=== PATIENT | female | born 1945 | race African-American/Black ===

== ENCOUNTER → 2019-02-03 | Outpatient (CLI) | payer MEDICARE, OTHER ==
[2016-01-02 23:25] VITALS: BP 197/90
--- NOTE | 2019-02-03 13:43 | CARD ---
MR#: [id number] Date of Study: 02/03/2019 Ordering Physician: CALEB CORONADO, Referring Physician: CALEB CORONADO, Tech: Vida Swann [facility] APPROVED REPORT EXAM: Two-dimensional and M-mode echocardiogram with Doppler and color Doppler. Other Information Quality : AverageHR: 77bpm Rhythm : NSR INDICATION Cardiomyopathy 2D DIMENSIONS RVDd3.0 (2.9-3.5cm)Left Atrium(2D)3.3 (1.6-4.0cm) IVSd1.3 (0.7-1.1cm)Aortic Root(2D)2.6 (2.0-3.7cm) LVDd4.1 (3.9-5.9cm)LVOT Diameter1.8 (1.8-2.4cm) PWd1.2 (0.7-1.1cm)LVDs2.9 (2.5-4.0cm) FS (%) 28.2 %SV39.9 ml LVEF(%)54.9 (>50%) M-Mode DIMENSIONS Left Atrium(MM)3.54 (2.5-4.0cm)Aortic Root3.19 (2.2-3.7cm) Aortic Valve AoV Peak Shon.106.0cm/sAoV VTI23.8cm AO Peak GR.4.5mmHgLVOT Peak Hson.72.6cm/s AO Mean GR.2mmHgAVA (VMAX)1.81cm2 PAVEL (VTI)1.80cm2 Mitral Valve MV E Pkhiwucp95.5cm/sMV DECEL HMFB137vl MV A Xaatyxfy559.6cm/sE/A Ratio0.5 Pulmonary Valve PV Peak Bfnmmpls24.8cm/s Tricuspid Valve TR P. Qwlqxpgz655ef/sRAP FXWYZIEI4ueIh TR Peak Gr.69wtJzLESS41koGu LEFT VENTRICLE The left ventricle is normal size. There is mild concentric left ventricular hypertrophy. Left ventri tayler systolic function is low normal. The Ejection Fraction is 50-55%. There is normal LV segmental wa ll motion. Transmitral Doppler flow pattern is Grade I-abnormal relaxation pattern. RIGHT VENTRICLE The right ventricle is normal size. There is normal right ventricular wall thickness. The right ventr icular systolic function is normal. ATRIA The left atrium size is normal. The right atrium size is normal. The interatrial septum is intact wit h no evidence for an atrial septal defect or patent foramen ovale as noted on 2-D or Doppler imaging. AORTIC VALVE The aortic valve is thickened but opens well. The aortic valve is trileaflet. Doppler and Color Flow revealed trace aortic regurgitation. There is no significant aortic valvular stenosis. There is no ao rtic valvular vegetation. MITRAL VALVE The mitral valve is normal in structure and function. There is no evidence of mitral valve prolapse. There is no mitral valve stenosis. Doppler and Color-flow revealed mild mitral regurgitation. TRICUSPID VALVE The tricuspid valve is normal in structure and function. Doppler and Color Flow revealed trace tricus pid regurgitation. The PA pressure was estimated at 29 mmHg. There is no tricuspid valve prolapse or vegetation. There is no tricuspid valve stenosis. PULMONIC VALVE The pulmonic valve is not well visualized. GREAT VESSELS The aortic root is normal in size. The ascending aorta is normal in size. The IVC is normal in size a nd collapses >50% with inspiration. PERICARDIAL EFFUSION There is no evidence of significant pericardial effusion. Critical Notification Critical Value: No <Conclusion> Left ventricle systolic function is low normal. The Ejection Fraction is 50-55%. There is normal LV segmental wall motion. Transmitral Doppler flow pattern is Grade I-abnormal relaxation pattern. Trace aortic regurgitation. Mild mitral regurgitation. Trace tricuspid regurgitation. The PA pressure was estimated at 29 mmHg. There is no evidence of significant pericardial effusion. Signed by : Mani Roberson, Electronically Approved : 02/03/2019 13:43:06
== END | disposition home or self-care (01) ==
LOC: ECHO 12:20
PROVIDERS: ATTEND Internal Medicine Cardiovascular Disease
DX: I34.0 Nonrheumatic mitral (valve) insufficiency (principal)
CPT/HCPCS: 93306

== ENCOUNTER → 2020-03-06 | Outpatient (CLI) | payer OTHER, MEDICAID ==
[2016-01-02 23:25] VITALS: BP 197/90
--- NOTE | 2020-03-06 16:03 | CARD ---
MR#: [id number] Date of Study: 03/06/2020 Ordering Physician: CALEB BILLY, Referring Physician: CALEB BILLY, Tech: Anay Gabriel APPROVED REPORT EXAM: Two-dimensional and M-mode echocardiogram with Doppler and color Doppler. Other Information Quality : AverageHR: 66bpm INDICATION Cardiomyopathy RISK FACTORS Hypertension Diabetes 2D DIMENSIONS RVDd3.1 (2.9-3.5cm)Left Atrium(2D)3.1 (1.6-4.0cm) IVSd1.2 (0.7-1.1cm)Aortic Root(2D)3.1 (2.0-3.7cm) LVDd3.9 (3.9-5.9cm)LVOT Diameter1.9 (1.8-2.4cm) PWd1.1 (0.7-1.1cm)LVDs2.5 (2.5-4.0cm) FS (%) 35.7 %SV42.3 ml Aortic Valve AoV Peak Shon.105.8cm/sAoV VTI21.8cm AO Peak GR.4.5mmHgLVOT Peak Shon.77.0cm/s LVOT VTI 17.36cmAO Mean GR.3mmHg PAVEL (VMAX)1.03ji5XSZ (VTI)2.33cm2 Mitral Valve MV E Ecojkghn68.1cm/sMV DECEL CTZY775hg MV A Fecrrrcr89.1cm/sMV E Mean Gr.1mmHg MV TMZ633khP/A Ratio0.5 MVA (PHT)1.76cm2 TDI E/Lateral E'8.5E/Medial E'7.8 Pulmonary Valve PV Peak Udrwwbbm49.6cm/sPV Peak Grad.2mmHg Tricuspid Valve TR P. Esjfithr106ls/sRAP ENNOORFN5znWa TR Peak Gr.56xeMgARTI18mpIw LEFT VENTRICLE The left ventricle is normal size. There is borderline concentric left ventricular hypertrophy. The l eft ventricular systolic function is normal and the ejection fraction is within normal range. The Eje ction Fraction is 50-55%. There is normal LV segmental wall motion. Transmitral Doppler flow pattern is Grade I-abnormal relaxation pattern. RIGHT VENTRICLE The right ventricle is normal size. There is normal right ventricular wall thickness. The right ventr icular systolic function is normal. ATRIA The left atrium size is normal. The right atrium size is normal. The interatrial septum is intact wit h no evidence for an atrial septal defect or patent foramen ovale as noted on 2-D or Doppler imaging. AORTIC VALVE The aortic valve is thickened but opens well. Doppler and Color Flow revealed trace aortic regurgitat ion. There is no significant aortic valvular stenosis. MITRAL VALVE The mitral valve is normal in structure and function. There is no evidence of mitral valve prolapse. There is no mitral valve stenosis. Doppler and Color-flow revealed trace mitral regurgitation. TRICUSPID VALVE The tricuspid valve is normal in structure and function. Doppler and Color Flow revealed trace tricus pid regurgitation with an estimated PAP of 27 mmHg. There is no tricuspid valve stenosis. PULMONIC VALVE The pulmonic valve is not well visualized. Doppler and Color Flow revealed no pulmonic valvular regur gitation. GREAT VESSELS The aortic root is normal in size. The IVC is normal in size and collapses >50% with inspiration. PERICARDIAL EFFUSION There is no evidence of significant pericardial effusion. Critical Notification Critical Value: No <Conclusion> The left ventricle is normal size. The left ventricular systolic function is normal and the ejection fraction is within normal range. The Ejection Fraction is 50-55%. There is borderline concentric left ventricular hypertrophy. Doppler and Color Flow revealed trace aortic regurgitation. There is no significant aortic valvular stenosis. Doppler and Color-flow revealed trace mitral regurgitation. Doppler and Color Flow revealed trace tricuspid regurgitation with an estimated PAP of 27 mmHg. Signed by : Caleb Billy MD Electronically Approved : 03/06/2020 16:02:23
== END | disposition home or self-care (01) ==
LOC: ECHO 13:13
PROVIDERS: ATTEND Internal Medicine Cardiovascular Disease
DX: I42.9 Cardiomyopathy, unspecified (principal); I51.7 Cardiomegaly
CPT/HCPCS: 93306

== ENCOUNTER 2021-07-25 22:55 | Inpatient (IN) | payer OTHER, MEDICAID ==
[~2021-07-25] VITALS: Ht 160 cm; Wt 64.0 kg
[2021-07-26 02:10] LABS: BASO % 0 % (0-3); EOS % 0 % (0-3); HEMATOCRIT 44.4 % (36.0-47.0); HEMOGLOBIN 14.5 g/dL (12.0-15.5); LYMPH # 0.9 x10^3/uL (1.0-4.8); LYMPH % 10 % (24-48); MEAN CORPUSCULAR HEMOGLOBIN 29 pg (25-35); MEAN CORPUSCULAR HGB CONC 33 g/dL (31-37); MEAN CORPUSCULAR VOLUME 88 fL (79-100); MONO # 0.7 x10^3/uL (0.0-1.1); MONO % 7 % (0-9); NEUT % 82 % (31-73); PLATELET COUNT 202 x10^3/uL (140-400); RED BLOOD COUNT 5.04 x10^6/uL (3.50-5.40); WHITE BLOOD COUNT 9.7 x10^3/uL (4.0-11.0)
[2021-07-26 02:29] LABS: CALCIUM 10.4 mg/dL (8.5-10.1); GFR 13.1; POTASSIUM 4.6 mmol/L (3.5-5.1)
--- NOTE | 2021-07-26 02:36 | PHYS DOC ---
Past Medical History Past Medical History: CHF, Diabetes-Type I, Hypertension Past Surgical History: Hip Replacement Smoking Status: Never Smoker Alcohol Use: None Drug Use: None General Adult EDM: Chief Complaint: HYPERGLYCEMIA HPI: HPI: 76-year-old female past medical history of pcm-cuzlddf-geeppfngd diabetes, hypertension and congestive heart failure, presents to the ED with her daughter and granddaughter, (patient consents to his/her/their knowledge and involvement in pts' medical care), with concern for noncompliance with medications. Daughter states patient is forgetful and stubborn and missed her morning dose of Metformin. Was able to take her evening dose but when they checked her glucose was 253 at home. Glucose normally runs in the 100s. Pt also had a few episodes of yellow emesis prior to ed arrival. Patient lives alone and medications are in a pill packet-she requires frequent oversight by family members to encourage compliance. Patient is acting appropriately, like herself with no active complaints. Review of Systems: Review of Systems: Constitutional: Denies fever or chills. [] Eyes: Denies change in visual acuity. [] HENT: Denies nasal congestion or sore throat. [] Respiratory: Denies cough or shortness of breath. [] Cardiovascular: Denies chest pain or edema. [] GI: Denies abdominal pain, bloody stools or diarrhea. [] : Denies dysuria or hematuria Musculoskeletal: Denies back pain or joint pain. [] Integument: Denies rash or diaphoresis Neurologic: Denies headache, focal weakness or sensory changes. [] Endocrine: Denies polyuria or polydipsia. [] Lymphatic: Denies swollen glands. [] Psychiatric: Denies depression or anxiety. [] Heart Score: C/O Chest Pain: No Risk Factors: Risk Factors: DM, Current or recent (<one month) smoker, HTN, HLP, family history of CAD, obesity. Risk Scores: Score 0 - 3: 2.5% MACE over next 6 weeks - Discharge Home Score 4 - 6: 20.3% MACE over next 6 weeks - Admit for Clinical Observation Score 7 - 10: 72.7% MACE over next 6 weeks - Early Invasive Strategies Allergies: Allergies: Allergies Coded Allergies Type Severity Reaction Last Updated Verified No Known Drug Allergies 01/02/16 No Physical Exam: PE: Constitutional: Well developed, well nourished, no acute distress, non-toxic appearance. HENT: Normocephalic, atraumatic, Eyes: EOMI, conjunctiva normal, no discharge. Neck: Normal range of motion, supple, Cardiovascular: S1/2 present, regular rhythm Lungs & Thorax: Speaking in full sentences, bilateral equal chest rise, no tachypnea or increased work of breathing Abdomen: soft, denies tenderness/warm abdomen, slightly distended, no rigidity Skin: Warm, dry, no erythema, no rash. [] Back: No tenderness, no CVA tenderness. [] Extremities: No tenderness, no cyanosis, no lower extremity edema Neurologic: Alert, normal motor function, normal sensory function, no focal deficits noted. [] Psychologic: Affect normal, judgement normal, mood normal. [] Current Patient Data: Labs: Laboratory Tests Test 07/26/21 00:40 White Blood Count 9.7 x10^3/uL (4.0-11.0) Red Blood Count 5.04 x10^6/uL (3.50-5.40) Hemoglobin 14.5 g/dL (12.0-15.5) Hematocrit 44.4 % (36.0-47.0) Mean Corpuscular Volume 88 fL (79-100) Mean Corpuscular Hemoglobin 29 pg (25-35) Mean Corpuscular Hemoglobin Concent 33 g/dL (31-37) Red Cell Distribution Width 14.0 % (11.5-14.5) Platelet Count 202 x10^3/uL (140-400) Neutrophils (%) (Auto) 82 % (31-73) H Lymphocytes (%) (Auto) 10 % (24-48) L Monocytes (%) (Auto) 7 % (0-9) Eosinophils (%) (Auto) 0 % (0-3) Basophils (%) (Auto) 0 % (0-3) Neutrophils # (Auto) 8.0 x10^3/uL (1.8-7.7) H Lymphocytes # (Auto) 0.9 x10^3/uL (1.0-4.8) L Monocytes # (Auto) 0.7 x10^3/uL (0.0-1.1) Eosinophils # (Auto) 0.0 x10^3/uL (0.0-0.7) Basophils # (Auto) 0.0 x10^3/uL (0.0-0.2) Sodium Level 136 mmol/L (136-145) Potassium Level 4.6 mmol/L (3.5-5.1) Chloride Level 91 mmol/L (98-107) L Carbon Dioxide Level 33 mmol/L (21-32) H Anion Gap 12 (6-14) Blood Urea Nitrogen 29 mg/dL (7-20) H Creatinine 4.0 mg/dL (0.6-1.0) H Estimated GFR (Cockcroft-Gault) 13.1 BUN/Creatinine Ratio 7 (6-20) Glucose Level 215 mg/dL (70-99) H Calcium Level 10.4 mg/dL (8.5-10.1) H Total Bilirubin Pending Aspartate Amino Transferase (AST) Pending Alanine Aminotransferase (ALT) Pending Alkaline Phosphatase Pending Total Protein Pending Albumin Pending Albumin/Globulin Ratio Pending Acetone Level Neg (NEG) Laboratory Tests 07/26/21 00:40 Laboratory Tests 07/26/21 00:40 Vital Signs: Vital Signs Date Time Temp Pulse Resp B/P (MAP) Pulse Ox O2 Delivery O2 Flow Rate FiO2 07/26/21 01:00 97.8 87 16 120/76 (91) 94 Room Air 97.8 EKG: EKG: [] Radiology/Procedures: Radiology/Procedures: IMAGING REPORT Signed PATIENT: ANGELICA KAT ACCOUNT: [id number] : 1945 LOCATION: ER AGE: 76 SEX: F EXAM STATUS: REG ER ORD. PHYSICIAN: POOL PAGE DO REASON: high glucose, renal failure, r/o obstruction PROCEDURE: CT ABDOMEN PELVIS WO CONTRAST INDICATION: Reason: high glucose, renal failure, r/o obstruction / Spl. Instructions: / History: . COMPARISON: None. TECHNIQUE: Axial CT images obtained through the abdomen and pelvis without contrast. One or more of the following individualized dose reduction techniques were utilized for this examination: 1. Automated exposure control; 2. Adjustment of the mA and/or kV according to patient size; 3. Use of iterative reconstruction technique. FINDINGS: Patchy opacity at the right lung base including groundglass and nodular component. There is some hyperinflation at the lung bases. Severe calcific atherosclerosis. Left hip arthroplasty with associated artifact limiting evaluation of pelvis. No intrahepatic bile duct dilation. Multiple gallstones. Suspected duodenal diverticulum. Limited assessment of the pancreas without intravenous contrast. Spleen not enlarged. Mild thickening of the left adrenal gland. Multiple low-density lesions of the bilateral kidneys including some that appear cystic and some have calcifications. Lobulated renal cortex with limited evaluation for solid mass. One of the complex cystic lesions on the left measures up to about 53 mm. No significant hydronephrosis. Urinary bladder is partially distended. Colonic diverticulosis. There are some calcifications at the uterus. The appendix has an elongated appearance and does appear distended with intraluminal content measuring up to about 9 mm but a large portion this measurement is from intraluminal content. No definite adjacent inflammation. High density material within the colon. There are some dilated loops of small bowel seen proximally with more distal decompression. For example some of the small bowel loops measure up to about 35 mm. Degenerative changes right hip. Scoliotic curvature the spine with degenerative changes and multilevel central canal and neural foraminal stenosis. Grade 1 anterolisthesis of L4 on 5. IMPRESSION: * Dilated loops of proximal small bowel with distal decompression. Could be from small bowel obstruction if the patient has appropriate symptoms. * Colonic diverticulosis. * The appendix is distended but this is largely from intraluminal content and there is no adjacent inflammatory changes. * Bilateral renal lesions are identified including some that appear cystic as well as complex cystic. Lobulated appearance of the renal cortex therefore would be difficult to exclude a solid lesion. Nonemergent CT, MRI or ultrasound renal protocol could further assess. * Gallstones. * Patchy opacity at right lung base could be infectious or inflammatory in nature but would consider obtaining a follow-up to ensure that this decreases to exclude persistent nodule. Electronically signed by: Smitha Boothe MD (07/26/2021 4:07 AM) DESKTOP- [id number] DICTATED and SIGNED BY: SMITHA BOOTHE MD DATE: 07/26/21 [id number] 0 Course & Med Decision Making: Course & Med Decision Making Pertinent Labs and Imaging studies reviewed. (See chart for details) Patient presents the ED with concern for hypoglycemia with a few episodes of nausea and vomiting. Labs show renal insufficiency, no prior for baseline comparison. CT imaging concerning for possible (suspect early) small bowel obstruction-likely patient's etiology of nausea and vomiting. Pt not vaccinated for covid but denies any cough or shortness of breath. Will admit for further medical management, surgery and nephrology consultations placed. Patient stable at time admission and her and her daughter agrees with this plan. I have spoken with the patient and/or caregivers. I have explained the patient's condition, diagnosis and treatment plan based on the information available to me at this time. I have answered the patient's and/or caregivers questions and answered any concerns. The patient and/or caregivers have as good an understanding of the patient's diagnosis, condition and treatment plan as can be expected at this point. The patient has been stabilized within the capability of the emergency department. The patient will be transported for further care and management or will be moved to an observation or inpatient service. I have communicated with the staff or medical practitioner taking over this patient's care. [place] Disclaimer: [employer] Disclaimer: This electronic medical record was generated, in whole or in part, using a voice recognition dictation system. Departure Departure Impression: Primary Impression: SBO (small bowel obstruction) Additional Impressions: Renal insufficiency Nausea & vomiting Disposition: ADMITTED INPATIENT Admitting Physician: Ashlyn Rodrigez Condition: GUARDED Referrals: ASHLYN RODRIGEZ MD (PCP) POOL PAGE DO Jul 26, 2021 02:36
[2021-07-26 02:37] LABS: ALBUMIN 3.9 g/dL (3.4-5.0); ALBUMIN/GLOBULIN RATIO 0.7 (1.0-1.7); TOTAL BILIRUBIN 0.4 mg/dL (0.2-1.0); TOTAL PROTEIN 9.7 g/dL (6.4-8.2)
[2021-07-26] MEDS ORDERED: ONDANSETRON PF 4 MG/2 ML VIAL. IVP ONE (02:45)
[2021-07-26] MEDS ORDERED: IV NORMAL SALINE 1000ML BAG 1,000 ML IV ONE (02:45)
--- NOTE | 2021-07-26 04:10 | RAD ---
INDICATION: Reason: high glucose, renal failure, r/o obstruction / Spl. Instructions: / History: . COMPARISON: None. TECHNIQUE: Axial CT images obtained through the abdomen and pelvis without contrast. One or more of the following individualized dose reduction techniques were utilized for this examinat ion: 1. Automated exposure control; 2. Adjustment of the mA and/or kV according to patient size; 3 . Use of iterative reconstruction technique. FINDINGS: Patchy opacity at the right lung base including groundglass and nodular component. There is some hype rinflation at the lung bases. Severe calcific atherosclerosis. Left hip arthroplasty with associated artifact limiting evaluation o f pelvis. No intrahepatic bile duct dilation. Multiple gallstones. Suspected duodenal diverticulum. Limited assessment of the pancreas without intravenous contrast. Spleen not enlarged. Mild thickening of the left adrenal gland. Multiple low-density lesions of the bilateral kidneys including some that appear cystic and some have calcifications. Lobulated renal cortex with limited evaluation for solid mass. One of the complex cy stic lesions on the left measures up to about 53 mm. No significant hydronephrosis. Urinary bladder is partially distended. Colonic diverticulosis. There are some calcifications at the uterus. The appendix has an elongated appearance and does appear distended with intraluminal content measuring up to about 9 mm but a large portion this measurement is from intraluminal content. No definite adjacent inflammation. High density material within the colon. There are some dilated loops of small bowel seen proximally w ith more distal decompression. For example some of the small bowel loops measure up to about 35 mm. Degenerative changes right hip. Scoliotic curvature the spine with degenerative changes and multilevel central canal and neural deirdre inal stenosis. Grade 1 anterolisthesis of L4 on 5. IMPRESSION: * Dilated loops of proximal small bowel with distal decompression. Could be from small bowel obstruc tion if the patient has appropriate symptoms. * Colonic diverticulosis. * The appendix is distended but this is largely from intraluminal content and there is no adjacent i nflammatory changes. * Bilateral renal lesions are identified including some that appear cystic as well as complex cystic . Lobulated appearance of the renal cortex therefore would be difficult to exclude a solid lesion. No nemergent CT, MRI or ultrasound renal protocol could further assess. * Gallstones. * Patchy opacity at right lung base could be infectious or inflammatory in nature but would consider obtaining a follow-up to ensure that this decreases to exclude persistent nodule. Electronically signed by: Mark Hernandez MD (07/26/2021 4:07 AM) [id number]
[2021-07-26] MEDS ORDERED: IV NORMAL SALINE 1000ML BAG 1,000 ML IV SCH (05:15)
[2021-07-26] MEDS ORDERED: ONDANSETRON PF 4 MG/2 ML VIAL. IVP PRN (05:15)
[2021-07-26 07:30] VITALS: BP 145/76
--- NOTE | 2021-07-26 09:11 | PDOC ---
Provider Note Date of Service: DATE: 07/26/21 TIME: 09:10 Provider Note Pt seen.H&P dictated.#[id number]. Justifications for Admission Other Justification LEXX RODRIGEZ MD Jul 26, 2021 09:10
[2021-07-26] MEDS ORDERED: DEXTROSE 50% 25 GM / 50ML DISP.SYRIN. IV PRN (09:15)
--- NOTE | 2021-07-26 10:13 | HP ---
DATE OF SERVICE: 07/26/2021 ADMIT DATE: 07/26/2021 REASON FOR ADMISSION TO THE HOSPITAL: 1. Small bowel obstruction. 2. Acute renal failure. HISTORY OF PRESENT ILLNESS: The patient is a 76-year-old female. She has a history of hypertension, diabetes, chronic heart failure as well as hyperlipidemia. She was doing relatively well. In fact, I have seen her a couple of weeks ago. Her baseline creatinine, if I remember, is around 1.5. She was having abdominal pain, nausea, vomiting; was brought to the hospital. Her creatinine was high at 4 and also, CT scan shows a small bowel obstruction. The patient was admitted to the hospital, was given fluids. Surgical and Renal were consulted. PAST MEDICAL HISTORY: As mentioned above, history of hypertension, congestive heart failure, diabetes, hyperlipidemia. PAST SURGICAL HISTORY: Hip replacement. PERSONAL HISTORY: Denies smoking, alcohol, drug abuse. FAMILY HISTORY: Diabetes, hypertension. REVIEW OF SYMPTOMS: The patient has no chest pain, shortness of breath; has some abdominal discomfort, but improving. Rest of the 14 systems reviewed and negative. ALLERGIES: No known allergies. MEDICATIONS: I believe, the patient is on Coreg, simvastatin, metformin, and atorvastatin. PHYSICAL EXAMINATION: GENERAL: The patient is pleasant, not in any distress. VITAL SIGNS: At the time of admission shows temperature 97, pulse 87, respirations 16, blood pressure 120/76 and 94 on room air. HEENT: Head is atraumatic. Pupils are equal. Oral cavity, no congestion. NECK: Supple. Thyroid not enlarged. JVD not elevated. CHEST: Symmetrical. CARDIOVASCULAR: S1, S2. LUNGS: Clear to auscultation. ABDOMEN: Soft, nontender. Bowel sounds are present. No mass palpable. EXTERNAL GENITALIA: No Carney. RECTUM: Deferred. EXTREMITIES: No calf tenderness, no edema. NEUROLOGIC: Moving all extremities. No focal deficits noted. LABORATORY DATA: Shows a white count of 9, hemoglobin 14, platelets 202. Electrolytes show sodium 136, potassium 4.6, chloride 91, bicarb 33, anion gap 12, BUN 29, creatinine 4.0, glucose 215. LFTs normal. Toxicology: Acetone was negative. DIAGNOSTIC DATA: CT of the abdomen and pelvis shows dilated loops of proximal small bowel with distal decompression, small bowel obstruction, diverticulosis, gallstones. FINAL IMPRESSION: 1. Abdominal pain, possible small bowel obstruction. 2. Acute renal insufficiency. Creatinine 4, normal creatinine is around 1.5. 3. Hypertension. 4. Diabetes. 5. Hyperlipidemia. 6. History of chronic heart failure, systolic; but last echocardiogram shows good improvement 50% in 2020. PLAN: At this time, was admit to the hospital, hydrate with IV fluids. Surgery is consulted for small bowel obstruction. Renal consult. CT scan shows no hydronephrosis. We will monitor kidney functions and hold metformin at this time. SAMREEN DR: Cruz TID: [id number]
[2021-07-26 11:02] VITALS: BP 155/83
[2021-07-26] MEDS ORDERED: FURO20TA3 PO (11:07)
[2021-07-26] MEDS ORDERED: SITA100T PO (11:07)
[2021-07-26] MEDS ORDERED: METF500T16 PO (11:07)
[2021-07-26] MEDS ORDERED: POTA-116 (11:07)
[2021-07-26] MEDS ORDERED: EMPA25TA PO (11:07)
[2021-07-26] MEDS ORDERED: ROSU20TA28 PO (11:07)
[2021-07-26] MEDS ORDERED: CARV25TA2 PO (11:07)
[2021-07-26] MEDS ORDERED: LISI20TA18 PO (11:07)
[2021-07-26] MEDS ORDERED: FLUT16SP NS (11:07)
[2021-07-26] MEDS: INSULIN LISPRO 300 UNITS/3 ML VIAL. SQ SCH ×2 (11:41→17:00)
--- NOTE | 2021-07-26 11:47 | PDOC2 ---
CONSULT Date of Consult Date of Consult DATE: 07/26/21 TIME: 11:41 Reason for Consult Reason for Consult: CECELIA Referring Physician Referring Physician: RAIN Identification/Chief Complaint Chief Complaint ABD PAIN Source Source: Chart review, Patient History of Present Illness Reason for Visit: THIS IS A 76 YR OLD WITH ABD PAIN, N/V. IMAGING C/W SBO. SHE IS ADMITTED FOR FURTHER EVALUATION AND TX. BASELINE CR OF ABOUT 1.[address] RODRIGEZ. CURRENTLY 4.0 WITH MET ALKALOSIS. PROB CKD DUE TO DM II AND HTN HX. NO NEPHROTOXINS. HEMODYNAMICALLY STABLE. IMAGING SUGGESTIVE OF BILATERAL RENAL CYSTS SOME OF WHICH APPEAR COMPLEX. NO OBSTRUCTION NOTED. NO OTHER HX. Past Medical History Cardiovascular: HTN Musculoskeletal: Osteoarthritis Endocrine: Diabetes Past Surgical History Past Surgical History: Total hip replacement Family History Family History: Hypertension Social History No ALCOHOL: none Drugs: None Lives: with Family Current Problem List Problem List Problems Medical Problems: (1) Nausea & vomiting Status: Acute (2) SBO (small bowel obstruction) Status: Acute Current Medications Current Medications Current Medications Ondansetron HCl (Zofran) 8 mg 1X ONCE IVP Last administered on 07/26/21at 02:45; Start 07/26/21 at 02:45; Stop 07/26/21 at 02:46; Status DC Sodium Chloride 1,000 ml @ 1,000 mls/hr 1X ONCE IV Last administered on 07/26/21at 02:45; Start 07/26/21 at 02:45; Stop 07/26/21 at 03:44; Status DC Ondansetron HCl (Zofran) 4 mg PRN Q8HRS PRN IVP NAUSEA/VOMITING; Start 07/26/21 at 05:15; Stop 07/27/21 at 05:14 Sodium Chloride 1,000 ml @ 100 mls/hr Q10H IV Last administered on 07/26/21at 05:21; Start 07/26/21 at 05:15; Stop 07/26/21 at 14:59 Insulin Human Lispro (HumaLOG) 0-5 UNITS TIDWMEALS SQ ; Start 07/26/21 at 12:00 Dextrose (Dextrose 50%-Water Syringe) 12.5 gm PRN Q15MIN PRN IV SEE COMMENTS; Start 07/26/21 at 09:15 Dextrose/Sodium Chloride 1,000 ml @ 100 mls/hr Q10H IV ; Start 07/26/21 at 15:00 Active Scripts Active Reported Klor-Con M10 (Potassium Chloride) 10 Meq Tab.er.prt Unknown Dose UNKNOWN Rosuvastatin Calcium 20 Mg Tablet 1 Tab PO QHS Metformin Hcl 500 Mg Tablet 1 Tab PO BID Furosemide 20 Mg Tablet 1 Tab PO DAILY Fluticasone Propionate Nasal [place] (Fluticasone Propionate) 16 Gm [place].susp Unknown Dose NS UNKNOWN Carvedilol 25 Mg Tablet 1 Tab PO BID Jardiance (Empagliflozin) 25 Mg Tablet 1 Tab PO DAILY Januvia (Sitagliptin Phosphate) 100 Mg Tablet 1 Tab PO DAILY Lisinopril 20 Mg Tablet 1 Tab PO DAILY Allergies Allergies: Coded Allergies: No Known Drug Allergies (Unverified , 01/02/16) ROS General: YES: [place] PSYCHOLOGICAL ROS: YES: Anxiety Eyes: Yes Decreased vision ALLERGY AND IMMUNOLOGY: YES: Seasonal Allergies Respiratory: YES: Cough Gastrointestinal: Yes Nausea, Yes Vomiting, Yes Abdominal Pain Genitourinary: YES Other (DECREASE UO) Musculoskeletal: Yes Muscular Weakness Neurological: Yes Weakness Skin: Yes Dry Skin Physical Exam General: Alert, Cooperative, No acute distress HEENT: Atraumatic, PERRLA Lungs: Clear to auscultation Heart: Regular rate Abdomen: Soft, Other (HYPOACTIVE) Extremities: No cyanosis Skin: No breakdown Neuro: Normal speech Psych/Mental Status: Mental status NL, Mood NL MUSCULOSKELETAL: No joint tenderness, No deformity, No swelling Vitals VITALS Vital Signs Date Time Temp Pulse Resp B/P (MAP) Pulse Ox O2 Delivery O2 Flow Rate FiO2 07/26/21 11:02 98.8 94 20 155/83 (107) 95 Room Air 98.8 Labs Labs Laboratory Tests Test 07/26/21 00:40 07/26/21 07:52 07/26/21 11:31 White Blood Count 9.7 x10^3/uL (4.0-11.0) Red Blood Count 5.04 x10^6/uL (3.50-5.40) Hemoglobin 14.5 g/dL (12.0-15.5) Hematocrit 44.4 % (36.0-47.0) Mean Corpuscular Volume 88 fL (79-100) Mean Corpuscular Hemoglobin 29 pg (25-35) Mean Corpuscular Hemoglobin Concent 33 g/dL (31-37) Red Cell Distribution Width 14.0 % (11.5-14.5) Platelet Count 202 x10^3/uL (140-400) Neutrophils (%) (Auto) 82 % (31-73) Lymphocytes (%) (Auto) 10 % (24-48) Monocytes (%) (Auto) 7 % (0-9) Eosinophils (%) (Auto) 0 % (0-3) Basophils (%) (Auto) 0 % (0-3) Neutrophils # (Auto) 8.0 x10^3/uL (1.8-7.7) Lymphocytes # (Auto) 0.9 x10^3/uL (1.0-4.8) Monocytes # (Auto) 0.7 x10^3/uL (0.0-1.1) Eosinophils # (Auto) 0.0 x10^3/uL (0.0-0.7) Basophils # (Auto) 0.0 x10^3/uL (0.0-0.2) Sodium Level 136 mmol/L (136-145) Potassium Level 4.6 mmol/L (3.5-5.1) Chloride Level 91 mmol/L (98-107) Carbon Dioxide Level 33 mmol/L (21-32) Anion Gap 12 (6-14) Blood Urea Nitrogen 29 mg/dL (7-20) Creatinine 4.0 mg/dL (0.6-1.0) Estimated GFR (Cockcroft-Gault) 13.1 BUN/Creatinine Ratio 7 (6-20) Glucose Level 215 mg/dL (70-99) Calcium Level 10.4 mg/dL (8.5-10.1) Total Bilirubin 0.4 mg/dL (0.2-1.0) Aspartate Amino Transf (AST/SGOT) 16 U/L (15-37) Alanine Aminotransferase (ALT/SGPT) 14 U/L (14-59) Alkaline Phosphatase 103 U/L (46-116) Total Protein 9.7 g/dL (6.4-8.2) Albumin 3.9 g/dL (3.4-5.0) Albumin/Globulin Ratio 0.7 (1.0-1.7) Acetone Level Neg (NEG) Glucose (Fingerstick) 232 mg/dL (70-99) 190 mg/dL (70-99) Laboratory Tests Test 07/26/21 00:40 07/26/21 07:52 07/26/21 11:31 White Blood Count 9.7 x10^3/uL (4.0-11.0) Red Blood Count 5.04 x10^6/uL (3.50-5.40) Hemoglobin 14.5 g/dL (12.0-15.5) Hematocrit 44.4 % (36.0-47.0) Mean Corpuscular Volume 88 fL (79-100) Mean Corpuscular Hemoglobin 29 pg (25-35) Mean Corpuscular Hemoglobin Concent 33 g/dL (31-37) Red Cell Distribution Width 14.0 % (11.5-14.5) Platelet Count 202 x10^3/uL (140-400) Neutrophils (%) (Auto) 82 % (31-73) Lymphocytes (%) (Auto) 10 % (24-48) Monocytes (%) (Auto) 7 % (0-9) Eosinophils (%) (Auto) 0 % (0-3) Basophils (%) (Auto) 0 % (0-3) Neutrophils # (Auto) 8.0 x10^3/uL (1.8-7.7) Lymphocytes # (Auto) 0.9 x10^3/uL (1.0-4.8) Monocytes # (Auto) 0.7 x10^3/uL (0.0-1.1) Eosinophils # (Auto) 0.0 x10^3/uL (0.0-0.7) Basophils # (Auto) 0.0 x10^3/uL (0.0-0.2) Sodium Level 136 mmol/L (136-145) Potassium Level 4.6 mmol/L (3.5-5.1) Chloride Level 91 mmol/L (98-107) Carbon Dioxide Level 33 mmol/L (21-32) Anion Gap 12 (6-14) Blood Urea Nitrogen 29 mg/dL (7-20) Creatinine 4.0 mg/dL (0.6-1.0) Estimated GFR (Cockcroft-Gault) 13.1 BUN/Creatinine Ratio 7 (6-20) Glucose Level 215 mg/dL (70-99) Calcium Level 10.4 mg/dL (8.5-10.1) Total Bilirubin 0.4 mg/dL (0.2-1.0) Aspartate Amino Transf (AST/SGOT) 16 U/L (15-37) Alanine Aminotransferase (ALT/SGPT) 14 U/L (14-59) Alkaline Phosphatase 103 U/L (46-116) Total Protein 9.7 g/dL (6.4-8.2) Albumin 3.9 g/dL (3.4-5.0) Albumin/Globulin Ratio 0.7 (1.0-1.7) Acetone Level Neg (NEG) Glucose (Fingerstick) 232 mg/dL (70-99) 190 mg/dL (70-99) Images Images INDICATION: Reason: high glucose, renal failure, r/o obstruction / Spl. Instructions: / History: . COMPARISON: None. TECHNIQUE: Axial CT images obtained through the abdomen and pelvis without contrast. One or more of the following individualized dose reduction techniques were u tilized for this examination: 1. Automated exposure control; 2. Adjustment of the mA and/or kV according to patient size; 3. Use of iterative reconstruction technique. FINDINGS: Patchy opacity at the right lung base including groundglass and nodular c omponent. There is some hyperinflation at the lung bases. Severe calcific atherosclerosis. Left hip arthroplasty with associated artifact limiting evaluation of pelvis. No intrahepatic bile duct dilation. Multiple gallstones. Suspected duodenal diverticulum. Limited assessment of the pancreas without intravenous contrast. Spleen not enlarged. Mild thickening of the left adrenal gland. Multiple low-density lesions of the bilateral kidneys including some that appear cystic and some have calcifications. Lobulated renal cortex with limited evaluation for solid mass. One of the complex cystic lesions on the left measures up to about 53 mm. No significant hydronephrosis. Urinary bladder is partially distended. Colonic diverticulosis. There are some calcifications at the uterus. The appendix has an elongated appearance and does appear distended with intraluminal content measuring up to about 9 mm but a large portion this measurement is from intraluminal content. No definite adjacent inflammation. High density material within the colon. There are some dilated loops of small bowel seen proximally with more distal decompression. For example some of the small bowel loops measure up to about 35 mm. Degenerative changes right hip. Scoliotic curvature the spine with degenerative changes and multilevel central canal and neural foraminal stenosis. Grade 1 anterolisthesis of L4 on 5. IMPRESSION: * Dilated loops of proximal small bowel with distal decompression. Could be from small bowel obstruction if the patient has appropriate symptoms. * Colonic diverticulosis. * The appendix is distended but this is largely from intraluminal content and there is no adjacent inflammatory changes. * Bilateral renal lesions are identified including some that appear cystic as well as complex cystic. Lobulated appearance of the renal cortex therefore would be difficult to exclude a solid lesion. Nonemergent CT, MRI or ultrasound renal protocol could further assess. * Gallstones. * Patchy opacity at right lung base could be infectious or inflammatory in nature but would consider obtaining a follow-up to ensure that this decreases to exclude persistent nodule. Electronically signed by: Mark Hernandez MD (07/26/2021 4:07 AM) DESKTOP- [id number] Assessment/Plan Assessment/Plan IMP CECELIA CKD STAGE 3-CR 1.5 DEHYDRATION SMALL BOWEL OBSTRUCTION DM II HTN PLAN HYDRATION HOLD METFORMIN HOLD KCL AND LASIX ALSO HOLD LISINOPRIL CHECK UA LABS IN AM WILL FOLLOW KAYLEEN CUI MD Jul 26, 2021 11:47
--- NOTE | 2021-07-26 12:00 | PDOC2 ---
CONSULT Date of Consult Date of Consult DATE: 07/26/21 TIME: 11:57 Reason for Consult Reason for Consult: sbo Referring Physician Referring Physician: ER Identification/Chief Complaint Chief Complaint abdominal, hyperglycemia Source Source: Chart review, Patient History of Present Illness Reason for Visit: Admitted with abdominal pain, nausea, emesis. Hyperglycemia Reports currently no pain, no nausea, no flatus, no stool since admission Past Medical History Cardiovascular: HTN Musculoskeletal: Osteoarthritis Endocrine: Diabetes Past Surgical History Past Surgical History: Total hip replacement Family History Family History: Hypertension Social History No ALCOHOL: none Drugs: None Lives: with Family Current Problem List Problem List Problems Medical Problems: (1) Nausea & vomiting Status: Acute (2) SBO (small bowel obstruction) Status: Acute Current Medications Current Medications Current Medications Ondansetron HCl (Zofran) 8 mg 1X ONCE IVP Last administered on 07/26/21at 02:45; Start 07/26/21 at 02:45; Stop 07/26/21 at 02:46; Status DC Sodium Chloride 1,000 ml @ 1,000 mls/hr 1X ONCE IV Last administered on 07/26/21at 02:45; Start 07/26/21 at 02:45; Stop 07/26/21 at 03:44; Status DC Ondansetron HCl (Zofran) 4 mg PRN Q8HRS PRN IVP NAUSEA/VOMITING; Start 07/26/21 at 05:15; Stop 07/27/21 at 05:14 Sodium Chloride 1,000 ml @ 100 mls/hr Q10H IV Last administered on 07/26/21at 05:21; Start 07/26/21 at 05:15; Stop 07/26/21 at 14:59 Insulin Human Lispro (HumaLOG) 0-5 UNITS TIDWMEALS SQ ; Start 07/26/21 at 12:00 Dextrose (Dextrose 50%-Water Syringe) 12.5 gm PRN Q15MIN PRN IV SEE COMMENTS; Start 07/26/21 at 09:15 Dextrose/Sodium Chloride 1,000 ml @ 100 mls/hr Q10H IV ; Start 07/26/21 at 15:00 Active Scripts Active Reported Klor-Con M10 (Potassium Chloride) 10 Meq Tab.er.prt Unknown Dose UNKNOWN Rosuvastatin Calcium 20 Mg Tablet 1 Tab PO QHS Metformin Hcl 500 Mg Tablet 1 Tab PO BID Furosemide 20 Mg Tablet 1 Tab PO DAILY Fluticasone Propionate Nasal [place] (Fluticasone Propionate) 16 Gm [place].susp Unknown Dose NS UNKNOWN Carvedilol 25 Mg Tablet 1 Tab PO BID Jardiance (Empagliflozin) 25 Mg Tablet 1 Tab PO DAILY Januvia (Sitagliptin Phosphate) 100 Mg Tablet 1 Tab PO DAILY Lisinopril 20 Mg Tablet 1 Tab PO DAILY Allergies Allergies: Coded Allergies: No Known Drug Allergies (Unverified , 01/02/16) ROS General: No: Chills, Other (fevers ) PSYCHOLOGICAL ROS: No: Anxiety, Depression Eyes: No Blurry vision, No Decreased vision HEENT: No: Heacaches, Sore Throat Hematological and Lymphatic: No: Bleeding Problems, Blood Clots Respiratory: No: Cough, Shortness of breath Cardiovascular: No Chest Pain, No Palpitations Gastrointestinal: Yes Other (see hpi) Genitourinary: No Dysuria, No Hematuria Musculoskeletal: No Joint Pain, No Muscle Pain Neurological: No Impaired Coord/balance, No Numbness/Tingling Skin: No Pruritus, No Rash Physical Exam General: Alert, Oriented X3, Cooperative HEENT: Atraumatic, PERRLA Lungs: Clear to auscultation, Normal air movement Heart: Regular rate, Normal S1, Normal S2 Abdomen: Soft, No tenderness, No hepatosplenomegaly Extremities: No clubbing, No cyanosis Skin: No rashes, No breakdown Neuro: Normal gait, Normal speech, Reflexes 2+ Psych/Mental Status: Mental status NL, Mood NL MUSCULOSKELETAL: No deformity, No swelling Vitals VITALS Vital Signs Date Time Temp Pulse Resp B/P (MAP) Pulse Ox O2 Delivery O2 Flow Rate FiO2 07/26/21 11:02 98.8 94 20 155/83 (107) 95 Room Air 98.8 Labs Labs Laboratory Tests Test 07/26/21 00:40 07/26/21 07:52 07/26/21 11:31 White Blood Count 9.7 x10^3/uL (4.0-11.0) Red Blood Count 5.04 x10^6/uL (3.50-5.40) Hemoglobin 14.5 g/dL (12.0-15.5) Hematocrit 44.4 % (36.0-47.0) Mean Corpuscular Volume 88 fL (79-100) Mean Corpuscular Hemoglobin 29 pg (25-35) Mean Corpuscular Hemoglobin Concent 33 g/dL (31-37) Red Cell Distribution Width 14.0 % (11.5-14.5) Platelet Count 202 x10^3/uL (140-400) Neutrophils (%) (Auto) 82 % (31-73) Lymphocytes (%) (Auto) 10 % (24-48) Monocytes (%) (Auto) 7 % (0-9) Eosinophils (%) (Auto) 0 % (0-3) Basophils (%) (Auto) 0 % (0-3) Neutrophils # (Auto) 8.0 x10^3/uL (1.8-7.7) Lymphocytes # (Auto) 0.9 x10^3/uL (1.0-4.8) Monocytes # (Auto) 0.7 x10^3/uL (0.0-1.1) Eosinophils # (Auto) 0.0 x10^3/uL (0.0-0.7) Basophils # (Auto) 0.0 x10^3/uL (0.0-0.2) Sodium Level 136 mmol/L (136-145) Potassium Level 4.6 mmol/L (3.5-5.1) Chloride Level 91 mmol/L (98-107) Carbon Dioxide Level 33 mmol/L (21-32) Anion Gap 12 (6-14) Blood Urea Nitrogen 29 mg/dL (7-20) Creatinine 4.0 mg/dL (0.6-1.0) Estimated GFR (Cockcroft-Gault) 13.1 BUN/Creatinine Ratio 7 (6-20) Glucose Level 215 mg/dL (70-99) Calcium Level 10.4 mg/dL (8.5-10.1) Total Bilirubin 0.4 mg/dL (0.2-1.0) Aspartate Amino Transf (AST/SGOT) 16 U/L (15-37) Alanine Aminotransferase (ALT/SGPT) 14 U/L (14-59) Alkaline Phosphatase 103 U/L (46-116) Total Protein 9.7 g/dL (6.4-8.2) Albumin 3.9 g/dL (3.4-5.0) Albumin/Globulin Ratio 0.7 (1.0-1.7) Acetone Level Neg (NEG) Glucose (Fingerstick) 232 mg/dL (70-99) 190 mg/dL (70-99) Laboratory Tests Test 07/26/21 00:40 07/26/21 07:52 07/26/21 11:31 White Blood Count 9.7 x10^3/uL (4.0-11.0) Red Blood Count 5.04 x10^6/uL (3.50-5.40) Hemoglobin 14.5 g/dL (12.0-15.5) Hematocrit 44.4 % (36.0-47.0) Mean Corpuscular Volume 88 fL (79-100) Mean Corpuscular Hemoglobin 29 pg (25-35) Mean Corpuscular Hemoglobin Concent 33 g/dL (31-37) Red Cell Distribution Width 14.0 % (11.5-14.5) Platelet Count 202 x10^3/uL (140-400) Neutrophils (%) (Auto) 82 % (31-73) Lymphocytes (%) (Auto) 10 % (24-48) Monocytes (%) (Auto) 7 % (0-9) Eosinophils (%) (Auto) 0 % (0-3) Basophils (%) (Auto) 0 % (0-3) Neutrophils # (Auto) 8.0 x10^3/uL (1.8-7.7) Lymphocytes # (Auto) 0.9 x10^3/uL (1.0-4.8) Monocytes # (Auto) 0.7 x10^3/uL (0.0-1.1) Eosinophils # (Auto) 0.0 x10^3/uL (0.0-0.7) Basophils # (Auto) 0.0 x10^3/uL (0.0-0.2) Sodium Level 136 mmol/L (136-145) Potassium Level 4.6 mmol/L (3.5-5.1) Chloride Level 91 mmol/L (98-107) Carbon Dioxide Level 33 mmol/L (21-32) Anion Gap 12 (6-14) Blood Urea Nitrogen 29 mg/dL (7-20) Creatinine 4.0 mg/dL (0.6-1.0) Estimated GFR (Cockcroft-Gault) 13.1 BUN/Creatinine Ratio 7 (6-20) Glucose Level 215 mg/dL (70-99) Calcium Level 10.4 mg/dL (8.5-10.1) Total Bilirubin 0.4 mg/dL (0.2-1.0) Aspartate Amino Transf (AST/SGOT) 16 U/L (15-37) Alanine Aminotransferase (ALT/SGPT) 14 U/L (14-59) Alkaline Phosphatase 103 U/L (46-116) Total Protein 9.7 g/dL (6.4-8.2) Albumin 3.9 g/dL (3.4-5.0) Albumin/Globulin Ratio 0.7 (1.0-1.7) Acetone Level Neg (NEG) Glucose (Fingerstick) 232 mg/dL (70-99) 190 mg/dL (70-99) Assessment/Plan Assessment/Plan sbo vs ileus bowel rest, ok for ice chips recheck xr in AM GABY FITZGERALD GIS MANAGER Jul 26, 2021 12:00
[2021-07-26] MEDS: IV DEXTROSE 5% - 0.9 % NACL 1,000 ML IV SCH (14:54)
[2021-07-26 15:09] VITALS: BP 144/87
[2021-07-26 19:00] VITALS: BP 183/89
[2021-07-26 23:00] VITALS: BP 128/89
[2021-07-27] MEDS: IV DEXTROSE 5% - 0.9 % NACL 1,000 ML IV SCH ×3 (00:45→21:28)
[2021-07-27 03:00] VITALS: BP 151/92
[2021-07-27 07:00] VITALS: BP 168/86
[2021-07-27 07:13] LABS: BASO % 0 % (0-3); EOS # 0.1 x10^3/uL (0.0-0.7); EOS % 3 % (0-3); HEMATOCRIT 35.4 % (36.0-47.0); HEMOGLOBIN 11.4 g/dL (12.0-15.5); LYMPH # 0.9 x10^3/uL (1.0-4.8); LYMPH % 16 % (24-48); MEAN CORPUSCULAR HEMOGLOBIN 28 pg (25-35); MEAN CORPUSCULAR HGB CONC 32 g/dL (31-37); MEAN CORPUSCULAR VOLUME 88 fL (79-100); MONO # 0.5 x10^3/uL (0.0-1.1); MONO % 10 % (0-9); NEUT # 3.8 x10^3/uL (1.8-7.7); NEUT % 72 % (31-73); PLATELET COUNT 165 x10^3/uL (140-400); RED BLOOD COUNT 4.02 x10^6/uL (3.50-5.40); WHITE BLOOD COUNT 5.3 x10^3/uL (4.0-11.0)
[2021-07-27 07:23] LABS: CALCIUM 8.1 mg/dL (8.5-10.1); CREATININE 3.2 mg/dL (0.6-1.0); POTASSIUM 3.9 mmol/L (3.5-5.1)
--- NOTE | 2021-07-27 08:26 | PDOC ---
SURGICAL PROGRESS NOTE DATE: 07/27/21 TIME: 08:25 Subjective resting no pain small amount of flatus no nausea Vital Signs Vital Signs Date Time Temp Pulse Resp B/P (MAP) Pulse Ox O2 Delivery O2 Flow Rate FiO2 07/27/21 03:00 98.7 94 18 151/92 (111) 97 98.7 07/26/21 20:00 Room Air I&O Intake and Output 07/27/21 07:00 Intake Total 1135 ml Balance 1135 ml Intake Oral 0 ml IV Total 1135 ml # Voids 2 General: Alert, Oriented X3, Cooperative Abdomen: Soft, No tenderness, Other (ND) Labs Laboratory Tests Test 07/26/21 00:40 07/26/21 07:52 07/26/21 11:31 07/26/21 16:57 White Blood Count 9.7 x10^3/uL (4.0-11.0) Red Blood Count 5.04 x10^6/uL (3.50-5.40) Hemoglobin 14.5 g/dL (12.0-15.5) Hematocrit 44.4 % (36.0-47.0) Mean Corpuscular Volume 88 fL (79-100) Mean Corpuscular Hemoglobin 29 pg (25-35) Mean Corpuscular Hemoglobin Concent 33 g/dL (31-37) Red Cell Distribution Width 14.0 % (11.5-14.5) Platelet Count 202 x10^3/uL (140-400) Neutrophils (%) (Auto) 82 % (31-73) Lymphocytes (%) (Auto) 10 % (24-48) Monocytes (%) (Auto) 7 % (0-9) Eosinophils (%) (Auto) 0 % (0-3) Basophils (%) (Auto) 0 % (0-3) Neutrophils # (Auto) 8.0 x10^3/uL (1.8-7.7) Lymphocytes # (Auto) 0.9 x10^3/uL (1.0-4.8) Monocytes # (Auto) 0.7 x10^3/uL (0.0-1.1) Eosinophils # (Auto) 0.0 x10^3/uL (0.0-0.7) Basophils # (Auto) 0.0 x10^3/uL (0.0-0.2) Sodium Level 136 mmol/L (136-145) Potassium Level 4.6 mmol/L (3.5-5.1) Chloride Level 91 mmol/L (98-107) Carbon Dioxide Level 33 mmol/L (21-32) Anion Gap 12 (6-14) Blood Urea Nitrogen 29 mg/dL (7-20) Creatinine 4.0 mg/dL (0.6-1.0) Estimated GFR (Cockcroft-Gault) 13.1 BUN/Creatinine Ratio 7 (6-20) Glucose Level 215 mg/dL (70-99) Calcium Level 10.4 mg/dL (8.5-10.1) Total Bilirubin 0.4 mg/dL (0.2-1.0) Aspartate Amino Transf (AST/SGOT) 16 U/L (15-37) Alanine Aminotransferase (ALT/SGPT) 14 U/L (14-59) Alkaline Phosphatase 103 U/L (46-116) Total Protein 9.7 g/dL (6.4-8.2) Albumin 3.9 g/dL (3.4-5.0) Albumin/Globulin Ratio 0.7 (1.0-1.7) Acetone Level Neg (NEG) Glucose (Fingerstick) 232 mg/dL (70-99) 190 mg/dL (70-99) 194 mg/dL (70-99) Test 07/26/21 21:07 07/27/21 06:20 Glucose (Fingerstick) 232 mg/dL (70-99) White Blood Count 5.3 x10^3/uL (4.0-11.0) Red Blood Count 4.02 x10^6/uL (3.50-5.40) Hemoglobin 11.4 g/dL (12.0-15.5) Hematocrit 35.4 % (36.0-47.0) Mean Corpuscular Volume 88 fL (79-100) Mean Corpuscular Hemoglobin 28 pg (25-35) Mean Corpuscular Hemoglobin Concent 32 g/dL (31-37) Red Cell Distribution Width 14.0 % (11.5-14.5) Platelet Count 165 x10^3/uL (140-400) Neutrophils (%) (Auto) 72 % (31-73) Lymphocytes (%) (Auto) 16 % (24-48) Monocytes (%) (Auto) 10 % (0-9) Eosinophils (%) (Auto) 3 % (0-3) Basophils (%) (Auto) 0 % (0-3) Neutrophils # (Auto) 3.8 x10^3/uL (1.8-7.7) Lymphocytes # (Auto) 0.9 x10^3/uL (1.0-4.8) Monocytes # (Auto) 0.5 x10^3/uL (0.0-1.1) Eosinophils # (Auto) 0.1 x10^3/uL (0.0-0.7) Basophils # (Auto) 0.0 x10^3/uL (0.0-0.2) Sodium Level 141 mmol/L (136-145) Potassium Level 3.9 mmol/L (3.5-5.1) Chloride Level 103 mmol/L (98-107) Carbon Dioxide Level 29 mmol/L (21-32) Anion Gap 9 (6-14) Blood Urea Nitrogen 33 mg/dL (7-20) Creatinine 3.2 mg/dL (0.6-1.0) Estimated GFR (Cockcroft-Gault) 17.0 Glucose Level 269 mg/dL (70-99) Calcium Level 8.1 mg/dL (8.5-10.1) Magnesium Level 2.0 mg/dL (1.8-2.4) Laboratory Tests Test 07/26/21 11:31 07/26/21 16:57 07/26/21 21:07 07/27/21 06:20 Glucose (Fingerstick) 190 mg/dL (70-99) 194 mg/dL (70-99) 232 mg/dL (70-99) White Blood Count 5.3 x10^3/uL (4.0-11.0) Red Blood Count 4.02 x10^6/uL (3.50-5.40) Hemoglobin 11.4 g/dL (12.0-15.5) Hematocrit 35.4 % (36.0-47.0) Mean Corpuscular Volume 88 fL (79-100) Mean Corpuscular Hemoglobin 28 pg (25-35) Mean Corpuscular Hemoglobin Concent 32 g/dL (31-37) Red Cell Distribution Width 14.0 % (11.5-14.5) Platelet Count 165 x10^3/uL (140-400) Neutrophils (%) (Auto) 72 % (31-73) Lymphocytes (%) (Auto) 16 % (24-48) Monocytes (%) (Auto) 10 % (0-9) Eosinophils (%) (Auto) 3 % (0-3) Basophils (%) (Auto) 0 % (0-3) Neutrophils # (Auto) 3.8 x10^3/uL (1.8-7.7) Lymphocytes # (Auto) 0.9 x10^3/uL (1.0-4.8) Monocytes # (Auto) 0.5 x10^3/uL (0.0-1.1) Eosinophils # (Auto) 0.1 x10^3/uL (0.0-0.7) Basophils # (Auto) 0.0 x10^3/uL (0.0-0.2) Sodium Level 141 mmol/L (136-145) Potassium Level 3.9 mmol/L (3.5-5.1) Chloride Level 103 mmol/L (98-107) Carbon Dioxide Level 29 mmol/L (21-32) Anion Gap 9 (6-14) Blood Urea Nitrogen 33 mg/dL (7-20) Creatinine 3.2 mg/dL (0.6-1.0) Estimated GFR (Cockcroft-Gault) 17.0 Glucose Level 269 mg/dL (70-99) Calcium Level 8.1 mg/dL (8.5-10.1) Magnesium Level 2.0 mg/dL (1.8-2.4) Problem List Problems Medical Problems: (1) Nausea & vomiting Status: Acute (2) SBO (small bowel obstruction) Status: Acute Assessment/Plan sbo vs ileus await xr Justicifation of Admission Dx: Justifications for Admission: Justification of Admission Dx: Yes Comments: sbo vs ileus GABY FITZGERALD [employer] SUPERVISOR Jul 27, 2021 08:26
[2021-07-27] MEDS: INSULIN LISPRO 300 UNITS/3 ML VIAL. SQ SCH ×3 (09:05→17:00)
--- NOTE | 2021-07-27 10:05 | PDOC ---
PROGRESS NOTES Date of Service: DATE: 07/27/21 TIME: 10:03 Subjective Subjective feels ok Objective Objective Vital Signs Date Time Temp Pulse Resp B/P (MAP) Pulse Ox O2 Delivery O2 Flow Rate FiO2 07/27/21 07:00 98.4 86 16 168/86 (113) 98 Room Air 98.4 Intake and Output 07/27/21 07:00 Intake Total 1135 ml Balance 1135 ml Intake Oral 0 ml IV Total 1135 ml # Voids 2 Physical Exam Abdomen: Soft, No tenderness, Other (ND) Heart: Regular rate, Normal S1, Normal S2 Extremities: No clubbing, No cyanosis General: Alert, Oriented X3, Cooperative HEENT: Atraumatic, PERRLA Lungs: Clear to auscultation, Normal air movement MUSCULOSKELETAL: No deformity, No swelling Neuro: Normal gait, Normal speech, Reflexes 2+ Psych/Mental Status: Mental status NL, Mood NL Skin: No rashes, No breakdown Diagnosis Problem List Problems Medical Problems: (1) Nausea & vomiting Status: Acute (2) SBO (small bowel obstruction) Status: Acute Assessment Assessment Problems Medical Problems: (1) Nausea & vomiting Status: Acute (2) SBO (small bowel obstruction) Status: Acute FINAL IMPRESSION: 1. Abdominal pain, possible partial small bowel obstruction. 2. Acute renal insufficiency. Creatinine 4, normal creatinine is around 1.5. 3. Hypertension. 4. Diabetes. 5. Hyperlipidemia. 6. History of chronic heart failure, systolic; but last echocardiogram shows good improvement 50% in 2020. PLAN: KUB today. cr 3.2 down with fluids. spoke with RN ?clear liquid diet today. ambulate. At this time, was admit to the hospital, hydrate with IV fluids. Surgery is consulted for small bowel obstruction. Renal consult. CT scan shows no hydronephrosis. We will monitor kidney functions and hold metformin at this time. Plan Plan of Care Problems Medical Problems: (1) Nausea & vomiting Status: Acute (2) SBO (small bowel obstruction) Status: Acute Comment Review of Relevant I have reviewed the following items shaan (where applicable) has been applied. Labs Laboratory Tests Test 07/26/21 11:31 07/26/21 16:57 07/26/21 21:07 07/27/21 06:20 Glucose (Fingerstick) 190 mg/dL (70-99) 194 mg/dL (70-99) 232 mg/dL (70-99) White Blood Count 5.3 x10^3/uL (4.0-11.0) Red Blood Count 4.02 x10^6/uL (3.50-5.40) Hemoglobin 11.4 g/dL (12.0-15.5) Hematocrit 35.4 % (36.0-47.0) Mean Corpuscular Volume 88 fL (79-100) Mean Corpuscular Hemoglobin 28 pg (25-35) Mean Corpuscular Hemoglobin Concent 32 g/dL (31-37) Red Cell Distribution Width 14.0 % (11.5-14.5) Platelet Count 165 x10^3/uL (140-400) Neutrophils (%) (Auto) 72 % (31-73) Lymphocytes (%) (Auto) 16 % (24-48) Monocytes (%) (Auto) 10 % (0-9) Eosinophils (%) (Auto) 3 % (0-3) Basophils (%) (Auto) 0 % (0-3) Neutrophils # (Auto) 3.8 x10^3/uL (1.8-7.7) Lymphocytes # (Auto) 0.9 x10^3/uL (1.0-4.8) Monocytes # (Auto) 0.5 x10^3/uL (0.0-1.1) Eosinophils # (Auto) 0.1 x10^3/uL (0.0-0.7) Basophils # (Auto) 0.0 x10^3/uL (0.0-0.2) Sodium Level 141 mmol/L (136-145) Potassium Level 3.9 mmol/L (3.5-5.1) Chloride Level 103 mmol/L (98-107) Carbon Dioxide Level 29 mmol/L (21-32) Anion Gap 9 (6-14) Blood Urea Nitrogen 33 mg/dL (7-20) Creatinine 3.2 mg/dL (0.6-1.0) Estimated GFR (Cockcroft-Gault) 17.0 Glucose Level 269 mg/dL (70-99) Calcium Level 8.1 mg/dL (8.5-10.1) Magnesium Level 2.0 mg/dL (1.8-2.4) Test 07/27/21 08:30 Glucose (Fingerstick) 282 mg/dL (70-99) Medications Current Medications Dextrose/Sodium Chloride 1,000 ml @ 100 mls/hr Q10H IV Last administered on 07/27/21at 00:45; Start 07/26/21 at 15:00 Insulin Human Lispro (HumaLOG) 0-5 UNITS TIDWMEALS SQ Last administered on 07/27/21at 09:05; Start 07/26/21 at 12:00 Vitals/I & O Vital Sign - Last 24 Hours 07/26/21 07/26/21 07/26/21 07/26/21 11:02 15:09 19:00 20:00 Temp 98.8 98.2 97.6 98.8 98.2 97.6 Pulse 94 98 90 Resp 20 18 18 B/P (MAP) 155/83 (107) 144/87 (106) 183/89 (120) Pulse Ox 95 99 94 O2 Delivery Room Air Room Air Room Air 07/26/21 07/27/21 07/27/21 23:00 03:00 07:00 Temp 99.1 98.7 98.4 99.1 98.7 98.4 Pulse 98 94 86 Resp 18 18 16 B/P (MAP) 128/89 (102) 151/92 (111) 168/86 (113) Pulse Ox 98 97 98 O2 Delivery Room Air Intake and Output 0 07/26/21 07/26/21 07/27/21 15:00 23:00 07:00 Intake Total 0 ml 1135 ml Balance 0 ml 1135 ml Justifications for Admission Other Justification LEXX RODRIGEZ MD Jul 27, 2021 10:05
[2021-07-27 11:00] VITALS: BP 194/94
[2021-07-27] MEDS ORDERED: ASPI-886 PO (11:23)
[2021-07-27] MEDS: LINAGLIPTIN 5 MG TABLET PO SCH (12:00)
[2021-07-27] MEDS: CARVEDILOL 12.5 MG TABLET. PO SCH ×2 (12:00→16:25)
[2021-07-27] MEDS: ASPIRIN ENTERIC COATED 81 MG TABLET.DR. PO SCH (12:00)
--- NOTE | 2021-07-27 12:05 | RAD ---
ACUTE ABDOMEN SERIES Indication: Small bowel obstruction Date of service:07/27/2021 07/26/2021 .Comparison: CT abdomen and pelvis from 07/26/2021 Procedure: PA chest and upright and supine abdomen views are obtained. Findings: Chest: Cardiac size and pulmonary vessels are normal. Pneumonia, pneumothorax or pleural effusion ar e not present. Atheromatous calcification of the aortic knob. Abdomen: Mild gaseous distention of the small bowel loops is seen in the central abdomen. There is mi ld stool in the colon. Rounded densities in the right upper abdomen suggest cholelithiasis. Impression: Normal Chest . Ongoing mild dilation of the small bowel loops. This could reflect small bowel obstruction or ileus p attern. Continued follow-up may be obtained. Electronically signed by: Dayan Mckay MD (07/27/2021 12:02 PM) [facility]
[2021-07-27] MEDS: FLUTICASONE 50MCG/NASAL SPRAY 16GM BOTTLE. NS SCH ×2 (14:15→20:59)
[2021-07-27 15:00] VITALS: BP 192/102
--- NOTE | 2021-07-27 15:12 | PDOC ---
Renal-Progress Notes Subjective Notes Notes FEELING BETTER BUT STILL HAS NAUSEA History of Present Illness Hx of present illness STABLE Vitals Vitals Vital Signs Date Time Temp Pulse Resp B/P (MAP) Pulse Ox O2 Delivery O2 Flow Rate FiO2 07/27/21 11:00 98.6 89 17 194/94 (127) 99 Room Air 98.6 Weight Weight [ ] I.O. Intake and Output Intake and Output 07/27/21 07:00 Intake Total 1135 ml Balance 1135 ml Intake Oral 0 ml IV Total 1135 ml # Voids 2 Labs Labs Laboratory Tests Test 07/26/21 16:57 07/26/21 21:07 07/27/21 06:20 07/27/21 08:30 Glucose (Fingerstick) 194 mg/dL (70-99) 232 mg/dL (70-99) 282 mg/dL (70-99) White Blood Count 5.3 x10^3/uL (4.0-11.0) Red Blood Count 4.02 x10^6/uL (3.50-5.40) Hemoglobin 11.4 g/dL (12.0-15.5) Hematocrit 35.4 % (36.0-47.0) Mean Corpuscular Volume 88 fL (79-100) Mean Corpuscular Hemoglobin 28 pg (25-35) Mean Corpuscular Hemoglobin Concent 32 g/dL (31-37) Red Cell Distribution Width 14.0 % (11.5-14.5) Platelet Count 165 x10^3/uL (140-400) Neutrophils (%) (Auto) 72 % (31-73) Lymphocytes (%) (Auto) 16 % (24-48) Monocytes (%) (Auto) 10 % (0-9) Eosinophils (%) (Auto) 3 % (0-3) Basophils (%) (Auto) 0 % (0-3) Neutrophils # (Auto) 3.8 x10^3/uL (1.8-7.7) Lymphocytes # (Auto) 0.9 x10^3/uL (1.0-4.8) Monocytes # (Auto) 0.5 x10^3/uL (0.0-1.1) Eosinophils # (Auto) 0.1 x10^3/uL (0.0-0.7) Basophils # (Auto) 0.0 x10^3/uL (0.0-0.2) Sodium Level 141 mmol/L (136-145) Potassium Level 3.9 mmol/L (3.5-5.1) Chloride Level 103 mmol/L (98-107) Carbon Dioxide Level 29 mmol/L (21-32) Anion Gap 9 (6-14) Blood Urea Nitrogen 33 mg/dL (7-20) Creatinine 3.2 mg/dL (0.6-1.0) Estimated GFR (Cockcroft-Gault) 17.0 Glucose Level 269 mg/dL (70-99) Calcium Level 8.1 mg/dL (8.5-10.1) Magnesium Level 2.0 mg/dL (1.8-2.4) Test 07/27/21 11:24 Glucose (Fingerstick) 162 mg/dL (70-99) Review of Systems Constitutional: yes: weakness, alert Ears/Nose/Throat: Yes: no symptom reported Eyes: Yes: no symptom reported Pulmonary: Yes no symptom reported Cardiovascular: Yes no symptom reported Gastrointestional: Yes: nausea, abdominal pain Genitourinary: Yes: no symptom reported Musculoskeletal: Yes: no symptom reported Skin: Yes no symptom reported Psychiatric/Neurological: Yes: no symptom reported Physical Exam General Appearance: no apparent distress Respiratory: bilateral CTA Heart: S1S2 Abdomen: soft, bowel sounds present Genitourinary: bladder flat Extremities: pulses present Neurology: alert Musculoskeletal: Osteoarthritis Assessment Assessment IMP CECELIA-CR DOWN TO 3.2 CKD STAGE 3-CR 1.5 DEHYDRATION SMALL BOWEL OBSTRUCTION DM II HTN PLAN HYDRATION HOLD METFORMIN HOLD KCL AND LASIX ALSO HOLD LISINOPRI LABS IN AM WILL FOLLOW UPDATED FAMILY PPN IF UNABLE TO FULLY RESUME PO SOON KAYLEEN CUI MD Jul 27, 2021 15:12
--- NOTE | 2021-07-27 16:00 | NUR ---
Downtime protocol started. Telephone order received for Hydralazine 10mg IVP Q4hr PRN. Paper order sheet filled out and sent to [facility] in pharmacy. Documentation done on paper OCT. Administered first dose of hydralazine at 1639. Will continue to monitor.
[2021-07-27] MEDS ORDERED: HYDROcodone/APAP 5/325MG 1 TAB TABLET PO PRN (18:00)
[2021-07-27 19:00] VITALS: BP 195/87
[2021-07-27] MEDS: ATORVASTATIN CALCIUM 40 MG TABLET. PO SCH (21:00)
[2021-07-27] MEDS: ENOXAPARIN 30 MG/0.3 ML SYRINGE. SQ SCH (21:09)
[2021-07-27 23:00] VITALS: BP 213/122
[2021-07-27] MEDS: hydrALAZINE 20 MG/ML VIAL. IVP PRN (23:45)
[2021-07-28] VITALS (9 sets, daily range): BP systolic 155–197; BP diastolic 79–115
[2021-07-28] MEDS: hydrALAZINE 20 MG/ML VIAL. IVP PRN ×4 (03:53→22:13)
--- NOTE | 2021-07-28 05:55 | NUR ---
Patient vomited lg amount of green emesis at 0530. Dr. Alfredo paged for zofran orders also for additional PRN blood pressure medications. RN has been unable to get systolic below 182 with current PRN orders. Will continue to monitor.
[2021-07-28] MEDS: CARVEDILOL 12.5 MG TABLET. PO SCH ×2 (08:40→17:22)
[2021-07-28] MEDS: ASPIRIN ENTERIC COATED 81 MG TABLET.DR. PO SCH (08:40)
[2021-07-28] MEDS: FLUTICASONE 50MCG/NASAL SPRAY 16GM BOTTLE. NS SCH ×2 (08:40→22:09)
[2021-07-28] MEDS: INSULIN LISPRO 300 UNITS/3 ML VIAL. SQ SCH ×3 (08:48→16:30)
[2021-07-28] MEDS: LINAGLIPTIN 5 MG TABLET PO SCH (08:49)
--- NOTE | 2021-07-28 09:17 | PDOC ---
SURGICAL PROGRESS NOTE DATE: 07/28/21 TIME: 09:16 Subjective emesis x 2 this AM no significant bowel function Vital Signs Vital Signs Date Time Temp Pulse Resp B/P (MAP) Pulse Ox O2 Delivery O2 Flow Rate FiO2 07/28/21 08:40 102 197/98 07/28/21 07:00 98.4 17 98 Room Air 98.4 I&O Intake and Output 07/28/21 06:59 Intake Total 890 ml Output Total 400 ml Balance 490 ml IV Total 890 ml Output Emesis 400 ml # Voids 2 General: Cooperative, No acute distress Abdomen: Soft, Other (mildly distended ) Labs Laboratory Tests Test 07/26/21 11:31 07/26/21 16:57 07/26/21 21:07 07/27/21 06:20 Glucose (Fingerstick) 190 mg/dL (70-99) 194 mg/dL (70-99) 232 mg/dL (70-99) White Blood Count 5.3 x10^3/uL (4.0-11.0) Red Blood Count 4.02 x10^6/uL (3.50-5.40) Hemoglobin 11.4 g/dL (12.0-15.5) Hematocrit 35.4 % (36.0-47.0) Mean Corpuscular Volume 88 fL (79-100) Mean Corpuscular Hemoglobin 28 pg (25-35) Mean Corpuscular Hemoglobin Concent 32 g/dL (31-37) Red Cell Distribution Width 14.0 % (11.5-14.5) Platelet Count 165 x10^3/uL (140-400) Neutrophils (%) (Auto) 72 % (31-73) Lymphocytes (%) (Auto) 16 % (24-48) Monocytes (%) (Auto) 10 % (0-9) Eosinophils (%) (Auto) 3 % (0-3) Basophils (%) (Auto) 0 % (0-3) Neutrophils # (Auto) 3.8 x10^3/uL (1.8-7.7) Lymphocytes # (Auto) 0.9 x10^3/uL (1.0-4.8) Monocytes # (Auto) 0.5 x10^3/uL (0.0-1.1) Eosinophils # (Auto) 0.1 x10^3/uL (0.0-0.7) Basophils # (Auto) 0.0 x10^3/uL (0.0-0.2) Sodium Level 141 mmol/L (136-145) Potassium Level 3.9 mmol/L (3.5-5.1) Chloride Level 103 mmol/L (98-107) Carbon Dioxide Level 29 mmol/L (21-32) Anion Gap 9 (6-14) Blood Urea Nitrogen 33 mg/dL (7-20) Creatinine 3.2 mg/dL (0.6-1.0) Estimated GFR (Cockcroft-Gault) 17.0 Glucose Level 269 mg/dL (70-99) Calcium Level 8.1 mg/dL (8.5-10.1) Magnesium Level 2.0 mg/dL (1.8-2.4) Test 07/27/21 08:30 07/27/21 11:24 07/27/21 16:21 07/27/21 20:23 Glucose (Fingerstick) 282 mg/dL (70-99) 162 mg/dL (70-99) 184 mg/dL (70-99) 227 mg/dL (70-99) Test 07/28/21 08:16 Glucose (Fingerstick) 287 mg/dL (70-99) Laboratory Tests Test 07/27/21 11:24 07/27/21 16:21 07/27/21 20:23 07/28/21 08:16 Glucose (Fingerstick) 162 mg/dL (70-99) 184 mg/dL (70-99) 227 mg/dL (70-99) 287 mg/dL (70-99) Problem List Problems Medical Problems: (1) Nausea & vomiting Status: Acute (2) SBO (small bowel obstruction) Status: Acute Assessment/Plan will place NG, SBFT Justicifation of Admission Dx: Justifications for Admission: Justification of Admission Dx: Yes GABY FITZGERALD APRN Jul 28, 2021 09:17
[2021-07-28] MEDS: cloNIDine TTS-2 1 PATCH PATCH TD SCH (10:01)
[2021-07-28] MEDS: IV DEXTROSE 5% - 0.9 % NACL 1,000 ML IV SCH (10:01)
--- NOTE | 2021-07-28 10:29 | PDOC ---
IM PROGRESS NOTES- Subjective Subjective No complaints of nausea or vomiting. Patient states that she is passing gas but family does not believe her. Patient does not want NG tube placed. Objective Vitals/I&O Vital Signs Date Time Temp Pulse Resp B/P (MAP) Pulse Ox O2 Delivery O2 Flow Rate FiO2 07/28/21 08:40 102 197/98 07/28/21 07:00 98.4 17 98 Room Air 98.4 I & O 07/27/21 07/27/21 07/28/21 15:00 23:00 07:00 Intake Total 890 ml Output Total 400 ml Balance 890 ml -400 ml Physical Exam Physical Exam General Appearance - alert and in no distress Chest - decreased breath sounds at bases Heart - S1 and S2 normal Abdomen - soft, non tender, mild distention, bowel sounds present. No guarding, no rigidity. Neurological - alert and oriented Musculoskeletal - generalized weakness Extremities - no edema Labs Laboratory Tests Test 07/27/21 11:24 07/27/21 16:21 07/27/21 20:23 07/28/21 08:16 Glucose (Fingerstick) 162 mg/dL (70-99) H 184 mg/dL (70-99) H 227 mg/dL (70-99) H 287 mg/dL (70-99) H Meds Current Medications Medications (Trade) Dose Ordered Sig/Svitlana Route PRN Reason Start Time Stop Time Status Last Admin Dose Admin Enoxaparin Sodium (Lovenox 30mg Syringe) 30 mg Q24H SQ 07/27/21 21:00 07/27/21 21:09 Fluticasone Propionate (Flonase) 1 spray BID NS 07/27/21 13:00 07/28/21 08:40 Carvedilol (Coreg) 25 mg BIDWMEALS PO 07/27/21 12:00 07/28/21 08:40 Atorvastatin Calcium (Lipitor) 80 mg QHS PO 07/27/21 21:00 07/27/21 21:00 Aspirin (Ecotrin) 81 mg DAILY PO 07/27/21 12:00 07/28/21 08:40 Acetaminophen/ Hydrocodone Bitart (Lortab 5/325) 1 tab PRN Q6HRS PRN PO PAIN 07/27/21 18:00 07/27/21 19:59 Hydralazine HCl (Apresoline Inj) 10 mg PRN Q4HRS PRN IVP ELEVATED BP, SEE COMMENTS 07/27/21 18:00 07/28/21 08:40 Clonidine HCl (Catapres Tts-2) 1 patch WEEKLY TD 07/28/21 09:00 07/28/21 10:01 Assessment Assessment Problems Medical Problems: (1) Nausea & vomiting Status: Acute (2) SBO (small bowel obstruction) Status: Acute FINAL IMPRESSION: 1. Abdominal pain, possible partial small bowel obstruction. 2. Acute renal insufficiency. Creatinine 4, normal creatinine is around 1.5. 3. Hypertension. 4. Diabetes. 5. Hyperlipidemia. 6. History of chronic heart failure, systolic; but last echocardiogram shows good improvement 50% in 2019. PLAN: Acute renal failure. Continue IV fluids. Creatinine was 3.2 yesterday. Labs are pending today Small bowel obstruction. I have encouraged patient to get NG tube placed. IV when asked the nurse to give her IV Ativan as needed for anxiety. Condition treatment extensively discussed with the patient and several family members. Encouraged her to get NG tube placed. Follow-up KUB. Small bowel series ordered for tomorrow. Diabetes mellitus type 2 not controlled. Adjust insulin Plan Plan For more details regarding further plans, please refer to the orders. Justifications for Admission Other Justification DENI MOLINA MD Jul 28, 2021 10:29
[2021-07-28 10:54] LABS: CALCIUM 8.3 mg/dL (8.5-10.1); CREATININE 1.6 mg/dL (0.6-1.0); GFR 37.8; POTASSIUM 3.6 mmol/L (3.5-5.1)
--- NOTE | 2021-07-28 11:00 | NUR ---
Pt hesitant on inserting NG tube. Procedure explained in detail to patient and family members by this RN and Dr. Wen. Risks and benefits also explained by Dr. Wen. Pt still undecided on insertion of NG tube. No more episodes of vomiting thus far. Pt denies pain and gas at this time. Will continue to monitor.
[2021-07-28] MEDS ORDERED: fentaNYL PF VIAL 100 MCG/2 ML VIAL IV PRN (11:15)
[2021-07-28] MEDS ORDERED: IV 1/2 NORMAL SALINE 1,000 ML IV ONE (11:45)
--- NOTE | 2021-07-28 11:47 | PDOC ---
Renal-Progress Notes Subjective Notes Notes NO NEW COMPLAINTS History of Present Illness Hx of present illness FEELING BETTER Vitals Vitals Vital Signs Date Time Temp Pulse Resp B/P (MAP) Pulse Ox O2 Delivery O2 Flow Rate FiO2 07/28/21 08:40 102 197/98 07/28/21 08:00 Room Air 07/28/21 07:00 98.4 17 98 98.4 Weight Weight [ ] I.O. Intake and Output Intake and Output 07/28/21 07:00 Intake Total 890 ml Output Total 400 ml Balance 490 ml IV Total 890 ml Output Emesis 400 ml # Voids 2 Labs Labs Laboratory Tests Test 07/27/21 16:21 07/27/21 20:23 07/28/21 08:16 07/28/21 10:25 Glucose (Fingerstick) 184 mg/dL (70-99) 227 mg/dL (70-99) 287 mg/dL (70-99) Sodium Level 146 mmol/L (136-145) Potassium Level 3.6 mmol/L (3.5-5.1) Chloride Level 110 mmol/L (98-107) Carbon Dioxide Level 28 mmol/L (21-32) Anion Gap 8 (6-14) Blood Urea Nitrogen 20 mg/dL (7-20) Creatinine 1.6 mg/dL (0.6-1.0) Estimated GFR (Cockcroft-Gault) 37.8 Glucose Level 240 mg/dL (70-99) Calcium Level 8.3 mg/dL (8.5-10.1) Review of Systems Constitutional: yes: weakness, alert Ears/Nose/Throat: Yes: no symptom reported Eyes: Yes: no symptom reported Pulmonary: Yes no symptom reported Cardiovascular: Yes no symptom reported Gastrointestional: Yes: nausea, abdominal pain Genitourinary: Yes: no symptom reported Musculoskeletal: Yes: no symptom reported Skin: Yes no symptom reported Psychiatric/Neurological: Yes: no symptom reported Physical Exam General Appearance: no apparent distress Respiratory: bilateral CTA Heart: S1S2 Abdomen: soft, bowel sounds present Genitourinary: bladder flat Extremities: pulses present Neurology: alert Musculoskeletal: Osteoarthritis Assessment Assessment IMP CECELIA-CR DOWN TO 1.7 HYPERNATREMIA CKD STAGE 3-CR 1.5 DEHYDRATION SMALL BOWEL OBSTRUCTION DM II HTN PLAN HYDRATION-CHANGE TO HYPOTONIC SALINE HOLD METFORMIN HOLD KCL AND LASIX ALSO HOLD LISINOPRI LABS IN AM WILL FOLLOW KAYLEEN CUI MD Jul 28, 2021 11:47
[2021-07-28] MEDS: POTASSIUM CHLORIDE 10MEQ 100 ML IV SCH ×2 (12:34→13:00)
--- NOTE | 2021-07-28 13:35 | NUR ---
Notified Mami Flores of patient refusing NG tube. Mami stated that an accurate diagnosis of SBO cannot be made without the Small Bowel Series Exam done and that exam cannot be done without NG tube due to risk of aspiration from the barrium contrast. This RN explained this to patient, and patient verbalized understanding. Pt has still not decided to get NG tube. Will continue to monitor.
--- NOTE | 2021-07-28 14:11 | RAD ---
Exam performed: Acute abdominal series HISTORY: Small bowel obstruction follow-up DATE OF SERVICE: 07/28/2021. COMPARISON: 07/06/2021. FINDINGS: Single view of the chest demonstrates normal cardiac mediastinal silhouette. There is atheromatous ca lcification of the aortic knob. Lungs are well-expanded and clear. Old healed right rib fractures see n. Supine and upright views of the abdomen demonstrate nonspecific, nondistended bowel loops. Previously seen dilated small bowel loops have significantly improved. There is radiographic contrast in the co feliz. Postoperative changes of total left hip at opacity. IMPRESSION: No acute cardiopulmonary process seen. Significant interval improvement in previously seen dilated small bowel loops Electronically signed by: Dayan Mckay MD (07/28/2021 2:09 PM) [facility]
[2021-07-28] MEDS: METOPROLOL IV PUSH 5 MG/5 ML VIAL. IVP SCH (20:33)
[2021-07-28] MEDS: ENOXAPARIN 30 MG/0.3 ML SYRINGE. SQ SCH (20:34)
[2021-07-28] MEDS: ATORVASTATIN CALCIUM 40 MG TABLET. PO SCH (20:34)
[2021-07-29] VITALS (7 sets, daily range): BP systolic 160–197; BP diastolic 75–107
[2021-07-29] MEDS: METOPROLOL IV PUSH 5 MG/5 ML VIAL. IVP SCH ×4 (01:03→17:46)
[2021-07-29] MEDS: hydrALAZINE 20 MG/ML VIAL. IVP PRN ×5 (02:49→23:58)
[2021-07-29] MEDS: INSULIN LISPRO 300 UNITS/3 ML VIAL. SQ SCH ×3 (07:30→17:45)
[2021-07-29] MEDS: CARVEDILOL 12.5 MG TABLET. PO SCH ×2 (07:42→11:35)
[2021-07-29] MEDS: LINAGLIPTIN 5 MG TABLET PO SCH (07:42)
[2021-07-29] MEDS: ASPIRIN ENTERIC COATED 81 MG TABLET.DR. PO SCH (07:42)
[2021-07-29] MEDS ORDERED: CONTRAST GIVEN. MC PRN (07:45)
[2021-07-29] MEDS ORDERED: IOHEXOL 300 MG/ML 100ML VIAL. PO ONE (07:45)
[2021-07-29] MEDS: FLUTICASONE 50MCG/NASAL SPRAY 16GM BOTTLE. NS SCH ×2 (08:06→22:46)
[2021-07-29 09:03] LABS: BASO % 0 % (0-3); EOS # 0.1 x10^3/uL (0.0-0.7); EOS % 2 % (0-3); HEMATOCRIT 36.4 % (36.0-47.0); HEMOGLOBIN 11.5 g/dL (12.0-15.5); LYMPH # 0.9 x10^3/uL (1.0-4.8); LYMPH % 17 % (24-48); MEAN CORPUSCULAR HEMOGLOBIN 28 pg (25-35); MEAN CORPUSCULAR HGB CONC 32 g/dL (31-37); MEAN CORPUSCULAR VOLUME 88 fL (79-100); MONO # 0.5 x10^3/uL (0.0-1.1); MONO % 9 % (0-9); NEUT # 3.8 x10^3/uL (1.8-7.7); NEUT % 72 % (31-73); PLATELET COUNT 179 x10^3/uL (140-400); RED BLOOD COUNT 4.13 x10^6/uL (3.50-5.40); WHITE BLOOD COUNT 5.2 x10^3/uL (4.0-11.0)
--- NOTE | 2021-07-29 09:16 | PDOC ---
PROGRESS NOTES Date of Service: DATE: 07/29/21 TIME: 09:13 Subjective Subjective small bowel series today Objective Objective Vital Signs Date Time Temp Pulse Resp B/P (MAP) Pulse Ox O2 Delivery O2 Flow Rate FiO2 07/29/21 08:07 78 171/103 07/29/21 08:00 Room Air 07/29/21 07:00 98.5 18 98 98.5 Intake and Output 07/29/21 07:00 Intake Total 800 ml Output Total 0 ml Balance 800 ml IV Total 800 ml Output Urine Total 0 ml # Voids 2 Physical Exam Abdomen: Soft, Other (mildly distended ) Heart: Regular rate, Normal S1, Normal S2 Extremities: No clubbing, No cyanosis General: Cooperative, No acute distress HEENT: Atraumatic, PERRLA Lungs: Clear to auscultation, Normal air movement MUSCULOSKELETAL: No deformity, No swelling Neuro: Normal gait, Normal speech, Reflexes 2+ Psych/Mental Status: Mental status NL, Mood NL Skin: No rashes, No breakdown Diagnosis Problem List Problems Medical Problems: (1) Nausea & vomiting Status: Acute (2) SBO (small bowel obstruction) Status: Acute Assessment Assessment Problems Medical Problems: (1) Nausea & vomiting Status: Acute (2) SBO (small bowel obstruction) Status: Acute FINAL IMPRESSION: 1. Abdominal pain, possible partial small bowel obstruction. 2. Acute renal insufficiency. Creatinine 4, normal creatinine is around 1.5. 3. Hypertension. 4. Diabetes. 5. Hyperlipidemia. 6. History of chronic heart failure, systolic; but last echocardiogram shows good improvement 50% in 2020. PLAN: small bowel series today. kidney function improved. clear liquid diet today. Bp problems. Acute renal failure. Continue IV fluids. Creatinine was 3.2 yesterday. Labs are pending today Small bowel obstruction. I have encouraged patient to get NG tube placed. IV when asked the nurse to give her IV Ativan as needed for anxiety. Condition treatment extensively discussed with the patient and several family members. Encouraged her to get NG tube placed. Follow-up KUB. Small bowel series ordered for tomorrow. Diabetes mellitus type 2 not controlled. Adjust insulin Plan Plan of Care Problems Medical Problems: (1) Nausea & vomiting Status: Acute (2) SBO (small bowel obstruction) Status: Acute Comment Review of Relevant I have reviewed the following items shaan (where applicable) has been applied. Labs Laboratory Tests Test 07/28/21 10:25 07/28/21 11:32 07/28/21 17:13 07/28/21 20:33 Sodium Level 146 mmol/L (136-145) Potassium Level 3.6 mmol/L (3.5-5.1) Chloride Level 110 mmol/L (98-107) Carbon Dioxide Level 28 mmol/L (21-32) Anion Gap 8 (6-14) Blood Urea Nitrogen 20 mg/dL (7-20) Creatinine 1.6 mg/dL (0.6-1.0) Estimated GFR (Cockcroft-Gault) 37.8 Glucose Level 240 mg/dL (70-99) Calcium Level 8.3 mg/dL (8.5-10.1) Glucose (Fingerstick) 199 mg/dL (70-99) 122 mg/dL (70-99) 125 mg/dL (70-99) Test 07/29/21 07:24 07/29/21 07:50 Glucose (Fingerstick) 137 mg/dL (70-99) White Blood Count 5.2 x10^3/uL (4.0-11.0) Red Blood Count 4.13 x10^6/uL (3.50-5.40) Hemoglobin 11.5 g/dL (12.0-15.5) Hematocrit 36.4 % (36.0-47.0) Mean Corpuscular Volume 88 fL (79-100) Mean Corpuscular Hemoglobin 28 pg (25-35) Mean Corpuscular Hemoglobin Concent 32 g/dL (31-37) Red Cell Distribution Width 14.0 % (11.5-14.5) Platelet Count 179 x10^3/uL (140-400) Neutrophils (%) (Auto) 72 % (31-73) Lymphocytes (%) (Auto) 17 % (24-48) Monocytes (%) (Auto) 9 % (0-9) Eosinophils (%) (Auto) 2 % (0-3) Basophils (%) (Auto) 0 % (0-3) Neutrophils # (Auto) 3.8 x10^3/uL (1.8-7.7) Lymphocytes # (Auto) 0.9 x10^3/uL (1.0-4.8) Monocytes # (Auto) 0.5 x10^3/uL (0.0-1.1) Eosinophils # (Auto) 0.1 x10^3/uL (0.0-0.7) Basophils # (Auto) 0.0 x10^3/uL (0.0-0.2) Medications Current Medications Fentanyl Citrate (Fentanyl 2ml Vial) 50 mcg PRN Q3HRS PRN IV PAIN; Start 07/28/21 at 11:15 Info (CONTRAST GIVEN -- Rx MONITORING) 1 each PRN DAILY PRN MC SEE COMMENTS; Start 07/29/21 at 07:45; Stop 07/31/21 at 07:44 Insulin Human Lispro (HumaLOG) 0-10 UNITS TIDBFRMEAL SQ ; Start 07/28/21 at 1 1:30 Iohexol (Omnipaque 300 Mg/ml) 400 ml 1X ONCE PO ; Start 07/29/21 at 07:45; Stop 07/29/21 at 07:47; Status DC Lorazepam (Ativan Inj) 1 mg PRN Q6HRS PRN IV ANXIETY / AGITATION; Start 07/28/21 at 11:15 Metoprolol Tartrate (Lopressor Vial) 5 mg Q6HRS IVP Last administered on 07/29/21at 06:22; Start 07/28/21 at 20:00 Potassium Chloride/Water 100 ml @ 100 mls/hr Q1H IV Last administered on 07/28/21at 13:00; Start 07/28/21 at 12:00; Stop 07/28/21 at 13:59; Status DC Sodium Chloride 1,000 ml @ 100 mls/hr 1X ONCE IV Last administered on 07/28/21at 12:34; Start 07/28/21 at 11:45; Stop 07/28/21 at 21:44; Status DC Vitals/I & O Vital Sign - Last 24 Hours 07/28/21 07/28/21 07/28/21 07/28/21 11:00 15:00 17:22 17:22 Temp 98.6 99.2 98.6 99.2 Pulse 101 91 91 91 Resp 18 17 B/P (MAP) 155/89 (111) 191/82 (118) 191/82 191/82 Pulse Ox 99 97 O2 Delivery Room Air Room Air 07/28/21 07/28/21 07/28/21 07/28/21 18:00 19:00 20:00 20:01 Temp 98.9 98.9 Pulse 100 97 92 Resp 18 B/P (MAP) 166/79 (108) 194/102 (132) 180/85 (116) Pulse Ox 97 O2 Delivery Room Air Room Air 07/28/21 07/28/21 07/28/21 07/29/21 20:33 22:13 23:00 01:03 Temp 98.6 98.6 Pulse 91 83 98 90 Resp 18 B/P (MAP) 192/87 185/82 185/94 (124) 186/81 Pulse Ox 96 O2 Delivery Room Air 07/29/21 07/29/21 07/29/21 07/29/21 02:49 03:00 06:22 07:00 Temp 98.8 98.5 98.8 98.5 Pulse 91 91 95 87 Resp 18 B/P (MAP) 160/93 160/93 (115) 148/103 171/75 (107) Pulse Ox 98 07/29/21 07/29/21 07/29/21 07:42 08:00 08:07 Pulse 78 78 B/P (MAP) 171/103 171/103 O2 Delivery Room Air Intake and Output 07/28/21 07/28/21 07/29/21 15:00 23:00 07:00 Intake Total 400 ml 400 ml Output Total 0 ml Balance 400 ml 400 ml Justifications for Admission Other Justification LEXX RODRIGEZ MD Jul 29, 2021 09:15
[2021-07-29 09:27] LABS: MAGNESIUM 1.5 mg/dL (1.8-2.4)
--- NOTE | 2021-07-29 09:30 | PDOC ---
DATE OF SERVICE DATE: 07/29/21 TIME: 09:29 SUBJECTIVE ROS Stable, No complaints OBJECTIVE Vital Signs Vital Signs Date Time Temp Pulse Resp B/P (MAP) Pulse Ox O2 Delivery O2 Flow Rate FiO2 07/29/21 08:07 78 171/103 07/29/21 08:00 Room Air 07/29/21 07:00 98.5 18 98 98.5 I & 0 Intake and Output 07/29/21 07:00 Intake Total 800 ml Output Total 0 ml Balance 800 ml IV Total 800 ml Output Urine Total 0 ml # Voids 2 PHYSICAL EXAM Physical Exam General Appearance: no apparent distress HEEN om MOIST Respiratory: bilateral CTA, non labored Heart: S1S2 Abdomen: soft, bowel sounds present Genitourinary: No dunaway Extremities: No edema DIAGNOSIS/ASSESSMENT Assessment & Plan CECELIA- Improving renal function from 4.0 POA to 1.3 today ; Metformin, FREEDOM-I and Diuretics held . supportive care, maintain hydration , avoid Nephrotoxins. DC IVF if adequate PO intake . FU with us as OP (Routine/Non urgent ) CKDStage 3 - baseline Creat 1.5, per pt and family member not seen by neph rology as OP Small Bowel Obstruction DM II HTN COMMENT/RELEVANT DATA Meds Current Medications Medications (Trade) Dose Ordered Sig/Svitlana Start Time Stop Time Status Last Admin Dose Admin Acetaminophen/ Hydrocodone Bitart (Lortab 5/325) 1 tab PRN Q6HRS PRN 07/27/21 18:00 07/27/21 19:59 1 TAB Aspirin (Ecotrin) 81 mg DAILY 07/27/21 12:00 07/28/21 08:40 81 MG Atorvastatin Calcium (Lipitor) 80 mg QHS 07/27/21 21:00 07/28/21 20:34 80 MG Carvedilol (Coreg) 25 mg BIDWMEALS 07/27/21 12:00 07/28/21 17:22 25 MG Clonidine HCl (Catapres Tts-2) 1 patch WEEKLY 07/28/21 09:00 07/28/21 10:01 1 PATCH Dextrose (Dextrose 50%-Water Syringe) 12.5 gm PRN Q15MIN PRN 07/26/21 09:15 Dextrose/Sodium Chloride 1,000 ml @ 100 mls/hr Q10H 07/26/21 15:00 07/28/21 11:47 DC 07/28/21 10:01 100 MLS/HR Enoxaparin Sodium (Lovenox 30mg Syringe) 30 mg Q24H 07/27/21 21:00 07/28/21 20:34 30 MG Fentanyl Citrate (Fentanyl 2ml Vial) 50 mcg PRN Q3HRS PRN 07/28/21 11:15 Fluticasone Propionate (Flonase) 1 spray BID 07/27/21 13:00 07/29/21 08:06 1 SPRAY Hydralazine HCl (Apresoline Inj) 10 mg PRN Q4HRS PRN 07/27/21 18:00 07/29/21 08:07 10 MG Info (CONTRAST GIVEN -- Rx MONITORING) 1 each PRN DAILY PRN 07/29/21 07:45 07/31/21 07:44 Insulin Human Lispro (HumaLOG) 0-10 UNITS TIDBFRMEAL 07/28/21 11:30 Iohexol (Omnipaque 300 Mg/ml) 400 ml 1X ONCE 07/29/21 07:45 07/29/21 07:47 DC Linagliptin (Tradjenta) 5 mg DAILY 07/27/21 12:00 Lorazepam (Ativan Inj) 1 mg PRN Q6HRS PRN 07/28/21 11:15 Metoprolol Tartrate (Lopressor Vial) 5 mg Q6HRS 07/28/21 20:00 07/29/21 06:22 5 MG Ondansetron HCl (Zofran) 8 mg PRN Q6HRS PRN 07/28/21 08:45 Potassium Chloride/Dextrose/ Sod Cl 1,000 ml @ 75 mls/hr [id number] 07/29/21 09:15 Potassium Chloride/Water 100 ml @ 100 mls/hr Q1H 07/28/21 12:00 07/28/21 13:59 DC 07/28/21 13:00 100 MLS/HR Sodium Chloride 1,000 ml @ 100 mls/hr 1X ONCE 07/28/21 11:45 07/29/21 09:19 DC 07/28/21 12:34 100 MLS/HR Lab Laboratory Tests Test 07/28/21 10:25 07/28/21 11:32 07/28/21 17:13 07/28/21 20:33 Sodium Level 146 mmol/L (136-145) Potassium Level 3.6 mmol/L (3.5-5.1) Chloride Level 110 mmol/L (98-107) Carbon Dioxide Level 28 mmol/L (21-32) Anion Gap 8 (6-14) Blood Urea Nitrogen 20 mg/dL (7-20) Creatinine 1.6 mg/dL (0.6-1.0) Estimated GFR (Cockcroft-Gault) 37.8 Glucose Level 240 mg/dL (70-99) Calcium Level 8.3 mg/dL (8.5-10.1) Glucose (Fingerstick) 199 mg/dL (70-99) 122 mg/dL (70-99) 125 mg/dL (70-99) Test 07/29/21 07:24 07/29/21 07:50 Glucose (Fingerstick) 137 mg/dL (70-99) White Blood Count 5.2 x10^3/uL (4.0-11.0) Red Blood Count 4.13 x10^6/uL (3.50-5.40) Hemoglobin 11.5 g/dL (12.0-15.5) Hematocrit 36.4 % (36.0-47.0) Mean Corpuscular Volume 88 fL (79-100) Mean Corpuscular Hemoglobin 28 pg (25-35) Mean Corpuscular Hemoglobin Concent 32 g/dL (31-37) Red Cell Distribution Width 14.0 % (11.5-14.5) Platelet Count 179 x10^3/uL (140-400) Neutrophils (%) (Auto) 72 % (31-73) Lymphocytes (%) (Auto) 17 % (24-48) Monocytes (%) (Auto) 9 % (0-9) Eosinophils (%) (Auto) 2 % (0-3) Basophils (%) (Auto) 0 % (0-3) Neutrophils # (Auto) 3.8 x10^3/uL (1.8-7.7) Lymphocytes # (Auto) 0.9 x10^3/uL (1.0-4.8) Monocytes # (Auto) 0.5 x10^3/uL (0.0-1.1) Eosinophils # (Auto) 0.1 x10^3/uL (0.0-0.7) Basophils # (Auto) 0.0 x10^3/uL (0.0-0.2) Phosphorus Level 3.0 mg/dL (2.6-4.7) Magnesium Level 1.5 mg/dL (1.8-2.4) Results All relevant outside records, renal labs, imaging studies, telemetry/EKG's were reviewed. Justicifation of Admission Dx: Justifications for Admission: Justification of Admission Dx: Yes MERLIN BRIGGS MD Jul 29, 2021 09:30
[2021-07-29 10:38] LABS: CALCIUM 8.2 mg/dL (8.5-10.1); CREATININE 1.3 mg/dL (0.6-1.0); GFR 48.1
[2021-07-29] MEDS: POTASSIUM CL 20MEQ D5-0.45NACL 1,000 ML IV SCH (12:00)
--- NOTE | 2021-07-29 12:37 | PDOC ---
SURGICAL PROGRESS NOTE DATE: 07/29/21 TIME: 12:37 Subjective denies n/v no flatus tolerated contrast PO Vital Signs Vital Signs Date Time Temp Pulse Resp B/P (MAP) Pulse Ox O2 Delivery O2 Flow Rate FiO2 07/29/21 12:02 96 196/109 07/29/21 11:00 99.0 16 100 99.0 07/29/21 08:00 Room Air I&O Intake and Output 07/29/21 07:00 Intake Total 800 ml Output Total 0 ml Balance 800 ml IV Total 800 ml Output Urine Total 0 ml # Voids 2 General: Alert, Oriented X3, Cooperative Abdomen: Soft, No tenderness Labs Laboratory Tests Test 07/27/21 16:21 07/27/21 20:23 07/28/21 08:16 07/28/21 10:25 Glucose (Fingerstick) 184 mg/dL (70-99) 227 mg/dL (70-99) 287 mg/dL (70-99) Sodium Level 146 mmol/L (136-145) Potassium Level 3.6 mmol/L (3.5-5.1) Chloride Level 110 mmol/L (98-107) Carbon Dioxide Level 28 mmol/L (21-32) Anion Gap 8 (6-14) Blood Urea Nitrogen 20 mg/dL (7-20) Creatinine 1.6 mg/dL (0.6-1.0) Estimated GFR (Cockcroft-Gault) 37.8 Glucose Level 240 mg/dL (70-99) Calcium Level 8.3 mg/dL (8.5-10.1) Test 07/28/21 11:32 07/28/21 17:13 07/28/21 20:33 07/29/21 07:24 Glucose (Fingerstick) 199 mg/dL (70-99) 122 mg/dL (70-99) 125 mg/dL (70-99) 137 mg/dL (70-99) Test 07/29/21 07:50 White Blood Count 5.2 x10^3/uL (4.0-11.0) Red Blood Count 4.13 x10^6/uL (3.50-5.40) Hemoglobin 11.5 g/dL (12.0-15.5) Hematocrit 36.4 % (36.0-47.0) Mean Corpuscular Volume 88 fL (79-100) Mean Corpuscular Hemoglobin 28 pg (25-35) Mean Corpuscular Hemoglobin Concent 32 g/dL (31-37) Red Cell Distribution Width 14.0 % (11.5-14.5) Platelet Count 179 x10^3/uL (140-400) Neutrophils (%) (Auto) 72 % (31-73) Lymphocytes (%) (Auto) 17 % (24-48) Monocytes (%) (Auto) 9 % (0-9) Eosinophils (%) (Auto) 2 % (0-3) Basophils (%) (Auto) 0 % (0-3) Neutrophils # (Auto) 3.8 x10^3/uL (1.8-7.7) Lymphocytes # (Auto) 0.9 x10^3/uL (1.0-4.8) Monocytes # (Auto) 0.5 x10^3/uL (0.0-1.1) Eosinophils # (Auto) 0.1 x10^3/uL (0.0-0.7) Basophils # (Auto) 0.0 x10^3/uL (0.0-0.2) Sodium Level 145 mmol/L (136-145) Potassium Level 4.0 mmol/L (3.5-5.1) Chloride Level 108 mmol/L (98-107) Carbon Dioxide Level 26 mmol/L (21-32) Anion Gap 11 (6-14) Blood Urea Nitrogen 16 mg/dL (7-20) Creatinine 1.3 mg/dL (0.6-1.0) Estimated GFR (Cockcroft-Gault) 48.1 Glucose Level 139 mg/dL (70-99) Calcium Level 8.2 mg/dL (8.5-10.1) Phosphorus Level 3.0 mg/dL (2.6-4.7) Magnesium Level 1.5 mg/dL (1.8-2.4) Laboratory Tests Test 07/28/21 17:13 07/28/21 20:33 07/29/21 07:24 07/29/21 07:50 Glucose (Fingerstick) 122 mg/dL (70-99) 125 mg/dL (70-99) 137 mg/dL (70-99) White Blood Count 5.2 x10^3/uL (4.0-11.0) Red Blood Count 4.13 x10^6/uL (3.50-5.40) Hemoglobin 11.5 g/dL (12.0-15.5) Hematocrit 36.4 % (36.0-47.0) Mean Corpuscular Volume 88 fL (79-100) Mean Corpuscular Hemoglobin 28 pg (25-35) Mean Corpuscular Hemoglobin Concent 32 g/dL (31-37) Red Cell Distribution Width 14.0 % (11.5-14.5) Platelet Count 179 x10^3/uL (140-400) Neutrophils (%) (Auto) 72 % (31-73) Lymphocytes (%) (Auto) 17 % (24-48) Monocytes (%) (Auto) 9 % (0-9) Eosinophils (%) (Auto) 2 % (0-3) Basophils (%) (Auto) 0 % (0-3) Neutrophils # (Auto) 3.8 x10^3/uL (1.8-7.7) Lymphocytes # (Auto) 0.9 x10^3/uL (1.0-4.8) Monocytes # (Auto) 0.5 x10^3/uL (0.0-1.1) Eosinophils # (Auto) 0.1 x10^3/uL (0.0-0.7) Basophils # (Auto) 0.0 x10^3/uL (0.0-0.2) Sodium Level 145 mmol/L (136-145) Potassium Level 4.0 mmol/L (3.5-5.1) Chloride Level 108 mmol/L (98-107) Carbon Dioxide Level 26 mmol/L (21-32) Anion Gap 11 (6-14) Blood Urea Nitrogen 16 mg/dL (7-20) Creatinine 1.3 mg/dL (0.6-1.0) Estimated GFR (Cockcroft-Gault) 48.1 Glucose Level 139 mg/dL (70-99) Calcium Level 8.2 mg/dL (8.5-10.1) Phosphorus Level 3.0 mg/dL (2.6-4.7) Magnesium Level 1.5 mg/dL (1.8-2.4) Problem List Problems Medical Problems: (1) Nausea & vomiting Status: Acute (2) SBO (small bowel obstruction) Status: Acute Assessment/Plan await SBFT results Justicifation of Admission Dx: Justifications for Admission: Justification of Admission Dx: Yes GABY FITZGERALD DRY LUMBER GRADER Jul 29, 2021 12:37
--- NOTE | 2021-07-29 12:48 | NUR ---
SW following. Discussed with RN, pt from home alone, room air, NPO. Pt had a small bowel series this morning. RN advised no SW needs at this time. SW will continue to follow.
[2021-07-29] MEDS: ONDANSETRON PF 4 MG/2 ML VIAL. IVP PRN (13:40)
--- NOTE | 2021-07-29 17:02 | RAD ---
DG SMALL BOWEL FOLLOW THROUGH Indication: Reason: sbo / Spl. Instructions: gastrografin / History: . Comparison: CT July 26, 2021. Abdominal radiographs July 28, 2021. Technique: Preliminary letter of credit clerk film of the abdomen was obtained. Then following ingestion of oral bariu m, serial images of the abdomen were obtained to assess progress of contrast throughout the small bow el. Findings: The letter of credit clerk image demonstrates a mildly dilated air-filled loops of small bowel within the mid and uppe r abdomen. Air and stool throughout the colon. Contrast noted throughout the colon from prior study. Left hip arthroplasty. Cholelithiasis. Mildly dilated loops of proximal and mid small bowel. Contrast was retained within the small bowel lo ops and stomach. A small amount of contrast extending into decompressed distal small bowel loops at a round 3 hours and progressed slightly to 6.5 and 8 hours. Large amount contrast retained within the s tomach after 8 hours. IMPRESSION: 1. Findings concerning for small bowel obstruction. Minimal contrast extending to decompressed dista l small bowel loops after 3 hours. Electronically signed by: Laron Hodges DO (07/29/2021 5:00 PM) [id number]
[2021-07-29] MEDS: ATORVASTATIN CALCIUM 40 MG TABLET. PO SCH (19:50)
[2021-07-29] MEDS ORDERED: MAGNESIUM SULFATE 2GM 50 ML IV ONE (20:30)
[2021-07-29] MEDS ORDERED: ACETAMINOPHEN 650 MG SUPP.RECT. PR PRN (20:30)
[2021-07-29] MEDS: ENOXAPARIN 40 MG/0.4 ML SYRINGE. SQ SCH (21:00)
--- NOTE | 2021-07-29 21:28 | RAD ---
EXAM: AP View of the chest DATE: 07/29/2021 9:16 PM INDICATION: Reason: fever / Spl. Instructions: / History: COMPARISON: No Prior FINDINGS: The heart is not enlarged. Mediastinal and hilar contours are normal. Aortic calcifications are seen. Patchy opacities left lung base likely atelectasis or developing consolidation. Emphysematous changes are seen. No pleural effusion or pneumothorax. IMPRESSION: Patchy opacities left lung base likely atelectasis or developing consolidation. Electronically signed by: Marco A Rao MD (07/29/2021 9:26 PM) LANEY
[2021-07-29] MEDS: PIPERACILLIN/TAZOBACTAM 3.375 GM in IV NORMAL SALINE 50ML 50 ML IV SCH (21:36)
[2021-07-30] MEDS: METOPROLOL IV PUSH 5 MG/5 ML VIAL. IVP SCH ×4 (01:21→18:00)
[2021-07-30] MEDS: PIPERACILLIN/TAZOBACTAM 3.375 GM in IV NORMAL SALINE 50ML 50 ML IV SCH ×4 (01:25→18:01)
[2021-07-30 03:21] VITALS: BP 139/68
[2021-07-30] MEDS: POTASSIUM CL 20MEQ D5-0.45NACL 1,000 ML IV SCH ×2 (05:52→13:29)
[2021-07-30 07:00] VITALS: BP 165/77
[2021-07-30] MEDS: CARVEDILOL 12.5 MG TABLET. PO SCH ×2 (07:51→16:51)
[2021-07-30] MEDS: ASPIRIN ENTERIC COATED 81 MG TABLET.DR. PO SCH (07:51)
[2021-07-30] MEDS: LINAGLIPTIN 5 MG TABLET PO SCH (07:51)
[2021-07-30 08:02] LABS: BASO % 0 % (0-3); EOS % 0 % (0-3); HEMATOCRIT 36.5 % (36.0-47.0); HEMOGLOBIN 11.8 g/dL (12.0-15.5); LYMPH # 0.6 x10^3/uL (1.0-4.8); LYMPH % 6 % (24-48); MEAN CORPUSCULAR HEMOGLOBIN 28 pg (25-35); MEAN CORPUSCULAR HGB CONC 32 g/dL (31-37); MEAN CORPUSCULAR VOLUME 88 fL (79-100); MONO # 0.6 x10^3/uL (0.0-1.1); MONO % 5 % (0-9); NEUT # 9.1 x10^3/uL (1.8-7.7); NEUT % 89 % (31-73); PLATELET COUNT 186 x10^3/uL (140-400); RED BLOOD COUNT 4.17 x10^6/uL (3.50-5.40); RED CELL DISTRIBUTION WIDTH 13.9 % (11.5-14.5); WHITE BLOOD COUNT 10.3 x10^3/uL (4.0-11.0)
[2021-07-30 08:16] LABS: ALBUMIN 2.8 g/dL (3.4-5.0); ALBUMIN/GLOBULIN RATIO 0.6 (1.0-1.7); CALCIUM 8.8 mg/dL (8.5-10.1); CREATININE 2.1 mg/dL (0.6-1.0); GFR 27.6; POTASSIUM 3.5 mmol/L (3.5-5.1); TOTAL BILIRUBIN 0.9 mg/dL (0.2-1.0); TOTAL PROTEIN 7.3 g/dL (6.4-8.2)
[2021-07-30] MEDS: hydrALAZINE 20 MG/ML VIAL. IVP PRN (08:19)
[2021-07-30] MEDS: FLUTICASONE 50MCG/NASAL SPRAY 16GM BOTTLE. NS SCH ×2 (08:19→21:58)
[2021-07-30] MEDS: INSULIN LISPRO 300 UNITS/3 ML VIAL. SQ SCH ×3 (08:22→17:59)
--- NOTE | 2021-07-30 08:50 | EKG ---
[facility] [address] [place] [address] Test Date: 2021-07-30 Test Time: 08:48:13 Pat Name: ANGELICA KAT Department: Room: [facility] Gender: F Insulation Hoseman: MARSHALL : 1945 Requested By: LEXX RODRIGEZ Order Number: [id number] Reading MD: Gino Billy Measurements Intervals [place] Rate: 93 P: 30 KS: 186 QRS: 17 QRSD: 70 T: 139 QT: 358 QTc: 448 Interpretive Statements SINUS RHYTHM ST & T ABNORMALITY, POSSIBLE ISCHEMIA Electronically Signed On 08-02-2021 16:34:38 [employer]NAGER by Gino Billy
--- NOTE | 2021-07-30 08:50 | RAD ---
XR ABDOMEN COMP ACUTE History: Reason: SBO / Spl. Instructions: / History: Technique: Supine and upright views of the abdomen. Comparison: Small bowel series July 29, 2021. Findings: Mildly dilated loops of small bowel throughout the abdomen, similar compared to prior. Oral contrast progressed distally into the colon compared to prior. A large amount contrast continues to be retaine d within the distended stomach. Left hip arthroplasty. Moderate right hip DJD. Multilevel lumbar spon dylosis. Cholelithiasis. No consolidation or pleural effusion. No pneumothorax. Normal heart size. No pneumoperitoneum. Mild l eft basilar linear atelectasis. Impression: 1. Dilated loops of small bowel throughout the abdomen with mild progression of contrast into the co feliz from prior small bowel series. Findings concerning for partial small bowel obstruction. 2. Persistent large amount of contrast within the distended stomach. Electronically signed by: Laron Hodges DO (07/30/2021 8:47 AM) [id number]
--- NOTE | 2021-07-30 09:19 | PDOC ---
PROGRESS NOTES Date of Service: DATE: 07/30/21 TIME: 09:16 Subjective Subjective fever last night 101, vomiting Objective Objective Vital Signs Date Time Temp Pulse Resp B/P (MAP) Pulse Ox O2 Delivery O2 Flow Rate FiO2 07/30/21 08:19 163/77 07/30/21 07:00 98.7 92 18 97 Room Air 98.7 Intake and Output 07/30/21 07:00 Output Total 0 ml Balance 0 ml Output Urine Total 0 ml # Voids 2 Physical Exam Abdomen: Soft, No tenderness Heart: Regular rate, Normal S1, Normal S2 Extremities: No clubbing, No cyanosis General: Alert, Oriented X3, Cooperative HEENT: Atraumatic, PERRLA Lungs: Clear to auscultation, Normal air movement MUSCULOSKELETAL: No deformity, No swelling Neuro: Normal gait, Normal speech, Reflexes 2+ Psych/Mental Status: Mental status NL, Mood NL Skin: No rashes, No breakdown Diagnosis Problem List Problems Medical Problems: (1) Nausea & vomiting Status: Acute (2) SBO (small bowel obstruction) Status: Acute Assessment Assessment Problems Medical Problems: (1) Nausea & vomiting Status: Acute (2) SBO (small bowel obstruction) Status: Acute FINAL IMPRESSION: fevers ? aspiration 1. Abdominal pain, small bowel obstruction. 2. Acute renal insufficiency. Creatinine 4, normal creatinine is around 1.5. 3. Hypertension. 4. Diabetes. 5. Hyperlipidemia. 6. History of chronic heart failure, systolic; but last echocardiogram shows good improvement 50% in 2020. PLAN: IV Zosyn ID consult cxr ,c/s ,labs cr 2.0 went up small bowel series shows small bowel obstruction kidney function improved and declining again NPO. BP problems. spoke with family Plan Plan of Care Problems Medical Problems: (1) Nausea & vomiting Status: Acute (2) SBO (small bowel obstruction) Status: Acute Comment Review of Relevant I have reviewed the following items shaan (where applicable) has been applied. Labs Laboratory Tests Test 07/29/21 17:39 07/29/21 19:39 07/29/21 21:25 07/30/21 07:10 Glucose (Fingerstick) 226 mg/dL (70-99) 206 mg/dL (70-99) Lactic Acid Level 1.6 mmol/L (0.4-2.0) Sodium Level 146 mmol/L (136-145) Potassium Level 3.5 mmol/L (3.5-5.1) Chloride Level 103 mmol/L (98-107) Carbon Dioxide Level 29 mmol/L (21-32) Anion Gap 14 (6-14) Blood Urea Nitrogen 30 mg/dL (7-20) Creatinine 2.1 mg/dL (0.6-1.0) Estimated GFR (Cockcroft-Gault) 27.6 BUN/Creatinine Ratio 14 (6-20) Glucose Level 324 mg/dL (70-99) Calcium Level 8.8 mg/dL (8.5-10.1) Total Bilirubin 0.9 mg/dL (0.2-1.0) Aspartate Amino Transf (AST/SGOT) 13 U/L (15-37) Alanine Aminotransferase (ALT/SGPT) 12 U/L (14-59) Alkaline Phosphatase 73 U/L (46-116) Total Protein 7.3 g/dL (6.4-8.2) Albumin 2.8 g/dL (3.4-5.0) Albumin/Globulin Ratio 0.6 (1.0-1.7) Test 07/30/21 07:15 07/30/21 07:46 White Blood Count 10.3 x10^3/uL (4.0-11.0) Red Blood Count 4.17 x10^6/uL (3.50-5.40) Hemoglobin 11.8 g/dL (12.0-15.5) Hematocrit 36.5 % (36.0-47.0) Mean Corpuscular Volume 88 fL (79-100) Mean Corpuscular Hemoglobin 28 pg (25-35) Mean Corpuscular Hemoglobin Concent 32 g/dL (31-37) Red Cell Distribution Width 13.9 % (11.5-14.5) Platelet Count 186 x10^3/uL (140-400) Neutrophils (%) (Auto) 89 % (31-73) Lymphocytes (%) (Auto) 6 % (24-48) Monocytes (%) (Auto) 5 % (0-9) Eosinophils (%) (Auto) 0 % (0-3) Basophils (%) (Auto) 0 % (0-3) Neutrophils # (Auto) 9.1 x10^3/uL (1.8-7.7) Lymphocytes # (Auto) 0.6 x10^3/uL (1.0-4.8) Monocytes # (Auto) 0.6 x10^3/uL (0.0-1.1) Eosinophils # (Auto) 0.0 x10^3/uL (0.0-0.7) Basophils # (Auto) 0.0 x10^3/uL (0.0-0.2) Glucose (Fingerstick) 339 mg/dL (70-99) Medications Current Medications Acetaminophen (Tylenol Supp) 650 mg PRN Q6HRS PRN CA MILD PAIN / TEMP > 100.3'F Last administered on 07/29/21at 21:35; Start 07/29/21 at 20:30 Enoxaparin Sodium (Lovenox 40mg Syringe) 40 mg Q24H SQ ; Start 07/29/21 at 21:00 Magnesium Sulfate 50 ml @ 25 mls/hr 1X ONCE IV Last administered on 07/29/21at 22:47; Start 07/29/21 at 20:30; Stop 07/29/21 at 22:29; Status DC Piperacillin Sod/ Tazobactam Sod 3.375 gm/Sodium Chloride 50 ml @ 100 mls/hr Q6HRS IV Last administered on 07/30/21at 05:39; Start 07/29/21 at 21:00 Vitals/I & O Vital Sign - Last 24 Hours 07/29/21 07/29/21 07/29/21 07/29/21 11:00 11:35 12:02 15:00 Temp 99.0 98.8 99.0 98.8 Pulse 87 87 96 90 Resp 16 16 B/P (MAP) 190/87 (121) 190/87 196/109 193/96 (128) Pulse Ox 100 95 07/29/21 07/29/21 07/29/21 07/29/21 17:12 17:46 19:00 20:00 Temp 101.1 101.1 Pulse 90 90 114 Resp 18 B/P (MAP) 193/96 193/96 197/97 (130) Pulse Ox 95 O2 Delivery Room Air Room Air 07/29/21 07/29/21 07/29/21 07/29/21 20:11 22:19 23:01 23:58 Temp 101.2 99.9 101.2 99.9 Pulse 117 116 119 113 Resp 18 B/P (MAP) 196/107 (136) 174/93 180/95 (123) 161/77 Pulse Ox 94 O2 Delivery Room Air 07/30/21 07/30/21 07/30/21 07/30/21 01:21 03:21 05:40 07:00 Temp 99.8 98.7 99.8 98.7 Pulse 108 93 100 92 Resp 18 18 B/P (MAP) 145/70 139/68 (91) 150/77 165/77 (106) Pulse Ox 95 97 O2 Delivery Room Air Room Air 07/30/21 08:19 B/P (MAP) 163/77 Intake and Output 07/29/21 07/29/21 07/30/21 15:00 23:00 07:00 Output Total 0 ml Balance 0 ml Justifications for Admission Other Justification LEXX RODRIGEZ MD Jul 30, 2021 09:19
--- NOTE | 2021-07-30 09:19 | CONS ---
DATE OF CONSULTATION: 07/30/2021 REQUESTING PHYSICIAN: Ashlyn Alfredo MD REASON FOR CONSULTATION: Fever. HISTORY OF PRESENT ILLNESS: This is a 76-year-old -[place] female who came in with nausea, vomiting and abdominal pain. The patient was found to have bowel obstruction, acute kidney injury, dehydration. The patient has been hydrated. Creatinine is improving, although yesterday, she had fever up to 101.2 hence consultation. The patient has developed infiltrate, likely aspiration. The patient has been started on Zosyn. The patient right now denies any abdominal pain. Denies any nausea or vomiting. She did vomit large amount yesterday also. She does state that she is passing gas. She had refused NG tube repeated times and surgery is on the case. The patient is very comfortable right now and denies any complaints. PAST MEDICAL HISTORY: Positive for renal insufficiency, hypertension, hyperlipidemia, arthritis, diabetes. SOCIAL HISTORY: Negative for smoking, alcohol, or illicit drug use. ALLERGIES: No known drug allergies. CURRENT MEDICATIONS: Reviewed. REVIEW OF SYSTEMS: As in HPI. All other systems reviewed are negative. PHYSICAL EXAMINATION: GENERAL: Alert, oriented female, not in distress. VITAL SIGNS: Temperature-max is 101.2, current temperature is 98.7, pulse 92, respirations 18, blood pressure 165/77. HEENT: NAD. NECK: Supple, no JVP, no lymphadenopathy. LUNGS: Clear. HEART: S1, S2, regular. ABDOMEN: Soft, nontender, no organomegaly. EXTREMITIES: No edema or cyanosis. SKIN: Unremarkable. NEUROLOGIC: The patient is alert, awake, and appropriate. No focal neurologic deficit. LABORATORY DATA: White count is 10.3. BUN and creatinine is 30 and 2.1. X-ray and CT of the abdomen reviewed. IMPRESSION: 1. Fever, most likely from aspiration pneumonia. 2. Nausea, vomiting. 3. Aspiration pneumonia. 4. Bowel obstruction. 5. Acute kidney injury. 6. Diabetes. 7. Hypertension. RECOMMENDATIONS: Continue Zosyn. Continue supportive care. Conservative management. Surgery is following and discussion with Dr. Alfredo done. Thank you very much, Dr. Alfredo, for giving me opportunity to participate in this patient's care. JEAN/ARIANA DR: JEAN/shelia TID: [id number]
[2021-07-30 11:00] VITALS: BP 146/74
--- NOTE | 2021-07-30 11:03 | PDOC ---
DATE OF SERVICE DATE: 07/30/21 TIME: 10:59 SUBJECTIVE ROS NPO, Recd PO contrast for procedure Copious Vomiting x1 ; spiked temp as well OBJECTIVE Vital Signs Vital Signs Date Time Temp Pulse Resp B/P (MAP) Pulse Ox O2 Delivery O2 Flow Rate FiO2 07/30/21 08:19 163/77 07/30/21 07:00 98.7 92 18 97 Room Air 98.7 I & 0 Intake and Output 07/30/21 07:00 Output Total 0 ml Balance 0 ml Output Urine Total 0 ml # Voids 2 PHYSICAL EXAM Physical Exam General Appearance: no apparent distress HEEN om MOIST Respiratory: bilateral CTA, non labored Heart: S1S2 Abdomen: soft, bowel sounds present Genitourinary: No dunaway Extremities: No edema DIAGNOSIS/ASSESSMENT Assessment & Plan CECELIA- Improving renal function was improving from 4.0 POA to 1.3 ; Noted worsening again Creat 2.1 today Now has fever ; Copius Vomiting, NPO ; Metformin, FREEDOM-I and Diuretics held supportive care, maintain hydration, continue IVF , avoid Nephrotoxins. CKDStage 3 - baseline Creat 1.5, per pt and family member not seen by nephrology as OP HyperNatremia - Monitor Small Bowel Obstruction xray this morning Dilated loops of small bowel throughout the abdomen with mild progression of contrast into the colon from prior small bowel series. Findings concerning for partial small bowel obstruction. GS managing Fever- Cxr - Patchy opacities left lung base likely atelectasis or developing consolidation. ID consulted DM II HTN COMMENT/RELEVANT DATA Meds Current Medications Medications (Trade) Dose Ordered Sig/Svitlana Start Time Stop Time Status Last Admin Dose Admin Acetaminophen (Tylenol Supp) 650 mg PRN Q6HRS PRN 07/29/21 20:30 07/29/21 21:35 650 MG Acetaminophen/ Hydrocodone Bitart (Lortab 5/325) 1 tab PRN Q6HRS PRN 07/27/21 18:00 07/27/21 19:59 1 TAB Aspirin (Ecotrin) 81 mg DAILY 07/27/21 12:00 07/28/21 08:40 81 MG Atorvastatin Calcium (Lipitor) 80 mg QHS 07/27/21 21:00 07/28/21 20:34 80 MG Carvedilol (Coreg) 25 mg BIDWMEALS 07/27/21 12:00 07/28/21 17:22 25 MG Clonidine HCl (Catapres Tts-2) 1 patch WEEKLY 07/28/21 09:00 07/28/21 10:01 1 PATCH Dextrose (Dextrose 50%-Water Syringe) 12.5 gm PRN Q15MIN PRN 07/26/21 09:15 Dextrose/Sodium Chloride 1,000 ml @ 100 mls/hr Q10H 07/26/21 15:00 07/28/21 11:47 DC 07/28/21 10:01 100 MLS/HR Enoxaparin Sodium (Lovenox 30mg Syringe) 30 mg Q24H 07/27/21 21:00 07/29/21 14:10 DC 07/28/21 20:34 30 MG Enoxaparin Sodium (Lovenox 40mg Syringe) 40 mg Q24H 07/29/21 21:00 Fentanyl Citrate (Fentanyl 2ml Vial) 50 mcg PRN Q3HRS PRN 07/28/21 11:15 Fluticasone Propionate (Flonase) 1 spray BID 07/27/21 13:00 07/30/21 08:19 1 SPRAY Hydralazine HCl (Apresoline Inj) 10 mg PRN Q4HRS PRN 07/27/21 18:00 07/30/21 08:19 10 MG Info (CONTRAST GIVEN -- Rx MONITORING) 1 each PRN DAILY PRN 07/29/21 07:45 07/31/21 07:44 Insulin Human Lispro (HumaLOG) 0-10 UNITS TIDBFRMEAL 07/28/21 11:30 07/30/21 08:22 4 UNITS Iohexol (Omnipaque 300 Mg/ml) 400 ml 1X ONCE 07/29/21 07:45 07/29/21 07:47 DC 07/29/21 08:30 400 ML Linagliptin (Tradjenta) 5 mg DAILY 07/27/21 12:00 Lorazepam (Ativan Inj) 1 mg PRN Q6HRS PRN 07/28/21 11:15 Magnesium Sulfate 50 ml @ 25 mls/hr 1X ONCE 07/29/21 20:30 07/29/21 22:29 DC 07/29/21 22:47 25 MLS/HR Metoprolol Tartrate (Lopressor Vial) 5 mg Q6HRS 07/28/21 20:00 07/30/21 05:40 5 MG Ondansetron HCl (Zofran) 8 mg PRN Q6HRS PRN 07/28/21 08:45 07/29/21 13:40 8 MG Piperacillin Sod/ Tazobactam Sod 3.375 gm/Sodium Chloride 50 ml @ 100 mls/hr Q6HRS 07/29/21 21:00 07/30/21 05:39 100 MLS/HR Potassium Chloride/Dextrose/ Sod Cl 1,000 ml @ 75 mls/hr [id number] 07/29/21 09:15 07/30/21 05:52 75 MLS/HR Potassium Chloride/Water 100 ml @ 100 mls/hr Q1H 07/28/21 12:00 07/28/21 13:59 DC 07/28/21 13:00 100 MLS/HR Sodium Chloride 1,000 ml @ 100 mls/hr 1X ONCE 07/28/21 11:45 07/29/21 09:19 DC 07/28/21 12:34 100 MLS/HR Lab Laboratory Tests Test 07/29/21 17:39 07/29/21 19:39 07/29/21 21:25 07/30/21 07:10 Glucose (Fingerstick) 226 mg/dL (70-99) 206 mg/dL (70-99) Lactic Acid Level 1.6 mmol/L (0.4-2.0) Sodium Level 146 mmol/L (136-145) Potassium Level 3.5 mmol/L (3.5-5.1) Chloride Level 103 mmol/L (98-107) Carbon Dioxide Level 29 mmol/L (21-32) Anion Gap 14 (6-14) Blood Urea Nitrogen 30 mg/dL (7-20) Creatinine 2.1 mg/dL (0.6-1.0) Estimated GFR (Cockcroft-Gault) 27.6 BUN/Creatinine Ratio 14 (6-20) Glucose Level 324 mg/dL (70-99) Calcium Level 8.8 mg/dL (8.5-10.1) Total Bilirubin 0.9 mg/dL (0.2-1.0) Aspartate Amino Transf (AST/SGOT) 13 U/L (15-37) Alanine Aminotransferase (ALT/SGPT) 12 U/L (14-59) Alkaline Phosphatase 73 U/L (46-116) Total Protein 7.3 g/dL (6.4-8.2) Albumin 2.8 g/dL (3.4-5.0) Albumin/Globulin Ratio 0.6 (1.0-1.7) Test 07/30/21 07:15 07/30/21 07:46 07/30/21 10:02 White Blood Count 10.3 x10^3/uL (4.0-11.0) Red Blood Count 4.17 x10^6/uL (3.50-5.40) Hemoglobin 11.8 g/dL (12.0-15.5) Hematocrit 36.5 % (36.0-47.0) Mean Corpuscular Volume 88 fL (79-100) Mean Corpuscular Hemoglobin 28 pg (25-35) Mean Corpuscular Hemoglobin Concent 32 g/dL (31-37) Red Cell Distribution Width 13.9 % (11.5-14.5) Platelet Count 186 x10^3/uL (140-400) Neutrophils (%) (Auto) 89 % (31-73) Lymphocytes (%) (Auto) 6 % (24-48) Monocytes (%) (Auto) 5 % (0-9) Eosinophils (%) (Auto) 0 % (0-3) Basophils (%) (Auto) 0 % (0-3) Neutrophils # (Auto) 9.1 x10^3/uL (1.8-7.7) Lymphocytes # (Auto) 0.6 x10^3/uL (1.0-4.8) Monocytes # (Auto) 0.6 x10^3/uL (0.0-1.1) Eosinophils # (Auto) 0.0 x10^3/uL (0.0-0.7) Basophils # (Auto) 0.0 x10^3/uL (0.0-0.2) Glucose (Fingerstick) 339 mg/dL (70-99) SARS-CoV-2 Antigen (Rapid) Negative (NEGATIVE) Results All relevant outside records, renal labs, imaging studies, telemetry/EKG's were reviewed. Justicifation of Admission Dx: Justifications for Admission: Justification of Admission Dx: Yes MERLIN BRIGGS MD Jul 30, 2021 11:03
--- NOTE | 2021-07-30 11:17 | NUR ---
SW following. Discussed with RN, pt having surgery today. Pt now PUI for COVID-19. Pt still refusing NG tube per RN. SW will continue to follow.
--- NOTE | 2021-07-30 11:17 | PDOC ---
SURGICAL PROGRESS NOTE DATE: 07/30/21 TIME: 11:15 Subjective denies pain no pain no flatus or stool Vital Signs Vital Signs Date Time Temp Pulse Resp B/P (MAP) Pulse Ox O2 Delivery O2 Flow Rate FiO2 07/30/21 08:19 163/77 07/30/21 07:00 98.7 92 18 97 Room Air 98.7 I&O Intake and Output 07/30/21 07:00 Output Total 0 ml Balance 0 ml Output Urine Total 0 ml # Voids 2 General: Alert, Cooperative Abdomen: Soft, No tenderness Labs Laboratory Tests Test 07/28/21 11:32 07/28/21 17:13 07/28/21 20:33 07/29/21 07:24 Glucose (Fingerstick) 199 mg/dL (70-99) 122 mg/dL (70-99) 125 mg/dL (70-99) 137 mg/dL (70-99) Test 07/29/21 07:50 07/29/21 17:39 07/29/21 19:39 07/29/21 21:25 White Blood Count 5.2 x10^3/uL (4.0-11.0) Red Blood Count 4.13 x10^6/uL (3.50-5.40) Hemoglobin 11.5 g/dL (12.0-15.5) Hematocrit 36.4 % (36.0-47.0) Mean Corpuscular Volume 88 fL (79-100) Mean Corpuscular Hemoglobin 28 pg (25-35) Mean Corpuscular Hemoglobin Concent 32 g/dL (31-37) Red Cell Distribution Width 14.0 % (11.5-14.5) Platelet Count 179 x10^3/uL (140-400) Neutrophils (%) (Auto) 72 % (31-73) Lymphocytes (%) (Auto) 17 % (24-48) Monocytes (%) (Auto) 9 % (0-9) Eosinophils (%) (Auto) 2 % (0-3) Basophils (%) (Auto) 0 % (0-3) Neutrophils # (Auto) 3.8 x10^3/uL (1.8-7.7) Lymphocytes # (Auto) 0.9 x10^3/uL (1.0-4.8) Monocytes # (Auto) 0.5 x10^3/uL (0.0-1.1) Eosinophils # (Auto) 0.1 x10^3/uL (0.0-0.7) Basophils # (Auto) 0.0 x10^3/uL (0.0-0.2) Sodium Level 145 mmol/L (136-145) Potassium Level 4.0 mmol/L (3.5-5.1) Chloride Level 108 mmol/L (98-107) Carbon Dioxide Level 26 mmol/L (21-32) Anion Gap 11 (6-14) Blood Urea Nitrogen 16 mg/dL (7-20) Creatinine 1.3 mg/dL (0.6-1.0) Estimated GFR (Cockcroft-Gault) 48.1 Glucose Level 139 mg/dL (70-99) Calcium Level 8.2 mg/dL (8.5-10.1) Phosphorus Level 3.0 mg/dL (2.6-4.7) Magnesium Level 1.5 mg/dL (1.8-2.4) Glucose (Fingerstick) 226 mg/dL (70-99) 206 mg/dL (70-99) Lactic Acid Level 1.6 mmol/L (0.4-2.0) Test 07/30/21 07:10 07/30/21 07:15 07/30/21 07:46 07/30/21 10:02 Sodium Level 146 mmol/L (136-145) Potassium Level 3.5 mmol/L (3.5-5.1) Chloride Level 103 mmol/L (98-107) Carbon Dioxide Level 29 mmol/L (21-32) Anion Gap 14 (6-14) Blood Urea Nitrogen 30 mg/dL (7-20) Creatinine 2.1 mg/dL (0.6-1.0) Estimated GFR (Cockcroft-Gault) 27.6 BUN/Creatinine Ratio 14 (6-20) Glucose Level 324 mg/dL (70-99) Calcium Level 8.8 mg/dL (8.5-10.1) Total Bilirubin 0.9 mg/dL (0.2-1.0) Aspartate Amino Transf (AST/SGOT) 13 U/L (15-37) Alanine Aminotransferase (ALT/SGPT) 12 U/L (14-59) Alkaline Phosphatase 73 U/L (46-116) Total Protein 7.3 g/dL (6.4-8.2) Albumin 2.8 g/dL (3.4-5.0) Albumin/Globulin Ratio 0.6 (1.0-1.7) White Blood Count 10.3 x10^3/uL (4.0-11.0) Red Blood Count 4.17 x10^6/uL (3.50-5.40) Hemoglobin 11.8 g/dL (12.0-15.5) Hematocrit 36.5 % (36.0-47.0) Mean Corpuscular Volume 88 fL (79-100) Mean Corpuscular Hemoglobin 28 pg (25-35) Mean Corpuscular Hemoglobin Concent 32 g/dL (31-37) Red Cell Distribution Width 13.9 % (11.5-14.5) Platelet Count 186 x10^3/uL (140-400) Neutrophils (%) (Auto) 89 % (31-73) Lymphocytes (%) (Auto) 6 % (24-48) Monocytes (%) (Auto) 5 % (0-9) Eosinophils (%) (Auto) 0 % (0-3) Basophils (%) (Auto) 0 % (0-3) Neutrophils # (Auto) 9.1 x10^3/uL (1.8-7.7) Lymphocytes # (Auto) 0.6 x10^3/uL (1.0-4.8) Monocytes # (Auto) 0.6 x10^3/uL (0.0-1.1) Eosinophils # (Auto) 0.0 x10^3/uL (0.0-0.7) Basophils # (Auto) 0.0 x10^3/uL (0.0-0.2) Glucose (Fingerstick) 339 mg/dL (70-99) SARS-CoV-2 Antigen (Rapid) Negative (NEGATIVE) Laboratory Tests Test 07/29/21 17:39 07/29/21 19:39 07/29/21 21:25 07/30/21 07:10 Glucose (Fingerstick) 226 mg/dL (70-99) 206 mg/dL (70-99) Lactic Acid Level 1.6 mmol/L (0.4-2.0) Sodium Level 146 mmol/L (136-145) Potassium Level 3.5 mmol/L (3.5-5.1) Chloride Level 103 mmol/L (98-107) Carbon Dioxide Level 29 mmol/L (21-32) Anion Gap 14 (6-14) Blood Urea Nitrogen 30 mg/dL (7-20) Creatinine 2.1 mg/dL (0.6-1.0) Estimated GFR (Cockcroft-Gault) 27.6 BUN/Creatinine Ratio 14 (6-20) Glucose Level 324 mg/dL (70-99) Calcium Level 8.8 mg/dL (8.5-10.1) Total Bilirubin 0.9 mg/dL (0.2-1.0) Aspartate Amino Transf (AST/SGOT) 13 U/L (15-37) Alanine Aminotransferase (ALT/SGPT) 12 U/L (14-59) Alkaline Phosphatase 73 U/L (46-116) Total Protein 7.3 g/dL (6.4-8.2) Albumin 2.8 g/dL (3.4-5.0) Albumin/Globulin Ratio 0.6 (1.0-1.7) Test 07/30/21 07:15 07/30/21 07:46 07/30/21 10:02 White Blood Count 10.3 x10^3/uL (4.0-11.0) Red Blood Count 4.17 x10^6/uL (3.50-5.40) Hemoglobin 11.8 g/dL (12.0-15.5) Hematocrit 36.5 % (36.0-47.0) Mean Corpuscular Volume 88 fL (79-100) Mean Corpuscular Hemoglobin 28 pg (25-35) Mean Corpuscular Hemoglobin Concent 32 g/dL (31-37) Red Cell Distribution Width 13.9 % (11.5-14.5) Platelet Count 186 x10^3/uL (140-400) Neutrophils (%) (Auto) 89 % (31-73) Lymphocytes (%) (Auto) 6 % (24-48) Monocytes (%) (Auto) 5 % (0-9) Eosinophils (%) (Auto) 0 % (0-3) Basophils (%) (Auto) 0 % (0-3) Neutrophils # (Auto) 9.1 x10^3/uL (1.8-7.7) Lymphocytes # (Auto) 0.6 x10^3/uL (1.0-4.8) Monocytes # (Auto) 0.6 x10^3/uL (0.0-1.1) Eosinophils # (Auto) 0.0 x10^3/uL (0.0-0.7) Basophils # (Auto) 0.0 x10^3/uL (0.0-0.2) Glucose (Fingerstick) 339 mg/dL (70-99) SARS-CoV-2 Antigen (Rapid) Negative (NEGATIVE) Problem List Problems Medical Problems: (1) Nausea & vomiting Status: Acute (2) SBO (small bowel obstruction) Status: Acute Assessment/Plan sbo --xr noted, large amount of residual contrast in stomach there has been some passage to colon pt has refused NG repeat XR in AM Justicifation of Admission Dx: Justifications for Admission: Justification of Admission Dx: Yes GABY FITZGERALD APRN Jul 30, 2021 11:17
[2021-07-30] MEDS: ONDANSETRON PF 4 MG/2 ML VIAL. IVP PRN (13:27)
--- NOTE | 2021-07-30 13:38 | RAD ---
XR ABDOMEN 1V History: Reason: NG placement verification / Spl. Instructions: / History: Technique: Supine view the abdomen. Comparison: July 30, 2021 Findings: Interval placement enteric tube with tip projecting over the proximal stomach and side port likely wi thin the distal esophagus. Mildly distended contrast filled stomach. Dilated loops of small bowel thr oughout the abdomen, unchanged. Contrast noted within the colon. Overall mild progression of contrast compared to prior. Multilevel lumbar spondylosis. Minimal linear left basilar atelectasis. Impression: 1. Interval placement enteric tube with tip projecting over the proximal stomach and side port withi n the distal esophagus. Consider advancement. 2. Unchanged small bowel and stomach distention with contrast. Electronically signed by: Laron Hodges DO (07/30/2021 1:36 PM) [id number]
[2021-07-30 15:00] VITALS: BP 183/47
[2021-07-30 19:00] VITALS: BP 133/79
[2021-07-30 19:03] LABS: BILIRUBIN,URINE SMALL (NEG); CLARITY,URINE CLEAR; COLOR,URINE YELLOW; NITRITE,URINE NEGATIVE (NEG); PROTEIN,URINE NEGATIVE (NEG-TRACE); UROBILINOGEN,URINE 0.2 mg/dL (0.2 mg/dL)
[2021-07-30 19:21] LABS: BACTERIA,URINE FEW /HPF (0-FEW)
[2021-07-30] MEDS: ENOXAPARIN 40 MG/0.4 ML SYRINGE. SQ SCH (21:58)
[2021-07-30] MEDS: ATORVASTATIN CALCIUM 40 MG TABLET. PO SCH (21:58)
[2021-07-30 23:00] VITALS: BP 146/86
[2021-07-31] MEDS: POTASSIUM CL 20MEQ D5-0.45NACL 1,000 ML IV SCH ×3 (00:11→20:46)
[2021-07-31] MEDS: PIPERACILLIN/TAZOBACTAM 3.375 GM in IV NORMAL SALINE 50ML 50 ML IV SCH ×4 (00:11→18:05)
[2021-07-31] MEDS: METOPROLOL IV PUSH 5 MG/5 ML VIAL. IVP SCH ×4 (00:11→18:09)
[2021-07-31 03:00] VITALS: BP 122/81
--- NOTE | 2021-07-31 06:17 | EKG ---
[facility] [address] [place] [address] Test Date: 2021-07-31 Test Time: 05:52:54 Pat Name: ANGELICA KAT Department: Room: [facility] Gender: F [employer] Super[employer]: : 1945 Requested By: LEXX RODRIGEZ Order Number: [id number] Reading MD: Gino Billy Measurements Intervals [place] Rate: 120 P: HI: QRS: 14 QRSD: 70 T: 155 QT: 332 QTc: 474 Interpretive Statements RAPID ATRIAL FIBRILLATION VENTRICULAR PREMATURE COMPLEX(ES) ST & T ABNORMALITY, CONSIDER LATERAL ISCHEMIA OR LEFT VENTRICULAR STRAIN INFEROLATERAL ISCHEMIA OR LEFT VENTRICULAR STRAIN Electronically Signed On 08-02-2021 16:14:58 [employer]ASS [employer]ANDER BELT by Gino Billy
--- NOTE | 2021-07-31 06:44 | NUR ---
Two attempts to place Carney catheter unsuccessful. Will pass on to day shift.
[2021-07-31 07:00] VITALS: BP 147/82
[2021-07-31 07:53] LABS: BASO % 0 % (0-3); EOS % 0 % (0-3); HEMATOCRIT 39.9 % (36.0-47.0); HEMOGLOBIN 12.8 g/dL (12.0-15.5); LYMPH # 0.9 x10^3/uL (1.0-4.8); LYMPH % 10 % (24-48); MEAN CORPUSCULAR HEMOGLOBIN 28 pg (25-35); MEAN CORPUSCULAR HGB CONC 32 g/dL (31-37); MEAN CORPUSCULAR VOLUME 87 fL (79-100); MONO # 0.6 x10^3/uL (0.0-1.1); MONO % 7 % (0-9); NEUT # 7.6 x10^3/uL (1.8-7.7); NEUT % 83 % (31-73); PLATELET COUNT 207 x10^3/uL (140-400); RED BLOOD COUNT 4.57 x10^6/uL (3.50-5.40); RED CELL DISTRIBUTION WIDTH 14.2 % (11.5-14.5); WHITE BLOOD COUNT 9.1 x10^3/uL (4.0-11.0)
[2021-07-31] MEDS: CARVEDILOL 12.5 MG TABLET. PO SCH (08:00)
[2021-07-31] MEDS: ASPIRIN ENTERIC COATED 81 MG TABLET.DR. PO SCH (08:13)
[2021-07-31] MEDS: LINAGLIPTIN 5 MG TABLET PO SCH (08:14)
--- NOTE | 2021-07-31 08:46 | RAD ---
XR ABDOMEN COMP ACUTE History: Reason: sbo / Spl. Instructions: / History: Technique: Upright and supine views of the abdomen. Comparison: July 30, 2021 Findings: Mild left basilar linear atelectasis. No pneumothorax. Chronic right-sided rib fractures. Normal hear t size. Enteric tube tip projecting over the distal stomach. Decreased small bowel distention compare d to prior. Mild contrast persistently retains within small bowel loops in the left mid abdomen. Ther e is progression of contrast into the colon. Left hip arthroplasty. Multilevel lumbar spondylosis. Impression: 1. Decreased small bowel and stomach distention compared to prior. Electronically signed by: Laron Hodges DO (07/31/2021 8:44 AM) [id number]
--- NOTE | 2021-07-31 09:43 | PDOC ---
PROGRESS NOTES Date of Service: DATE: 07/31/21 TIME: 09:41 Subjective Subjective NGT to suction Objective Objective Vital Signs Date Time Temp Pulse Resp B/P (MAP) Pulse Ox O2 Delivery O2 Flow Rate FiO2 07/31/21 07:00 97.6 88 20 147/82 (103) 97 Room Air 97.6 Intake and Output 07/31/21 07:00 Intake Total 1110 ml Output Total 2250 ml Balance -1140 ml Intake Oral 10 ml IV Total 1100 ml Output Urine Total 300 ml Emesis 550 ml Drainage Total 1400 ml Physical Exam Abdomen: Soft, No tenderness Heart: Regular rate, Normal S1, Normal S2 Extremities: No clubbing, No cyanosis General: Alert, Cooperative HEENT: Atraumatic, PERRLA Lungs: Clear to auscultation, Normal air movement MUSCULOSKELETAL: No deformity, No swelling Neuro: Normal gait, Normal speech, Reflexes 2+ Psych/Mental Status: Mental status NL, Mood NL Skin: No rashes, No breakdown COMMENT NGT Diagnosis Problem List Problems Medical Problems: (1) Nausea & vomiting Status: Acute (2) SBO (small bowel obstruction) Status: Acute Assessment Assessment Problems Medical Problems: (1) Nausea & vomiting Status: Acute (2) SBO (small bowel obstruction) Status: Acute FINAL IMPRESSION: fevers ? aspiration 1. Abdominal pain, small bowel obstruction. 2. Acute renal insufficiency. Creatinine 4, normal creatinine is around 1.5. 3. Hypertension. 4. Diabetes. 5. Hyperlipidemia. 6. History of chronic heart failure, systolic; but last echocardiogram shows good improvement 50% in 2020. PLAN: iv fluids 125 cc NGT to suction draining well IV Zosyn ID consult cxr ,c/s ,labs cr 2.0 went up, bmp pending cbc normal KUB improving small bowel series shows small bowel obstruction kidney function improved and declining again NPO. afib , cardiology consult Plan Plan of Care Problems Medical Problems: (1) Nausea & vomiting Status: Acute (2) SBO (small bowel obstruction) Status: Acute Comment Review of Relevant I have reviewed the following items shaan (where applicable) has been applied. Labs Laboratory Tests Test 07/30/21 10:02 07/30/21 11:20 07/30/21 14:20 07/30/21 17:29 SARS-CoV-2 RNA (VIN) Negative (Negative) SARS-CoV-2 Antigen (Rapid) Negative (NEGATIVE) Glucose (Fingerstick) 284 mg/dL (70-99) 272 mg/dL (70-99) Urine Collection Type Unknown Urine Color Yellow Urine Clarity Clear Urine pH 5.0 (<5.0-8.0) Urine Specific [place] 1.025 (1.000-1.030) Urine Protein Negative mg/dL (NEG-TRACE) Urine Glucose (UA) Negative mg/dL (NEG) Urine Ketones (Stick) Trace mg/dL (NEG) Urine Blood Negative (NEG) Urine Nitrite Negative (NEG) Urine Bilirubin Small (NEG) Urine Urobilinogen Dipstick 0.2 mg/dL (0.2 mg/dL) Urine Leukocyte Esterase Small (NEG) Urine RBC 1-2 /HPF (0-2) Urine WBC 11-20 /HPF (0-4) Urine Squamous Epithelial Cells Many /LPF Urine Bacteria Few /HPF (0-FEW) Urine Mucus Slight /LPF Test 07/30/21 19:12 07/31/21 07:15 07/31/21 07:24 Glucose (Fingerstick) 205 mg/dL (70-99) 335 mg/dL (70-99) White Blood Count 9.1 x10^3/uL (4.0-11.0) Red Blood Count 4.57 x10^6/uL (3.50-5.40) Hemoglobin 12.8 g/dL (12.0-15.5) Hematocrit 39.9 % (36.0-47.0) Mean Corpuscular Volume 87 fL (79-100) Mean Corpuscular Hemoglobin 28 pg (25-35) Mean Corpuscular Hemoglobin Concent 32 g/dL (31-37) Red Cell Distribution Width 14.2 % (11.5-14.5) Platelet Count 207 x10^3/uL (140-400) Neutrophils (%) (Auto) 83 % (31-73) Lymphocytes (%) (Auto) 10 % (24-48) Monocytes (%) (Auto) 7 % (0-9) Eosinophils (%) (Auto) 0 % (0-3) Basophils (%) (Auto) 0 % (0-3) Neutrophils # (Auto) 7.6 x10^3/uL (1.8-7.7) Lymphocytes # (Auto) 0.9 x10^3/uL (1.0-4.8) Monocytes # (Auto) 0.6 x10^3/uL (0.0-1.1) Eosinophils # (Auto) 0.0 x10^3/uL (0.0-0.7) Basophils # (Auto) 0.0 x10^3/uL (0.0-0.2) Microbiology 07/29/21 Blood Culture - Preliminary, Resulted NO GROWTH AFTER 1 DAY Vitals/I & O Vital Sign - Last 24 Hours 07/30/21 07/30/21 07/30/21 07/30/21 11:00 13:22 15:00 18:00 Temp 98.5 98.1 98.5 98.1 Pulse 89 89 77 77 Resp 18 B/P (MAP) 146/74 (98) 146/74 183/47 (92) 183/47 Pulse Ox 96 97 07/30/21 07/30/21 07/30/21 07/31/21 19:00 20:15 23:00 00:11 Temp 98.3 98.5 98.3 98.5 Pulse 80 120 120 Resp 20 20 B/P (MAP) 133/79 (97) 146/86 (106) 146/86 Pulse Ox 90 93 O2 Delivery Room Air Room Air Room Air 07/31/21 07/31/21 07/31/21 03:00 05:32 07:00 Temp 98.7 97.6 98.7 97.6 Pulse 128 136 88 Resp 20 20 B/P (MAP) 122/81 (95) 124/74 147/82 (103) Pulse Ox 98 97 O2 Delivery Room Air Room Air Intake and Output0 07/30/21 07/30/21 07/31/21 15:00 23:00 07:00 Intake Total 50 ml 1060 ml Output Total 550 ml 1700 ml Balance -550 ml -1650 ml 1060 ml Justifications for Admission Other Justification LEXX RODRIGEZ MD Jul 31, 2021 09:43
[2021-07-31] MEDS ORDERED: IV NORMAL SALINE 250ML 250 ML IV ONE (09:45)
[2021-07-31] MEDS: FLUTICASONE 50MCG/NASAL SPRAY 16GM BOTTLE. NS SCH ×2 (10:10→20:46)
--- NOTE | 2021-07-31 10:13 | PDOC ---
Infectious Disease Note Subjective Subjective pt is feeling better, no abd pain, NG in place ROS ROS no n/v/d/fever Vital Sign Vital Signs Vital Signs Date Time Temp Pulse Resp B/P (MAP) Pulse Ox O2 Delivery O2 Flow Rate FiO2 07/31/21 07:00 97.6 88 20 147/82 (103) 97 Room Air 97.6 Physical Exam PHYSICAL EXAM GENERAL: Alert, oriented female, not in distress. VITAL SIGNS: stable HEENT: NAD. NECK: Supple, no JVP, no lymphadenopathy. LUNGS: Clear. HEART: S1, S2, regular. ABDOMEN: Soft, nontender, no organomegaly. EXTREMITIES: No edema or cyanosis. SKIN: Unremarkable. NEUROLOGIC: The patient is alert, awake, and appropriate. No focal neurologic deficit. Labs Lab Laboratory Tests Test 07/30/21 11:20 07/30/21 14:20 07/30/21 17:29 07/30/21 19:12 Glucose (Fingerstick) 284 mg/dL (70-99) 272 mg/dL (70-99) 205 mg/dL (70-99) Urine Collection Type Unknown Urine Color Yellow Urine Clarity Clear Urine pH 5.0 (<5.0-8.0) Urine Specific [place] 1.025 (1.000-1.030) Urine Protein Negative mg/dL (NEG-TRACE) Urine Glucose (UA) Negative mg/dL (NEG) Urine Ketones (Stick) Trace mg/dL (NEG) Urine Blood Negative (NEG) Urine Nitrite Negative (NEG) Urine Bilirubin Small (NEG) Urine Urobilinogen Dipstick 0.2 mg/dL (0.2 mg/dL) Urine Leukocyte Esterase Small (NEG) Urine RBC 1-2 /HPF (0-2) Urine WBC 11-20 /HPF (0-4) Urine Squamous Epithelial Cells Many /LPF Urine Bacteria Few /HPF (0-FEW) Urine Mucus Slight /LPF Test 07/31/21 07:15 07/31/21 07:24 White Blood Count 9.1 x10^3/uL (4.0-11.0) Red Blood Count 4.57 x10^6/uL (3.50-5.40) Hemoglobin 12.8 g/dL (12.0-15.5) Hematocrit 39.9 % (36.0-47.0) Mean Corpuscular Volume 87 fL (79-100) Mean Corpuscular Hemoglobin 28 pg (25-35) Mean Corpuscular Hemoglobin Concent 32 g/dL (31-37) Red Cell Distribution Width 14.2 % (11.5-14.5) Platelet Count 207 x10^3/uL (140-400) Neutrophils (%) (Auto) 83 % (31-73) Lymphocytes (%) (Auto) 10 % (24-48) Monocytes (%) (Auto) 7 % (0-9) Eosinophils (%) (Auto) 0 % (0-3) Basophils (%) (Auto) 0 % (0-3) Neutrophils # (Auto) 7.6 x10^3/uL (1.8-7.7) Lymphocytes # (Auto) 0.9 x10^3/uL (1.0-4.8) Monocytes # (Auto) 0.6 x10^3/uL (0.0-1.1) Eosinophils # (Auto) 0.0 x10^3/uL (0.0-0.7) Basophils # (Auto) 0.0 x10^3/uL (0.0-0.2) Glucose (Fingerstick) 335 mg/dL (70-99) Micro Microbiology 07/29/21 Blood Culture - Preliminary, Resulted NO GROWTH AFTER 1 DAY Objective Assessment IMPRESSION: 1. Fever, most likely from aspiration pneumonia. 2. Nausea, vomiting. 3. Aspiration pneumonia. 4. Bowel obstruction. 5. Acute kidney injury. 6. Diabetes. 7. Hypertension. Plan Plan of Care cont antibiotics cont supportive care check cultures OTONIEL ABBASI MD Jul 31, 2021 10:13
[2021-07-31] MEDS: INSULIN LISPRO 300 UNITS/3 ML VIAL. SQ SCH ×3 (10:19→18:07)
--- NOTE | 2021-07-31 10:32 | PDOC ---
DATE OF SERVICE DATE: 07/31/21 TIME: 10:32 SUBJECTIVE ROS Sitting up in bed Has NG tube. Denies any complaints OBJECTIVE Vital Signs Vital Signs Date Time Temp Pulse Resp B/P (MAP) Pulse Ox O2 Delivery O2 Flow Rate FiO2 07/31/21 07:00 97.6 88 20 147/82 (103) 97 Room Air 97.6 I & 0 Intake and Output 07/31/21 07:00 Intake Total 1110 ml Output Total 2250 ml Balance -1140 ml Intake Oral 10 ml IV Total 1100 ml Output Urine Total 300 ml Emesis 550 ml Drainage Total 1400 ml PHYSICAL EXAM Physical Exam General Appearance: no apparent distress HEEN om MOIST Respiratory: bilateral CTA, non labored Heart: S1S2 Abdomen: soft, bowel sounds present Genitourinary: No dunaway Extremities: No edema DIAGNOSIS/ASSESSMENT Assessment & Plan CECELIA- Improving renal function was improving from 4.0 POA to 1.3 ; Noted worsening again Creat 2.5 - ATN / Vomiting/Poor PO intake . unable to place dunaway after multiple attempts per nursing . CT scan at presentation no STEPHENS. Check Renal US R/O RETENTION supportive care, maintain hydration, continue IVF , avoid Nephrotoxins. Renal Cuyst on CT- Multiple low-density lesions of the bilateral kidneys including some that appear cystic and some have calcifications. Lobulated renal cortex with limited evaluation for solid mass. One of the complex cystic lesions on the left measures up to about 53 mm. No significant hydronephrosis.Urinary bladder is partially distended. CKDStage 3 - baseline Creat 1.5, per pt and family member not seen by nephrology as OP HyperNatremia - Monitor Small Bowel Obstruction xray this morning Dilated loops of small bowel throughout the abdomen with mild progression of contrast into the colon from prior small bowel series. Findings concerning for partial small bowel obstr uction. GS managing Fever- Cxr - Patchy opacities left lung base likely atelectasis or developing consolidation. ID consulted DM II HTN COMMENT/RELEVANT DATA Meds Current Medications Medications (Trade) Dose Ordered Sig/Svitlana Start Time Stop Time Status Last Admin Dose Admin Acetaminophen (Tylenol Supp) 650 mg PRN Q6HRS PRN 07/29/21 20:30 07/29/21 21:35 650 MG Acetaminophen/ Hydrocodone Bitart (Lortab 5/325) 1 tab PRN Q6HRS PRN 07/27/21 18:00 07/27/21 19:59 1 TAB Aspirin (Ecotrin) 81 mg DAILY 07/27/21 12:00 07/28/21 08:40 81 MG Atorvastatin Calcium (Lipitor) 80 mg QHS 07/27/21 21:00 07/28/21 20:34 80 MG Carvedilol (Coreg) 25 mg BIDWMEALS 07/27/21 12:00 07/28/21 17:22 25 MG Clonidine HCl (Catapres Tts-2) 1 patch WEEKLY 07/28/21 09:00 07/28/21 10:01 1 PATCH Dextrose (Dextrose 50%-Water Syringe) 12.5 gm PRN Q15MIN PRN 07/26/21 09:15 Dextrose/Sodium Chloride 1,000 ml @ 100 mls/hr Q10H 07/26/21 15:00 07/28/21 11:47 DC 07/28/21 10:01 100 MLS/HR Enoxaparin Sodium (Lovenox 30mg Syringe) 30 mg Q24H 07/27/21 21:00 07/29/21 14:10 DC 07/28/21 20:34 30 MG Enoxaparin Sodium (Lovenox 40mg Syringe) 40 mg Q24H 07/29/21 21:00 07/30/21 21:58 40 MG Fentanyl Citrate (Fentanyl 2ml Vial) 50 mcg PRN Q3HRS PRN 07/28/21 11:15 Fluticasone Propionate (Flonase) 1 spray BID 07/27/21 13:00 07/31/21 10:10 1 SPRAY Hydralazine HCl (Apresoline Inj) 10 mg PRN Q4HRS PRN 07/27/21 18:00 07/30/21 08:19 10 MG Info (CONTRAST GIVEN -- Rx MONITORING) 1 each PRN DAILY PRN 07/29/21 07:45 07/31/21 07:44 DC Insulin Human Lispro (HumaLOG) 0-10 UNITS TIDBFRMEAL 07/28/21 11:30 07/31/21 10:19 4 UNITS Iohexol (Omnipaque 300 Mg/ml) 400 ml 1X ONCE 07/29/21 07:45 07/29/21 07:47 DC 07/29/21 08:30 400 ML Linagliptin (Tradjenta) 5 mg DAILY 07/27/21 12:00 Lorazepam (Ativan Inj) 1 mg PRN Q6HRS PRN 07/28/21 11:15 Magnesium Sulfate 50 ml @ 25 mls/hr 1X ONCE 07/29/21 20:30 07/29/21 22:29 DC 07/29/21 22:47 25 MLS/HR Metoprolol Tartrate (Lopressor Vial) 5 mg Q6HRS 07/28/21 20:00 07/31/21 05:32 5 MG Ondansetron HCl (Zofran) 8 mg PRN Q6HRS PRN 07/28/21 08:45 07/30/21 13:27 8 MG Piperacillin Sod/ Tazobactam Sod 3.375 gm/Sodium Chloride 50 ml @ 100 mls/hr Q6HRS 07/29/21 21:00 07/31/21 05:31 100 MLS/HR Potassium Chloride/Dextrose/ Sod Cl 1,000 ml @ 150 mls/hr Q6H40M 07/29/21 09:15 07/31/21 00:11 75 MLS/HR Potassium Chloride/Water 100 ml @ 100 mls/hr Q1H 07/28/21 12:00 07/28/21 13:59 DC 07/28/21 13:00 100 MLS/HR Sodium Chloride 250 ml @ 250 mls/hr 1X ONCE 07/31/21 09:45 07/31/21 10:44 07/31/21 10:09 250 MLS/HR Lab Laboratory Tests Test 07/30/21 11:20 07/30/21 14:20 07/30/21 17:29 07/30/21 19:12 Glucose (Fingerstick) 284 mg/dL (70-99) 272 mg/dL (70-99) 205 mg/dL (70-99) Urine Collection Type Unknown Urine Color Yellow Urine Clarity Clear Urine pH 5.0 (<5.0-8.0) Urine Specific [place] 1.025 (1.000-1.030) Urine Protein Negative mg/dL (NEG-TRACE) Urine Glucose (UA) Negative mg/dL (NEG) Urine Ketones (Stick) Trace mg/dL (NEG) Urine Blood Negative (NEG) Urine Nitrite Negative (NEG) Urine Bilirubin Small (NEG) Urine Urobilinogen Dipstick 0.2 mg/dL (0.2 mg/dL) Urine Leukocyte Esterase Small (NEG) Urine RBC 1-2 /HPF (0-2) Urine WBC 11-20 /HPF (0-4) Urine Squamous Epithelial Cells Many /LPF Urine Bacteria Few /HPF (0-FEW) Urine Mucus Slight /LPF Test 07/31/21 07:15 07/31/21 07:24 White Blood Count 9.1 x10^3/uL (4.0-11.0) Red Blood Count 4.57 x10^6/uL (3.50-5.40) Hemoglobin 12.8 g/dL (12.0-15.5) Hematocrit 39.9 % (36.0-47.0) Mean Corpuscular Volume 87 fL (79-100) Mean Corpuscular Hemoglobin 28 pg (25-35) Mean Corpuscular Hemoglobin Concent 32 g/dL (31-37) Red Cell Distribution Width 14.2 % (11.5-14.5) Platelet Count 207 x10^3/uL (140-400) Neutrophils (%) (Auto) 83 % (31-73) Lymphocytes (%) (Auto) 10 % (24-48) Monocytes (%) (Auto) 7 % (0-9) Eosinophils (%) (Auto) 0 % (0-3) Basophils (%) (Auto) 0 % (0-3) Neutrophils # (Auto) 7.6 x10^3/uL (1.8-7.7) Lymphocytes # (Auto) 0.9 x10^3/uL (1.0-4.8) Monocytes # (Auto) 0.6 x10^3/uL (0.0-1.1) Eosinophils # (Auto) 0.0 x10^3/uL (0.0-0.7) Basophils # (Auto) 0.0 x10^3/uL (0.0-0.2) Glucose (Fingerstick) 335 mg/dL (70-99) Results All relevant outside records, renal labs, imaging studies, telemetry/EKG's were reviewed. Justicifation of Admission Dx: Justifications for Admission: Justification of Admission Dx: Yes MERLIN BRIGGS MD Jul 31, 2021 10:32
[2021-07-31 11:00] VITALS: BP 161/91
[2021-07-31 11:23] LABS: CREATININE 2.5 mg/dL (0.6-1.0); GFR 22.6; POTASSIUM 3.5 mmol/L (3.5-5.1)
--- NOTE | 2021-07-31 13:03 | PDOC2 ---
CARDIAC CONSULT DATE OF CONSULT Date of Consult DATE: 07/31/21 TIME: 13:00 REASON FOR CONSULT Reason for Consult: AFIB REFERRING PHYSICIAN Referring Physician: Dr. Alfredo SOURCE Source: Chart review, Patient HISTORY OF PRESENT ILLNESS HISTORY OF PRESENT ILLNESS This is a 76 yo presented secondary to abdominal pain, nausea/vomiting. Was noted with CECELIA and CT scan shows a small bowel obstruction. NGT was placed. Patient was noted with intermittent AFIB this morning, which prompted this consult. She denies any dizziness, palpitations, chest pain, or SOA. Converted back to SR this morning. No prior h/o AFIB. PAST MEDICAL HISTORY Cardiovascular: CHF, HTN, Hyperlipidemia Musculoskeletal: Osteoarthritis Endocrine: Diabetes PAST SURGICAL HISTORY Past Surgical History: Total hip replacement FAMILY HISTORY Family History: Diabetes, Heart Disease SOCIAL HISTORY Smoke: No ALCOHOL: none Drugs: None Lives: with Family CURRENT MEDICATIONS CURRENT MEDICATIONS Current Medications Medications (Trade) Dose Ordered Sig/Svitlana Route PRN Reason Start Time Stop Time Status Last Admin Dose Admin Sodium Chloride 250 ml @ 250 mls/hr 1X ONCE IV 07/31/21 09:45 07/31/21 10:44 DC 07/31/21 10:09 ALLERGIES ALLERGIES: Coded Allergies: No Known Drug Allergies (Unverified , 01/02/16) ROS Review of System 14 point ROS conducted with pertinent positives noted above in HPI PHYSICAL EXAM General: Alert, Oriented X3, Cooperative, No acute distress HEENT: Other (NGT) Lungs: Clear to auscultation Heart: Regular rate Abdomen: Soft, Other (mild tenderness ) Skin: No significant lesion Neuro: Normal speech, Sensation intact Psych/Mental Status: Mental status NL, Mood NL MUSCULOSKELETAL: Osteoarthritic changes both hands VITALS/I&O VITALS/I&O: Vital Signs Date Time Temp Pulse Resp B/P (MAP) Pulse Ox O2 Delivery O2 Flow Rate FiO2 07/31/21 11:00 98.2 90 20 161/91 (114) 93 Room Air 98.2 I & O 07/30/21 07/30/21 07/31/21 15:00 23:00 07:00 Intake Total 50 ml 1060 ml Output Total 550 ml 1700 ml Balance -550 ml -1650 ml 1060 ml LABS Lab: Laboratory Tests Test 07/30/21 14:20 07/30/21 17:29 07/30/21 19:12 07/31/21 07:15 Urine Collection Type Unknown Urine Color Yellow Urine Clarity Clear Urine pH 5.0 (<5.0-8.0) Urine Specific [place] 1.025 (1.000-1.030) Urine Protein Negative mg/dL (NEG-TRACE) Urine Glucose (UA) Negative mg/dL (NEG) Urine Ketones (Stick) Trace mg/dL (NEG) Urine Blood Negative (NEG) Urine Nitrite Negative (NEG) Urine Bilirubin Small (NEG) Urine Urobilinogen Dipstick 0.2 mg/dL (0.2 mg/dL) Urine Leukocyte Esterase Small (NEG) Urine RBC 1-2 /HPF (0-2) Urine WBC 11-20 /HPF (0-4) Urine Squamous Epithelial Cells Many /LPF Urine Bacteria Few /HPF (0-FEW) Urine Mucus Slight /LPF Glucose (Fingerstick) 272 mg/dL (70-99) H 205 mg/dL (70-99) H White Blood Count 9.1 x10^3/uL (4.0-11.0) Red Blood Count 4.57 x10^6/uL (3.50-5.40) Hemoglobin 12.8 g/dL (12.0-15.5) Hematocrit 39.9 % (36.0-47.0) Mean Corpuscular Volume 87 fL (79-100) Mean Corpuscular Hemoglobin 28 pg (25-35) Mean Corpuscular Hemoglobin Concent 32 g/dL (31-37) Red Cell Distribution Width 14.2 % (11.5-14.5) Platelet Count 207 x10^3/uL (140-400) Neutrophils (%) (Auto) 83 % (31-73) H Lymphocytes (%) (Auto) 10 % (24-48) L Monocytes (%) (Auto) 7 % (0-9) Eosinophils (%) (Auto) 0 % (0-3) Basophils (%) (Auto) 0 % (0-3) Neutrophils # (Auto) 7.6 x10^3/uL (1.8-7.7) Lymphocytes # (Auto) 0.9 x10^3/uL (1.0-4.8) L Monocytes # (Auto) 0.6 x10^3/uL (0.0-1.1) Eosinophils # (Auto) 0.0 x10^3/uL (0.0-0.7) Basophils # (Auto) 0.0 x10^3/uL (0.0-0.2) Sodium Level 146 mmol/L (136-145) H Potassium Level 3.5 mmol/L (3.5-5.1) Chloride Level 102 mmol/L (98-107) Carbon Dioxide Level 31 mmol/L (21-32) Anion Gap 13 (6-14) Blood Urea Nitrogen 32 mg/dL (7-20) H Creatinine 2.5 mg/dL (0.6-1.0) H Estimated GFR (Cockcroft-Gault) 22.6 Glucose Level 308 mg/dL (70-99) H Calcium Level 9.0 mg/dL (8.5-10.1) Test 07/31/21 07:24 07/31/21 11:03 Glucose (Fingerstick) 335 mg/dL (70-99) H 327 mg/dL (70-99) H Laboratory Tests 07/31/21 07:15 Laboratory Tests 07/31/21 07:15 ECHOCARDIOGRAM ECHOCARDIOGRAM <Conclusion> The left ventricle is normal size. The left ventricular systolic function is normal and the ejection fraction is within normal range. The Ejection Fraction is 50-55%. There is borderline concentric left ventricular hypertrophy. Doppler and Color Flow revealed trace aortic regurgitation. There is no significant aortic valvular stenosis. Doppler and Color-flow revealed trace mitral regurgitation. Doppler and Color Flow revealed trace tricuspid regurgitation with an estimated PAP of 27 mmHg. DATE: 03/06/20 1527 ASSESSMENT/PLAN ASSESSMENT/PLAN 1. Abdominal pain; CT with SBO. s/p NGT with bilious output. GS following, possible laparoscopy tomorrow 2. PAFIB with RVR; new finding in setting of above. Convert back to SR later morning. 3. H/o severe cardiomyopathy; LVEF 20% in 2009. s/p LV recovery. Most recent echo 03/05 with normalized LV function 4. Hypertension; controlled overall 5. Hyperlipidemia; stating 6. Diabetes, II 7. CECELIA on CKD; improving 8. Fevers, ? aspiration PNA Recommendations Metoprolol IV q6 for rate control while NPO TSH, Lipids, Mg Echo to assess LV systolic function On Lovenox VTE prophylaxis dosing. Consider outpatient event monitor to note AFIB burden, guide therapy Supportive care DORIS LEMOS APRN Jul 31, 2021 13:03
--- NOTE | 2021-07-31 13:53 | PDOC ---
SURGICAL PROGRESS NOTE DATE: 07/31/21 TIME: 13:51 Subjective Patient states she has not passed any flatus or stool. Denies any nausea or vomiting NG tube in place with bilious output Vital Signs Vital Signs Date Time Temp Pulse Resp B/P (MAP) Pulse Ox O2 Delivery O2 Flow Rate FiO2 07/31/21 13:33 90 161/91 07/31/21 11:00 98.2 20 93 Room Air 98.2 I&O Intake and Output 07/31/21 07:00 Intake Total 1110 ml Output Total 2250 ml Balance -1140 ml Intake Oral 10 ml IV Total 1100 ml Output Urine Total 300 ml Emesis 550 ml Drainage Total 1400 ml PATIENT HAS A GTZ: No General: Alert, Oriented X3, Cooperative, mild distress Abdomen: Soft, Other (Nondistended nontender) Labs Laboratory Tests Test 07/29/21 17:39 07/29/21 19:39 07/29/21 21:25 07/30/21 07:10 Glucose (Fingerstick) 226 mg/dL (70-99) 206 mg/dL (70-99) Lactic Acid Level 1.6 mmol/L (0.4-2.0) Sodium Level 146 mmol/L (136-145) Potassium Level 3.5 mmol/L (3.5-5.1) Chloride Level 103 mmol/L (98-107) Carbon Dioxide Level 29 mmol/L (21-32) Anion Gap 14 (6-14) Blood Urea Nitrogen 30 mg/dL (7-20) Creatinine 2.1 mg/dL (0.6-1.0) Estimated GFR (Cockcroft-Gault) 27.6 BUN/Creatinine Ratio 14 (6-20) Glucose Level 324 mg/dL (70-99) Calcium Level 8.8 mg/dL (8.5-10.1) Total Bilirubin 0.9 mg/dL (0.2-1.0) Aspartate Amino Transf (AST/SGOT) 13 U/L (15-37) Alanine Aminotransferase (ALT/SGPT) 12 U/L (14-59) Alkaline Phosphatase 73 U/L (46-116) Total Protein 7.3 g/dL (6.4-8.2) Albumin 2.8 g/dL (3.4-5.0) Albumin/Globulin Ratio 0.6 (1.0-1.7) Test 07/30/21 07:15 07/30/21 07:46 07/30/21 10:02 07/30/21 11:20 White Blood Count 10.3 x10^3/uL (4.0-11.0) Red Blood Count 4.17 x10^6/uL (3.50-5.40) Hemoglobin 11.8 g/dL (12.0-15.5) Hematocrit 36.5 % (36.0-47.0) Mean Corpuscular Volume 88 fL (79-100) Mean Corpuscular Hemoglobin 28 pg (25-35) Mean Corpuscular Hemoglobin Concent 32 g/dL (31-37) Red Cell Distribution Width 13.9 % (11.5-14.5) Platelet Count 186 x10^3/uL (140-400) Neutrophils (%) (Auto) 89 % (31-73) Lymphocytes (%) (Auto) 6 % (24-48) Monocytes (%) (Auto) 5 % (0-9) Eosinophils (%) (Auto) 0 % (0-3) Basophils (%) (Auto) 0 % (0-3) Neutrophils # (Auto) 9.1 x10^3/uL (1.8-7.7) Lymphocytes # (Auto) 0.6 x10^3/uL (1.0-4.8) Monocytes # (Auto) 0.6 x10^3/uL (0.0-1.1) Eosinophils # (Auto) 0.0 x10^3/uL (0.0-0.7) Basophils # (Auto) 0.0 x10^3/uL (0.0-0.2) Glucose (Fingerstick) 339 mg/dL (70-99) 284 mg/dL (70-99) SARS-CoV-2 RNA (VIN) Negative (Negative) SARS-CoV-2 Antigen (Rapid) Negative (NEGATIVE) Test 07/30/21 14:20 07/30/21 17:29 07/30/21 19:12 07/31/21 07:15 Urine Collection Type Unknown Urine Color Yellow Urine Clarity Clear Urine pH 5.0 (<5.0-8.0) Urine Specific [place] 1.025 (1.000-1.030) Urine Protein Negative mg/dL (NEG-TRACE) Urine Glucose (UA) Negative mg/dL (NEG) Urine Ketones (Stick) Trace mg/dL (NEG) Urine Blood Negative (NEG) Urine Nitrite Negative (NEG) Urine Bilirubin Small (NEG) Urine Urobilinogen Dipstick 0.2 mg/dL (0.2 mg/dL) Urine Leukocyte Esterase Small (NEG) Urine RBC 1-2 /HPF (0-2) Urine WBC 11-20 /HPF (0-4) Urine Squamous Epithelial Cells Many /LPF Urine Bacteria Few /HPF (0-FEW) Urine Mucus Slight /LPF Glucose (Fingerstick) 272 mg/dL (70-99) 205 mg/dL (70-99) White Blood Count 9.1 x10^3/uL (4.0-11.0) Red Blood Count 4.57 x10^6/uL (3.50-5.40) Hemoglobin 12.8 g/dL (12.0-15.5) Hematocrit 39.9 % (36.0-47.0) Mean Corpuscular Volume 87 fL (79-100) Mean Corpuscular Hemoglobin 28 pg (25-35) Mean Corpuscular Hemoglobin Concent 32 g/dL (31-37) Red Cell Distribution Width 14.2 % (11.5-14.5) Platelet Count 207 x10^3/uL (140-400) Neutrophils (%) (Auto) 83 % (31-73) Lymphocytes (%) (Auto) 10 % (24-48) Monocytes (%) (Auto) 7 % (0-9) Eosinophils (%) (Auto) 0 % (0-3) Basophils (%) (Auto) 0 % (0-3) Neutrophils # (Auto) 7.6 x10^3/uL (1.8-7.7) Lymphocytes # (Auto) 0.9 x10^3/uL (1.0-4.8) Monocytes # (Auto) 0.6 x10^3/uL (0.0-1.1) Eosinophils # (Auto) 0.0 x10^3/uL (0.0-0.7) Basophils # (Auto) 0.0 x10^3/uL (0.0-0.2) Sodium Level 146 mmol/L (136-145) Potassium Level 3.5 mmol/L (3.5-5.1) Chloride Level 102 mmol/L (98-107) Carbon Dioxide Level 31 mmol/L (21-32) Anion Gap 13 (6-14) Blood Urea Nitrogen 32 mg/dL (7-20) Creatinine 2.5 mg/dL (0.6-1.0) Estimated GFR (Cockcroft-Gault) 22.6 Glucose Level 308 mg/dL (70-99) Calcium Level 9.0 mg/dL (8.5-10.1) Test 07/31/21 07:24 07/31/21 11:03 Glucose (Fingerstick) 335 mg/dL (70-99) 327 mg/dL (70-99) Laboratory Tests Test 07/30/21 14:20 07/30/21 17:29 07/30/21 19:12 07/31/21 07:15 Urine Collection Type Unknown Urine Color Yellow Urine Clarity Clear Urine pH 5.0 (<5.0-8.0) Urine Specific [place] 1.025 (1.000-1.030) Urine Protein Negative mg/dL (NEG-TRACE) Urine Glucose (UA) Negative mg/dL (NEG) Urine Ketones (Stick) Trace mg/dL (NEG) Urine Blood Negative (NEG) Urine Nitrite Negative (NEG) Urine Bilirubin Small (NEG) Urine Urobilinogen Dipstick 0.2 mg/dL (0.2 mg/dL) Urine Leukocyte Esterase Small (NEG) Urine RBC 1-2 /HPF (0-2) Urine WBC 11-20 /HPF (0-4) Urine Squamous Epithelial Cells Many /LPF Urine Bacteria Few /HPF (0-FEW) Urine Mucus Slight /LPF Glucose (Fingerstick) 272 mg/dL (70-99) 205 mg/dL (70-99) White Blood Count 9.1 x10^3/uL (4.0-11.0) Red Blood Count 4.57 x10^6/uL (3.50-5.40) Hemoglobin 12.8 g/dL (12.0-15.5) Hematocrit 39.9 % (36.0-47.0) Mean Corpuscular Volume 87 fL (79-100) Mean Corpuscular Hemoglobin 28 pg (25-35) Mean Corpuscular Hemoglobin Concent 32 g/dL (31-37) Red Cell Distribution Width 14.2 % (11.5-14.5) Platelet Count 207 x10^3/uL (140-400) Neutrophils (%) (Auto) 83 % (31-73) Lymphocytes (%) (Auto) 10 % (24-48) Monocytes (%) (Auto) 7 % (0-9) Eosinophils (%) (Auto) 0 % (0-3) Basophils (%) (Auto) 0 % (0-3) Neutrophils # (Auto) 7.6 x10^3/uL (1.8-7.7) Lymphocytes # (Auto) 0.9 x10^3/uL (1.0-4.8) Monocytes # (Auto) 0.6 x10^3/uL (0.0-1.1) Eosinophils # (Auto) 0.0 x10^3/uL (0.0-0.7) Basophils # (Auto) 0.0 x10^3/uL (0.0-0.2) Sodium Level 146 mmol/L (136-145) Potassium Level 3.5 mmol/L (3.5-5.1) Chloride Level 102 mmol/L (98-107) Carbon Dioxide Level 31 mmol/L (21-32) Anion Gap 13 (6-14) Blood Urea Nitrogen 32 mg/dL (7-20) Creatinine 2.5 mg/dL (0.6-1.0) Estimated GFR (Cockcroft-Gault) 22.6 Glucose Level 308 mg/dL (70-99) Calcium Level 9.0 mg/dL (8.5-10.1) Test 07/31/21 07:24 07/31/21 11:03 Glucose (Fingerstick) 335 mg/dL (70-99) 327 mg/dL (70-99) I have reviewed the following Abdominal film shows less distended small bowel and stomach after NG tube and stomach contrast did make it to the colon but a very small amount Problem List Problems Medical Problems: (1) Nausea & vomiting Status: Acute (2) SBO (small bowel obstruction) Status: Acute Assessment/Plan Partial small bowel obstruction with continued bilious output from her NG tube with no bowel movement we will plan on laparoscopy tomorrow if no significant improvement Justicifation of Admission Dx: Justifications for Admission: Justification of Admission Dx: Yes CEE LOVE MD Jul 31, 2021 13:53
--- NOTE | 2021-07-31 14:26 | RAD ---
Site ID: [id number] EXAMINATION: US RENAL BILAT. HISTORY: 76 years Female Reason: CECELIA after initial Resolution. RN unable to place dunaway / Spl. Ins tructions: / History: . COMPARISON: July 26, 2021 CT scan. TECHNIQUE: Routine renal ultrasound was performed. FINDINGS: The right kidney measures 8.4, and the left kidney measures 9 in length. Both kidneys demonstrate cy stic lesions measuring up to 4.1 cm in the left kidney lower pole and the upper pole lateral lesion m easuring 2.8 cm in the right kidney which demonstrate internal echoes with the increased through hurd smission and no internal vascularity in favor of a complicated cyst. No hydronephrosis. The urinary bladder appears distended. IMPRESSION: 1. No hydronephrosis. 2. Right kidney 2.8 cm hypoechoic lesion with internal echoes has features in favor of a complicated cyst. Electronically signed by: Sloan Lo MD (07/31/2021 2:24 PM) [id number]
[2021-07-31 14:55] LABS: CHOLESTEROL/HDL RATIO 1.9
[2021-07-31 15:00] VITALS: BP 144/80
[2021-07-31] MEDS ORDERED: DEXTROSE 50% 25 GM / 50ML DISP.SYRIN. IV PRN (15:45)
[2021-07-31 19:00] VITALS: BP 155/84
[2021-07-31] MEDS: ENOXAPARIN 40 MG/0.4 ML SYRINGE. SQ SCH (19:30)
[2021-07-31] MEDS: ATORVASTATIN CALCIUM 40 MG TABLET. PO SCH (19:30)
[2021-07-31 23:00] VITALS: BP 199/101
[2021-08-01] MEDS: METOPROLOL IV PUSH 5 MG/5 ML VIAL. IVP SCH ×4 (00:13→17:53)
[2021-08-01] MEDS: PIPERACILLIN/TAZOBACTAM 3.375 GM in IV NORMAL SALINE 50ML 50 ML IV SCH ×4 (00:14→17:52)
[2021-08-01 03:00] VITALS: BP 191/104
[2021-08-01] MEDS: POTASSIUM CL 20MEQ D5-0.45NACL 1,000 ML IV SCH ×3 (05:19→14:47)
[2021-08-01] MEDS ORDERED: HYDROmorphone 2 MG/ML VIAL IVP PRN (06:00)
[2021-08-01] MEDS: IV RINGERS,LACTATED 1000ML 1,000 ML IV SCH ×2 (06:00→16:12)
[2021-08-01] MEDS ORDERED: PROCHLORPERAZINE 10 MG/2 ML VIAL. IVP PRN (06:00)
[2021-08-01] MEDS ORDERED: MORPHINE SULFATE 2 MG/ML INJ. IVP PRN (06:00)
[2021-08-01] MEDS ORDERED: fentaNYL PF VIAL 100 MCG/2 ML VIAL IVP PRN ×2 (06:00)
[2021-08-01 07:00] VITALS: BP 194/94
[2021-08-01 07:27] LABS: BASO % 0 % (0-3); EOS # 0.1 x10^3/uL (0.0-0.7); EOS % 2 % (0-3); HEMATOCRIT 38.8 % (36.0-47.0); HEMOGLOBIN 12.7 g/dL (12.0-15.5); LYMPH # 1.2 x10^3/uL (1.0-4.8); LYMPH % 14 % (24-48); MEAN CORPUSCULAR HEMOGLOBIN 29 pg (25-35); MEAN CORPUSCULAR HGB CONC 33 g/dL (31-37); MEAN CORPUSCULAR VOLUME 88 fL (79-100); MONO # 0.5 x10^3/uL (0.0-1.1); MONO % 6 % (0-9); NEUT # 6.9 x10^3/uL (1.8-7.7); NEUT % 78 % (31-73); PLATELET COUNT 231 x10^3/uL (140-400); WHITE BLOOD COUNT 8.8 x10^3/uL (4.0-11.0)
[2021-08-01 07:53] LABS: ALBUMIN 2.6 g/dL (3.4-5.0); ALBUMIN/GLOBULIN RATIO 0.6 (1.0-1.7); CREATININE 1.8 mg/dL (0.6-1.0); POTASSIUM 3.8 mmol/L (3.5-5.1); TOTAL BILIRUBIN 0.4 mg/dL (0.2-1.0); TOTAL PROTEIN 7.1 g/dL (6.4-8.2)
[2021-08-01] MEDS: INSULIN LISPRO 300 UNITS/3 ML VIAL. SQ SCH ×3 (08:36→17:00)
[2021-08-01] MEDS: LINAGLIPTIN 5 MG TABLET PO SCH (08:37)
[2021-08-01] MEDS: ASPIRIN ENTERIC COATED 81 MG TABLET.DR. PO SCH (08:37)
[2021-08-01] MEDS: FLUTICASONE 50MCG/NASAL SPRAY 16GM BOTTLE. NS SCH ×2 (08:37→20:22)
[2021-08-01] MEDS: hydrALAZINE 20 MG/ML VIAL. IVP PRN ×3 (08:59→20:21)
--- NOTE | 2021-08-01 09:03 | PDOC ---
Infectious Disease Note Subjective Subjective pt is feeling better, no abd pain, NG in place ROS ROS Denies chest pain shortness of breath or fever Vital Sign Vital Signs Vital Signs Date Time Temp Pulse Resp B/P (MAP) Pulse Ox O2 Delivery O2 Flow Rate FiO2 08/01/21 08:59 83 194/94 08/01/21 07:00 98.4 96 98.4 08/01/21 03:00 Room Air 07/31/21 23:00 18 Physical Exam PHYSICAL EXAM GENERAL: Alert, oriented female, not in distress. VITAL SIGNS: stable HEENT: NAD. NECK: Supple, no JVP, no lymphadenopathy. LUNGS: Clear. HEART: S1, S2, regular. ABDOMEN: Soft, nontender, no organomegaly. EXTREMITIES: No edema or cyanosis. SKIN: Unremarkable. NEUROLOGIC: The patient is alert, awake, and appropriate. No focal neurologic deficit. Labs Lab Laboratory Tests Test 07/31/21 11:03 07/31/21 16:13 07/31/21 19:29 08/01/21 05:55 Glucose (Fingerstick) 327 mg/dL (70-99) 255 mg/dL (70-99) 263 mg/dL (70-99) White Blood Count 8.8 x10^3/uL (4.0-11.0) Red Blood Count 4.40 x10^6/uL (3.50-5.40) Hemoglobin 12.7 g/dL (12.0-15.5) Hematocrit 38.8 % (36.0-47.0) Mean Corpuscular Volume 88 fL (79-100) Mean Corpuscular Hemoglobin 29 pg (25-35) Mean Corpuscular Hemoglobin Concent 33 g/dL (31-37) Red Cell Distribution Width 14.0 % (11.5-14.5) Platelet Count 231 x10^3/uL (140-400) Neutrophils (%) (Auto) 78 % (31-73) Lymphocytes (%) (Auto) 14 % (24-48) Monocytes (%) (Auto) 6 % (0-9) Eosinophils (%) (Auto) 2 % (0-3) Basophils (%) (Auto) 0 % (0-3) Neutrophils # (Auto) 6.9 x10^3/uL (1.8-7.7) Lymphocytes # (Auto) 1.2 x10^3/uL (1.0-4.8) Monocytes # (Auto) 0.5 x10^3/uL (0.0-1.1) Eosinophils # (Auto) 0.1 x10^3/uL (0.0-0.7) Basophils # (Auto) 0.0 x10^3/uL (0.0-0.2) Sodium Level 142 mmol/L (136-145) Potassium Level 3.8 mmol/L (3.5-5.1) Chloride Level 104 mmol/L (98-107) Carbon Dioxide Level 28 mmol/L (21-32) Anion Gap 10 (6-14) Blood Urea Nitrogen 24 mg/dL (7-20) Creatinine 1.8 mg/dL (0.6-1.0) Estimated GFR (Cockcroft-Gault) 33.0 BUN/Creatinine Ratio 13 (6-20) Glucose Level 337 mg/dL (70-99) Calcium Level 9.0 mg/dL (8.5-10.1) Total Bilirubin 0.4 mg/dL (0.2-1.0) Aspartate Amino Transf (AST/SGOT) 7 U/L (15-37) Alanine Aminotransferase (ALT/SGPT) 12 U/L (14-59) Alkaline Phosphatase 77 U/L (46-116) Total Protein 7.1 g/dL (6.4-8.2) Albumin 2.6 g/dL (3.4-5.0) Albumin/Globulin Ratio 0.6 (1.0-1.7) Micro Microbiology 07/29/21 Blood Culture - Preliminary, Resulted NO GROWTH AFTER 1 DAY Objective Assessment IMPRESSION: 1. Fever, most likely from aspiration pneumonia. 2. Nausea, vomiting. 3. Aspiration pneumonia. 4. Bowel obstruction. 5. Acute kidney injury. 6. Diabetes. 7. Hypertension. Plan Plan of Care cont antibiotics cont supportive care check cultures Surgery has been planned for today OTONIEL ABBASI MD Aug 01, 2021 09:03
--- NOTE | 2021-08-01 09:22 | PDOC ---
PROGRESS NOTES Date of Service: DATE: 08/01/21 TIME: 09:18 Subjective Subjective pt going for surgery Objective Objective Vital Signs Date Time Temp Pulse Resp B/P (MAP) Pulse Ox O2 Delivery O2 Flow Rate FiO2 08/01/21 08:59 83 194/94 08/01/21 07:00 98.4 96 98.4 08/01/21 03:00 Room Air 07/31/21 23:00 18 Intake and Output 08/01/21 07:00 Intake Total 1050 ml Output Total 5200 ml Balance -4150 ml IV Total 1050 ml Gastric Drainage Total 4000 ml Drainage Total 1200 ml Physical Exam Abdomen: Soft, Other (mild tenderness ) Heart: Regular rate Extremities: No clubbing, No cyanosis General: Alert, Oriented X3, Cooperative, No acute distress HEENT: Other (NGT) Lungs: Clear to auscultation MUSCULOSKELETAL: Osteoarthritic changes both hands Neuro: Normal speech, Sensation intact Psych/Mental Status: Mental status NL, Mood NL Skin: No significant lesion COMMENT NGT to suction Diagnosis Problem List Problems Medical Problems: (1) Nausea & vomiting Status: Acute (2) SBO (small bowel obstruction) Status: Acute Assessment Assessment Problems Medical Problems: (1) Nausea & vomiting Status: Acute (2) SBO (small bowel obstruction) Status: Acute FINAL IMPRESSION: fevers ? aspiration 1. Abdominal pain, small bowel obstruction. 2. Acute renal insufficiency. Creatinine 4, normal creatinine is around 1.5. 3. Hypertension. 4. Diabetes. 5. Hyperlipidemia. 6. History of chronic heart failure, systolic; but last echocardiogram shows good improvement 50% in 2020. PLAN: Pt going for surgery today cr 1.8 down from 2.5 cbs ok BS 400 range iv fluids 100 NGT to suction draining well IV Zosyn ID consult appreciated cxr ,c/s ,labs cr 2.0 went up, bmp pending cbc normal small bowel series shows small bowel obstruction kidney function improved and declining again NPO. afib , cardiology consult Plan Plan of Care Problems Medical Problems: (1) Nausea & vomiting Status: Acute (2) SBO (small bowel obstruction) Status: Acute Comment Review of Relevant I have reviewed the following items shaan (where applicable) has been applied. Labs Laboratory Tests Test 07/31/21 11:03 07/31/21 16:13 07/31/21 19:29 08/01/21 05:55 Glucose (Fingerstick) 327 mg/dL (70-99) 255 mg/dL (70-99) 263 mg/dL (70-99) White Blood Count 8.8 x10^3/uL (4.0-11.0) Red Blood Count 4.40 x10^6/uL (3.50-5.40) Hemoglobin 12.7 g/dL (12.0-15.5) Hematocrit 38.8 % (36.0-47.0) Mean Corpuscular Volume 88 fL (79-100) Mean Corpuscular Hemoglobin 29 pg (25-35) Mean Corpuscular Hemoglobin Concent 33 g/dL (31-37) Red Cell Distribution Width 14.0 % (11.5-14.5) Platelet Count 231 x10^3/uL (140-400) Neutrophils (%) (Auto) 78 % (31-73) Lymphocytes (%) (Auto) 14 % (24-48) Monocytes (%) (Auto) 6 % (0-9) Eosinophils (%) (Auto) 2 % (0-3) Basophils (%) (Auto) 0 % (0-3) Neutrophils # (Auto) 6.9 x10^3/uL (1.8-7.7) Lymphocytes # (Auto) 1.2 x10^3/uL (1.0-4.8) Monocytes # (Auto) 0.5 x10^3/uL (0.0-1.1) Eosinophils # (Auto) 0.1 x10^3/uL (0.0-0.7) Basophils # (Auto) 0.0 x10^3/uL (0.0-0.2) Sodium Level 142 mmol/L (136-145) Potassium Level 3.8 mmol/L (3.5-5.1) Chloride Level 104 mmol/L (98-107) Carbon Dioxide Level 28 mmol/L (21-32) Anion Gap 10 (6-14) Blood Urea Nitrogen 24 mg/dL (7-20) Creatinine 1.8 mg/dL (0.6-1.0) Estimated GFR (Cockcroft-Gault) 33.0 BUN/Creatinine Ratio 13 (6-20) Glucose Level 337 mg/dL (70-99) Calcium Level 9.0 mg/dL (8.5-10.1) Total Bilirubin 0.4 mg/dL (0.2-1.0) Aspartate Amino Transf (AST/SGOT) 7 U/L (15-37) Alanine Aminotransferase (ALT/SGPT) 12 U/L (14-59) Alkaline Phosphatase 77 U/L (46-116) Total Protein 7.1 g/dL (6.4-8.2) Albumin 2.6 g/dL (3.4-5.0) Albumin/Globulin Ratio 0.6 (1.0-1.7) Microbiology 07/29/21 Blood Culture - Preliminary, Resulted NO GROWTH AFTER 2 DAYS Medications Current Medications Dextrose (Dextrose 50%-Water Syringe) 12.5 gm PRN Q15MIN PRN IV SEE COMMENTS; Start 07/31/21 at 15:45; Status UNV Fentanyl Citrate (Fentanyl 2ml Vial) 25 mcg PRN Q5MIN PRN IVP MILD PAIN 1-3; Start 08/01/21 at 06:00; Stop 08/02/21 at 05:59 Fentanyl Citrate (Fentanyl 2ml Vial) 50 mcg PRN Q5MIN PRN IVP MODERATE PAIN 4- 6; Start 08/01/21 at 06:00; Stop 08/02/21 at 05:59 Hydromorphone HCl (Dilaudid) 0.5 mg PRN Q10MIN PRN IVP SEVERE PAIN 7-10, 2nd CHOICE; Start 08/01/21 at 06:00; Stop 08/02/21 at 05:59 Insulin Human Lispro (HumaLOG) 0-9 UNITS TIDWMEALS SQ Last administered on 08/01/21at 08:36; Start 07/31/21 at 17:00 Morphine Sulfate (Morphine Sulfate) 1 mg PRN Q10MIN PRN IVP SEVERE PAIN 7-10; Start 08/01/21 at 06:00; Stop 08/02/21 at 05:59 Prochlorperazine Edisylate (Compazine) 5 mg PACU PRN PRN IVP NAUSEA, MRX1; Start 08/01/21 at 06:00; Stop 08/02/21 at 05:59 Ringer's Solution 1,000 ml @ 30 mls/hr Q24H IV Last administered on 08/01/21at 06:00; Start 08/01/21 at 06:00; Stop 08/01/21 at 17:59 Sodium Chloride 250 ml @ 250 mls/hr 1X ONCE IV Last administered on 07/31/21at 10:09; Start 07/31/21 at 09:45; Stop 07/31/21 at 10:44; Status DC Vitals/I & O Vital Sign - Last 24 Hours 07/31/21 07/31/21 07/31/21 07/31/21 11:00 13:33 15:00 18:09 Temp 98.2 97.7 98.2 97.7 Pulse 90 90 81 89 Resp 20 20 B/P (MAP) 161/91 (114) 161/91 144/80 (101) 185/93 Pulse Ox 93 94 O2 Delivery Room Air Room Air 07/31/21 07/31/21 07/31/21 08/01/21 19:00 20:15 23:00 00:13 Temp 98.3 98.6 98.3 98.6 Pulse 91 81 81 Resp 18 18 B/P (MAP) 155/84 (107) 199/101 (133) 199/101 Pulse Ox 94 93 O2 Delivery Room Air Room Air Room Air 08/01/21 08/01/21 08/01/21 08/01/21 03:00 05:22 07:00 08:59 Temp 98.5 98.4 98.5 98.4 Pulse 85 92 83 83 B/P (MAP) 191/104 (133) 183/103 194/94 (127) 194/94 Pulse Ox 100 96 O2 Delivery Room Air Intake and Output 07/31/21 07/31/21 08/01/21 15:00 23:00 07:00 Intake Total 1000 ml 50 ml Output Total 4200 ml 1000 ml Balance -4200 ml 1000 ml -950 ml Justifications for Admission Other Justification LEXX RODRIGEZ MD Aug 01, 2021 09:22
--- NOTE | 2021-08-01 10:31 | PDOC ---
DATE OF SERVICE DATE: 08/01/21 TIME: 10:28 SUBJECTIVE ROS Denies any complaints OBJECTIVE Vital Signs Vital Signs Date Time Temp Pulse Resp B/P (MAP) Pulse Ox O2 Delivery O2 Flow Rate FiO2 08/01/21 08:59 83 194/94 08/01/21 07:00 98.4 96 98.4 08/01/21 03:00 Room Air 07/31/21 23:00 18 I & 0 Intake and Output 08/01/21 06:59 Intake Total 1050 ml Output Total 5200 ml Balance -4150 ml IV Total 1050 ml Gastric Drainage Total 4000 ml Drainage Total 1200 ml PHYSICAL EXAM Physical Exam General Appearance: no apparent distress HEEN om MOIST Respiratory: bilateral CTA, non labored Heart: S1S2 Abdomen: soft, bowel sounds present Genitourinary: No dunaway Extremities: No edema DIAGNOSIS/ASSESSMENT Assessment & Plan CECELIA- Improving renal function was improving from 4.0 POA to 1.3 ; Noted worsening again Creat 2.5 - ATN / Vomiting/Poor PO intake ; Creatinine trending down. Renal US unremarkable for Hydronephrosis Significant Gastric drainage . UOP not recorded . Nursing unable to place dunaway supportive care, maintain hydration, continue IVF ,strict I/O avoid Nephrotoxins. Renal Cyst on CT- Multiple low-density lesions of the bilateral kidneys including some that appear cystic and some have calcifications. Lobulated renal cortex with limited evaluation for solid mass. One of the complex cystic lesions on the left measures up to about 53 mm. US Complicated Cyst. Recommend Urology Consult as OP. defer to primary CKDStage 3 - baseline Creat 1.5, per pt and family member not seen by nephrology as OP HyperNatremia - Monitor Small Bowel Obstruction xray this morning Dilated loops of small bowel throughout the abdomen with mild progression of contrast into the colon from prior small bowel series. Findings concerning for partial small bowel obstruction. Not passing flatus or stool with high NG tube output plan for diagnostic laparoscopy possible laparotomy for small bowel obstruction today per GS Fever- Cxr - Patchy opacities left lung base likely atelectasis or developing consolidation. ID consulted DM II HTN COMMENT/RELEVANT DATA Meds Current Medications Medications (Trade) Dose Ordered Sig/Svitlana Start Time Stop Time Status Last Admin Dose Admin Acetaminophen (Tylenol Supp) 650 mg PRN Q6HRS PRN 07/29/21 20:30 07/29/21 21:35 650 MG Acetaminophen/ Hydrocodone Bitart (Lortab 5/325) 1 tab PRN Q6HRS PRN 07/27/21 18:00 07/27/21 19:59 1 TAB Aspirin (Ecotrin) 81 mg DAILY 07/27/21 12:00 07/28/21 08:40 81 MG Atorvastatin Calcium (Lipitor) 80 mg QHS 07/27/21 21:00 07/28/21 20:34 80 MG Carvedilol (Coreg) 25 mg BIDWMEALS 07/27/21 12:00 07/31/21 14:34 DC 07/28/21 17:22 25 MG Clonidine HCl (Catapres Tts-2) 1 patch WEEKLY 07/28/21 09:00 07/28/21 10:01 1 PATCH Dextrose (Dextrose 50%-Water Syringe) 12.5 gm PRN Q15MIN PRN 07/31/21 15:45 UNV Dextrose/Sodium Chloride 1,000 ml @ 100 mls/hr Q10H 07/26/21 15:00 07/28/21 11:47 DC 07/28/21 10:01 100 MLS/HR Enoxaparin Sodium (Lovenox 30mg Syringe) 30 mg Q24H 07/27/21 21:00 07/29/21 14:10 DC 07/28/21 20:34 30 MG Enoxaparin Sodium (Lovenox 40mg Syringe) 40 mg Q24H 07/29/21 21:00 07/30/21 21:58 40 MG Fentanyl Citrate (Fentanyl 2ml Vial) 50 mcg PRN Q5MIN PRN 08/01/21 06:00 08/02/21 05:59 Fluticasone Propionate (Flonase) 1 spray BID 07/27/21 13:00 07/31/21 20:46 1 SPRAY Hydralazine HCl (Apresoline Inj) 10 mg PRN Q4HRS PRN 07/27/21 18:00 08/01/21 08:59 10 MG Hydromorphone HCl (Dilaudid) 0.5 mg PRN Q10MIN PRN 08/01/21 06:00 08/02/21 05:59 Info (CONTRAST GIVEN -- Rx MONITORING) 1 each PRN DAILY PRN 07/29/21 07:45 07/31/21 07:44 DC Insulin Human Lispro (HumaLOG) 0-9 UNITS TIDWMEALS 07/31/21 17:00 08/01/21 08:36 9 UNITS Iohexol (Omnipaque 300 Mg/ml) 400 ml 1X ONCE 07/29/21 07:45 07/29/21 07:47 DC 07/29/21 08:30 400 ML Linagliptin (Tradjenta) 5 mg DAILY 07/27/21 12:00 Lorazepam (Ativan Inj) 1 mg PRN Q6HRS PRN 07/28/21 11:15 Magnesium Sulfate 50 ml @ 25 mls/hr 1X ONCE 07/29/21 20:30 07/29/21 22:29 DC 07/29/21 22:47 25 MLS/HR Metoprolol Tartrate (Lopressor Vial) 5 mg Q6HRS 07/28/21 20:00 08/01/21 05:22 5 MG Morphine Sulfate (Morphine Sulfate) 1 mg PRN Q10MIN PRN 08/01/21 06:00 08/02/21 05:59 Ondansetron HCl (Zofran) 8 mg PRN Q6HRS PRN 07/28/21 08:45 07/30/21 13:27 8 MG Piperacillin Sod/ Tazobactam Sod 3.375 gm/Sodium Chloride 50 ml @ 100 mls/hr Q6HRS 07/29/21 21:00 08/01/21 05:19 100 MLS/HR Potassium Chloride/Dextrose/ Sod Cl 1,000 ml @ 150 mls/hr Q6H40M 07/29/21 09:15 08/01/21 05:19 150 MLS/HR Potassium Chloride/Water 100 ml @ 100 mls/hr Q1H 07/28/21 12:00 07/28/21 13:59 DC 07/28/21 13:00 100 MLS/HR Prochlorperazine Edisylate (Compazine) 5 mg PACU PRN PRN 08/01/21 06:00 08/02/21 05:59 Ringer's Solution 1,000 ml @ 30 mls/hr Q24H 08/01/21 06:00 08/01/21 17:59 08/01/21 06:00 30 MLS/HR Sodium Chloride 250 ml @ 250 mls/hr 1X ONCE 07/31/21 09:45 07/31/21 10:44 DC 07/31/21 10:09 250 MLS/HR Lab Laboratory Tests Test 07/31/21 11:03 07/31/21 16:13 07/31/21 19:29 08/01/21 05:55 Glucose (Fingerstick) 327 mg/dL (70-99) 255 mg/dL (70-99) 263 mg/dL (70-99) White Blood Count 8.8 x10^3/uL (4.0-11.0) Red Blood Count 4.40 x10^6/uL (3.50-5.40) Hemoglobin 12.7 g/dL (12.0-15.5) Hematocrit 38.8 % (36.0-47.0) Mean Corpuscular Volume 88 fL (79-100) Mean Corpuscular Hemoglobin 29 pg (25-35) Mean Corpuscular Hemoglobin Concent 33 g/dL (31-37) Red Cell Distribution Width 14.0 % (11.5-14.5) Platelet Count 231 x10^3/uL (140-400) Neutrophils (%) (Auto) 78 % (31-73) Lymphocytes (%) (Auto) 14 % (24-48) Monocytes (%) (Auto) 6 % (0-9) Eosinophils (%) (Auto) 2 % (0-3) Basophils (%) (Auto) 0 % (0-3) Neutrophils # (Auto) 6.9 x10^3/uL (1.8-7.7) Lymphocytes # (Auto) 1.2 x10^3/uL (1.0-4.8) Monocytes # (Auto) 0.5 x10^3/uL (0.0-1.1) Eosinophils # (Auto) 0.1 x10^3/uL (0.0-0.7) Basophils # (Auto) 0.0 x10^3/uL (0.0-0.2) Sodium Level 142 mmol/L (136-145) Potassium Level 3.8 mmol/L (3.5-5.1) Chloride Level 104 mmol/L (98-107) Carbon Dioxide Level 28 mmol/L (21-32) Anion Gap 10 (6-14) Blood Urea Nitrogen 24 mg/dL (7-20) Creatinine 1.8 mg/dL (0.6-1.0) Estimated GFR (Cockcroft-Gault) 33.0 BUN/Creatinine Ratio 13 (6-20) Glucose Level 337 mg/dL (70-99) Calcium Level 9.0 mg/dL (8.5-10.1) Total Bilirubin 0.4 mg/dL (0.2-1.0) Aspartate Amino Transf (AST/SGOT) 7 U/L (15-37) Alanine Aminotransferase (ALT/SGPT) 12 U/L (14-59) Alkaline Phosphatase 77 U/L (46-116) Total Protein 7.1 g/dL (6.4-8.2) Albumin 2.6 g/dL (3.4-5.0) Albumin/Globulin Ratio 0.6 (1.0-1.7) Results All relevant outside records, renal labs, imaging studies, telemetry/EKG's were reviewed. Justicifation of Admission Dx: Justifications for Admission: Justification of Admission Dx: Yes MERLIN BRIGGS MD Aug 01, 2021 10:31
--- NOTE | 2021-08-01 10:39 | NUR ---
SW following. Discussed with RN, pt from home alone, room air, NPO, NG tube, COVID-19 negative. Surgery planned for 1300. RN advised no SW needs at this time. SW will continue to follow.
[2021-08-01 11:00] VITALS: BP 177/103
--- NOTE | 2021-08-01 11:18 | PDOC ---
CARDIO Progress Notes Date and Time Date of Service 08/01/21 Time of Evaluation 1115 Subjective Subjective: No Chest Pain, No shortness of breath, No Palpitations Vitals Vitals Vital Signs Date Time Temp Pulse Resp B/P (MAP) Pulse Ox O2 Delivery O2 Flow Rate FiO2 08/01/21 08:59 83 194/94 08/01/21 08:16 Room Air 08/01/21 07:00 98.4 96 98.4 07/31/21 23:00 18 Weight Weight [ ] Input and Output Intake and Output Intake and Output 08/01/21 07:00 Intake Total 1050 ml Output Total 5200 ml Balance -4150 ml IV Total 1050 ml Gastric Drainage Total 4000 ml Drainage Total 1200 ml Laboratory Labs Laboratory Tests Test 07/31/21 16:13 07/31/21 19:29 08/01/21 05:55 Glucose (Fingerstick) 255 mg/dL (70-99) 263 mg/dL (70-99) White Blood Count 8.8 x10^3/uL (4.0-11.0) Red Blood Count 4.40 x10^6/uL (3.50-5.40) Hemoglobin 12.7 g/dL (12.0-15.5) Hematocrit 38.8 % (36.0-47.0) Mean Corpuscular Volume 88 fL (79-100) Mean Corpuscular Hemoglobin 29 pg (25-35) Mean Corpuscular Hemoglobin Concent 33 g/dL (31-37) Red Cell Distribution Width 14.0 % (11.5-14.5) Platelet Count 231 x10^3/uL (140-400) Neutrophils (%) (Auto) 78 % (31-73) Lymphocytes (%) (Auto) 14 % (24-48) Monocytes (%) (Auto) 6 % (0-9) Eosinophils (%) (Auto) 2 % (0-3) Basophils (%) (Auto) 0 % (0-3) Neutrophils # (Auto) 6.9 x10^3/uL (1.8-7.7) Lymphocytes # (Auto) 1.2 x10^3/uL (1.0-4.8) Monocytes # (Auto) 0.5 x10^3/uL (0.0-1.1) Eosinophils # (Auto) 0.1 x10^3/uL (0.0-0.7) Basophils # (Auto) 0.0 x10^3/uL (0.0-0.2) Sodium Level 142 mmol/L (136-145) Potassium Level 3.8 mmol/L (3.5-5.1) Chloride Level 104 mmol/L (98-107) Carbon Dioxide Level 28 mmol/L (21-32) Anion Gap 10 (6-14) Blood Urea Nitrogen 24 mg/dL (7-20) Creatinine 1.8 mg/dL (0.6-1.0) Estimated GFR (Cockcroft-Gault) 33.0 BUN/Creatinine Ratio 13 (6-20) Glucose Level 337 mg/dL (70-99) Calcium Level 9.0 mg/dL (8.5-10.1) Total Bilirubin 0.4 mg/dL (0.2-1.0) Aspartate Amino Transf (AST/SGOT) 7 U/L (15-37) Alanine Aminotransferase (ALT/SGPT) 12 U/L (14-59) Alkaline Phosphatase 77 U/L (46-116) Total Protein 7.1 g/dL (6.4-8.2) Albumin 2.6 g/dL (3.4-5.0) Albumin/Globulin Ratio 0.6 (1.0-1.7) Microbiology Micro Microbiology 07/30/21 Urine Culture - Final, Complete 07/29/21 Blood Culture - Preliminary, Resulted NO GROWTH AFTER 2 DAYS Review of Systems Constitutional: yes: weakness, alert Ears/Nose/Throat: Yes: no symptom reported Eyes: Yes: no symptom reported Pulmonary: Yes no symptom reported Cardiovascular: Yes no symptom reported Gastrointestional: Yes: nausea, abdominal pain Genitourinary: Yes: no symptom reported Musculoskeletal: Yes: no symptom reported Skin: Yes no symptom reported Psychiatric/Neurological: Yes: no symptom reported Physical Exam HEENT: Neck Supple W Full Motion, Other (NGT) Chest: Symmetric LUNGS: Clear to Auscultation Heart: RRR Abdomen: Other (soft ) Extremities: No Edema Neurology: alert, oriented, follow commands Assessment Assessment 1. Abdominal pain; CT with SBO. s/p NGT with bilious output. GS following, possible laparoscopy later today 2. PAFIB with RVR; new finding in setting of above. Converted back to SR and is maintaining. TSH WNL 3. H/o severe cardiomyopathy; LVEF 20% in 2009. s/p LV recovery. Most recent echo 03/05 with normalized LV function 4. Hypertension; controlled overall 5. Hyperlipidemia; stating 6. Diabetes, II 7. CECELIA on CKD; improving 8. Fevers, ? aspiration PNA Recommendations Metoprolol IV q6 for rate control while NPO Echo to assess LV systolic function Consider outpatient event monitor to note AFIB burden, guide therapy Supportive care Justicifation of Admission Dx: Justifications for Admission: Justification of Admission Dx: Yes DORIS LEMOS APRN Aug 01, 2021 11:18
--- NOTE | 2021-08-01 11:31 | PDOC ---
SURGICAL PROGRESS NOTE DATE: 08/01/21 TIME: 11:30 Subjective Patient states she is feeling well claims she is passing flatus and has had a bowel movement but not confirmed by the nurse. She still having quite a bit of NG tube output Vital Signs Vital Signs Date Time Temp Pulse Resp B/P (MAP) Pulse Ox O2 Delivery O2 Flow Rate FiO2 08/01/21 11:00 98.4 102 177/103 (127) 97 Room Air 98.4 07/31/21 23:00 18 I&O Intake and Output 08/01/21 07:00 Intake Total 1050 ml Output Total 5200 ml Balance -4150 ml IV Total 1050 ml Gastric Drainage Total 4000 ml Drainage Total 1200 ml PATIENT HAS A GTZ: No General: Alert, Cooperative, mild distress Abdomen: Normal bowel sounds, Soft, No tenderness, Other (Mildly distended) Labs Laboratory Tests Test 07/30/21 14:20 07/30/21 17:29 07/30/21 19:12 07/31/21 07:15 Urine Collection Type Unknown Urine Color Yellow Urine Clarity Clear Urine pH 5.0 (<5.0-8.0) Urine Specific [place] 1.025 (1.000-1.030) Urine Protein Negative mg/dL (NEG-TRACE) Urine Glucose (UA) Negative mg/dL (NEG) Urine Ketones (Stick) Trace mg/dL (NEG) Urine Blood Negative (NEG) Urine Nitrite Negative (NEG) Urine Bilirubin Small (NEG) Urine Urobilinogen Dipstick 0.2 mg/dL (0.2 mg/dL) Urine Leukocyte Esterase Small (NEG) Urine RBC 1-2 /HPF (0-2) Urine WBC 11-20 /HPF (0-4) Urine Squamous Epithelial Cells Many /LPF Urine Bacteria Few /HPF (0-FEW) Urine Mucus Slight /LPF Glucose (Fingerstick) 272 mg/dL (70-99) 205 mg/dL (70-99) White Blood Count 9.1 x10^3/uL (4.0-11.0) Red Blood Count 4.57 x10^6/uL (3.50-5.40) Hemoglobin 12.8 g/dL (12.0-15.5) Hematocrit 39.9 % (36.0-47.0) Mean Corpuscular Volume 87 fL (79-100) Mean Corpuscular Hemoglobin 28 pg (25-35) Mean Corpuscular Hemoglobin Concent 32 g/dL (31-37) Red Cell Distribution Width 14.2 % (11.5-14.5) Platelet Count 207 x10^3/uL (140-400) Neutrophils (%) (Auto) 83 % (31-73) Lymphocytes (%) (Auto) 10 % (24-48) Monocytes (%) (Auto) 7 % (0-9) Eosinophils (%) (Auto) 0 % (0-3) Basophils (%) (Auto) 0 % (0-3) Neutrophils # (Auto) 7.6 x10^3/uL (1.8-7.7) Lymphocytes # (Auto) 0.9 x10^3/uL (1.0-4.8) Monocytes # (Auto) 0.6 x10^3/uL (0.0-1.1) Eosinophils # (Auto) 0.0 x10^3/uL (0.0-0.7) Basophils # (Auto) 0.0 x10^3/uL (0.0-0.2) Sodium Level 146 mmol/L (136-145) Potassium Level 3.5 mmol/L (3.5-5.1) Chloride Level 102 mmol/L (98-107) Carbon Dioxide Level 31 mmol/L (21-32) Anion Gap 13 (6-14) Blood Urea Nitrogen 32 mg/dL (7-20) Creatinine 2.5 mg/dL (0.6-1.0) Estimated GFR (Cockcroft-Gault) 22.6 Glucose Level 308 mg/dL (70-99) Calcium Level 9.0 mg/dL (8.5-10.1) Magnesium Level 2.5 mg/dL (1.8-2.4) Triglycerides Level 100 mg/dL (0-150) Cholesterol Level 92 mg/dL (0-200) LDL Cholesterol, Calculated 24 mg/dL (0-100) VLDL Cholesterol, Calculated 20 mg/dL (0-40) Non-HDL Cholesterol Calculated 44 mg/dL (0-129) HDL Cholesterol 48 mg/dL (40-60) Cholesterol/HDL Ratio 1.9 Thyroid Stimulating Hormone (TSH) 0.927 uIU/mL (0.358-3.74) Test 07/31/21 07:24 07/31/21 11:03 07/31/21 16:13 07/31/21 19:29 Glucose (Fingerstick) 335 mg/dL (70-99) 327 mg/dL (70-99) 255 mg/dL (70-99) 263 mg/dL (70-99) Test 08/01/21 05:55 White Blood Count 8.8 x10^3/uL (4.0-11.0) Red Blood Count 4.40 x10^6/uL (3.50-5.40) Hemoglobin 12.7 g/dL (12.0-15.5) Hematocrit 38.8 % (36.0-47.0) Mean Corpuscular Volume 88 fL (79-100) Mean Corpuscular Hemoglobin 29 pg (25-35) Mean Corpuscular Hemoglobin Concent 33 g/dL (31-37) Red Cell Distribution Width 14.0 % (11.5-14.5) Platelet Count 231 x10^3/uL (140-400) Neutrophils (%) (Auto) 78 % (31-73) Lymphocytes (%) (Auto) 14 % (24-48) Monocytes (%) (Auto) 6 % (0-9) Eosinophils (%) (Auto) 2 % (0-3) Basophils (%) (Auto) 0 % (0-3) Neutrophils # (Auto) 6.9 x10^3/uL (1.8-7.7) Lymphocytes # (Auto) 1.2 x10^3/uL (1.0-4.8) Monocytes # (Auto) 0.5 x10^3/uL (0.0-1.1) Eosinophils # (Auto) 0.1 x10^3/uL (0.0-0.7) Basophils # (Auto) 0.0 x10^3/uL (0.0-0.2) Sodium Level 142 mmol/L (136-145) Potassium Level 3.8 mmol/L (3.5-5.1) Chloride Level 104 mmol/L (98-107) Carbon Dioxide Level 28 mmol/L (21-32) Anion Gap 10 (6-14) Blood Urea Nitrogen 24 mg/dL (7-20) Creatinine 1.8 mg/dL (0.6-1.0) Estimated GFR (Cockcroft-Gault) 33.0 BUN/Creatinine Ratio 13 (6-20) Glucose Level 337 mg/dL (70-99) Calcium Level 9.0 mg/dL (8.5-10.1) Total Bilirubin 0.4 mg/dL (0.2-1.0) Aspartate Amino Transf (AST/SGOT) 7 U/L (15-37) Alanine Aminotransferase (ALT/SGPT) 12 U/L (14-59) Alkaline Phosphatase 77 U/L (46-116) Total Protein 7.1 g/dL (6.4-8.2) Albumin 2.6 g/dL (3.4-5.0) Albumin/Globulin Ratio 0.6 (1.0-1.7) Laboratory Tests Test 07/31/21 16:13 07/31/21 19:29 08/01/21 05:55 Glucose (Fingerstick) 255 mg/dL (70-99) 263 mg/dL (70-99) White Blood Count 8.8 x10^3/uL (4.0-11.0) Red Blood Count 4.40 x10^6/uL (3.50-5.40) Hemoglobin 12.7 g/dL (12.0-15.5) Hematocrit 38.8 % (36.0-47.0) Mean Corpuscular Volume 88 fL (79-100) Mean Corpuscular Hemoglobin 29 pg (25-35) Mean Corpuscular Hemoglobin Concent 33 g/dL (31-37) Red Cell Distribution Width 14.0 % (11.5-14.5) Platelet Count 231 x10^3/uL (140-400) Neutrophils (%) (Auto) 78 % (31-73) Lymphocytes (%) (Auto) 14 % (24-48) Monocytes (%) (Auto) 6 % (0-9) Eosinophils (%) (Auto) 2 % (0-3) Basophils (%) (Auto) 0 % (0-3) Neutrophils # (Auto) 6.9 x10^3/uL (1.8-7.7) Lymphocytes # (Auto) 1.2 x10^3/uL (1.0-4.8) Monocytes # (Auto) 0.5 x10^3/uL (0.0-1.1) Eosinophils # (Auto) 0.1 x10^3/uL (0.0-0.7) Basophils # (Auto) 0.0 x10^3/uL (0.0-0.2) Sodium Level 142 mmol/L (136-145) Potassium Level 3.8 mmol/L (3.5-5.1) Chloride Level 104 mmol/L (98-107) Carbon Dioxide Level 28 mmol/L (21-32) Anion Gap 10 (6-14) Blood Urea Nitrogen 24 mg/dL (7-20) Creatinine 1.8 mg/dL (0.6-1.0) Estimated GFR (Cockcroft-Gault) 33.0 BUN/Creatinine Ratio 13 (6-20) Glucose Level 337 mg/dL (70-99) Calcium Level 9.0 mg/dL (8.5-10.1) Total Bilirubin 0.4 mg/dL (0.2-1.0) Aspartate Amino Transf (AST/SGOT) 7 U/L (15-37) Alanine Aminotransferase (ALT/SGPT) 12 U/L (14-59) Alkaline Phosphatase 77 U/L (46-116) Total Protein 7.1 g/dL (6.4-8.2) Albumin 2.6 g/dL (3.4-5.0) Albumin/Globulin Ratio 0.6 (1.0-1.7) Problem List Problems Medical Problems: (1) Nausea & vomiting Status: Acute (2) SBO (small bowel obstruction) Status: Acute Assessment/Plan Not passing flatus or stool with high NG tube output plan for diagnostic laparoscopy possible laparotomy for small bowel obstruction today discussed with the patient and her family Justicifation of Admission Dx: Justifications for Admission: Justification of Admission Dx: Yes CEE LOVE MD Aug 01, 2021 11:31
[2021-08-01] MEDS ORDERED: BUPIVACAINE-EPI 0.25%-1:200000 MPF 30 ML VIAL. ONE (11:59)
[2021-08-01] MEDS ORDERED: fentaNYL PF VIAL 100 MCG/2 ML VIAL ONE (12:17)
[2021-08-01] MEDS ORDERED: LIDOCAINE 1% PF 5 ML VIAL. ONE (12:17)
[2021-08-01] MEDS ORDERED: PROPOFOL 10 MG/ML (20ML) VIAL. IV ONE ×2 (12:17→15:53)
[2021-08-01] MEDS ORDERED: ROCURONIUM 50 MG/5 ML VIAL. ONE (12:17)
[2021-08-01] MEDS ORDERED: MIDAZOLAM HCL/PF 2 MG/2 ML VIAL. ONE (13:52)
[2021-08-01] MEDS ORDERED: SUCCINYLCHOLINE 200 MG/10 ML VIAL. ONE (13:53)
[2021-08-01] MEDS ORDERED: MIDAZOLAM HCL/PF 2 MG/2 ML VIAL. IV ONE (14:00)
[2021-08-01] MEDS ORDERED: BUPIVACAINE-EPI 0.25% 30 ML VIAL KIT. ONE (14:09)
[2021-08-01] MEDS ORDERED: PHENYLEPHRINE 10 MG/ML VIAL. ONE (14:28)
[2021-08-01] MEDS ORDERED: PHENYLEPHRINE in 0.9% NACL PF 1 MG/10 ML SYRINGE. IV ONE ×2 (14:28→15:53)
[2021-08-01] MEDS ORDERED: ePHEDrine PF IN SALINE 50 MG/10 ML SYRINGE. IV ONE (15:06)
[2021-08-01] MEDS ORDERED: NEOSTIGMINE 10 MG/10 ML VIAL. ONE (15:34)
[2021-08-01] MEDS ORDERED: GLYCOPYRROLATE 1 MG/5 ML VIAL. ONE (15:35)
--- NOTE | 2021-08-01 15:43 | PDOC4 ---
Operative Note Operative Note Date: August 01, 2021 at 3:38 PM Preoperative diagnosis: Small bowel obstruction Postoperative diagnosis: Enteritis Procedure: Diagnostic laparoscopy Surgeon: Iron Specimen: None Dictation: Patient is a 76-year-old female was mated to the hospital with abdominal distention nausea vomiting she did not appear to progress and had quite a bit of bilious output from her NG tube small bowel follow-through was performed which did show some contrast material into the colon but no bowel movements. Procedure of diagnostic laparoscopy was explained to the patient detail and her family all risk benefits were also discussed occluding bleeding infection injury to intra-abdominal contents possible necessitating further open operations alternatives this procedure also discussed with the patient who seemed to understand and gave a verbal written consent to have the procedure performed. Patient was taken to the operating room placed in the supine position general anesthesia was initiated once patient was sleeping intubated her abdomen was prepped and draped usual sterile fashion using ChloraPrep. Area in the left upper quadrant was injected with quarter percent Marcaine with epinephrine incision was made 11 blade scalpel and 5 mm Visiport was placed under direct visualization of the abdomen creating pneumoperitoneum once this complete 5 mm scope was placed within the abdomen was inspected was noted that the proximal bowel was somewhat dilated. A 5 mm port was placed in the left midabdomen and a 5 mm port was placed below the umbilicus in the mid abdomen. The bowel was run from the cecum to the ligament of Treitz walking with DeBakey graspers. The small bowel was nondistended from the terminal ileum to about the mid ileum then about mid ileum there was a segment of ileum that was erythematous appeared to be irritated like a enteritis. Proximal to this the small bowel was mildly dilated but this was run all the way from mid ileum then to the ligament of Treitz there was no adhesive bands no twisting of the bowel that was causing obstruction it appears that there is a segment of enteritis causing partial obstruction. The bowel again was run from the cecum to the ligament of Treitz once more again the bowel was completely free of any adhesions the only area of concern was mid ileum segment of enteritis appearing bowel no masses noted. The bowel was generally soft and mobile. Of note there was quite a bit of diverticulum of the sigmoid colon. The pneumoperitoneum was reduced all ports removed the port sites were all closed with 4 subcuticular Monocryl Mastisol Steri-Strips and island dressings were applied. Patient was awakened and extubated in the operating room taken to recovery in stable condition all sponge instrument needle counts listed as correct estimated blood loss 5 mL CEE LOVE MD Aug 01, 2021 15:43
[2021-08-01] MEDS ORDERED: LIDOCAINE 2% PF 5 ML VIAL. ONE (15:53)
[2021-08-01] MEDS ORDERED: hydrALAZINE 20 MG/ML VIAL. ONE (16:15)
[2021-08-01 19:00] VITALS: BP 184/90
[2021-08-01] MEDS: ATORVASTATIN CALCIUM 40 MG TABLET. PO SCH (19:44)
[2021-08-01 23:00] VITALS: BP 160/88
[2021-08-02] VITALS (7 sets, daily range): BP systolic 108–191; BP diastolic 73–94
[2021-08-02] MEDS: PIPERACILLIN/TAZOBACTAM 3.375 GM in IV NORMAL SALINE 50ML 50 ML IV SCH ×4 (00:12→17:26)
[2021-08-02] MEDS: METOPROLOL IV PUSH 5 MG/5 ML VIAL. IVP SCH ×4 (00:14→18:00)
[2021-08-02] MEDS: POTASSIUM CL 20MEQ D5-0.45NACL 1,000 ML IV SCH ×4 (04:07→17:25)
[2021-08-02 06:38] LABS: BASO % 0 % (0-3); EOS % 0 % (0-3); HEMATOCRIT 36.7 % (36.0-47.0); HEMOGLOBIN 11.7 g/dL (12.0-15.5); LYMPH # 0.5 x10^3/uL (1.0-4.8); LYMPH % 6 % (24-48); MEAN CORPUSCULAR HEMOGLOBIN 28 pg (25-35); MEAN CORPUSCULAR HGB CONC 32 g/dL (31-37); MEAN CORPUSCULAR VOLUME 89 fL (79-100); MONO # 0.4 x10^3/uL (0.0-1.1); MONO % 5 % (0-9); NEUT # 7.3 x10^3/uL (1.8-7.7); NEUT % 89 % (31-73); PLATELET COUNT 220 x10^3/uL (140-400); RED BLOOD COUNT 4.13 x10^6/uL (3.50-5.40); WHITE BLOOD COUNT 8.3 x10^3/uL (4.0-11.0)
[2021-08-02 06:42] LABS: CALCIUM 8.1 mg/dL (8.5-10.1); CREATININE 1.5 mg/dL (0.6-1.0); GFR 40.7; POTASSIUM 4.7 mmol/L (3.5-5.1)
[2021-08-02] MEDS: hydrALAZINE 20 MG/ML VIAL. IVP PRN (07:19)
[2021-08-02] MEDS: LINAGLIPTIN 5 MG TABLET PO SCH (09:00)
[2021-08-02] MEDS: ASPIRIN ENTERIC COATED 81 MG TABLET.DR. PO SCH (09:00)
--- NOTE | 2021-08-02 09:52 | PDOC ---
Infectious Disease Note Subjective Subjective pt is feeling better, no abd pain, NG in place ROS ROS No nausea vomiting diarrhea says passing gas. Vital Sign Vital Signs Vital Signs Date Time Temp Pulse Resp B/P (MAP) Pulse Ox O2 Delivery O2 Flow Rate FiO2 08/02/21 07:19 75 182/83 08/02/21 07:00 98.4 20 94 Room Air 98.4 08/01/21 16:31 10 Physical Exam PHYSICAL EXAM GENERAL: Alert, oriented female, not in distress. VITAL SIGNS: stable HEENT: NAD. NECK: Supple, no JVP, no lymphadenopathy. LUNGS: Clear. HEART: S1, S2, regular. ABDOMEN: Soft, nontender, no organomegaly. EXTREMITIES: No edema or cyanosis. SKIN: Unremarkable. NEUROLOGIC: The patient is alert, awake, and appropriate. No focal neurologic deficit. Labs Lab Laboratory Tests Test 08/01/21 11:27 08/01/21 13:46 08/01/21 15:58 08/01/21 17:28 Glucose (Fingerstick) 139 mg/dL (70-99) 100 mg/dL (70-99) 133 mg/dL (70-99) 122 mg/dL (70-99) Test 08/01/21 20:11 08/02/21 05:25 08/02/21 08:09 Glucose (Fingerstick) 187 mg/dL (70-99) 354 mg/dL (70-99) White Blood Count 8.3 x10^3/uL (4.0-11.0) Red Blood Count 4.13 x10^6/uL (3.50-5.40) Hemoglobin 11.7 g/dL (12.0-15.5) Hematocrit 36.7 % (36.0-47.0) Mean Corpuscular Volume 89 fL (79-100) Mean Corpuscular Hemoglobin 28 pg (25-35) Mean Corpuscular Hemoglobin Concent 32 g/dL (31-37) Red Cell Distribution Width 14.0 % (11.5-14.5) Platelet Count 220 x10^3/uL (140-400) Neutrophils (%) (Auto) 89 % (31-73) Lymphocytes (%) (Auto) 6 % (24-48) Monocytes (%) (Auto) 5 % (0-9) Eosinophils (%) (Auto) 0 % (0-3) Basophils (%) (Auto) 0 % (0-3) Neutrophils # (Auto) 7.3 x10^3/uL (1.8-7.7) Lymphocytes # (Auto) 0.5 x10^3/uL (1.0-4.8) Monocytes # (Auto) 0.4 x10^3/uL (0.0-1.1) Eosinophils # (Auto) 0.0 x10^3/uL (0.0-0.7) Basophils # (Auto) 0.0 x10^3/uL (0.0-0.2) Sodium Level 143 mmol/L (136-145) Potassium Level 4.7 mmol/L (3.5-5.1) Chloride Level 106 mmol/L (98-107) Carbon Dioxide Level 27 mmol/L (21-32) Anion Gap 10 (6-14) Blood Urea Nitrogen 23 mg/dL (7-20) Creatinine 1.5 mg/dL (0.6-1.0) Estimated GFR (Cockcroft-Gault) 40.7 Glucose Level 363 mg/dL (70-99) Calcium Level 8.1 mg/dL (8.5-10.1) Micro Microbiology 07/29/21 Blood Culture - Preliminary, Resulted NO GROWTH AFTER 1 DAY Objective Assessment IMPRESSION: 1. Fever, most likely from aspiration pneumonia. 2. Nausea, vomiting. 3. Aspiration pneumonia. 4. Bowel obstruction. Status post laparoscopic surgery 5. Acute kidney injury. 6. Diabetes. 7. Hypertension. Plan Plan of Care cont antibiotics can be switched over to the oral Augmentin once oral is allowed cont supportive care OTONIEL ABBASI MD Aug 02, 2021 09:52
--- NOTE | 2021-08-02 09:57 | RAD ---
XR ABDOMEN 2V History: Reason: ileus / Spl. Instructions: / History: Technique: Supine views of the abdomen. Comparison: July 31, 2021. Findings: Stable enteric tube. Progression of contrast from the small bowel into the colon. Mildly dilated air- filled loops of small bowel within the mid abdomen, overall decreased compared to prior.. Mild linear left basilar atelectasis. Left hip arthroplasty. Multilevel lumbar spinal stenosis. Cholelithiasis.. Impression: 1. Decreased small bowel distention compared to prior. 2. Progression of contrast into the colon compared to prior. Electronically signed by: Laron Hodges DO (08/02/2021 9:54 AM) [id number]
[2021-08-02] MEDS: FLUTICASONE 50MCG/NASAL SPRAY 16GM BOTTLE. NS SCH ×2 (10:12→21:24)
[2021-08-02] MEDS: INSULIN LISPRO 300 UNITS/3 ML VIAL. SQ SCH ×3 (10:24→17:57)
--- NOTE | 2021-08-02 10:46 | PDOC2 ---
GI CONSULT Date of Service: DATE: 08/02/21 TIME: 10:29 Reason For Consult: enteritis HPI: HPI: 76 y/o female to ER on 07/25 - reviewed notes - concern per family for non- compliance w/ meds, reports of n/v - admitted w/ SBO. Imaging throughout admission as below, now s/p diagnostic laparoscopy 08/01/[address] Perdue which showed enteritis. Op note reviewed - "...the small bowel was nondistended from the terminal ileum to about the mid ileum then about mid ileum there was a segment of ileum that was erythematous appeared to be irritated like a enteritis. Proximal to this the small bowel was mildly dilated but this was run all the way from mid ileum then to the ligament of Treitz there was no adhesive bands no twisting of the bowel that was causing obstruction it appears that there is a segment of enteritis causing partial obstruction. The bowel again was run from the cecum to the ligament of Treitz once more again the bowel was completely free of any adhesions the only area of concern was mid ileum segment of enteritis appearing bowel no masses noted. The bowel was generally soft and mobile." She is currently without complaints except she's very hungry. Says she's pas sing a little gas, no stool. Nurse reports barely any NGT output. Pt denies chronic GI issues including reflux/heartburn, dysphagia, chronic n/v, abd pain, diarrhea, constipation, hematochezia, melena, or weight loss. No similar issues in the past. No previous EGD. Unsure if ever had a colonoscopy. No GB, liver, pancreas, or PUD history. PMH: PMH: CHF, A Fib, cardiomyopathy (EF 20%), HTN, HLD, OA, DM hip replacement FH: Family History: No pertinent hx (denies IBD, GI cancers) Social History: Smoke: No ALCOHOL: none Drugs: None ROS: GEN: Denies fevers, chills, sweats HEENT: Denies blurred vision, sore throat CV: Denies chest pain RESP: Denies shortness of air, cough GI: Per HPI : Denies hematuria, dysuria ENDO: Denies weight changes NEURO: Denies confusion, dizziness MSK: Denies weakness, joint pain/swelling SKIN: Denies jaundice, pruritus Vitals: Vitals: Vital Signs Date Time Temp Pulse Resp B/P (MAP) Pulse Ox O2 Delivery O2 Flow Rate FiO2 08/02/21 07:19 75 182/83 08/02/21 07:00 98.4 20 94 Room Air 98.4 08/01/21 16:31 10 Labs: Labs: Laboratory Tests Test 08/01/21 11:27 08/01/21 13:46 08/01/21 15:58 08/01/21 17:28 Glucose (Fingerstick) 139 mg/dL (70-99) 100 mg/dL (70-99) 133 mg/dL (70-99) 122 mg/dL (70-99) Test 08/01/21 20:11 08/02/21 05:25 08/02/21 08:09 Glucose (Fingerstick) 187 mg/dL (70-99) 354 mg/dL (70-99) White Blood Count 8.3 x10^3/uL (4.0-11.0) Red Blood Count 4.13 x10^6/uL (3.50-5.40) Hemoglobin 11.7 g/dL (12.0-15.5) Hematocrit 36.7 % (36.0-47.0) Mean Corpuscular Volume 89 fL (79-100) Mean Corpuscular Hemoglobin 28 pg (25-35) Mean Corpuscular Hemoglobin Concent 32 g/dL (31-37) Red Cell Distribution Width 14.0 % (11.5-14.5) Platelet Count 220 x10^3/uL (140-400) Neutrophils (%) (Auto) 89 % (31-73) Lymphocytes (%) (Auto) 6 % (24-48) Monocytes (%) (Auto) 5 % (0-9) Eosinophils (%) (Auto) 0 % (0-3) Basophils (%) (Auto) 0 % (0-3) Neutrophils # (Auto) 7.3 x10^3/uL (1.8-7.7) Lymphocytes # (Auto) 0.5 x10^3/uL (1.0-4.8) Monocytes # (Auto) 0.4 x10^3/uL (0.0-1.1) Eosinophils # (Auto) 0.0 x10^3/uL (0.0-0.7) Basophils # (Auto) 0.0 x10^3/uL (0.0-0.2) Sodium Level 143 mmol/L (136-145) Potassium Level 4.7 mmol/L (3.5-5.1) Chloride Level 106 mmol/L (98-107) Carbon Dioxide Level 27 mmol/L (21-32) Anion Gap 10 (6-14) Blood Urea Nitrogen 23 mg/dL (7-20) Creatinine 1.5 mg/dL (0.6-1.0) Estimated GFR (Cockcroft-Gault) 40.7 Glucose Level 363 mg/dL (70-99) Calcium Level 8.1 mg/dL (8.5-10.1) URINE CULTURE Final Final No Growth on 08/01/21 at 0928 Unless otherwise specified, Testing Performed by: [address] [address] For Inquires, the Physician may contact the Microbiology department at [phone] BLOOD CULTURE Preliminary NO GROWTH AFTER 3 DAYS Allergies: Coded Allergies: No Known Drug Allergies (Unverified , 01/02/16) Medications: Current Medications Medications (Trade) Dose Ordered Sig/Svitlana Route PRN Reason Start Time Stop Time Status Last Admin Dose Admin Midazolam HCl (Versed) 0.5 mg 1X ONCE IV 08/01/21 14:00 08/01/21 14:01 DC 08/01/21 13:57 Bupivacaine HCl/ Epinephrine Bitart (Sensorcain-Epi 0.25% Kit) 30 ml STK-MED ONCE .ROUTE 08/01/21 14:09 08/01/21 14:09 DC 08/01/21 15:14 Imaging: Imaging: CT A/P 07/26 FINDINGS: Patchy opacity at the right lung base including groundglass and nodular component. There is some hyperinflation at the lung bases. Severe calcific atherosclerosis. Left hip arthroplasty with associated artifact limiting evaluation of pelvis. No intrahepatic bile duct dilation. Multiple gallstones. Suspected duodenal diverticulum. Limited assessment of the pancreas without intravenous contrast. Spleen not enlarged. Mild thickening of the left adrenal gland. Multiple low-density lesions of the bilateral kidneys including some that appear cystic and some have calcifications. Lobulated renal cortex with limited evalu ation for solid mass. One of the complex cystic lesions on the left measures up to about 53 mm. No significant hydronephrosis. Urinary bladder is partially distended. Colonic diverticulosis. There are some calcifications at the uterus. The appendix has an elongated appearance and does appear distended with intraluminal content measuring up to about 9 mm but a large portion this measurement is from intraluminal content. No definite adjacent inflammation. High density material within the colon. There are some dilated loops of small bowel seen proximally with more distal decompression. For example some of the small bowel loops measure up to about 35 mm. Degenerative changes right hip. Scoliotic curvature the spine with degenerative changes and multilevel central canal and neural foraminal stenosis. Grade 1 anterolisthesis of L4 on 5. IMPRESSION: * Dilated loops of proximal small bowel with distal decompression. Could be from small bowel obstruction if the patient has appropriate symptoms. * Colonic diverticulosis. * The appendix is distended but this is largely from intraluminal content and there is no adjacent inflammatory changes. * Bilateral renal lesions are identified including some that appear cystic as well as complex cystic. Lobulated appearance of the renal cortex therefore would be difficult to exclude a solid lesion. Nonemergent CT, MRI or ultrasound renal protocol could further assess. * Gallstones. * Patchy opacity at right lung base could be infectious or inflammatory in nature but would consider obtaining a follow-up to ensure that this decreases to exclude persistent nodule. SBS 07/29 IMPRESSION: 1. Findings concerning for small bowel obstruction. Minimal contrast extending to decompressed distal small bowel loops after 3 hours. CXR 07/29 IMPRESSION: Patchy opacities left lung base likely atelectasis or developing consolidation. Renal US 07/31 IMPRESSION: 1. No hydronephrosis. 2. Right kidney 2.8 cm hypoechoic lesion with internal echoes has features in favor of a complicated cyst. Date: August 01, 2021 at 3:38 PM Preoperative diagnosis: Small bowel obstruction Postoperative diagnosis: Enteritis Procedure: Diagnostic laparoscopy Surgeon: Iron Specimen: None Dictation: Patient is a 76-year-old female was mated to the hospital with abdom inal distention nausea vomiting she did not appear to progress and had quite a bit of bilious output from her NG tube small bowel follow-through was performed which did show some contrast material into the colon but no bowel movements. Procedure of diagnostic laparoscopy was explained to the patient detail and her family all risk benefits were also discussed occluding bleeding infection injury to intra-abdominal contents possible necessitating further open operations alternatives this procedure also discussed with the patient who seemed to understand and gave a verbal written consent to have the procedure performed. Patient was taken to the operating room placed in the supine position general anesthesia was initiated once patient was sleeping intubated her abdomen was prepped and draped usual sterile fashion using ChloraPrep. Area in the left upper quadrant was injected with quarter percent Marcaine with epinephrine incision was made 11 blade scalpel and 5 mm Visiport was placed under direct visualization of the abdomen creating pneumoperitoneum once this complete 5 mm scope was placed within the abdomen was inspected was noted that the proximal bowel was somewhat dilated. A 5 mm port was placed in the left midabdomen and a 5 mm port was placed below the umbilicus in the mid abdomen. The bowel was run from the cecum to the ligament of Treitz walking with DeBakey graspers. The sma ll bowel was nondistended from the terminal ileum to about the mid ileum then about mid ileum there was a segment of ileum that was erythematous appeared to be irritated like a enteritis. Proximal to this the small bowel was mildly dilated but this was run all the way from mid ileum then to the ligament of Treitz there was no adhesive bands no twisting of the bowel that was causing obstruction it appears that there is a segment of enteritis causing partial obstruction. The bowel again was run from the cecum to the ligament of Treitz once more again the bowel was completely free of any adhesions the only area of concern was mid ileum segment of enteritis appearing bowel no masses noted. The bowel was generally soft and mobile. Of note there was quite a bit of diverticulum of the sigmoid colon. The pneumoperitoneum was reduced all ports removed the port sites were all closed with 4 subcuticular Monocryl Mastisol Steri-Strips and island dressings were applied. Patient was awakened and extubated in the operating room taken to recovery in stable condition all sponge instrument needle counts listed as correct estimated blood loss 5 mL Abd X-Ray 08/02 Impression: 1. Decreased small bowel distention compared to prior. 2. Progression of contrast into the colon compared to prior. PE: GEN: NAD HEENT: Atraumatic, PERRL LUNGS: CTAB HEART: RRR ABD: BS+, soft, non-tender, scant bilious output from NGT EXTREMITY: No edema SKIN: No rashes, no jaundice NEURO/PSYCH: A & O 3, probably forgetful A/P: A/P: SBO - enteritis noted on laparoscopy Fever/possible aspiration pneumonia, A Fib, CECELIA/CKD Cardiomyopathy, DM COVID negative -- D/w Dr. Alfredo - wondering about outpt colonscopy and/or SBCE, also if need for steroids - will d/w Dr. Burkett. Defer NGT/diet to surgery. NITZA WILCOX Aug 02, 2021 10:46
--- NOTE | 2021-08-02 11:27 | PDOC ---
DATE OF SERVICE DATE: 08/02/21 TIME: 11:25 SUBJECTIVE ROS Denies any complaints OBJECTIVE Vital Signs Vital Signs Date Time Temp Pulse Resp B/P (MAP) Pulse Ox O2 Delivery O2 Flow Rate FiO2 08/02/21 07:19 75 182/83 08/02/21 07:00 98.4 20 94 Room Air 98.4 08/01/21 16:31 10 I & 0 Intake and Output 08/02/21 06:59 Intake Total 600 ml Output Total 160 ml Balance 440 ml IV Total 600 ml Output Urine Total 150 ml Estimated Blood Loss 10 ml PHYSICAL EXAM Physical Exam General Appearance: no apparent distress HEEN om MOIST Respiratory: bilateral CTA, non labored Heart: S1S2 Abdomen: soft, bowel sounds present Genitourinary: No dunaway Extremities: No edema DIAGNOSIS/ASSESSMENT Assessment & Plan CECELIA- Improving renal function was improving from 4.0 POA to 1.3 ; Noted worsening again Creat 2.5 - ATN / Vomiting/Poor PO intake ; Creatinine trending down. Renal US unremarkable for Hydronephrosis Significant Gastric drainage . UOP not recorded . Nursing unable to place dunaway supportive care, maintain hydration, continue IVF ,strict I/O avoid Nephrotoxins. Renal Cyst on CT- Multiple low-density lesions of the bilateral kidneys including some that appear cystic and some have calcifications. Lobulated renal cortex with limited evaluation for solid mass. One of the complex cystic lesions on the left measures up to about 53 mm. US Complicated Cyst. Recommend Urology Consult as OP. defer to primary CKDStage 3 - baseline Creat 1.5, per pt and family member not seen by nephrology as OP HyperNatremia - Monitor Small Bowel Obstruction xray this morning Dilated loops of small bowel throughout the abdomen with mild progression of contrast into the colon from prior small bowel series. Findings concerning for partial small bowel obstruction. Not passing flatus or stool with high NG tube output plan for diagnostic laparoscopy possible laparotomy for small bowel obstruction today per GS Fever- Cxr - Patchy opacities left lung base likely atelectasis or developing consolidation. ID consulted DM II HTN COMMENT/RELEVANT DATA Meds Current Medications Medications (Trade) Dose Ordered Sig/Svitlana Start Time Stop Time Status Last Admin Dose Admin Acetaminophen (Tylenol Supp) 650 mg PRN Q6HRS PRN 07/29/21 20:30 07/29/21 21:35 650 MG Acetaminophen/ Hydrocodone Bitart (Lortab 5/325) 1 tab PRN Q6HRS PRN 07/27/21 18:00 07/27/21 19:59 1 TAB Aspirin (Ecotrin) 81 mg DAILY 07/27/21 12:00 07/28/21 08:40 81 MG Atorvastatin Calcium (Lipitor) 80 mg QHS 07/27/21 21:00 07/28/21 20:34 80 MG Bupivacaine HCl/ Epinephrine Bitart (Sensorcain-Epi 0.25% Kit) 30 ml STK-MED ONCE 08/01/21 14:09 08/01/21 14:09 DC 08/01/21 15:14 10 ML Bupivacaine HCl/ Epinephrine Bitart (Sensorcaine-Epi 0.25%-1:917130 Mpf) 30 ml STK-MED ONCE 08/01/21 11:59 08/01/21 12:00 DC Carvedilol (Coreg) 25 mg BIDWMEALS 07/27/21 12:00 07/31/21 14:34 DC 07/28/21 17:22 25 MG Clonidine HCl (Catapres Tts-2) 1 patch WEEKLY 07/28/21 09:00 07/28/21 10:01 1 PATCH Dextrose (Dextrose 50%-Water Syringe) 12.5 gm PRN Q15MIN PRN 07/31/21 15:45 UNV Dextrose/Sodium Chloride 1,000 ml @ 100 mls/hr Q10H 07/26/21 15:00 07/28/21 11:47 DC 07/28/21 10:01 100 MLS/HR Enoxaparin Sodium (Lovenox 30mg Syringe) 30 mg Q24H 08/02/21 09:00 Enoxaparin Sodium (Lovenox 40mg Syringe) 40 mg Q24H 07/29/21 21:00 08/01/21 12:32 DC 07/30/21 21:58 40 MG Fentanyl Citrate (Fentanyl 2ml Vial) 100 mcg STK-MED ONCE 08/01/21 12:17 08/01/21 12:18 DC Fluticasone Propionate (Flonase) 1 spray BID 07/27/21 13:00 08/02/21 10:12 1 SPRAY Hydralazine HCl (Apresoline Inj) 20 mg STK-MED ONCE 08/01/21 16:15 08/01/21 16:16 DC Hydromorphone HCl (Dilaudid) 0.5 mg PRN Q10MIN PRN 08/01/21 06:00 08/02/21 05:59 DC Info (CONTRAST GIVEN -- Rx MONITORING) 1 each PRN DAILY PRN 07/29/21 07:45 07/31/21 07:44 DC Insulin Human Lispro (HumaLOG) 0-9 UNITS TIDWMEALS 07/31/21 17:00 08/02/21 10:24 5 UNITS Iohexol (Omnipaque 300 Mg/ml) 400 ml 1X ONCE 07/29/21 07:45 07/29/21 07:47 DC 07/29/21 08:30 400 ML Lidocaine HCl (Xylocaine-Mpf 1% 5ml Vial) 5 ml STK-MED ONCE 08/01/21 12:17 08/01/21 12:17 DC Linagliptin (Tradjenta) 5 mg DAILY 07/27/21 12:00 Lorazepam (Ativan Inj) 1 mg PRN Q6HRS PRN 07/28/21 11:15 Magnesium Sulfate 50 ml @ 25 mls/hr 1X ONCE 07/29/21 20:30 07/29/21 22:29 DC 07/29/21 22:47 25 MLS/HR Metoprolol Tartrate (Lopressor Vial) 5 mg Q6HRS 07/28/21 20:00 08/02/21 06:19 5 MG Midazolam HCl (Versed) 0.5 mg 1X ONCE 08/01/21 14:00 08/01/21 14:01 DC 08/01/21 13:57 0.5 MG Morphine Sulfate (Morphine Sulfate) 1 mg PRN Q10MIN PRN 08/01/21 06:00 08/02/21 05:59 DC Ondansetron HCl (Zofran) 8 mg PRN Q6HRS PRN 07/28/21 08:45 07/30/21 13:27 8 MG Piperacillin Sod/ Tazobactam Sod 3.375 gm/Sodium Chloride 50 ml @ 100 mls/hr Q6HRS 07/29/21 21:00 08/02/21 06:16 100 MLS/HR Potassium Chloride/Dextrose/ Sod Cl 1,000 ml @ 150 mls/hr Q6H40M 07/29/21 09:15 08/02/21 06:20 150 MLS/HR Potassium Chloride/Water 100 ml @ 100 mls/hr Q1H 07/28/21 12:00 07/28/21 13:59 DC 07/28/21 13:00 100 MLS/HR Prochlorperazine Edisylate (Compazine) 5 mg PACU PRN PRN 08/01/21 06:00 08/02/21 05:59 DC Propofol (Diprivan) 200 mg STK-MED ONCE 08/01/21 12:17 08/01/21 12:17 DC Ringer's Solution 1,000 ml @ 30 mls/hr Q24H 08/01/21 06:00 08/01/21 17:59 DC 08/01/21 16:12 30 MLS/HR Rocuronium Boomer (Zemuron) 50 mg STK-MED ONCE 08/01/21 12:17 08/01/21 12:17 DC Sodium Chloride 250 ml @ 250 mls/hr 1X ONCE 07/31/21 09:45 07/31/21 10:44 DC 07/31/21 10:09 250 MLS/HR Lab Laboratory Tests Test 08/01/21 11:27 08/01/21 13:46 08/01/21 15:58 08/01/21 17:28 Glucose (Fingerstick) 139 mg/dL (70-99) 100 mg/dL (70-99) 133 mg/dL (70-99) 122 mg/dL (70-99) Test 08/01/21 20:11 08/02/21 05:25 08/02/21 08:09 Glucose (Fingerstick) 187 mg/dL (70-99) 354 mg/dL (70-99) White Blood Count 8.3 x10^3/uL (4.0-11.0) Red Blood Count 4.13 x10^6/uL (3.50-5.40) Hemoglobin 11.7 g/dL (12.0-15.5) Hematocrit 36.7 % (36.0-47.0) Mean Corpuscular Volume 89 fL (79-100) Mean Corpuscular Hemoglobin 28 pg (25-35) Mean Corpuscular Hemoglobin Concent 32 g/dL (31-37) Red Cell Distribution Width 14.0 % (11.5-14.5) Platelet Count 220 x10^3/uL (140-400) Neutrophils (%) (Auto) 89 % (31-73) Lymphocytes (%) (Auto) 6 % (24-48) Monocytes (%) (Auto) 5 % (0-9) Eosinophils (%) (Auto) 0 % (0-3) Basophils (%) (Auto) 0 % (0-3) Neutrophils # (Auto) 7.3 x10^3/uL (1.8-7.7) Lymphocytes # (Auto) 0.5 x10^3/uL (1.0-4.8) Monocytes # (Auto) 0.4 x10^3/uL (0.0-1.1) Eosinophils # (Auto) 0.0 x10^3/uL (0.0-0.7) Basophils # (Auto) 0.0 x10^3/uL (0.0-0.2) Sodium Level 143 mmol/L (136-145) Potassium Level 4.7 mmol/L (3.5-5.1) Chloride Level 106 mmol/L (98-107) Carbon Dioxide Level 27 mmol/L (21-32) Anion Gap 10 (6-14) Blood Urea Nitrogen 23 mg/dL (7-20) Creatinine 1.5 mg/dL (0.6-1.0) Estimated GFR (Cockcroft-Gault) 40.7 Glucose Level 363 mg/dL (70-99) Calcium Level 8.1 mg/dL (8.5-10.1) Results All relevant outside records, renal labs, imaging studies, telemetry/EKG's were reviewed. Justicifation of Admission Dx: Justifications for Admission: Justification of Admission Dx: Yes MERLIN BRIGGS MD Aug 02, 2021 11:26
--- NOTE | 2021-08-02 11:35 | PDOC ---
GABY FITZGERALD PAN SHOVER 08/02/21 1135: SURGICAL PROGRESS NOTE DATE: 08/02/21 TIME: 11:34 Subjective some flatus this AM no nausea or pain Vital Signs Vital Signs Date Time Temp Pulse Resp B/P (MAP) Pulse Ox O2 Delivery O2 Flow Rate FiO2 08/02/21 07:19 75 182/83 08/02/21 07:00 98.4 20 94 Room Air 98.4 08/01/21 16:31 10 I&O Intake and Output 08/02/21 07:00 Intake Total 600 ml Output Total 160 ml Balance 440 ml IV Total 600 ml Output Urine Total 150 ml Estimated Blood Loss 10 ml General: Alert, Cooperative Abdomen: Soft Labs Laboratory Tests Test 07/31/21 16:13 07/31/21 19:29 08/01/21 05:55 08/01/21 11:27 Glucose (Fingerstick) 255 mg/dL (70-99) 263 mg/dL (70-99) 139 mg/dL (70-99) White Blood Count 8.8 x10^3/uL (4.0-11.0) Red Blood Count 4.40 x10^6/uL (3.50-5.40) Hemoglobin 12.7 g/dL (12.0-15.5) Hematocrit 38.8 % (36.0-47.0) Mean Corpuscular Volume 88 fL (79-100) Mean Corpuscular Hemoglobin 29 pg (25-35) Mean Corpuscular Hemoglobin Concent 33 g/dL (31-37) Red Cell Distribution Width 14.0 % (11.5-14.5) Platelet Count 231 x10^3/uL (140-400) Neutrophils (%) (Auto) 78 % (31-73) Lymphocytes (%) (Auto) 14 % (24-48) Monocytes (%) (Auto) 6 % (0-9) Eosinophils (%) (Auto) 2 % (0-3) Basophils (%) (Auto) 0 % (0-3) Neutrophils # (Auto) 6.9 x10^3/uL (1.8-7.7) Lymphocytes # (Auto) 1.2 x10^3/uL (1.0-4.8) Monocytes # (Auto) 0.5 x10^3/uL (0.0-1.1) Eosinophils # (Auto) 0.1 x10^3/uL (0.0-0.7) Basophils # (Auto) 0.0 x10^3/uL (0.0-0.2) Sodium Level 142 mmol/L (136-145) Potassium Level 3.8 mmol/L (3.5-5.1) Chloride Level 104 mmol/L (98-107) Carbon Dioxide Level 28 mmol/L (21-32) Anion Gap 10 (6-14) Blood Urea Nitrogen 24 mg/dL (7-20) Creatinine 1.8 mg/dL (0.6-1.0) Estimated GFR (Cockcroft-Gault) 33.0 BUN/Creatinine Ratio 13 (6-20) Glucose Level 337 mg/dL (70-99) Calcium Level 9.0 mg/dL (8.5-10.1) Total Bilirubin 0.4 mg/dL (0.2-1.0) Aspartate Amino Transf (AST/SGOT) 7 U/L (15-37) Alanine Aminotransferase (ALT/SGPT) 12 U/L (14-59) Alkaline Phosphatase 77 U/L (46-116) Total Protein 7.1 g/dL (6.4-8.2) Albumin 2.6 g/dL (3.4-5.0) Albumin/Globulin Ratio 0.6 (1.0-1.7) Test 08/01/21 13:46 08/01/21 15:58 08/01/21 17:28 08/01/21 20:11 Glucose (Fingerstick) 100 mg/dL (70-99) 133 mg/dL (70-99) 122 mg/dL (70-99) 187 mg/dL (70-99) Test 08/02/21 05:25 08/02/21 08:09 White Blood Count 8.3 x10^3/uL (4.0-11.0) Red Blood Count 4.13 x10^6/uL (3.50-5.40) Hemoglobin 11.7 g/dL (12.0-15.5) Hematocrit 36.7 % (36.0-47.0) Mean Corpuscular Volume 89 fL (79-100) Mean Corpuscular Hemoglobin 28 pg (25-35) Mean Corpuscular Hemoglobin Concent 32 g/dL (31-37) Red Cell Distribution Width 14.0 % (11.5-14.5) Platelet Count 220 x10^3/uL (140-400) Neutrophils (%) (Auto) 89 % (31-73) Lymphocytes (%) (Auto) 6 % (24-48) Monocytes (%) (Auto) 5 % (0-9) Eosinophils (%) (Auto) 0 % (0-3) Basophils (%) (Auto) 0 % (0-3) Neutrophils # (Auto) 7.3 x10^3/uL (1.8-7.7) Lymphocytes # (Auto) 0.5 x10^3/uL (1.0-4.8) Monocytes # (Auto) 0.4 x10^3/uL (0.0-1.1) Eosinophils # (Auto) 0.0 x10^3/uL (0.0-0.7) Basophils # (Auto) 0.0 x10^3/uL (0.0-0.2) Sodium Level 143 mmol/L (136-145) Potassium Level 4.7 mmol/L (3.5-5.1) Chloride Level 106 mmol/L (98-107) Carbon Dioxide Level 27 mmol/L (21-32) Anion Gap 10 (6-14) Blood Urea Nitrogen 23 mg/dL (7-20) Creatinine 1.5 mg/dL (0.6-1.0) Estimated GFR (Cockcroft-Gault) 40.7 Glucose Level 363 mg/dL (70-99) Calcium Level 8.1 mg/dL (8.5-10.1) Glucose (Fingerstick) 354 mg/dL (70-99) Laboratory Tests Test 08/01/21 13:46 08/01/21 15:58 08/01/21 17:28 08/01/21 20:11 Glucose (Fingerstick) 100 mg/dL (70-99) 133 mg/dL (70-99) 122 mg/dL (70-99) 187 mg/dL (70-99) Test 08/02/21 05:25 08/02/21 08:09 White Blood Count 8.3 x10^3/uL (4.0-11.0) Red Blood Count 4.13 x10^6/uL (3.50-5.40) Hemoglobin 11.7 g/dL (12.0-15.5) Hematocrit 36.7 % (36.0-47.0) Mean Corpuscular Volume 89 fL (79-100) Mean Corpuscular Hemoglobin 28 pg (25-35) Mean Corpuscular Hemoglobin Concent 32 g/dL (31-37) Red Cell Distribution Width 14.0 % (11.5-14.5) Platelet Count 220 x10^3/uL (140-400) Neutrophils (%) (Auto) 89 % (31-73) Lymphocytes (%) (Auto) 6 % (24-48) Monocytes (%) (Auto) 5 % (0-9) Eosinophils (%) (Auto) 0 % (0-3) Basophils (%) (Auto) 0 % (0-3) Neutrophils # (Auto) 7.3 x10^3/uL (1.8-7.7) Lymphocytes # (Auto) 0.5 x10^3/uL (1.0-4.8) Monocytes # (Auto) 0.4 x10^3/uL (0.0-1.1) Eosinophils # (Auto) 0.0 x10^3/uL (0.0-0.7) Basophils # (Auto) 0.0 x10^3/uL (0.0-0.2) Sodium Level 143 mmol/L (136-145) Potassium Level 4.7 mmol/L (3.5-5.1) Chloride Level 106 mmol/L (98-107) Carbon Dioxide Level 27 mmol/L (21-32) Anion Gap 10 (6-14) Blood Urea Nitrogen 23 mg/dL (7-20) Creatinine 1.5 mg/dL (0.6-1.0) Estimated GFR (Cockcroft-Gault) 40.7 Glucose Level 363 mg/dL (70-99) Calcium Level 8.1 mg/dL (8.5-10.1) Glucose (Fingerstick) 354 mg/dL (70-99) Problem List Problems Medical Problems: (1) Nausea & vomiting Status: Acute (2) SBO (small bowel obstruction) Status: Acute Assessment/Plan xr better, will clamp ng in AM Justicifation of Admission Dx: Justifications for Admission: Justification of Admission Dx: Yes CEE LOVE MD 08/02/21 1338: SURGICAL PROGRESS NOTE Assessment/Plan Agree with Rolan assessment plan GABY FITZGERALD APRN Aug 02, 2021 11:35 CEE LOVE MD Aug 02, 2021 13:38
--- NOTE | 2021-08-02 11:42 | PDOC ---
PROGRESS NOTES Date of Service: DATE: 08/02/21 TIME: 11:39 Subjective Subjective feels better,NGT to suction Objective Objective Vital Signs Date Time Temp Pulse Resp B/P (MAP) Pulse Ox O2 Delivery O2 Flow Rate FiO2 08/02/21 08:00 Room Air 08/02/21 07:19 75 182/83 08/02/21 07:00 98.4 20 94 98.4 08/01/21 16:31 10 Intake and Output 08/02/21 07:00 Intake Total 600 ml Output Total 160 ml Balance 440 ml IV Total 600 ml Output Urine Total 150 ml Estimated Blood Loss 10 ml Physical Exam Abdomen: Soft Heart: Regular rate Extremities: No clubbing, No cyanosis General: Alert, Cooperative HEENT: Other (NGT) Lungs: Clear to auscultation MUSCULOSKELETAL: Osteoarthritic changes both hands Neuro: Normal speech, Sensation intact Psych/Mental Status: Mental status NL, Mood NL Skin: No significant lesion COMMENT NGT to suction Diagnosis Problem List Problems Medical Problems: (1) Nausea & vomiting Status: Acute (2) SBO (small bowel obstruction) Status: Acute Assessment Assessment Problems Medical Problems: (1) Nausea & vomiting Status: Acute (2) SBO (small bowel obstruction) Status: Acute FINAL IMPRESSION: fevers ? aspiration 1. Abdominal pain, small bowel obstruction. 2. Acute renal insufficiency. Creatinine 4, normal creatinine is around 1.5. 3. Hypertension. 4. Diabetes. 5. Hyperlipidemia. 6. History of chronic heart failure, systolic; but last echocardiogram shows good improvement 50% in 2020. PLAN: GI consult s/p diagnostic Laproscopic surgery POD #1 distal small bowel narrowing due to enteritis cr 1.5 down from 2.5 cbs ok BS 200 range iv fluids 100 cc/hour NGT to suction draining well? clamp today IV Zosyn ID consult appreciated cxr ,c/s ,labs cr 2.0 went up, bmp pending cbc normal small bowel series shows small bowel obstruction kidney function improved ' NPO. afib , cardiology consult Plan Plan of Care Problems Medical Problems: (1) Nausea & vomiting Status: Acute (2) SBO (small bowel obstruction) Status: Acute Comment Review of Relevant I have reviewed the following items shaan (where applicable) has been applied. Labs Laboratory Tests Test 08/01/21 13:46 08/01/21 15:58 08/01/21 17:28 08/01/21 20:11 Glucose (Fingerstick) 100 mg/dL (70-99) 133 mg/dL (70-99) 122 mg/dL (70-99) 187 mg/dL (70-99) Test 08/02/21 05:25 08/02/21 08:09 White Blood Count 8.3 x10^3/uL (4.0-11.0) Red Blood Count 4.13 x10^6/uL (3.50-5.40) Hemoglobin 11.7 g/dL (12.0-15.5) Hematocrit 36.7 % (36.0-47.0) Mean Corpuscular Volume 89 fL (79-100) Mean Corpuscular Hemoglobin 28 pg (25-35) Mean Corpuscular Hemoglobin Concent 32 g/dL (31-37) Red Cell Distribution Width 14.0 % (11.5-14.5) Platelet Count 220 x10^3/uL (140-400) Neutrophils (%) (Auto) 89 % (31-73) Lymphocytes (%) (Auto) 6 % (24-48) Monocytes (%) (Auto) 5 % (0-9) Eosinophils (%) (Auto) 0 % (0-3) Basophils (%) (Auto) 0 % (0-3) Neutrophils # (Auto) 7.3 x10^3/uL (1.8-7.7) Lymphocytes # (Auto) 0.5 x10^3/uL (1.0-4.8) Monocytes # (Auto) 0.4 x10^3/uL (0.0-1.1) Eosinophils # (Auto) 0.0 x10^3/uL (0.0-0.7) Basophils # (Auto) 0.0 x10^3/uL (0.0-0.2) Sodium Level 143 mmol/L (136-145) Potassium Level 4.7 mmol/L (3.5-5.1) Chloride Level 106 mmol/L (98-107) Carbon Dioxide Level 27 mmol/L (21-32) Anion Gap 10 (6-14) Blood Urea Nitrogen 23 mg/dL (7-20) Creatinine 1.5 mg/dL (0.6-1.0) Estimated GFR (Cockcroft-Gault) 40.7 Glucose Level 363 mg/dL (70-99) Calcium Level 8.1 mg/dL (8.5-10.1) Glucose (Fingerstick) 354 mg/dL (70-99) Microbiology 07/30/21 Urine Culture - Final, Complete 07/29/21 Blood Culture - Preliminary, Resulted NO GROWTH AFTER 3 DAYS Medications Current Medications Bupivacaine HCl/ Epinephrine Bitart (Sensorcain-Epi 0.25% Kit) 30 ml STK-MED ONCE .ROUTE Last administered on 08/01/21at 15:14; Start 08/01/21 at 14:09; Stop 08/01/21 at 14:09; Status DC Bupivacaine HCl/ Epinephrine Bitart (Sensorcaine-Epi 0.25%-1:590452 Mpf) 30 ml STK-MED ONCE .ROUTE ; Start 08/01/21 at 11:59; Stop 08/01/21 at 12:00; Status DC Enoxaparin Sodium (Lovenox 30mg Syringe) 30 mg Q24H SQ ; Start 08/02/21 at 09:00 Fentanyl Citrate (Fentanyl 2ml Vial) 100 mcg STK-MED ONCE .ROUTE ; Start 08/01/21 at 12:17; Stop 08/01/21 at 12:18; Status DC Hydralazine HCl (Apresoline Inj) 20 mg STK-MED ONCE .ROUTE ; Start 08/01/21 at 16:15; Stop 08/01/21 at 16:16; Status DC Lidocaine HCl (Xylocaine-Mpf 1% 5ml Vial) 5 ml STK-MED ONCE .ROUTE ; Start 08/01/21 at 12:17; Stop 08/01/21 at 12:17; Status DC Midazolam HCl (Versed) 0.5 mg 1X ONCE IV Last administered on 08/01/21at 13:57; Start 08/01/21 at 14:00; Stop 08/01/21 at 14:01; Status DC Midazolam HCl (Versed) 2 mg STK-MED ONCE .ROUTE ; Start 08/01/21 at 13:52; Stop 08/01/21 at 13:52; Status DC Propofol (Diprivan) 200 mg STK-MED ONCE IV ; Start 08/01/21 at 12:17; Stop 08/01/21 at 12:17; Status DC Rocuronium [place] (Zemuron) 50 mg STK-MED ONCE .ROUTE ; Start 08/01/21 at 12:17; Stop 08/01/21 at 12:17; Status DC Vitals/I & O Vital Sign - Last 24 Hours 08/01/21 08/01/21 08/01/21 08/01/21 12:20 13:43 15:00 15:54 Temp 98.5 98.5 98.5 98.5 Pulse 102 87 Resp 16 B/P (MAP) 177/103 144/82 Pulse Ox 98 O2 Delivery Room Air Mask O2 Flow Rate 10 08/01/21 08/01/21 08/01/21 08/01/21 15:54 16:14 16:20 16:23 Temp 98.9 98.9 Pulse 90 74 78 86 Resp 20 20 20 B/P (MAP) 192/92 213/100 181/88 181/88 Pulse Ox 100 100 100 O2 Delivery Simple Mask Simple Mask Simple Mask O2 Flow Rate 10 10 10 08/01/21 08/01/21 08/01/21 08/01/21 16:31 16:41 16:58 17:53 Pulse 124 98 92 92 Resp 22 22 20 B/P (MAP) 152/66 153/74 154/80 154/80 Pulse Ox 100 98 98 O2 Delivery Simple Mask Room Air Room Air O2 Flow Rate 10 08/01/21 08/01/21 08/01/21 08/01/21 19:00 20:00 20:21 23:00 Temp 98.6 98.5 98.6 98.5 Pulse 97 98 102 Resp 18 18 B/P (MAP) 184/90 (121) 184/90 160/88 (112) Pulse Ox 94 94 O2 Delivery Room Air Room Air Room Air 08/02/21 08/02/21 08/02/21 08/02/21 00:14 03:00 06:19 06:25 Temp 98.9 98.9 Pulse 102 92 85 79 Resp 20 B/P (MAP) 160/88 191/94 (126) 191/93 188/92 (124) Pulse Ox 95 O2 Delivery Room Air 08/02/21 08/02/21 08/02/21 07:00 07:19 08:00 Temp 98.4 98.4 Pulse 82 75 Resp 20 B/P (MAP) 160/83 (108) 182/83 Pulse Ox 94 O2 Delivery Room Air Room Air Intake and Output 08/01/21 08/01/21 08/02/21 15:00 23:00 07:00 Intake Total 400 ml 200 ml Output Total 160 ml Balance 400 ml 40 ml Justifications for Admission Other Justification LEXX [email or web address] MD Aug 02, 2021 11:42
[2021-08-02] MEDS: ENOXAPARIN 30 MG/0.3 ML SYRINGE. SQ SCH (12:56)
--- NOTE | 2021-08-02 13:42 | PDOC ---
PROGRESS NOTES Date of Service DATE: 08/02/21 TIME: 13:40 Subjective Subjective Patient seen and examined Objective Objective Vital Signs Date Time Temp Pulse Resp B/P (MAP) Pulse Ox O2 Delivery O2 Flow Rate FiO2 08/02/21 12:55 85 156/88 08/02/21 11:00 98.4 20 96 Room Air 98.4 08/01/21 16:31 10 Intake and Output 08/02/21 07:00 Intake Total 600 ml Output Total 160 ml Balance 440 ml IV Total 600 ml Output Urine Total 150 ml Estimated Blood Loss 10 ml Physical Exam Abdomen: Other (Decreased bowel sounds) Heart: Regular rate General: No acute distress Lungs: Clear to auscultation Assessment Assessment Problems Medical Problems: (1) Nausea & vomiting Status: Acute (2) SBO (small bowel obstruction) Status: Acute Abdominal pain; CT with SBO. s/p NGT with bilious output. The patient is feeling mildly better today. As per GI and surgery. PAFIB with RVR; new finding in setting of above. Converted back to SR and is maintaining. TSH WNL. Metoprolol IV for rate control when NPO. Outpatient event monitor. H/o severe cardiomyopathy; LVEF 20% in 2009. s/p LV recovery. Most recent echo 03/05 with normalized LV function Hypertension; controlled overall Hyperlipidemia; stating Diabetes, II CECELIA on CKD; improving. Morning creatinine of 1.5. Comment Review of Relevant I have reviewed the following items shaan (where applicable) has been applied. Labs Laboratory Tests Test 07/31/21 16:13 07/31/21 19:29 08/01/21 05:55 08/01/21 11:27 Glucose (Fingerstick) 255 mg/dL (70-99) 263 mg/dL (70-99) 139 mg/dL (70-99) White Blood Count 8.8 x10^3/uL (4.0-11.0) Red Blood Count 4.40 x10^6/uL (3.50-5.40) Hemoglobin 12.7 g/dL (12.0-15.5) Hematocrit 38.8 % (36.0-47.0) Mean Corpuscular Volume 88 fL (79-100) Mean Corpuscular Hemoglobin 29 pg (25-35) Mean Corpuscular Hemoglobin Concent 33 g/dL (31-37) Red Cell Distribution Width 14.0 % (11.5-14.5) Platelet Count 231 x10^3/uL (140-400) Neutrophils (%) (Auto) 78 % (31-73) Lymphocytes (%) (Auto) 14 % (24-48) Monocytes (%) (Auto) 6 % (0-9) Eosinophils (%) (Auto) 2 % (0-3) Basophils (%) (Auto) 0 % (0-3) Neutrophils # (Auto) 6.9 x10^3/uL (1.8-7.7) Lymphocytes # (Auto) 1.2 x10^3/uL (1.0-4.8) Monocytes # (Auto) 0.5 x10^3/uL (0.0-1.1) Eosinophils # (Auto) 0.1 x10^3/uL (0.0-0.7) Basophils # (Auto) 0.0 x10^3/uL (0.0-0.2) Sodium Level 142 mmol/L (136-145) Potassium Level 3.8 mmol/L (3.5-5.1) Chloride Level 104 mmol/L (98-107) Carbon Dioxide Level 28 mmol/L (21-32) Anion Gap 10 (6-14) Blood Urea Nitrogen 24 mg/dL (7-20) Creatinine 1.8 mg/dL (0.6-1.0) Estimated GFR (Cockcroft-Gault) 33.0 BUN/Creatinine Ratio 13 (6-20) Glucose Level 337 mg/dL (70-99) Calcium Level 9.0 mg/dL (8.5-10.1) Total Bilirubin 0.4 mg/dL (0.2-1.0) Aspartate Amino Transf (AST/SGOT) 7 U/L (15-37) Alanine Aminotransferase (ALT/SGPT) 12 U/L (14-59) Alkaline Phosphatase 77 U/L (46-116) Total Protein 7.1 g/dL (6.4-8.2) Albumin 2.6 g/dL (3.4-5.0) Albumin/Globulin Ratio 0.6 (1.0-1.7) Test 08/01/21 13:46 08/01/21 15:58 08/01/21 17:28 12/16/21 20:11 Glucose (Fingerstick) 100 mg/dL (70-99) 133 mg/dL (70-99) 122 mg/dL (70-99) 187 mg/dL (70-99) Test 08/02/21 05:25 08/02/21 08:09 08/02/21 12:24 White Blood Count 8.3 x10^3/uL (4.0-11.0) Red Blood Count 4.13 x10^6/uL (3.50-5.40) Hemoglobin 11.7 g/dL (12.0-15.5) Hematocrit 36.7 % (36.0-47.0) Mean Corpuscular Volume 89 fL (79-100) Mean Corpuscular Hemoglobin 28 pg (25-35) Mean Corpuscular Hemoglobin Concent 32 g/dL (31-37) Red Cell Distribution Width 14.0 % (11.5-14.5) Platelet Count 220 x10^3/uL (140-400) Neutrophils (%) (Auto) 89 % (31-73) Lymphocytes (%) (Auto) 6 % (24-48) Monocytes (%) (Auto) 5 % (0-9) Eosinophils (%) (Auto) 0 % (0-3) Basophils (%) (Auto) 0 % (0-3) Neutrophils # (Auto) 7.3 x10^3/uL (1.8-7.7) Lymphocytes # (Auto) 0.5 x10^3/uL (1.0-4.8) Monocytes # (Auto) 0.4 x10^3/uL (0.0-1.1) Eosinophils # (Auto) 0.0 x10^3/uL (0.0-0.7) Basophils # (Auto) 0.0 x10^3/uL (0.0-0.2) Sodium Level 143 mmol/L (136-145) Potassium Level 4.7 mmol/L (3.5-5.1) Chloride Level 106 mmol/L (98-107) Carbon Dioxide Level 27 mmol/L (21-32) Anion Gap 10 (6-14) Blood Urea Nitrogen 23 mg/dL (7-20) Creatinine 1.5 mg/dL (0.6-1.0) Estimated GFR (Cockcroft-Gault) 40.7 Glucose Level 363 mg/dL (70-99) Calcium Level 8.1 mg/dL (8.5-10.1) Glucose (Fingerstick) 354 mg/dL (70-99) 375 mg/dL (70-99) Laboratory Tests Test 08/01/21 13:46 08/01/21 15:58 08/01/21 17:28 08/01/21 20:11 Glucose (Fingerstick) 100 mg/dL (70-99) 133 mg/dL (70-99) 122 mg/dL (70-99) 187 mg/dL (70-99) Test 08/02/21 05:25 08/02/21 08:09 08/02/21 12:24 White Blood Count 8.3 x10^3/uL (4.0-11.0) Red Blood Count 4.13 x10^6/uL (3.50-5.40) Hemoglobin 11.7 g/dL (12.0-15.5) Hematocrit 36.7 % (36.0-47.0) Mean Corpuscular Volume 89 fL (79-100) Mean Corpuscular Hemoglobin 28 pg (25-35) Mean Corpuscular Hemoglobin Concent 32 g/dL (31-37) Red Cell Distribution Width 14.0 % (11.5-14.5) Platelet Count 220 x10^3/uL (140-400) Neutrophils (%) (Auto) 89 % (31-73) Lymphocytes (%) (Auto) 6 % (24-48) Monocytes (%) (Auto) 5 % (0-9) Eosinophils (%) (Auto) 0 % (0-3) Basophils (%) (Auto) 0 % (0-3) Neutrophils # (Auto) 7.3 x10^3/uL (1.8-7.7) Lymphocytes # (Auto) 0.5 x10^3/uL (1.0-4.8) Monocytes # (Auto) 0.4 x10^3/uL (0.0-1.1) Eosinophils # (Auto) 0.0 x10^3/uL (0.0-0.7) Basophils # (Auto) 0.0 x10^3/uL (0.0-0.2) Sodium Level 143 mmol/L (136-145) Potassium Level 4.7 mmol/L (3.5-5.1) Chloride Level 106 mmol/L (98-107) Carbon Dioxide Level 27 mmol/L (21-32) Anion Gap 10 (6-14) Blood Urea Nitrogen 23 mg/dL (7-20) Creatinine 1.5 mg/dL (0.6-1.0) Estimated GFR (Cockcroft-Gault) 40.7 Glucose Level 363 mg/dL (70-99) Calcium Level 8.1 mg/dL (8.5-10.1) Glucose (Fingerstick) 354 mg/dL (70-99) 375 mg/dL (70-99) Microbiology 07/30/21 Urine Culture - Final, Complete 07/29/21 Blood Culture - Preliminary, Resulted NO GROWTH AFTER 3 DAYS Medications Current Medications Ondansetron HCl (Zofran) 8 mg 1X ONCE IVP Last administered on 07/26/21at 02:45; Start 07/26/21 at 02:45; Stop 07/26/21 at 02:46; Status DC Sodium Chloride 1,000 ml @ 1,000 mls/hr 1X ONCE IV Last administered on 07/26/21at 02:45; Start 07/26/21 at 02:45; Stop 07/26/21 at 03:44; Status DC Ondansetron HCl (Zofran) 4 mg PRN Q8HRS PRN IVP NAUSEA/VOMITING; Start 1 09/26/20 at 05:15; Stop 07/27/21 at 05:14; Status DC Sodium Chloride 1,000 ml @ 100 mls/hr Q10H IV Last administered on 07/26/21at 05:21; Start 07/26/21 at 05:15; Stop 07/26/21 at 14:59; Status DC Insulin Human Lispro (HumaLOG) 0-5 UNITS TIDWMEALS SQ Last administered on 07/28/21at 08:48; Start 07/26/21 at 12:00; Stop 07/28/21 at 10:32; Status DC Dextrose (Dextrose 50%-Water Syringe) 12.5 gm PRN Q15MIN PRN IV SEE COMMENTS; Start 07/26/21 at 09:15 Dextrose/Sodium Chloride 1,000 ml @ 100 mls/hr Q10H IV Last administered on 07/28/21at 10:01; Start 07/26/21 at 15:00; Stop 07/28/21 at 11:47; Status DC Enoxaparin Sodium (Lovenox 30mg Syringe) 30 mg Q24H SQ Last administered on 07/28/21at 20:34; Start 07/27/21 at 21:00; Stop 07/29/21 at 14:10; Status DC Fluticasone Propionate (Flonase) 1 spray BID NS Last administered on 08/02/21at 10:12; Start 07/27/21 at 13:00 Carvedilol (Coreg) 25 mg BIDWMEALS PO Last administered on 07/28/21at 17:22; Start 07/27/21 at 12:00; Stop 07/31/21 at 14:34; Status DC Atorvastatin Calcium (Lipitor) 80 mg QHS PO Last administered on 07/28/21at 20:34; Start 07/27/21 at 21:00 Linagliptin (Tradjenta) 5 mg DAILY PO ; Start 07/27/21 at 12:00 Aspirin (Ecotrin) 81 mg DAILY PO Last administered on 07/28/21at 08:40; Start 07/27/21 at 12:00 Acetaminophen/ Hydrocodone Bitart (Lortab 5/325) 1 tab PRN Q6HRS PRN PO PAIN Last administered on 07/27/21at 19:59; Start 07/27/21 at 18:00 Hydralazine HCl (Apresoline Inj) 10 mg PRN Q4HRS PRN IVP ELEVATED BP, SEE COMMENTS Last administered on 08/02/21at 07:19; Start 07/27/21 at 18:00 Ondansetron HCl (Zofran) 8 mg PRN Q6HRS PRN IVP NAUSEA/VOMITING Last a dministered on 07/30/21at 13:27; Start 07/28/21 at 08:45 Clonidine HCl (Catapres Tts-2) 1 patch WEEKLY TD Last administered on 07/28/21at 10:01; Start 07/28/21 at 09:00 Insulin Human Lispro (HumaLOG) 0-10 UNITS TIDBFRMEAL SQ Last administered on 07/31/21at 12:22; Start 07/28/21 at 11:30; Stop 07/31/21 at 15:46; Status DC Lorazepam (Ativan Inj) 1 mg PRN Q6HRS PRN IV ANXIETY / AGITATION; Start 07/28/21 at 11:15 Fentanyl Citrate (Fentanyl 2ml Vial) 50 mcg PRN Q3HRS PRN IV PAIN; Start 07/28/21 at 11:15 Sodium Chloride 1,000 ml @ 100 mls/hr 1X ONCE IV Last administered on 07/28/21at 12:34; Start 07/28/21 at 11:45; Stop 07/29/21 at 09:19; Status DC Potassium Chloride/Water 100 ml @ 100 mls/hr Q1H IV Last administered on 07/28/21at 13:00; Start 07/28/21 at 12:00; Stop 07/28/21 at 13:59; Status DC Metoprolol Tartrate (Lopressor Vial) 5 mg Q6HRS IVP Last administered on 08/02/21at 12:55; Start 07/28/21 at 20:00 Iohexol (Omnipaque 300 Mg/ml) 400 ml 1X ONCE PO Last administered on 07/29/21at 08:30; Start 07/29/21 at 07:45; Stop 07/29/21 at 07:47; Status DC Info (CONTRAST GIVEN -- Rx MONITORING) 1 each PRN DAILY PRN MC SEE COMMENTS; Start 07/29/21 at 07:45; Stop 07/31/21 at 07:44; Status DC Potassium Chloride/Dextrose/ Sod Cl 1,000 ml @ 150 mls/hr Q6H40M IV Last administered on 08/02/21at 12:56; Start 07/29/21 at 09:15 Enoxaparin Sodium (Lovenox 40mg Syringe) 40 mg Q24H SQ Last administered on 07/30/21at 21:58; Start 07/29/21 at 21:00; Stop 08/01/21 at 12:32; Status DC Acetaminophen (Tylenol Supp) 650 mg PRN Q6HRS PRN LA MILD PAIN / TEMP > 100.3'F Last administered on 07/29/21at 21:35; Start 07/29/21 at 20:30 Piperacillin Sod/ Tazobactam Sod 3.375 gm/Sodium Chloride 50 ml @ 100 mls/hr Q6HRS IV Last administered on 08/02/21at 12:55; Start 07/29/21 at 21:00 Magnesium Sulfate 50 ml @ 25 mls/hr 1X ONCE IV Last administered on 07/29/21at 22:47; Start 07/29/21 at 20:30; Stop 07/29/21 at 22:29; Status DC Sodium Chloride 250 ml @ 250 mls/hr 1X ONCE IV Last administered on 07/31/21 at 10:09; Start 07/31/21 at 09:45; Stop 07/31/21 at 10:44; Status DC Insulin Human Lispro (HumaLOG) 0-9 UNITS TIDWMEALS SQ Last administered on 08/02/21at 10:24; Start 07/31/21 at 17:00 Dextrose (Dextrose 50%-Water Syringe) 12.5 gm PRN Q15MIN PRN IV SEE COMMENTS; Start 07/31/21 at 15:45; Status UNV Fentanyl Citrate (Fentanyl 2ml Vial) 25 mcg PRN Q5MIN PRN IVP MILD PAIN 1-3; Start 08/01/21 at 06:00; Stop 08/02/21 at 05:59; Status DC Fentanyl Citrate (Fentanyl 2ml Vial) 50 mcg PRN Q5MIN PRN IVP MODERATE PAIN 4- 6; Start 08/01/21 at 06:00; Stop 08/02/21 at 05:59; Status DC Morphine Sulfate (Morphine Sulfate) 1 mg PRN Q10MIN PRN IVP SEVERE PAIN 7-10; Start 08/01/21 at 06:00; Stop 08/02/21 at 05:59; Status DC Ringer's Solution 1,000 ml @ 30 mls/hr Q24H IV Last administered on 08/01/21at 16:12; Start 08/01/21 at 06:00; Stop 08/01/21 at 17:59; Status DC Hydromorphone HCl (Dilaudid) 0.5 mg PRN Q10MIN PRN IVP SEVERE PAIN 7-10, 2nd CHOICE; Start 08/01/21 at 06:00; Stop 08/02/21 at 05:59; Status DC Prochlorperazine Edisylate (Compazine) 5 mg PACU PRN PRN IVP NAUSEA, MRX1; Start 08/01/21 at 06:00; Stop 08/02/21 at 05:59; Status DC Bupivacaine HCl/ Epinephrine Bitart (Sensorcaine-Epi 0.25%-1:040548 Mpf) 30 ml STK-MED ONCE .ROUTE ; Start 08/01/21 at 11:59; Stop 08/01/21 at 12:00; Status DC Propofol (Diprivan) 200 mg STK-MED ONCE IV ; Start 08/01/21 at 12:17; Stop 08/01/21 at 12:17; Status DC Rocuronium Lismore (Zemuron) 50 mg STK-MED ONCE .ROUTE ; Start 08/01/21 at 12:17; Stop 08/01/21 at 12:17; Status DC Lidocaine HCl (Xylocaine-Mpf 1% 5ml Vial) 5 ml STK-MED ONCE .ROUTE ; Start 08/01/21 at 12:17; Stop 08/01/21 at 12:17; Status DC Fentanyl Citrate (Fentanyl 2ml Vial) 100 mcg STK-MED ONCE .ROUTE ; Start 08/01/21 at 12:17; Stop 08/01/21 at 12:18; Status DC Enoxaparin Sodium (Lovenox 30mg Syringe) 30 mg Q24H SQ Last administered on 08/02/21at 12:56; Start 08/02/21 at 09:00 Midazolam HCl (Versed) 2 mg STK-MED ONCE .ROUTE ; Start 08/01/21 at 13:52; Stop 08/01/21 at 13:52; Status DC Midazolam HCl (Versed) 0.5 mg 1X ONCE IV Last administered on 08/01/21at 13:57; Start 08/01/21 at 14:00; Stop 08/01/21 at 14:01; Status DC Bupivacaine HCl/ Epinephrine Bitart (Sensorcain-Epi 0.25% Kit) 30 ml STK-MED ONCE .ROUTE Last administered on 08/01/21at 15:14; Start 08/01/21 at 14:09; Stop 08/01/21 at 14:09; Status DC Hydralazine HCl (Apresoline Inj) 20 mg STK-MED ONCE .ROUTE ; Start 08/01/21 at 16:15; Stop 08/01/21 at 16:16; Status DC Active Scripts Active Reported Aspirin Ec (Aspirin) 81 Mg Tablet.dr 1 Tab PO DAILY Klor-Con M10 (Potassium Chloride) 10 Meq Tab.er.prt Unknown Dose UNKNOWN Rosuvastatin Calcium 20 Mg Tablet 1 Tab PO QHS Metformin Hcl 500 Mg Tablet 1 Tab PO BID Furosemide 20 Mg Tablet 1 Tab PO DAILY Fluticasone Propionate Nasal [place] (Fluticasone Propionate) 16 Gm [place].susp Unknown Dose NS UNKNOWN Carvedilol 25 Mg Tablet 1 Tab PO BID Jardiance (Empagliflozin) 25 Mg Tablet 1 Tab PO DAILY Januvia (Sitagliptin Phosphate) 100 Mg Tablet 1 Tab PO DAILY Lisinopril 20 Mg Tablet 1 Tab PO DAILY Vitals/I & O Vital Sign - Last 24 Hours 08/01/21 08/01/21 08/01/21 08/01/21 13:43 15:00 15:54 15:54 Temp 98.5 98.5 98.9 98.5 98.5 98.9 Pulse 87 90 Resp 16 20 B/P (MAP) 144/82 192/92 Pulse Ox 98 100 O2 Delivery Room Air Mask Simple Mask O2 Flow Rate 10 10 08/01/21 08/01/21 08/01/21 08/01/21 16:14 16:20 16:23 16:31 Pulse 74 78 86 124 Resp 20 22 B/P (MAP) 213/100 181/88 181/88 152/66 Pulse Ox 100 100 100 O2 Delivery Simple Mask Simple Mask Simple Mask O2 Flow Rate 10 10 10 08/01/21 08/01/21 08/01/21 08/01/21 16:41 16:58 17:53 19:00 Temp 98.6 98.6 Pulse 98 92 92 97 Resp 20 18 B/P (MAP) 153/74 154/80 154/80 184/90 (121) Pulse Ox 98 98 94 O2 Delivery Room Air Room Air Room Air 08/01/21 08/01/21 08/01/21 08/02/21 20:00 20:21 23:00 00:14 Temp 98.5 98.5 Pulse 98 102 102 Resp 18 B/P (MAP) 184/90 160/88 (112) 160/88 Pulse Ox 94 O2 Delivery Room Air Room Air 08/02/21 08/02/21 08/02/21 08/02/21 03:00 06:19 06:25 07:00 Temp 98.9 98.4 98.9 98.4 Pulse 92 85 79 82 Resp 20 20 B/P (MAP) 191/94 (126) 191/93 188/92 (124) 160/83 (108) Pulse Ox 95 94 O2 Delivery Room Air Room Air 08/02/21 08/02/21 08/02/21 08/02/21 07:19 08:00 11:00 12:55 Temp 98.4 98.4 Pulse 75 85 85 Resp 20 B/P (MAP) 182/83 156/88 (110) 156/88 Pulse Ox 96 O2 Delivery Room Air Room Air Intake and Output 08/01/21 08/01/21 08/02/21 15:00 23:00 07:00 Intake Total 400 ml 200 ml Output Total 160 ml Balance 400 ml 40 ml Justifications for Admission Other Justification CALEB CORONADO MD Aug 02, 2021 13:42
--- NOTE | 2021-08-02 15:44 | NUR ---
SW following. Discussed with RN, pt had surgery 08/01. Currently NPO, on IV abx and with NG tube. SW will continue to follow.
[2021-08-02] MEDS: ATORVASTATIN CALCIUM 40 MG TABLET. PO SCH (20:40)
[2021-08-03] MEDS: METOPROLOL IV PUSH 5 MG/5 ML VIAL. IVP SCH ×4 (00:01→17:59)
[2021-08-03] MEDS ORDERED: INSULIN LISPRO 300 UNITS/3 ML VIAL. SQ ONE ×2 (00:30→05:00)
[2021-08-03] MEDS: hydrALAZINE 20 MG/ML VIAL. IVP PRN ×3 (01:21→20:26)
[2021-08-03 03:00] VITALS: BP 143/63
[2021-08-03] MEDS: POTASSIUM CL 20MEQ D5-0.45NACL 1,000 ML IV SCH ×2 (04:37→06:47)
[2021-08-03] MEDS: PIPERACILLIN/TAZOBACTAM 3.375 GM in IV NORMAL SALINE 50ML 50 ML IV SCH ×4 (05:53→17:59)
[2021-08-03 07:00] VITALS: BP 178/76
[2021-08-03 08:01] LABS: CALCIUM 7.9 mg/dL (8.5-10.1); CREATININE 1.2 mg/dL (0.6-1.0); GFR 52.7; POTASSIUM 4.2 mmol/L (3.5-5.1)
[2021-08-03] MEDS: ENOXAPARIN 30 MG/0.3 ML SYRINGE. SQ SCH (08:18)
[2021-08-03] MEDS: FLUTICASONE 50MCG/NASAL SPRAY 16GM BOTTLE. NS SCH ×2 (08:18→21:02)
[2021-08-03] MEDS: INSULIN LISPRO 300 UNITS/3 ML VIAL. SQ SCH ×6 (08:26→21:35)
[2021-08-03] MEDS: ASPIRIN ENTERIC COATED 81 MG TABLET.DR. PO SCH (09:00)
[2021-08-03] MEDS: LINAGLIPTIN 5 MG TABLET PO SCH (09:00)
--- NOTE | 2021-08-03 09:27 | PDOC ---
IM PROGRESS NOTES- Subjective Subjective No complaints of nausea or vomiting. Objective Vitals/I&O Vital Signs Date Time Temp Pulse Resp B/P (MAP) Pulse Ox O2 Delivery O2 Flow Rate FiO2 08/03/21 07:21 78 178/80 08/03/21 07:00 98.1 20 96 Room Air 98.1 I & O 08/02/21 08/02/21 08/03/21 15:00 23:00 07:00 Intake Total 1050 ml Output Total 0 ml 400 ml 500 ml Balance 0 ml -400 ml 550 ml Physical Exam Physical Exam General Appearance - alert and in no distress Chest - decreased breath sounds at bases Heart - S1 and S2 normal Abdomen - soft, non tender,BS + Neurological - alert and oriented Musculoskeletal - generalized weakness Extremities - no edema Labs Laboratory Tests Test 08/02/21 12:24 08/02/21 16:51 08/02/21 19:41 08/02/21 23:51 Glucose (Fingerstick) 375 mg/dL (70-99) H 242 mg/dL (70-99) H 206 mg/dL (70-99) H 243 mg/dL (70-99) H Test 08/03/21 04:25 08/03/21 06:55 08/03/21 07:33 Glucose (Fingerstick) 242 mg/dL (70-99) H 234 mg/dL (70-99) H Sodium Level 139 mmol/L (136-145) Potassium Level 4.2 mmol/L (3.5-5.1) Chloride Level 106 mmol/L (98-107) Carbon Dioxide Level 26 mmol/L (21-32) Anion Gap 7 (6-14) Blood Urea Nitrogen 14 mg/dL (7-20) Creatinine 1.2 mg/dL (0.6-1.0) H Estimated GFR (Cockcroft-Gault) 52.7 Glucose Level 237 mg/dL (70-99) H Calcium Level 7.9 mg/dL (8.5-10.1) L Laboratory Tests 08/03/21 06:55 Meds Current Medications Medications (Trade) Dose Ordered Sig/Svitlana Route PRN Reason Start Time Stop Time Status Last Admin Dose Admin Insulin Human Lispro (HumaLOG) 3 units 1X ONCE SQ 08/03/21 00:30 08/03/21 00:31 DC 08/03/21 00:05 Insulin Human Lispro (HumaLOG) 3 units 1X ONCE SQ 08/03/21 05:00 08/03/21 05:01 DC 08/03/21 04:39 Assessment Assessment Problems Medical Problems: (1) Nausea & vomiting Status: Acute (2) SBO (small bowel obstruction) Status: Acute FINAL IMPRESSION: fevers ? aspiration 1. Abdominal pain, small bowel obstruction. 2. Acute renal insufficiency. Creatinine 4, normal creatinine is around 1.5. 3. Hypertension. 4. Diabetes. 5. Hyperlipidemia. 6. History of chronic heart failure, systolic; but last echocardiogram shows good improvement 50% in 2020. PLAN: Small bowel obstruction small bowel series shows small bowel obstruction s/p diagnostic Laproscopic surgery POD #2 distal small bowel narrowing due to enteritis GI consult appreciated.? embolic due to paroxysmal atrial fibrillation. Recommended to continue observation and present management. Diabetes mellitus BS 200 range. Not controlled. Continue sliding scale insulin. Increase insulin. Patient is still n.p.o. and getting IV fluids. Discussed with pharmacist. Start Clinimix. NGT drainage is less. IV Zosyn ID consult appreciated cxr ,c/s ,labs Paroxysmal atrial fibrillation . 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 Plan Plan For more details regarding further plans, please refer to the orders. Justifications for Admission Other Justification DENI MOLINA MD Aug 03, 2021 09:27
--- NOTE | 2021-08-03 10:29 | PDOC ---
CARDIOLOGY PROGRESS NOTE SUBJECTIVE: No current chest pain or dyspnea. Still struggling with GI issues. BP has been labile. No syncope or palpitations. OBJECTIVE: Vital Signs/I&O: Vital Signs Date Time Temp Pulse Resp B/P (MAP) Pulse Ox O2 Delivery O2 Flow Rate FiO2 08/03/21 07:21 78 178/80 08/03/21 07:00 98.1 20 96 Room Air 98.1 I & O 08/02/21 08/02/21 08/03/21 15:00 23:00 07:00 Intake Total 1050 ml Output Total 0 ml 400 ml 500 ml Balance 0 ml -400 ml 550 ml Objective: GEN.: No apparent distress. Alert and oriented. HEENT: Head is normocephalic, atraumatic NECK: Supple. LUNGS: Clear to auscultation. HEART: RRR, S1, S2 present. Peripheral pulses intact ABDOMEN: Soft, nontender. Positive bowel sounds. EXTREMITIES: Without any cyanosis. NEUROLOGIC: Normal speech, normal tone PSYCHIATRIC: Normal affect, normal mood. SKIN: No ulcerations CURRENT MEDICATIONS: Clonidine patch atorvastatin Aspirin 81mg daily DIAGNOSTIC TESTING: Labs reviewed Echo pending. Tele unremarkable for last 48 hours ASSESSMENT: 1. Abdominal pain; CT with SBO. s/p NGT with bilious output. GS following 2. PAFIB with RVR; new finding in setting of above. Converted back to SR and is maintaining. TSH WNL 3. H/o severe cardiomyopathy; LVEF 20% in 2009. Current echo pending 4. Hypertension; Labile BP's 5. Hyperlipidemia; 6. Diabetes PLAN: 1. Continue asa from CV standpoint. 2. Await repeat echo - prelim appears wnl 3. BP labile, will start amlodipine 5mg p.o bid and monitor for now. Supportive care. Outpt f/u will be scheduled. Thanks. Justicifation of Admission Dx: Justifications for Admission: Justification of Admission Dx: Yes FRANCESCA RENTERIA MD Aug 03, 2021 10:29
--- NOTE | 2021-08-03 10:33 | PDOC ---
SURGICAL PROGRESS NOTE DATE: 08/03/21 TIME: 10:32 Subjective Patient states she is doing well passing flatus has not had a bowel no nausea no pain Vital Signs Vital Signs Date Time Temp Pulse Resp B/P (MAP) Pulse Ox O2 Delivery O2 Flow Rate FiO2 08/03/21 07:21 78 178/80 08/03/21 07:00 98.1 20 96 Room Air 98.1 I&O Intake and Output 08/03/21 07:00 Intake Total 1050 ml Output Total 900 ml Balance 150 ml IV Total 1050 ml Gastric Drainage Total 900 ml PATIENT HAS A GTZ: No General: Alert, Oriented X3, Cooperative, No acute distress Abdomen: Normal bowel sounds, Soft, No tenderness Labs Laboratory Tests Test 08/01/21 11:27 08/01/21 13:46 08/01/21 15:58 08/01/21 17:28 Glucose (Fingerstick) 139 mg/dL (70-99) 100 mg/dL (70-99) 133 mg/dL (70-99) 122 mg/dL (70-99) Test 08/01/21 20:11 08/02/21 05:25 08/02/21 08:09 08/02/21 12:24 Glucose (Fingerstick) 187 mg/dL (70-99) 354 mg/dL (70-99) 375 mg/dL (70-99) White Blood Count 8.3 x10^3/uL (4.0-11.0) Red Blood Count 4.13 x10^6/uL (3.50-5.40) Hemoglobin 11.7 g/dL (12.0-15.5) Hematocrit 36.7 % (36.0-47.0) Mean Corpuscular Volume 89 fL (79-100) Mean Corpuscular Hemoglobin 28 pg (25-35) Mean Corpuscular Hemoglobin Concent 32 g/dL (31-37) Red Cell Distribution Width 14.0 % (11.5-14.5) Platelet Count 220 x10^3/uL (140-400) Neutrophils (%) (Auto) 89 % (31-73) Lymphocytes (%) (Auto) 6 % (24-48) Monocytes (%) (Auto) 5 % (0-9) Eosinophils (%) (Auto) 0 % (0-3) Basophils (%) (Auto) 0 % (0-3) Neutrophils # (Auto) 7.3 x10^3/uL (1.8-7.7) Lymphocytes # (Auto) 0.5 x10^3/uL (1.0-4.8) Monocytes # (Auto) 0.4 x10^3/uL (0.0-1.1) Eosinophils # (Auto) 0.0 x10^3/uL (0.0-0.7) Basophils # (Auto) 0.0 x10^3/uL (0.0-0.2) Sodium Level 143 mmol/L (136-145) Potassium Level 4.7 mmol/L (3.5-5.1) Chloride Level 106 mmol/L (98-107) Carbon Dioxide Level 27 mmol/L (21-32) Anion Gap 10 (6-14) Blood Urea Nitrogen 23 mg/dL (7-20) Creatinine 1.5 mg/dL (0.6-1.0) Estimated GFR (Cockcroft-Gault) 40.7 Glucose Level 363 mg/dL (70-99) Calcium Level 8.1 mg/dL (8.5-10.1) Test 08/02/21 16:51 08/02/21 19:41 08/02/21 23:51 08/03/21 04:25 Glucose (Fingerstick) 242 mg/dL (70-99) 206 mg/dL (70-99) 243 mg/dL (70-99) 242 mg/dL (70-99) Test 08/03/21 06:55 08/03/21 07:33 Sodium Level 139 mmol/L (136-145) Potassium Level 4.2 mmol/L (3.5-5.1) Chloride Level 106 mmol/L (98-107) Carbon Dioxide Level 26 mmol/L (21-32) Anion Gap 7 (6-14) Blood Urea Nitrogen 14 mg/dL (7-20) Creatinine 1.2 mg/dL (0.6-1.0) Estimated GFR (Cockcroft-Gault) 52.7 Glucose Level 237 mg/dL (70-99) Calcium Level 7.9 mg/dL (8.5-10.1) Glucose (Fingerstick) 234 mg/dL (70-99) Laboratory Tests Test 08/02/21 12:24 08/02/21 16:51 08/02/21 19:41 08/02/21 23:51 Glucose (Fingerstick) 375 mg/dL (70-99) 242 mg/dL (70-99) 206 mg/dL (70-99) 243 mg/dL (70-99) Test 08/03/21 04:25 08/03/21 06:55 08/03/21 07:33 Glucose (Fingerstick) 242 mg/dL (70-99) 234 mg/dL (70-99) Sodium Level 139 mmol/L (136-145) Potassium Level 4.2 mmol/L (3.5-5.1) Chloride Level 106 mmol/L (98-107) Carbon Dioxide Level 26 mmol/L (21-32) Anion Gap 7 (6-14) Blood Urea Nitrogen 14 mg/dL (7-20) Creatinine 1.2 mg/dL (0.6-1.0) Estimated GFR (Cockcroft-Gault) 52.7 Glucose Level 237 mg/dL (70-99) Calcium Level 7.9 mg/dL (8.5-10.1) Problem List Problems Medical Problems: (1) Nausea & vomiting Status: Acute (2) SBO (small bowel obstruction) Status: Acute Assessment/Plan Status post diagnostic laparoscopy with no evidence of obstruction enteritis NG tube is clamped if tolerated we will remove Justicifation of Admission Dx: Justifications for Admission: Justification of Admission Dx: Yes CEE LOVE MD Aug 03, 2021 10:33
[2021-08-03 11:00] VITALS: BP 180/85
--- NOTE | 2021-08-03 11:44 | PDOC ---
G I PROGRESS NOTE Subjective No complaints. Would love to eat. Says has passed some flatus. Physical Exam Lungs clear anteriorly. RRR Abdomen soft, not distended nor tender. Bowel sounds present. Review of Relevant I have reviewed the following items shaan (where applicable) has been applied. Labs Laboratory Tests Test 08/01/21 13:46 08/01/21 15:58 08/01/21 17:28 08/01/21 20:11 Glucose (Fingerstick) 100 mg/dL (70-99) 133 mg/dL (70-99) 122 mg/dL (70-99) 187 mg/dL (70-99) Test 08/02/21 05:25 08/02/21 08:09 08/02/21 12:24 08/02/21 16:51 White Blood Count 8.3 x10^3/uL (4.0-11.0) Red Blood Count 4.13 x10^6/uL (3.50-5.40) Hemoglobin 11.7 g/dL (12.0-15.5) Hematocrit 36.7 % (36.0-47.0) Mean Corpuscular Volume 89 fL (79-100) Mean Corpuscular Hemoglobin 28 pg (25-35) Mean Corpuscular Hemoglobin Concent 32 g/dL (31-37) Red Cell Distribution Width 14.0 % (11.5-14.5) Platelet Count 220 x10^3/uL (140-400) Neutrophils (%) (Auto) 89 % (31-73) Lymphocytes (%) (Auto) 6 % (24-48) Monocytes (%) (Auto) 5 % (0-9) Eosinophils (%) (Auto) 0 % (0-3) Basophils (%) (Auto) 0 % (0-3) Neutrophils # (Auto) 7.3 x10^3/uL (1.8-7.7) Lymphocytes # (Auto) 0.5 x10^3/uL (1.0-4.8) Monocytes # (Auto) 0.4 x10^3/uL (0.0-1.1) Eosinophils # (Auto) 0.0 x10^3/uL (0.0-0.7) Basophils # (Auto) 0.0 x10^3/uL (0.0-0.2) Sodium Level 143 mmol/L (136-145) Potassium Level 4.7 mmol/L (3.5-5.1) Chloride Level 106 mmol/L (98-107) Carbon Dioxide Level 27 mmol/L (21-32) Anion Gap 10 (6-14) Blood Urea Nitrogen 23 mg/dL (7-20) Creatinine 1.5 mg/dL (0.6-1.0) Estimated GFR (Cockcroft-Gault) 40.7 Glucose Level 363 mg/dL (70-99) Calcium Level 8.1 mg/dL (8.5-10.1) Glucose (Fingerstick) 354 mg/dL (70-99) 375 mg/dL (70-99) 242 mg/dL (70-99) Test 08/02/21 19:41 08/02/21 23:51 08/03/21 04:25 08/03/21 06:55 Glucose (Fingerstick) 206 mg/dL (70-99) 243 mg/dL (70-99) 242 mg/dL (70-99) Sodium Level 139 mmol/L (136-145) Potassium Level 4.2 mmol/L (3.5-5.1) Chloride Level 106 mmol/L (98-107) Carbon Dioxide Level 26 mmol/L (21-32) Anion Gap 7 (6-14) Blood Urea Nitrogen 14 mg/dL (7-20) Creatinine 1.2 mg/dL (0.6-1.0) Estimated GFR (Cockcroft-Gault) 52.7 Glucose Level 237 mg/dL (70-99) Calcium Level 7.9 mg/dL (8.5-10.1) Test 08/03/21 07:33 Glucose (Fingerstick) 234 mg/dL (70-99) Laboratory Tests Test 08/02/21 12:24 08/02/21 16:51 08/02/21 19:41 08/02/21 23:51 Glucose (Fingerstick) 375 mg/dL (70-99) 242 mg/dL (70-99) 206 mg/dL (70-99) 243 mg/dL (70-99) Test 08/03/21 04:25 08/03/21 06:55 08/03/21 07:33 Glucose (Fingerstick) 242 mg/dL (70-99) 234 mg/dL (70-99) Sodium Level 139 mmol/L (136-145) Potassium Level 4.2 mmol/L (3.5-5.1) Chloride Level 106 mmol/L (98-107) Carbon Dioxide Level 26 mmol/L (21-32) Anion Gap 7 (6-14) Blood Urea Nitrogen 14 mg/dL (7-20) Creatinine 1.2 mg/dL (0.6-1.0) Estimated GFR (Cockcroft-Gault) 52.7 Glucose Level 237 mg/dL (70-99) Calcium Level 7.9 mg/dL (8.5-10.1) Vitals/I & O Vital Sign - Last 24 Hours 08/02/21 08/02/21 08/02/21 08/02/21 12:55 15:00 18:00 19:00 Temp 98.7 98.7 98.7 98.7 Pulse 85 75 75 88 Resp 16 18 B/P (MAP) 156/88 109/79 (89) 109/79 108/80 (89) Pulse Ox 95 95 O2 Delivery Room Air Room Air 08/02/21 08/02/21 08/03/21 08/03/21 20:00 23:00 00:01 01:21 Temp 98.6 98.6 Pulse 87 83 72 Resp 18 B/P (MAP) 166/73 (104) 186/96 182/93 Pulse Ox 96 O2 Delivery Room Air Room Air 08/03/21 08/03/21 08/03/21 08/03/21 03:00 05:54 07:00 07:21 Temp 98.6 98.1 98.6 98.1 Pulse 87 90 76 78 Resp 20 20 B/P (MAP) 143/63 (89) 192/99 178/76 (110) 178/80 Pulse Ox 97 96 O2 Delivery Room Air Room Air 08/03/21 08/03/21 08:00 11:00 Temp 98.1 98.1 Pulse 81 Resp 18 B/P (MAP) 180/85 (116) Pulse Ox 97 O2 Delivery Room Air Room Air Intake and Output 08/02/21 08/02/21 08/03/21 15:00 23:00 07:00 Intake Total 1050 ml Output Total 0 ml 400 ml 950 ml Balance 0 ml -400 ml 100 ml Problem List Problems Medical Problems: (1) Nausea & vomiting Status: Acute (2) SBO (small bowel obstruction) Status: Acute Assessment SBO, functional due to abnormal section of ileum. Process seems too focal to be anything but vascular. Viable bowel at laparoscopy. Plan of Care Note Continue to observe. Await return of bowel function. As this happens, feed. Ultimately address Afib; seem an intermittent issue but likely the cause of embolic phenomenon. Justicifation of Admission Dx: Justifications for Admission: Justification of Admission Dx: Yes RICKY PAK MD Aug 03, 2021 11:44
--- NOTE | 2021-08-03 11:48 | PDOC ---
PROGRESS NOTES Date of Service DATE: 08/03/21 TIME: 11:47 Subjective Subjective SEEN IN FOLLOW UP OF ARF Objective Objective Vital Signs Date Time Temp Pulse Resp B/P (MAP) Pulse Ox O2 Delivery O2 Flow Rate FiO2 08/03/21 11:00 98.1 81 18 180/85 (116) 97 Room Air 98.1 08/01/21 16:31 10 Intake and Output 08/03/21 07:00 Intake Total 1050 ml Output Total 1350 ml Balance -300 ml IV Total 1050 ml Gastric Drainage Total 1350 ml Physical Exam Abdomen: Other (HAS NG) Heart: Regular rate, Normal S1, Normal S2, No murmurs, Gallops Extremities: No clubbing, No cyanosis, No edema, Normal pulses, No tenderness/swelling General: Alert, Oriented X3, Cooperative, No acute distress Lungs: Clear to auscultation, Normal air movement Psych/Mental Status: Mental status NL, Mood NL Diagnosis RENAL FAILURE: Acute (Acute tubular necrosis) Assessment Assessment Problems Medical Problems: (1) Nausea & vomiting Status: Acute (2) SBO (small bowel obstruction) Status: Acute Plan Plan of Care HER RENAL FUNCTION IS IMPROVING DAILY. CONT IVF PER LAB. WILL SIGN OFF Comment Review of Relevant I have reviewed the following items sahan (where applicable) has been applied. Labs Laboratory Tests Test 08/01/21 13:46 08/01/21 15:58 08/01/21 17:28 08/01/21 20:11 Glucose (Fingerstick) 100 mg/dL (70-99) 133 mg/dL (70-99) 122 mg/dL (70-99) 187 mg/dL (70-99) Test 08/02/21 05:25 08/02/21 08:09 08/02/21 12:24 08/02/21 16:51 White Blood Count 8.3 x10^3/uL (4.0-11.0) Red Blood Count 4.13 x10^6/uL (3.50-5.40) Hemoglobin 11.7 g/dL (12.0-15.5) Hematocrit 36.7 % (36.0-47.0) Mean Corpuscular Volume 89 fL (79-100) Mean Corpuscular Hemoglobin 28 pg (25-35) Mean Corpuscular Hemoglobin Concent 32 g/dL (31-37) Red Cell Distribution Width 14.0 % (11.5-14.5) Platelet Count 220 x10^3/uL (140-400) Neutrophils (%) (Auto) 89 % (31-73) Lymphocytes (%) (Auto) 6 % (24-48) Monocytes (%) (Auto) 5 % (0-9) Eosinophils (%) (Auto) 0 % (0-3) Basophils (%) (Auto) 0 % (0-3) Neutrophils # (Auto) 7.3 x10^3/uL (1.8-7.7) Lymphocytes # (Auto) 0.5 x10^3/uL (1.0-4.8) Monocytes # (Auto) 0.4 x10^3/uL (0.0-1.1) Eosinophils # (Auto) 0.0 x10^3/uL (0.0-0.7) Basophils # (Auto) 0.0 x10^3/uL (0.0-0.2) Sodium Level 143 mmol/L (136-145) Potassium Level 4.7 mmol/L (3.5-5.1) Chloride Level 106 mmol/L (98-107) Carbon Dioxide Level 27 mmol/L (21-32) Anion Gap 10 (6-14) Blood Urea Nitrogen 23 mg/dL (7-20) Creatinine 1.5 mg/dL (0.6-1.0) Estimated GFR (Cockcroft-Gault) 40.7 Glucose Level 363 mg/dL (70-99) Calcium Level 8.1 mg/dL (8.5-10.1) Glucose (Fingerstick) 354 mg/dL (70-99) 375 mg/dL (70-99) 242 mg/dL (70-99) Test 08/02/21 19:41 08/02/21 23:51 08/03/21 04:25 08/03/21 06:55 Glucose (Fingerstick) 206 mg/dL (70-99) 243 mg/dL (70-99) 242 mg/dL (70-99) Sodium Level 139 mmol/L (136-145) Potassium Level 4.2 mmol/L (3.5-5.1) Chloride Level 106 mmol/L (98-107) Carbon Dioxide Level 26 mmol/L (21-32) Anion Gap 7 (6-14) Blood Urea Nitrogen 14 mg/dL (7-20) Creatinine 1.2 mg/dL (0.6-1.0) Estimated GFR (Cockcroft-Gault) 52.7 Glucose Level 237 mg/dL (70-99) Calcium Level 7.9 mg/dL (8.5-10.1) Test 08/03/21 07:33 Glucose (Fingerstick) 234 mg/dL (70-99) Laboratory Tests Test 08/02/21 12:24 08/02/21 16:51 08/02/21 19:41 08/02/21 23:51 Glucose (Fingerstick) 375 mg/dL (70-99) 242 mg/dL (70-99) 206 mg/dL (70-99) 243 mg/dL (70-99) Test 08/03/21 04:25 08/03/21 06:55 08/03/21 07:33 Glucose (Fingerstick) 242 mg/dL (70-99) 234 mg/dL (70-99) Sodium Level 139 mmol/L (136-145) Potassium Level 4.2 mmol/L (3.5-5.1) Chloride Level 106 mmol/L (98-107) Carbon Dioxide Level 26 mmol/L (21-32) Anion Gap 7 (6-14) Blood Urea Nitrogen 14 mg/dL (7-20) Creatinine 1.2 mg/dL (0.6-1.0) Estimated GFR (Cockcroft-Gault) 52.7 Glucose Level 237 mg/dL (70-99) Calcium Level 7.9 mg/dL (8.5-10.1) Microbiology 07/30/21 Urine Culture - Final, Complete 07/29/21 Blood Culture - Preliminary, Resulted NO GROWTH AFTER 4 DAYS Medications Current Medications Ondansetron HCl (Zofran) 8 mg 1X ONCE IVP Last administered on 07/26/21at 02:45; Start 07/26/21 at 02:45; Stop 07/26/21 at 02:46; Status DC Sodium Chloride 1,000 ml @ 1,000 mls/hr 1X ONCE IV Last administered on at 02:45; Start 07/26/21 at 02:45; Stop 07/26/21 at 03:44; Status DC Ondansetron HCl (Zofran) 4 mg PRN Q8HRS PRN IVP NAUSEA/VOMITING; Start 07/26/21 at 05:15; Stop 07/27/21 at 05:14; Status DC Sodium Chloride 1,000 ml @ 100 mls/hr Q10H IV Last administered on 07/26/21at 05:21; Start 07/26/21 at 05:15; Stop 07/26/21 at 14:59; Status DC Insulin Human Lispro (HumaLOG) 0-5 UNITS TIDWMEALS SQ Last administered on 07/28/21at 08:48; Start 07/26/21 at 12:00; Stop 07/28/21 at 10:32; Status DC Dextrose (Dextrose 50%-Water Syringe) 12.5 gm PRN Q15MIN PRN IV SEE COMMENTS; Start 07/26/21 at 09:15 Dextrose/Sodium Chloride 1,000 ml @ 100 mls/hr Q10H IV Last administered on 07/28/21at 10:01; Start 07/26/21 at 15:00; Stop 07/28/21 at 11:47; Status DC Enoxaparin Sodium (Lovenox 30mg Syringe) 30 mg Q24H SQ Last administered on 07/28/21at 20:34; Start 07/27/21 at 21:00; Stop 07/29/21 at 14:10; Status DC Fluticasone Propionate (Flonase) 1 spray BID NS Last administered on 08/03/21at 08:18; Start 07/27/21 at 13:00 Carvedilol (Coreg) 25 mg BIDWMEALS PO Last administered on 07/28/21at 17:22; Start 07/27/21 at 12:00; Stop 07/31/21 at 14:34; Status DC Atorvastatin Calcium (Lipitor) 80 mg QHS PO Last administered on 07/28/21at 20:34; Start 07/27/21 at 21:00 Linagliptin (Tradjenta) 5 mg DAILY PO ; Start 07/27/21 at 12:00 Aspirin (Ecotrin) 81 mg DAILY PO Last administered on 07/28/21at 08:40; Start 07/27/21 at 12:00 Acetaminophen/ Hydrocodone Bitart (Lortab 5/325) 1 tab PRN Q6HRS PRN PO PAIN Last administered on 07/27/21at 19:59; Start 07/27/21 at 18:00 Hydralazine HCl (Apresoline Inj) 10 mg PRN Q4HRS PRN IVP ELEVATED BP, SEE COMMENTS Last administered on 08/03/21at 07:21; Start 07/27/21 at 18:00 Ondansetron HCl (Zofran) 8 mg PRN Q6HRS PRN IVP NAUSEA/VOMITING Last administered on 07/30/21at 13:27; Start 07/28/21 at 08:45 Clonidine HCl (Catapres Tts-2) 1 patch WEEKLY TD Last administered on 07/28/21at 10:01; Start 07/28/21 at 09:00 Insulin Human Lispro (HumaLOG) 0-10 UNITS TIDBFRMEAL SQ Last administered on 07/31/21at 12:22; Start 07/28/21 at 11:30; Stop 07/31/21 at 15:46; Status DC Lorazepam (Ativan Inj) 1 mg PRN Q6HRS PRN IV ANXIETY / AGITATION; Start 07/28/21 at 11:15 Fentanyl Citrate (Fentanyl 2ml Vial) 50 mcg PRN Q3HRS PRN IV PAIN; Start 07/28/21 at 11:15 Sodium Chloride 1,000 ml @ 100 mls/hr 1X ONCE IV Last administered on 07/28/21at 12:34; Start 07/28/21 at 11:45; Stop 07/29/21 at 09:19; Status DC Potassium Chloride/Water 100 ml @ 100 mls/hr Q1H IV Last administered on 1 09/28/20at 13:00; Start 07/28/21 at 12:00; Stop 07/28/21 at 13:59; Status DC Metoprolol Tartrate (Lopressor Vial) 5 mg Q6HRS IVP Last administered on 08/03/21at 05:54; Start 07/28/21 at 20:00 Iohexol (Omnipaque 300 Mg/ml) 400 ml 1X ONCE PO Last administered on 07/29/21at 08:30; Start 07/29/21 at 07:45; Stop 07/29/21 at 07:47; Status DC Info (CONTRAST GIVEN -- Rx MONITORING) 1 each PRN DAILY PRN MC SEE COMMENTS; Start 07/29/21 at 07:45; Stop 07/31/21 at 07:44; Status DC Potassium Chloride/Dextrose/ Sod Cl 1,000 ml @ 150 mls/hr Q6H40M IV Last administered on 08/03/21at 04:37; Start 07/29/21 at 09:15; Stop 08/03/21 at 11:00; Status DC Enoxaparin Sodium (Lovenox 40mg Syringe) 40 mg Q24H SQ Last administered on 07/30/21at 21:58; Start 07/29/21 at 21:00; Stop 08/01/21 at 12:32; Status DC Acetaminophen (Tylenol Supp) 650 mg PRN Q6HRS PRN CA MILD PAIN / TEMP > 100.3'F Last administered on 07/29/21at 21:35; Start 07/29/21 at 20:30 Piperacillin Sod/ Tazobactam Sod 3.375 gm/Sodium Chloride 50 ml @ 100 mls/hr Q6HRS IV Last administered on 08/03/21at 05:53; Start 07/29/21 at 21:00 Magnesium Sulfate 50 ml @ 25 mls/hr 1X ONCE IV Last administered on 07/29/21at 22:47; Start 07/29/21 at 20:30; Stop 07/29/21 at 22:29; Status DC Sodium Chloride 250 ml @ 250 mls/hr 1X ONCE IV Last administered on 07/31/21at 10:09; Start 07/31/21 at 09:45; Stop 07/31/21 at 10:44; Status DC Insulin Human Lispro (HumaLOG) 0-9 UNITS TIDWMEALS SQ Last administered on 08/03/21at 08:26; Start 07/31/21 at 17:00 Dextrose (Dextrose 50%-Water Syringe) 12.5 gm PRN Q15MIN PRN IV SEE COMMENTS; Start 07/31/21 at 15:45; Status UNV Fentanyl Citrate (Fentanyl 2ml Vial) 25 mcg PRN Q5MIN PRN IVP MILD PAIN 1-3; Start 08/01/21 at 06:00; Stop 08/02/21 at 05:59; Status DC Fentanyl Citrate (Fentanyl 2ml Vial) 50 mcg PRN Q5MIN PRN IVP MODERATE PAIN 4- 6; Start 08/01/21 at 06:00; Stop 08/02/21 at 05:59; Status DC Morphine Sulfate (Morphine Sulfate) 1 mg PRN Q10MIN PRN IVP SEVERE PAIN 7-10; Start 08/01/21 at 06:00; Stop 08/02/21 at 05:59; Status DC Ringer's Solution 1,000 ml @ 30 mls/hr Q24H IV Last administered on 08/01/21at 16:12; Start 08/01/21 at 06:00; Stop 08/01/21 at 17:59; Status DC Hydromorphone HCl (Dilaudid) 0.5 mg PRN Q10MIN PRN IVP SEVERE PAIN 7-10, 2nd CH OICE; Start 08/01/21 at 06:00; Stop 08/02/21 at 05:59; Status DC Prochlorperazine Edisylate (Compazine) 5 mg PACU PRN PRN IVP NAUSEA, MRX1; Start 08/01/21 at 06:00; Stop 08/02/21 at 05:59; Status DC Bupivacaine HCl/ Epinephrine Bitart (Sensorcaine-Epi 0.25%-1:375171 Mpf) 30 ml STK-MED ONCE .ROUTE ; Start 08/01/21 at 11:59; Stop 08/01/21 at 12:00; Status DC Propofol (Diprivan) 200 mg STK-MED ONCE IV ; Start 08/01/21 at 12:17; Stop 08/01/21 at 12:17; Status DC Rocuronium Hanna (Zemuron) 50 mg STK-MED ONCE .ROUTE ; Start 08/01/21 at 12:17; Stop 08/01/21 at 12:17; Status DC Lidocaine HCl (Xylocaine-Mpf 1% 5ml Vial) 5 ml STK-MED ONCE .ROUTE ; Start 08/01/21 at 12:17; Stop 08/01/21 at 12:17; Status DC Fentanyl Citrate (Fentanyl 2ml Vial) 100 mcg STK-MED ONCE .ROUTE ; Start 08/01/21 at 12:17; Stop 08/01/21 at 12:18; Status DC Enoxaparin Sodium (Lovenox 30mg Syringe) 30 mg Q24H SQ Last administered on 08/03/21at 08:18; Start 08/02/21 at 09:00 Midazolam HCl (Versed) 2 mg STK-MED ONCE .ROUTE ; Start 08/01/21 at 13:52; Stop 08/01/21 at 13:52; Status DC Midazolam HCl (Versed) 0.5 mg 1X ONCE IV Last administered on 08/01/21at 13:57; Start 08/01/21 at 14:00; Stop 08/01/21 at 14:01; Status DC Bupivacaine HCl/ Epinephrine Bitart (Sensorcain-Epi 0.25% Kit) 30 ml STK-MED ONCE .ROUTE Last administered on 08/01/21at 15:14; Start 08/01/21 at 14:09; Stop 08/01/21 at 14:09; Status DC Hydralazine HCl (Apresoline Inj) 20 mg STK-MED ONCE .ROUTE ; Start 08/01/21 at 16:15; Stop 08/01/21 at 16:16; Status DC Insulin Human Lispro (HumaLOG) 3 units 1X ONCE SQ Last administered on 08/03/21at 00:05; Start 08/03/21 at 00:30; Stop 08/03/21 at 00:31; Status DC Insulin Human Lispro (HumaLOG) 3 units 1X ONCE SQ Last administered on 08/03/21at 04:39; Start 08/03/21 at 05:00; Stop 08/03/21 at 05:01; Status DC Amino Acids/ Electrolytes/ Dextrose 1,000 ml @ 100 mls/hr Q10H IV ; Start 08/03/21 at 11:00 Insulin Human Lispro (HumaLOG) 4 units TIDAC SQ ; Start 08/03/21 at 11:30 Amlodipine Besylate (Norvasc) 5 mg BID PO ; Start 08/03/21 at 10:30 Active Scripts Active Reported Aspirin Ec (Aspirin) 81 Mg Tablet.dr 1 Tab PO DAILY Klor-Con M10 (Potassium Chloride) 10 Meq Tab.er.prt Unknown Dose UNKNOWN Rosuvastatin Calcium 20 Mg Tablet 1 Tab PO QHS Metformin Hcl 500 Mg Tablet 1 Tab PO BID Furosemide 20 Mg Tablet 1 Tab PO DAILY Fluticasone Propionate Nasal [place] (Fluticasone Propionate) 16 Gm [place].susp Unknown Dose NS UNKNOWN Carvedilol 25 Mg Tablet 1 Tab PO BID Jardiance (Empagliflozin) 25 Mg Tablet 1 Tab PO DAILY Januvia (Sitagliptin Phosphate) 100 Mg Tablet 1 Tab PO DAILY Lisinopril 20 Mg Tablet 1 Tab PO DAILY Vitals/I & O Vital Sign - Last 24 Hours 08/02/21 08/02/21 08/02/21 08/02/21 12:55 15:00 18:00 19:00 Temp 98.7 98.7 98.7 98.7 Pulse 85 75 75 88 Resp 16 18 B/P (MAP) 156/88 109/79 (89) 109/79 108/80 (89) Pulse Ox 95 95 O2 Delivery Room Air Room Air 08/02/21 08/02/21 08/03/21 08/03/21 20:00 23:00 00:01 01:21 Temp 98.6 98.6 Pulse 87 83 72 Resp 18 B/P (MAP) 166/73 (104) 186/96 182/93 Pulse Ox 96 O2 Delivery Room Air Room Air 08/03/21 08/03/21 08/03/21 08/03/21 03:00 05:54 07:00 07:21 Temp 98.6 98.1 98.6 98.1 Pulse 87 90 76 78 Resp 20 20 B/P (MAP) 143/63 (89) 192/99 178/76 (110) 178/80 Pulse Ox 97 96 O2 Delivery Room Air Room Air 08/03/21 08/03/21 08:00 11:00 Temp 98.1 98.1 Pulse 81 Resp 18 B/P (MAP) 180/85 (116) Pulse Ox 97 O2 Delivery Room Air Room Air Intake and Output 08/02/21 08/02/21 08/03/21 15:00 23:00 07:00 Intake Total 1050 ml Output Total 0 ml 400 ml 950 ml Balance 0 ml -400 ml 100 ml Justifications for Admission Other Justification RICKY FRIEDMAN MD Aug 03, 2021 11:48
[2021-08-03] MEDS: AA 4.25 %/CALCIUM/LYTES/D5W 1,000 ML IV SCH ×2 (12:48→23:54)
--- NOTE | 2021-08-03 13:38 | PDOC ---
Infectious Disease Note Subjective Subjective pt is feeling better, no abd pain, states she is hungry Vital Sign Vital Signs Vital Signs Date Time Temp Pulse Resp B/P (MAP) Pulse Ox O2 Delivery O2 Flow Rate FiO2 08/03/21 12:51 81 180/85 08/03/21 11:00 98.1 18 97 Room Air 98.1 Physical Exam PHYSICAL EXAM GENERAL: Alert, oriented female, not in distress. HEENT: NAD. NECK: Supple, no JVP, no lymphadenopathy. LUNGS: Clear. HEART: S1, S2, regular. ABDOMEN: Soft, nontender, no organomegaly. EXTREMITIES: No edema or cyanosis. SKIN: Unremarkable. NEUROLOGIC: The patient is alert, awake, and appropriate. No focal neurologic deficit. Labs Lab Laboratory Tests Test 08/02/21 16:51 08/02/21 19:41 08/02/21 23:51 08/03/21 04:25 Glucose (Fingerstick) 242 mg/dL (70-99) 206 mg/dL (70-99) 243 mg/dL (70-99) 242 mg/dL (70-99) Test 08/03/21 06:55 08/03/21 07:33 08/03/21 11:48 Sodium Level 139 mmol/L (136-145) Potassium Level 4.2 mmol/L (3.5-5.1) Chloride Level 106 mmol/L (98-107) Carbon Dioxide Level 26 mmol/L (21-32) Anion Gap 7 (6-14) Blood Urea Nitrogen 14 mg/dL (7-20) Creatinine 1.2 mg/dL (0.6-1.0) Estimated GFR (Cockcroft-Gault) 52.7 Glucose Level 237 mg/dL (70-99) Calcium Level 7.9 mg/dL (8.5-10.1) Glucose (Fingerstick) 234 mg/dL (70-99) 235 mg/dL (70-99) Micro Microbiology 07/29/21 Blood Culture - Preliminary, Resulted NO GROWTH AFTER 1 DAY Objective Assessment IMPRESSION: 1. Fever, most likely from aspiration pneumonia. 2. Nausea, vomiting. 3. Aspiration pneumonia. 4. Bowel obstruction. Status post laparoscopic surgery 5. Acute kidney injury. 6. Diabetes. 7. Hypertension. Plan Plan of Care cont antibiotics can be switched over to the oral Augmentin able to tolerate p.o. intake cont supportive care OTONIEL ABBASI MD Aug 03, 2021 13:37
[2021-08-03 15:00] VITALS: BP 161/103
[2021-08-03 19:00] VITALS: BP 204/119
[2021-08-03] MEDS: ATORVASTATIN CALCIUM 40 MG TABLET. PO SCH (21:00)
[2021-08-03 23:00] VITALS: BP 196/113
[2021-08-04] VITALS (8 sets, daily range): BP systolic 156–198; BP diastolic 82–126
[2021-08-04] MEDS: METOPROLOL IV PUSH 5 MG/5 ML VIAL. IVP SCH ×4 (00:03→18:05)
[2021-08-04] MEDS: PIPERACILLIN/TAZOBACTAM 3.375 GM in IV NORMAL SALINE 50ML 50 ML IV SCH ×4 (00:17→18:10)
[2021-08-04] MEDS: hydrALAZINE 20 MG/ML VIAL. IVP PRN ×3 (01:29→19:25)
[2021-08-04] MEDS: INSULIN LISPRO 300 UNITS/3 ML VIAL. SQ SCH ×9 (05:09→20:00)
--- NOTE | 2021-08-04 08:13 | CARD ---
MR#: [id number] Date of Study: 08/03/2021 Ordering Physician: DORIS LEMOS, Referring Physician: DORIS LEMOS, Tech: Diana Hujohn, [facility] APPROVED REPORT EXAM: Two-dimensional and M-mode echocardiogram with Doppler and color Doppler. Other Information Quality : GoodHR: 78bpm Technically limited study due to body habitus. INDICATION Atrial Fibrillation RISK FACTORS Hyperlipidemia Diabetes 2D DIMENSIONS Left Atrium(2D)2.9 (1.6-4.0cm)IVSd1.0 (0.7-1.1cm) Aortic Root(2D)3.0 (2.0-3.7cm)LVDd3.5 (3.9-5.9cm) LVOT Diameter2.0 (1.8-2.4cm)PWd1.1 (0.7-1.1cm) LVDs2.5 (2.5-4.0cm)FS (%) 28.1 % SV28.4 mlLVEF(%)55.3 (>50%) Aortic Valve AoV Peak Shon.106.7cm/sAoV VTI23.2cm AO Peak GR.4.5mmHgLVOT VTI 17.49cm AO Mean GR.3mmHg Mitral Valve MV E Slgcshkr74.6cm/sMV E Peak Gr.6mmHg MV DECEL [id number] A Osymhavf05.0cm/s MV E Mean Gr.2mmHgE/A Ratio0.8 TDI Lateral E' P. V8.75cm/sMedial E' P. V7.27cm/s E/Lateral E'7.3E/Medial E'8.7 Tricuspid Valve TR P. [id number]/sRAP [id number] TR Peak Gr.[id number] LEFT VENTRICLE The left ventricle is normal size. There is mild concentric left ventricular hypertrophy. The left ve ntricular systolic function is mildly diminished. The Ejection Fraction is 45%. There is mild inferio r wall hypokinesis. Otherwise, mild global hypokinesis. Transmitral Doppler flow pattern is Grade I-a bnormal relaxation pattern. RIGHT VENTRICLE The right ventricle is normal size. There is normal right ventricular wall thickness. The right ventr icular systolic function is normal. ATRIA The left atrium size is normal. The right atrium size is normal. The interatrial septum is intact wit h no evidence for an atrial septal defect or patent foramen ovale as noted on 2-D or Doppler imaging. AORTIC VALVE The aortic valve is not well visualized. Doppler and Color Flow revealed trace aortic regurgitation. Calculated aortic valve area is 2.21 cm2 with maximum pressure gradient of 7 mmHg and mean pressure g radient of 4 mmHg. MITRAL VALVE The mitral valve is normal in structure and function. There is no evidence of mitral valve prolapse. There is no mitral valve stenosis. Doppler and Color-flow revealed trace mitral regurgitation. TRICUSPID VALVE The tricuspid valve is normal in structure and function. Doppler and Color Flow revealed trace tricus pid regurgitation with an estimated PAP of 24 mmHg. There is no tricuspid valve stenosis. PULMONIC VALVE The pulmonic valve is not well visualized. Doppler and Color Flow revealed no pulmonic valvular regur gitation. There is no pulmonic valvular stenosis. GREAT VESSELS The aortic root is normal in size. The IVC is normal in size and collapses >50% with inspiration. PERICARDIAL EFFUSION There is no evidence of significant pericardial effusion. Critical Notification Critical Value: No <Conclusion> The left ventricular systolic function is mildly diminished. The Ejection Fraction is 45%. There is mild inferior wall hypokinesis. Otherwise, mild global hypokinesis. Signed by : Maximo Bell, Electronically Approved : 08/04/2021 08:12:32
[2021-08-04] MEDS: cloNIDine TTS-2 1 PATCH PATCH TD SCH (08:46)
[2021-08-04] MEDS: AA 4.25 %/CALCIUM/LYTES/D5W 1,000 ML IV SCH ×2 (08:46→18:12)
[2021-08-04] MEDS: ENOXAPARIN 30 MG/0.3 ML SYRINGE. SQ SCH (08:49)
[2021-08-04] MEDS: LINAGLIPTIN 5 MG TABLET PO SCH (09:00)
[2021-08-04] MEDS: FLUTICASONE 50MCG/NASAL SPRAY 16GM BOTTLE. NS SCH ×2 (09:00→21:43)
[2021-08-04] MEDS: ASPIRIN ENTERIC COATED 81 MG TABLET.DR. PO SCH (09:00)
[2021-08-04 09:25] LABS: BASO % 0 % (0-3); EOS # 0.2 x10^3/uL (0.0-0.7); EOS % 3 % (0-3); HEMATOCRIT 35.1 % (36.0-47.0); HEMOGLOBIN 11.3 g/dL (12.0-15.5); LYMPH # 1.3 x10^3/uL (1.0-4.8); LYMPH % 21 % (24-48); MEAN CORPUSCULAR HEMOGLOBIN 28 pg (25-35); MEAN CORPUSCULAR HGB CONC 32 g/dL (31-37); MEAN CORPUSCULAR VOLUME 87 fL (79-100); MONO # 0.4 x10^3/uL (0.0-1.1); MONO % 7 % (0-9); NEUT # 4.4 x10^3/uL (1.8-7.7); NEUT % 69 % (31-73); PLATELET COUNT 240 x10^3/uL (140-400); RED BLOOD COUNT 4.03 x10^6/uL (3.50-5.40); RED CELL DISTRIBUTION WIDTH 14.1 % (11.5-14.5); WHITE BLOOD COUNT 6.4 x10^3/uL (4.0-11.0)
[2021-08-04 09:39] LABS: CALCIUM 8.3 mg/dL (8.5-10.1); CREATININE 1.1 mg/dL (0.6-1.0); GFR 58.3; POTASSIUM 4.4 mmol/L (3.5-5.1)
--- NOTE | 2021-08-04 10:47 | PDOC ---
SURGICAL PROGRESS NOTE DATE: 08/04/21 TIME: 10:46 Subjective Patient doing well denies any nausea no abdominal pain passing flatus Vital Signs Vital Signs Date Time Temp Pulse Resp B/P (MAP) Pulse Ox O2 Delivery O2 Flow Rate FiO2 08/04/21 07:00 98.6 77 16 185/95 (125) 97 Room Air 98.6 I&O Intake and Output 08/04/21 07:00 Intake Total 0 ml Output Total 1775 ml Balance -1775 ml Intake Oral 0 ml Output Urine Total 1775 ml PATIENT HAS A GTZ: No General: Alert, Oriented X3, Cooperative, No acute distress Abdomen: Normal bowel sounds, Soft, No tenderness Labs Laboratory Tests Test 08/02/21 12:24 08/02/21 16:51 08/02/21 19:41 08/02/21 23:51 Glucose (Fingerstick) 375 mg/dL (70-99) 242 mg/dL (70-99) 206 mg/dL (70-99) 243 mg/dL (70-99) Test 08/03/21 04:25 08/03/21 06:55 08/03/21 07:33 08/03/21 11:48 Glucose (Fingerstick) 242 mg/dL (70-99) 234 mg/dL (70-99) 235 mg/dL (70-99) Sodium Level 139 mmol/L (136-145) Potassium Level 4.2 mmol/L (3.5-5.1) Chloride Level 106 mmol/L (98-107) Carbon Dioxide Level 26 mmol/L (21-32) Anion Gap 7 (6-14) Blood Urea Nitrogen 14 mg/dL (7-20) Creatinine 1.2 mg/dL (0.6-1.0) Estimated GFR (Cockcroft-Gault) 52.7 Glucose Level 237 mg/dL (70-99) Calcium Level 7.9 mg/dL (8.5-10.1) Test 08/03/21 16:50 08/03/21 21:02 08/03/21 23:47 08/04/21 03:56 Glucose (Fingerstick) 189 mg/dL (70-99) 231 mg/dL (70-99) 185 mg/dL (70-99) 247 mg/dL (70-99) Test 08/04/21 07:05 08/04/21 07:35 Sodium Level 138 mmol/L (136-145) Potassium Level 4.4 mmol/L (3.5-5.1) Chloride Level 103 mmol/L (98-107) Carbon Dioxide Level 26 mmol/L (21-32) Anion Gap 9 (6-14) Blood Urea Nitrogen 20 mg/dL (7-20) Creatinine 1.1 mg/dL (0.6-1.0) Estimated GFR (Cockcroft-Gault) 58.3 Glucose Level 230 mg/dL (70-99) Calcium Level 8.3 mg/dL (8.5-10.1) White Blood Count 6.4 x10^3/uL (4.0-11.0) Red Blood Count 4.03 x10^6/uL (3.50-5.40) Hemoglobin 11.3 g/dL (12.0-15.5) Hematocrit 35.1 % (36.0-47.0) Mean Corpuscular Volume 87 fL (79-100) Mean Corpuscular Hemoglobin 28 pg (25-35) Mean Corpuscular Hemoglobin Concent 32 g/dL (31-37) Red Cell Distribution Width 14.1 % (11.5-14.5) Platelet Count 240 x10^3/uL (140-400) Neutrophils (%) (Auto) 69 % (31-73) Lymphocytes (%) (Auto) 21 % (24-48) Monocytes (%) (Auto) 7 % (0-9) Eosinophils (%) (Auto) 3 % (0-3) Basophils (%) (Auto) 0 % (0-3) Neutrophils # (Auto) 4.4 x10^3/uL (1.8-7.7) Lymphocytes # (Auto) 1.3 x10^3/uL (1.0-4.8) Monocytes # (Auto) 0.4 x10^3/uL (0.0-1.1) Eosinophils # (Auto) 0.2 x10^3/uL (0.0-0.7) Basophils # (Auto) 0.0 x10^3/uL (0.0-0.2) Laboratory Tests Test 08/03/21 11:48 08/03/21 16:50 08/03/21 21:02 08/03/21 23:47 Glucose (Fingerstick) 235 mg/dL (70-99) 189 mg/dL (70-99) 231 mg/dL (70-99) 185 mg/dL (70-99) Test 08/04/21 03:56 08/04/21 07:05 08/04/21 07:35 Glucose (Fingerstick) 247 mg/dL (70-99) Sodium Level 138 mmol/L (136-145) Potassium Level 4.4 mmol/L (3.5-5.1) Chloride Level 103 mmol/L (98-107) Carbon Dioxide Level 26 mmol/L (21-32) Anion Gap 9 (6-14) Blood Urea Nitrogen 20 mg/dL (7-20) Creatinine 1.1 mg/dL (0.6-1.0) Estimated GFR (Cockcroft-Gault) 58.3 Glucose Level 230 mg/dL (70-99) Calcium Level 8.3 mg/dL (8.5-10.1) White Blood Count 6.4 x10^3/uL (4.0-11.0) Red Blood Count 4.03 x10^6/uL (3.50-5.40) Hemoglobin 11.3 g/dL (12.0-15.5) Hematocrit 35.1 % (36.0-47.0) Mean Corpuscular Volume 87 fL (79-100) Mean Corpuscular Hemoglobin 28 pg (25-35) Mean Corpuscular Hemoglobin Concent 32 g/dL (31-37) Red Cell Distribution Width 14.1 % (11.5-14.5) Platelet Count 240 x10^3/uL (140-400) Neutrophils (%) (Auto) 69 % (31-73) Lymphocytes (%) (Auto) 21 % (24-48) Monocytes (%) (Auto) 7 % (0-9) Eosinophils (%) (Auto) 3 % (0-3) Basophils (%) (Auto) 0 % (0-3) Neutrophils # (Auto) 4.4 x10^3/uL (1.8-7.7) Lymphocytes # (Auto) 1.3 x10^3/uL (1.0-4.8) Monocytes # (Auto) 0.4 x10^3/uL (0.0-1.1) Eosinophils # (Auto) 0.2 x10^3/uL (0.0-0.7) Basophils # (Auto) 0.0 x10^3/uL (0.0-0.2) Problem List Problems Medical Problems: (1) Nausea & vomiting Status: Acute (2) SBO (small bowel obstruction) Status: Acute Assessment/Plan Small bowel obstruction enteritis versus vascular disease. Patient tolerated clamping of her NG tube will remove NG tube and start clear liquids Justicifation of Admission Dx: Justifications for Admission: Justification of Admission Dx: Yes CEE LOVE MD Aug 04, 2021 10:47
--- NOTE | 2021-08-04 10:54 | PDOC ---
PROGRESS NOTES Date of Service: DATE: 08/04/21 TIME: 10:52 Subjective Subjective feeling good, want to eat Objective Objective Vital Signs Date Time Temp Pulse Resp B/P (MAP) Pulse Ox O2 Delivery O2 Flow Rate FiO2 08/04/21 07:00 98.6 77 16 185/95 (125) 97 Room Air 98.6 Intake and Output 08/04/21 07:00 Intake Total 0 ml Output Total 1775 ml Balance -1775 ml Intake Oral 0 ml Output Urine Total 1775 ml Physical Exam Abdomen: Normal bowel sounds, Soft, No tenderness Heart: Regular rate, Normal S1, Normal S2, No murmurs, Gallops Extremities: No clubbing, No cyanosis, No edema, Normal pulses, No tenderness/swelling General: Alert, Oriented X3, Cooperative, No acute distress HEENT: Other (NGT) Lungs: Clear to auscultation, Normal air movement MUSCULOSKELETAL: Osteoarthritic changes both hands Neck: No JVD Neuro: Normal speech, Sensation intact Psych/Mental Status: Mental status NL, Mood NL Skin: No significant lesion COMMENT NGT clamped Diagnosis Problem List Problems Medical Problems: (1) Nausea & vomiting Status: Acute (2) SBO (small bowel obstruction) Status: Acute RENAL FAILURE: Acute (Acute tubular necrosis) Assessment Assessment Problems Medical Problems: (1) Nausea & vomiting Status: Acute (2) SBO (small bowel obstruction) Status: Acute FINAL IMPRESSION: fevers ? aspiration 1. Abdominal pain, small bowel obstruction. 2. Acute renal insufficiency. Creatinine 4, normal creatinine is around 1.5. 3. Hypertension. 4. Diabetes. 5. Hyperlipidemia. 6. History of chronic heart failure, systolic; but last echocardiogram shows good improvement 50% in 2020. PLAN:clear liquids today d/c NGT today labs good. Small bowel obstruction improved small bowel series shows a small segment of enteritis s/p diagnostic Laproscopic surgery POD #4 distal small bowel narrowing due to enteritis GI consult appreciated.? embolic due to paroxysmal atrial fibrillation. Recommended to continue observation and present management. Diabetes mellitus BS 200 range. Not controlled. Continue sliding scale insulin. Increase insul in. Patient is still n.p.o. and getting IV fluids. Discussed with pharmacist. Start Clinimix. wean off iv antibiotics. Paroxysmal atrial fibrillation . Tourist Escort recommends IV metoprolol as needed for rate control. Plan Plan of Care Problems Medical Problems: (1) Nausea & vomiting Status: Acute (2) SBO (small bowel obstruction) Status: Acute Comment Review of Relevant I have reviewed the following items shaan (where applicable) has been applied. Labs Laboratory Tests Test 08/03/21 11:48 08/03/21 16:50 08/03/21 21:02 08/03/21 23:47 Glucose (Fingerstick) 235 mg/dL (70-99) 189 mg/dL (70-99) 231 mg/dL (70-99) 185 mg/dL (70-99) Test 08/04/21 03:56 08/04/21 07:05 08/04/21 07:35 Glucose (Fingerstick) 247 mg/dL (70-99) Sodium Level 138 mmol/L (136-145) Potassium Level 4.4 mmol/L (3.5-5.1) Chloride Level 103 mmol/L (98-107) Carbon Dioxide Level 26 mmol/L (21-32) Anion Gap 9 (6-14) Blood Urea Nitrogen 20 mg/dL (7-20) Creatinine 1.1 mg/dL (0.6-1.0) Estimated GFR (Cockcroft-Gault) 58.3 Glucose Level 230 mg/dL (70-99) Calcium Level 8.3 mg/dL (8.5-10.1) White Blood Count 6.4 x10^3/uL (4.0-11.0) Red Blood Count 4.03 x10^6/uL (3.50-5.40) Hemoglobin 11.3 g/dL (12.0-15.5) Hematocrit 35.1 % (36.0-47.0) Mean Corpuscular Volume 87 fL (79-100) Mean Corpuscular Hemoglobin 28 pg (25-35) Mean Corpuscular Hemoglobin Concent 32 g/dL (31-37) Red Cell Distribution Width 14.1 % (11.5-14.5) Platelet Count 240 x10^3/uL (140-400) Neutrophils (%) (Auto) 69 % (31-73) Lymphocytes (%) (Auto) 21 % (24-48) Monocytes (%) (Auto) 7 % (0-9) Eosinophils (%) (Auto) 3 % (0-3) Basophils (%) (Auto) 0 % (0-3) Neutrophils # (Auto) 4.4 x10^3/uL (1.8-7.7) Lymphocytes # (Auto) 1.3 x10^3/uL (1.0-4.8) Monocytes # (Auto) 0.4 x10^3/uL (0.0-1.1) Eosinophils # (Auto) 0.2 x10^3/uL (0.0-0.7) Basophils # (Auto) 0.0 x10^3/uL (0.0-0.2) Microbiology 07/30/21 Urine Culture - Final, Complete 07/29/21 Blood Culture - Final, Complete NO GROWTH AFTER 5 DAYS Medications Current Medications Amino Acids/ Electrolytes/ Dextrose 1,000 ml @ 100 mls/hr Q10H IV Last administered on 08/04/21at 08:46; Start 08/03/21 at 11:00 Insulin Human Lispro (HumaLOG) 0-9 UNITS Q4HRS SQ Last administered on 08/04/21at 10:46; Start 08/03/21 at 21:15 Insulin Human Lispro (HumaLOG) 4 units TIDAC SQ Last administered on 08/04/21at 10:47; Start 08/03/21 at 11:30 Polyethylene Glycol (miraLAX PACKET) 17 gm DAILY PO ; Start 08/05/21 at 09:00; Status UNV Vitals/I & O Vital Sign - Last 24 Hours 08/03/21 08/03/21 08/03/21 08/03/21 11:00 12:51 15:00 17:59 Temp 98.1 98.4 98.1 98.4 Pulse 81 81 68 68 Resp 18 18 B/P (MAP) 180/85 (116) 180/85 161/103 (122) 161/103 Pulse Ox 97 97 O2 Delivery Room Air Room Air 08/03/21 08/03/21 08/03/21 08/03/21 19:00 20:00 20:26 23:00 Temp 98.1 98.0 98.1 98.0 Pulse 87 86 89 Resp 18 20 B/P (MAP) 204/119 (147) 204/119 196/113 (140) Pulse Ox 96 97 O2 Delivery Room Air Room Air Room Air 08/04/21 08/04/21 08/04/21 08/04/21 00:03 01:29 03:00 05:38 Temp 97.7 97.7 Pulse 86 84 89 87 Resp 16 B/P (MAP) 174/89 193/108 177/88 (117) 196/108 Pulse Ox 97 O2 Delivery Room Air 08/04/21 08/04/21 06:34 07:00 Temp 98.6 98.6 Pulse 84 77 Resp 16 B/P (MAP) 195/101 185/95 (125) Pulse Ox 97 O2 Delivery Room Air Intake and Output 08/03/21 08/03/21 08/04/21 15:00 23:00 07:00 Intake Total 0 ml 0 ml Output Total 725 ml 1050 ml Balance -725 ml -1050 ml Justifications for Admission Other Justification LEXX RODRIGEZ MD Aug 04, 2021 10:54
--- NOTE | 2021-08-04 12:16 | PDOC ---
CARDIOLOGY PROGRESS NOTE SUBJECTIVE: No acute events overnight. No nursing staff concerns. Patient has been started on clear liquid diet Denies any abdominal pain OBJECTIVE: Vital Signs/I&O: Vital Signs Date Time Temp Pulse Resp B/P (MAP) Pulse Ox O2 Delivery O2 Flow Rate FiO2 08/04/21 08:00 Room Air 08/04/21 07:00 98.6 77 16 185/95 (125) 97 98.6 I & O 08/03/21 08/03/21 08/04/21 15:00 23:00 07:00 Intake Total 0 ml 0 ml Output Total 725 ml 1050 ml Balance -725 ml -1050 ml Objective: GEN.: No apparent distress. Alert and oriented. HEENT: Head is normocephalic, atraumatic NECK: Supple. LUNGS: Clear to auscultation. HEART: RRR, S1, S2 present. Peripheral pulses intact ABDOMEN: Soft, nontender. Positive bowel sounds. EXTREMITIES: Without any cyanosis. NEUROLOGIC: Normal speech, normal tone PSYCHIATRIC: Normal affect, normal mood. SKIN: No ulcerations CURRENT MEDICATIONS: Clonidine, atorvastatin, amlodipine and aspirin DIAGNOSTIC TESTING: Laboratory studies reviewed Echocardiogram demonstrates mild LV dysfunction with ejection fraction of 45% with inferior wall hypokinesis Labs: Laboratory Tests 08/04/21 07:05 08/04/21 07:35 Laboratory Tests Test 08/03/21 16:50 08/03/21 21:02 08/03/21 23:47 08/04/21 03:56 Glucose (Fingerstick) 189 mg/dL (70-99) H 231 mg/dL (70-99) H 185 mg/dL (70-99) H 247 mg/dL (70-99) H Test 08/04/21 07:05 08/04/21 07:35 08/04/21 11:44 Sodium Level 138 mmol/L (136-145) Potassium Level 4.4 mmol/L (3.5-5.1) Chloride Level 103 mmol/L (98-107) Carbon Dioxide Level 26 mmol/L (21-32) Anion Gap 9 (6-14) Blood Urea Nitrogen 20 mg/dL (7-20) Creatinine 1.1 mg/dL (0.6-1.0) H Estimated GFR (Cockcroft-Gault) 58.3 Glucose Level 230 mg/dL (70-99) H Calcium Level 8.3 mg/dL (8.5-10.1) L White Blood Count 6.4 x10^3/uL (4.0-11.0) Red Blood Count 4.03 x10^6/uL (3.50-5.40) Hemoglobin 11.3 g/dL (12.0-15.5) L Hematocrit 35.1 % (36.0-47.0) L Mean Corpuscular Volume 87 fL (79-100) Mean Corpuscular Hemoglobin 28 pg (25-35) Mean Corpuscular Hemoglobin Concent 32 g/dL (31-37) Red Cell Distribution Width 14.1 % (11.5-14.5) Platelet Count 240 x10^3/uL (140-400) Neutrophils (%) (Auto) 69 % (31-73) Lymphocytes (%) (Auto) 21 % (24-48) L Monocytes (%) (Auto) 7 % (0-9) Eosinophils (%) (Auto) 3 % (0-3) Basophils (%) (Auto) 0 % (0-3) Neutrophils # (Auto) 4.4 x10^3/uL (1.8-7.7) Lymphocytes # (Auto) 1.3 x10^3/uL (1.0-4.8) Monocytes # (Auto) 0.4 x10^3/uL (0.0-1.1) Eosinophils # (Auto) 0.2 x10^3/uL (0.0-0.7) Basophils # (Auto) 0.0 x10^3/uL (0.0-0.2) Glucose (Fingerstick) 276 mg/dL (70-99) H ASSESSMENT: 1. Prior history of nonischemic cardiomyopathy, EF 45% on most recent echocardiogram 2. Acute kidney injury now resolved 3. Hypertension labile PLAN: 1. We will initiate hydralazine 50 mg p.o. 3 times daily along with her amlodipine and clonidine patch 2. Ultimately on an outpatient basis of her renal function remained stable he would be important to initiate her on FREEDOM inhibitor therapy given her cardiomyopathy history 3. Plan for outpatient ischemic testing 4. Supportive care for now. We will follow along closely. Justicifation of Admission Dx: Justifications for Admission: Justification of Admission Dx: Yes FRANCESCA RENTERIA MD 19, 2021 12:16
[2021-08-04] MEDS: POLYETHYLENE GLYCOL 3350 17 GM PACKET. PO SCH (12:42)
--- NOTE | 2021-08-04 17:42 | PDOC ---
Infectious Disease Note Subjective Subjective pt is feeling better, no abd pain, states she is hungry Vital Sign Vital Signs Vital Signs Date Time Temp Pulse Resp B/P (MAP) Pulse Ox O2 Delivery O2 Flow Rate FiO2 08/04/21 15:00 98.8 87 16 188/101 (130) 99 Room Air 98.8 Physical Exam PHYSICAL EXAM GENERAL: Alert, oriented female, not in distress. HEENT: NAD. NECK: Supple, no JVP, no lymphadenopathy. LUNGS: Clear. HEART: S1, S2, regular. ABDOMEN: Soft, nontender, no organomegaly. EXTREMITIES: No edema or cyanosis. SKIN: Unremarkable. NEUROLOGIC: The patient is alert, awake, and appropriate. No focal neurologic deficit. Labs Lab Laboratory Tests Test 08/03/21 21:02 08/03/21 23:47 08/04/21 03:56 08/04/21 07:05 Glucose (Fingerstick) 231 mg/dL (70-99) 185 mg/dL (70-99) 247 mg/dL (70-99) Sodium Level 138 mmol/L (136-145) Potassium Level 4.4 mmol/L (3.5-5.1) Chloride Level 103 mmol/L (98-107) Carbon Dioxide Level 26 mmol/L (21-32) Anion Gap 9 (6-14) Blood Urea Nitrogen 20 mg/dL (7-20) Creatinine 1.1 mg/dL (0.6-1.0) Estimated GFR (Cockcroft-Gault) 58.3 Glucose Level 230 mg/dL (70-99) Calcium Level 8.3 mg/dL (8.5-10.1) Test 08/04/21 07:35 08/04/21 11:44 08/04/21 16:29 White Blood Count 6.4 x10^3/uL (4.0-11.0) Red Blood Count 4.03 x10^6/uL (3.50-5.40) Hemoglobin 11.3 g/dL (12.0-15.5) Hematocrit 35.1 % (36.0-47.0) Mean Corpuscular Volume 87 fL (79-100) Mean Corpuscular Hemoglobin 28 pg (25-35) Mean Corpuscular Hemoglobin Concent 32 g/dL (31-37) Red Cell Distribution Width 14.1 % (11.5-14.5) Platelet Count 240 x10^3/uL (140-400) Neutrophils (%) (Auto) 69 % (31-73) Lymphocytes (%) (Auto) 21 % (24-48) Monocytes (%) (Auto) 7 % (0-9) Eosinophils (%) (Auto) 3 % (0-3) Basophils (%) (Auto) 0 % (0-3) Neutrophils # (Auto) 4.4 x10^3/uL (1.8-7.7) Lymphocytes # (Auto) 1.3 x10^3/uL (1.0-4.8) Monocytes # (Auto) 0.4 x10^3/uL (0.0-1.1) Eosinophils # (Auto) 0.2 x10^3/uL (0.0-0.7) Basophils # (Auto) 0.0 x10^3/uL (0.0-0.2) Glucose (Fingerstick) 276 mg/dL (70-99) 83 mg/dL (70-99) Micro Microbiology 07/29/21 Blood Culture - Preliminary, Resulted NO GROWTH AFTER 1 DAY Objective Assessment IMPRESSION: 1. Fever, most likely from aspiration pneumonia. 2. Nausea, vomiting. 3. Aspiration pneumonia. 4. Bowel obstruction. Status post laparoscopic surgery 5. Acute kidney injury. 6. Diabetes. 7. Hypertension. Plan Plan of Care cont antibiotics can be switched over to the oral Augmentin able to tolerate p.o. intake cont supportive care OTONIEL ABBASI MD Aug 04, 2021 17:42
[2021-08-04] MEDS: LACTOBACILLUS RHAMNOSUS GG 1 CAPSULE. PO SCH (21:44)
[2021-08-04] MEDS: ATORVASTATIN CALCIUM 40 MG TABLET. PO SCH (21:45)
[2021-08-05] MEDS: PIPERACILLIN/TAZOBACTAM 3.375 GM in IV NORMAL SALINE 50ML 50 ML IV SCH ×5 (00:07→23:49)
[2021-08-05] MEDS: METOPROLOL IV PUSH 5 MG/5 ML VIAL. IVP SCH ×3 (00:07→12:55)
[2021-08-05] MEDS: INSULIN LISPRO 300 UNITS/3 ML VIAL. SQ SCH ×10 (00:11→23:48)
[2021-08-05] MEDS: hydrALAZINE 20 MG/ML VIAL. IVP PRN (02:23)
[2021-08-05 03:00] VITALS: BP 182/97
[2021-08-05] MEDS: AA 4.25 %/CALCIUM/LYTES/D5W 1,000 ML IV SCH ×3 (03:00→23:49)
[2021-08-05 05:17] LABS: CALCIUM 8.7 mg/dL (8.5-10.1); CREATININE 1.1 mg/dL (0.6-1.0); GFR 58.3; POTASSIUM 4.2 mmol/L (3.5-5.1)
[2021-08-05 07:00] VITALS: BP 149/87
--- NOTE | 2021-08-05 08:21 | PDOC ---
Infectious Disease Note Subjective: Subjective pt is feeling better, no abd pain, states she is hungry Vital Signs: Vital Signs Vital Signs Date Time Temp Pulse Resp B/P (MAP) Pulse Ox O2 Delivery O2 Flow Rate FiO2 08/05/21 05:49 99 165/96 08/05/21 03:00 98.9 20 94 Room Air 98.9 Physical Exam: PHYSICAL EXAM GENERAL: Alert, oriented female, not in distress. HEENT: NAD. NECK: Supple, no JVP, no lymphadenopathy. LUNGS: Clear. HEART: S1, S2, regular. ABDOMEN: Soft, nontender, no organomegaly. EXTREMITIES: No edema or cyanosis. SKIN: Unremarkable. NEUROLOGIC: The patient is alert, awake, and appropriate. No focal neurologic deficit. Medications: Inpatient Meds: Medications reviewed. Labs: Lab Laboratory Tests Test 08/04/21 11:44 08/04/21 16:29 08/04/21 20:34 08/05/21 00:02 Glucose (Fingerstick) 276 mg/dL (70-99) 83 mg/dL (70-99) 185 mg/dL (70-99) 209 mg/dL (70-99) Test 08/05/21 04:10 08/05/21 04:33 Sodium Level 134 mmol/L (136-145) Potassium Level 4.2 mmol/L (3.5-5.1) Chloride Level 100 mmol/L (98-107) Carbon Dioxide Level 24 mmol/L (21-32) Anion Gap 10 (6-14) Blood Urea Nitrogen 25 mg/dL (7-20) Creatinine 1.1 mg/dL (0.6-1.0) Estimated GFR (Cockcroft-Gault) 58.3 Glucose Level 263 mg/dL (70-99) Calcium Level 8.7 mg/dL (8.5-10.1) Glucose (Fingerstick) 267 mg/dL (70-99) Objective: Assessment: 1. Fever, most likely from aspiration pneumonia. 2. Nausea, vomiting. 3. Aspiration pneumonia. 4. Bowel obstruction. Status post laparoscopic surgery 5. Acute kidney injury. 6. Diabetes. 7. Hypertension. Plan: Plan of Care cont antibiotics can be switched over to the oral Augmentin able to tolerate p.o. intake cont supportive care OMAR ABBASI MD Aug 05, 2021 08:21
[2021-08-05] MEDS: FLUTICASONE 50MCG/NASAL SPRAY 16GM BOTTLE. NS SCH ×2 (09:09→21:14)
[2021-08-05] MEDS: LACTOBACILLUS RHAMNOSUS GG 1 CAPSULE. PO SCH ×2 (09:09→21:14)
[2021-08-05] MEDS: ASPIRIN ENTERIC COATED 81 MG TABLET.DR. PO SCH (09:09)
[2021-08-05] MEDS: POLYETHYLENE GLYCOL 3350 17 GM PACKET. PO SCH (09:09)
[2021-08-05] MEDS: LINAGLIPTIN 5 MG TABLET PO SCH (09:10)
[2021-08-05] MEDS: ENOXAPARIN 40 MG/0.4 ML SYRINGE. SQ SCH (09:10)
--- NOTE | 2021-08-05 09:35 | PDOC ---
PROGRESS NOTES Date of Service: DATE: 08/05/21 TIME: 09:34 Subjective Subjective tolerating clear liquid diet Objective Objective Vital Signs Date Time Temp Pulse Resp B/P (MAP) Pulse Ox O2 Delivery O2 Flow Rate FiO2 08/05/21 09:09 89 149/87 08/05/21 07:00 98.7 20 94 Room Air 98.7 Intake and Output 08/05/21 07:00 Intake Total 1470 ml Output Total 1830 ml Balance -360 ml Intake Oral 1470 ml Output Urine Total 1830 ml Physical Exam Abdomen: Normal bowel sounds, Soft, No tenderness Heart: Regular rate, Normal S1, Normal S2, No murmurs, Gallops Extremities: No clubbing, No cyanosis, No edema, Normal pulses, No tenderness/swelling General: Alert, Oriented X3, Cooperative, No acute distress HEENT: Other (NGT) Lungs: Clear to auscultation, Normal air movement MUSCULOSKELETAL: Osteoarthritic changes both hands Neck: No JVD Neuro: Normal speech, Sensation intact Psych/Mental Status: Mental status NL, Mood NL Skin: No significant lesion COMMENT NGT clamped Diagnosis Problem List Problems Medical Problems: (1) Nausea & vomiting Status: Acute (2) SBO (small bowel obstruction) Status: Acute RENAL FAILURE: Acute (Acute tubular necrosis) Assessment Assessment Problems Medical Problems: (1) Nausea & vomiting Status: Acute (2) SBO (small bowel obstruction) Status: Acute FINAL IMPRESSION: fevers ? aspiration 1. Abdominal pain, small bowel obstruction. 2. Acute renal insufficiency. Creatinine 4, normal creatinine is around 1.5. 3. Hypertension. 4. Diabetes. 5. Hyperlipidemia. 6. History of chronic heart failure, systolic; but last echocardiogram shows good improvement 50% in 2020. PLAN: full liquids today d/c NGT today labs good. d/c iv antibiotics Small bowel obstruction improved small bowel series shows a small segment of enteritis s/p diagnostic Laproscopic surgery POD #5 distal small bowel narrowing due to enteritis GI consult appreciated.? embolic due to paroxysmal atrial fibrillation. Recommended to continue observation and present management. Diabetes mellitus BS 200 range. Not controlled. Continue sliding scale insulin. Increase insulin. Patient is still n.p.o. and getting IV fluids. Discussed with pharmacist. Start Clinimix. wean off iv antibiotics. Paroxysmal atrial fibrillation . Transaction Processor recommends IV metoprolol as needed for rate control. Plan Plan of Care Problems Medical Problems: (1) Nausea & vomiting Status: Acute (2) SBO (small bowel obstruction) Status: Acute Comment Review of Relevant I have reviewed the following items shaan (where applicable) has been applied. Labs Laboratory Tests Test 08/04/21 11:44 08/04/21 16:29 08/04/21 20:34 08/05/21 00:02 Glucose (Fingerstick) 276 mg/dL (70-99) 83 mg/dL (70-99) 185 mg/dL (70-99) 209 mg/dL (70-99) Test 08/05/21 04:10 08/05/21 04:33 08/05/21 08:24 Sodium Level 134 mmol/L (136-145) Potassium Level 4.2 mmol/L (3.5-5.1) Chloride Level 100 mmol/L (98-107) Carbon Dioxide Level 24 mmol/L (21-32) Anion Gap 10 (6-14) Blood Urea Nitrogen 25 mg/dL (7-20) Creatinine 1.1 mg/dL (0.6-1.0) Estimated GFR (Cockcroft-Gault) 58.3 Glucose Level 263 mg/dL (70-99) Calcium Level 8.7 mg/dL (8.5-10.1) Glucose (Fingerstick) 267 mg/dL (70-99) 227 mg/dL (70-99) Microbiology 07/30/21 Urine Culture - Final, Complete 07/29/21 Blood Culture - Final, Complete NO GROWTH AFTER 5 DAYS Medications Current Medications Enoxaparin Sodium (Lovenox 40mg Syringe) 40 mg Q24H SQ Last administered on 08/05/21at 09:10; Start 08/05/21 at 09:00 Hydralazine HCl (Apresoline) 50 mg TID PO Last administered on 08/05/21at 09:09; Start 08/04/21 at 14:00 Lactobacillus Rhamnosus (Culturelle) 1 cap BID PO Last administered on 08/05/21at 09:09; Start 08/04/21 at 21:00 Polyethylene Glycol (miraLAX PACKET) 17 gm DAILY PO Last administered on 08/05/21at 09:09; Start 08/04/21 at 11:00 Vitals/I & O Vital Sign - Last 24 Hours 08/04/21 08/04/21 08/04/21 08/04/21 11:00 12:44 14:50 15:00 Temp 98.7 98.8 98.7 98.8 Pulse 91 91 87 87 Resp 16 16 B/P (MAP) 172/98 (122) 172/98 188/101 188/101 (130) Pulse Ox 97 99 O2 Delivery Room Air Room Air 08/04/21 08/04/21 08/04/21 08/04/21 15:30 18:05 18:37 19:00 Temp 97.6 97.6 Pulse 92 94 79 91 B/P (MAP) 156/82 (106) 205/109 171/89 (116) 198/126 (150) Pulse Ox 97 O2 Delivery Room Air 08/04/21 08/04/21 08/04/21 08/04/21 19:25 20:00 21:45 21:47 Pulse 91 95 95 B/P (MAP) 198/126 185/95 185/95 O2 Delivery Room Air 08/04/21 08/05/21 08/05/21 08/05/21 23:22 00:07 02:23 03:00 Temp 98.4 98.9 98.4 98.9 Pulse 89 89 86 86 Resp 20 20 B/P (MAP) 188/93 (124) 179/95 182/97 182/97 (125) Pulse Ox 95 94 O2 Delivery Room Air Room Air 08/05/21 08/05/21 08/05/21 08/05/21 05:49 07:00 09:09 09:09 Temp 98.7 98.7 Pulse 99 89 89 89 Resp 20 B/P (MAP) 165/96 149/87 (107) 149/87 149/87 Pulse Ox 94 O2 Delivery Room Air Intake and Output 08/04/21 08/04/21 08/05/21 15:00 23:00 07:00 Intake Total 650 ml 320 ml 500 ml Output Total 450 ml 480 ml 900 ml Balance 200 ml -160 ml -400 ml Justifications for Admission Other Justification LEXX RODRIGEZ MD Aug 05, 2021 09:35
--- NOTE | 2021-08-05 09:41 | PDOC ---
Date of Service: DATE: 08/05/21 TIME: 09:33 Subjective: Subjective: Feels okay, doing okay with liquids. Flatus, no stool. No abd pain. Objective: Vital Signs: Vital Signs Date Time Temp Pulse Resp B/P (MAP) Pulse Ox O2 Delivery O2 Flow Rate FiO2 08/05/21 09:09 89 149/87 08/05/21 07:00 98.7 20 94 Room Air 98.7 Labs: Laboratory Tests Test 08/04/21 11:44 08/04/21 16:29 08/04/21 20:34 08/05/21 00:02 Glucose (Fingerstick) 276 mg/dL 83 mg/dL 185 mg/dL 209 mg/dL Test 08/05/21 04:10 08/05/21 04:33 08/05/21 08:24 Sodium Level 134 mmol/L Potassium Level 4.2 mmol/L Chloride Level 100 mmol/L Carbon Dioxide Level 24 mmol/L Anion Gap 10 Blood Urea Nitrogen 25 mg/dL Creatinine 1.1 mg/dL Estimated GFR (Cockcroft-Gault) 58.3 Glucose Level 263 mg/dL Calcium Level 8.7 mg/dL Glucose (Fingerstick) 267 mg/dL 227 mg/dL BLOOD CULTURE Final NO GROWTH AFTER 5 DAYS PE: GEN: NAD - was asleep LUNGS: CTAB HEART: RRR ABD: soft, non-tender NEURO/PSYCH: A & O 3 A/P: SBO/enteritis - possibly related to A Fib/embolic disease -- Continue support. Looks like plans to advance to full liquids. Justicifation of Admission Dx: Justifications for Admission: Justification of Admission Dx: Yes NITZA WILCOX Aug 05, 2021 09:41
--- NOTE | 2021-08-05 10:38 | PDOC ---
DORIS LEMOS TITLE LAWYER 08/05/21 1038: CARDIO Progress Notes Date and Time Date of Service 08/05/21 Time of Evaluation 1210 Subjective Subjective: No Chest Pain, No shortness of breath, No Palpitations Vitals Vitals Vital Signs Date Time Temp Pulse Resp B/P (MAP) Pulse Ox O2 Delivery O2 Flow Rate FiO2 08/05/21 09:09 89 149/87 08/05/21 08:00 Room Air 08/05/21 07:00 98.7 20 94 98.7 Weight Weight [ ] Input and Output Intake and Output Intake and Output 08/05/21 07:00 Intake Total 1470 ml Output Total 1830 ml Balance -360 ml Intake Oral 1470 ml Output Urine Total 1830 ml Laboratory Labs Laboratory Tests Test 08/04/21 11:44 08/04/21 16:29 08/04/21 20:34 08/05/21 00:02 Glucose (Fingerstick) 276 mg/dL (70-99) 83 mg/dL (70-99) 185 mg/dL (70-99) 209 mg/dL (70-99) Test 08/05/21 04:10 08/05/21 04:33 08/05/21 08:24 Sodium Level 134 mmol/L (136-145) Potassium Level 4.2 mmol/L (3.5-5.1) Chloride Level 100 mmol/L (98-107) Carbon Dioxide Level 24 mmol/L (21-32) Anion Gap 10 (6-14) Blood Urea Nitrogen 25 mg/dL (7-20) Creatinine 1.1 mg/dL (0.6-1.0) Estimated GFR (Cockcroft-Gault) 58.3 Glucose Level 263 mg/dL (70-99) Calcium Level 8.7 mg/dL (8.5-10.1) Glucose (Fingerstick) 267 mg/dL (70-99) 227 mg/dL (70-99) Microbiology Micro Microbiology 07/30/21 Urine Culture - Final, Complete 07/29/21 Blood Culture - Final, Complete NO GROWTH AFTER 5 DAYS Review of Systems Constitutional: yes: weakness, alert Ears/Nose/Throat: Yes: no symptom reported Eyes: Yes: no symptom reported Pulmonary: Yes no symptom reported Cardiovascular: Yes no symptom reported Gastrointestional: Yes: nausea, abdominal pain Genitourinary: Yes: no symptom reported Musculoskeletal: Yes: no symptom reported Skin: Yes no symptom reported Psychiatric/Neurological: Yes: no symptom reported Physical Exam HEENT: Neck Supple W Full Motion, Other (NGT) Chest: Symmetric LUNGS: Clear to Auscultation Heart: RRR Abdomen: Soft N/T Extremities: No Edema Neurology: alert, oriented, follow commands Assessment Assessment 1. Abdominal pain; CT with SBO. s/p diagnostic laparoscopy. noted with enteritis 2. PAFIB with RVR; new finding in setting of above. Converted back to SR and is maintaining. TSH WNL 3. H/o severe cardiomyopathy; LVEF 20% in 2009. s/p LV recovery. Most recent echo 03/05 with normalized LV function. Repeat echo this admission with LVEF 45% 4. Hypertension; controlled overall 5. Hyperlipidemia; stating 6. Diabetes, II 7. CECELIA on CKD; improving Recommendations Convert metoprolol to Torpol given CMP Add ACEi upon discharge Consider outpatient event monitor to note AFIB burden, guide therapy Outpatient ischemic evaluation Supportive care Justicifation of Admission Dx: Justifications for Admission: Justification of Admission Dx: Yes CALEB CORONADO MD 08/05/21 1740: CARDIO Progress Notes Assessment Assessment Patient seen and examined I agree with our nurse practitioners assessment and plan. Abdominal pain; SBO. s/p diagnostic laparoscopy. As per the surgical service. PAFIB with RVR; new finding in setting of above. Converted back to SR and is maintaining. TSH WNL. Outpatient monitor. H/o severe cardiomyopathy; LVEF 20% in 2009. s/p LV recovery. Most recent echo 03/05 with normalized LV function. Repeat echo this admission with LVEF 45%. Converting to Toprol as her beta-chilo. Future treatment with ACEi. Hypertension; controlled overall Hyperlipidemia; statin Diabetes, II CECELIA on CKD; monitoring lab, improving DORIS LEMOS APRN Aug 05, 2021 10:38 CALEB CORONADO MD Aug 05, 2021 17:40
[2021-08-05 11:00] VITALS: BP 122/79
--- NOTE | 2021-08-05 12:20 | NUR ---
Dr Alfredo paged, he states to start one more bag of clinimax and then ok to discontinue.
--- NOTE | 2021-08-05 13:19 | PDOC ---
AGBY FITZGERALD GEAR SETTER 08/05/21 1319: SURGICAL PROGRESS NOTE DATE: 08/05/21 TIME: 13:18 Subjective feels fine + flatus, no stool tolerating clears Vital Signs Vital Signs Date Time Temp Pulse Resp B/P (MAP) Pulse Ox O2 Delivery O2 Flow Rate FiO2 08/05/21 12:55 98 144/76 08/05/21 11:00 97.9 20 96 Room Air 97.9 I&O Intake and Output 08/05/21 07:00 Intake Total 1470 ml Output Total 1830 ml Balance -360 ml Intake Oral 1470 ml Output Urine Total 1830 ml General: Alert, Oriented X3, Cooperative Abdomen: Soft, Other (ND) Labs Laboratory Tests Test 08/03/21 16:50 08/03/21 21:02 08/03/21 23:47 08/04/21 03:56 Glucose (Fingerstick) 189 mg/dL (70-99) 231 mg/dL (70-99) 185 mg/dL (70-99) 247 mg/dL (70-99) Test 08/04/21 07:05 08/04/21 07:35 08/04/21 11:44 08/04/21 16:29 Sodium Level 138 mmol/L (136-145) Potassium Level 4.4 mmol/L (3.5-5.1) Chloride Level 103 mmol/L (98-107) Carbon Dioxide Level 26 mmol/L (21-32) Anion Gap 9 (6-14) Blood Urea Nitrogen 20 mg/dL (7-20) Creatinine 1.1 mg/dL (0.6-1.0) Estimated GFR (Cockcroft-Gault) 58.3 Glucose Level 230 mg/dL (70-99) Calcium Level 8.3 mg/dL (8.5-10.1) White Blood Count 6.4 x10^3/uL (4.0-11.0) Red Blood Count 4.03 x10^6/uL (3.50-5.40) Hemoglobin 11.3 g/dL (12.0-15.5) Hematocrit 35.1 % (36.0-47.0) Mean Corpuscular Volume 87 fL (79-100) Mean Corpuscular Hemoglobin 28 pg (25-35) Mean Corpuscular Hemoglobin Concent 32 g/dL (31-37) Red Cell Distribution Width 14.1 % (11.5-14.5) Platelet Count 240 x10^3/uL (140-400) Neutrophils (%) (Auto) 69 % (31-73) Lymphocytes (%) (Auto) 21 % (24-48) Monocytes (%) (Auto) 7 % (0-9) Eosinophils (%) (Auto) 3 % (0-3) Basophils (%) (Auto) 0 % (0-3) Neutrophils # (Auto) 4.4 x10^3/uL (1.8-7.7) Lymphocytes # (Auto) 1.3 x10^3/uL (1.0-4.8) Monocytes # (Auto) 0.4 x10^3/uL (0.0-1.1) Eosinophils # (Auto) 0.2 x10^3/uL (0.0-0.7) Basophils # (Auto) 0.0 x10^3/uL (0.0-0.2) Glucose (Fingerstick) 276 mg/dL (70-99) 83 mg/dL (70-99) Test 08/04/21 20:34 08/05/21 00:02 08/05/21 04:10 08/05/21 04:33 Glucose (Fingerstick) 185 mg/dL (70-99) 209 mg/dL (70-99) 267 mg/dL (70-99) Sodium Level 134 mmol/L (136-145) Potassium Level 4.2 mmol/L (3.5-5.1) Chloride Level 100 mmol/L (98-107) Carbon Dioxide Level 24 mmol/L (21-32) Anion Gap 10 (6-14) Blood Urea Nitrogen 25 mg/dL (7-20) Creatinine 1.1 mg/dL (0.6-1.0) Estimated GFR (Cockcroft-Gault) 58.3 Glucose Level 263 mg/dL (70-99) Calcium Level 8.7 mg/dL (8.5-10.1) Test 08/05/21 08:24 08/05/21 12:19 Glucose (Fingerstick) 227 mg/dL (70-99) 102 mg/dL (70-99) Laboratory Tests Test 08/04/21 16:29 08/04/21 20:34 08/05/21 00:02 08/05/21 04:10 Glucose (Fingerstick) 83 mg/dL (70-99) 185 mg/dL (70-99) 209 mg/dL (70-99) Sodium Level 134 mmol/L (136-145) Potassium Level 4.2 mmol/L (3.5-5.1) Chloride Level 100 mmol/L (98-107) Carbon Dioxide Level 24 mmol/L (21-32) Anion Gap 10 (6-14) Blood Urea Nitrogen 25 mg/dL (7-20) Creatinine 1.1 mg/dL (0.6-1.0) Estimated GFR (Cockcroft-Gault) 58.3 Glucose Level 263 mg/dL (70-99) Calcium Level 8.7 mg/dL (8.5-10.1) Test 08/05/21 04:33 08/05/21 08:24 08/05/21 12:19 Glucose (Fingerstick) 267 mg/dL (70-99) 227 mg/dL (70-99) 102 mg/dL (70-99) Problem List Problems Medical Problems: (1) Nausea & vomiting Status: Acute (2) SBO (small bowel obstruction) Status: Acute Assessment/Plan advancing diet Justicifation of Admission Dx: Justifications for Admission: Justification of Admission Dx: Yes CEE LOVE MD 08/05/21 7554: SURGICAL PROGRESS NOTE Assessment/Plan Agree with Misbah's assessment and plan GABY FITZGERALD APRN Aug 05, 2021 13:19 CEE LOVE MD Aug 05, 2021 17:24
--- NOTE | 2021-08-05 14:12 | NUR ---
SS following up with discharge planning. SS reviewed pt chart and discussed with pt RN. Pt is currently on room air. COVID19 negative. Pt on IV Zosyn and Clinimix. PT/OT ordered. Pt having increased blood pressure and increased blood sugars today. PEG removed yesterday. Pt on full liquid diet. Not ready. SS will continue to follow for discharge planning.
[2021-08-05 15:00] VITALS: BP 124/66
[2021-08-05 19:00] VITALS: BP 155/86
[2021-08-05] MEDS: ATORVASTATIN CALCIUM 40 MG TABLET. PO SCH (21:14)
[2021-08-05 23:00] VITALS: BP 165/94
[2021-08-06 03:00] VITALS: BP 147/83
[2021-08-06] MEDS: INSULIN LISPRO 300 UNITS/3 ML VIAL. SQ SCH ×5 (04:41→12:19)
[2021-08-06] MEDS: PIPERACILLIN/TAZOBACTAM 3.375 GM in IV NORMAL SALINE 50ML 50 ML IV SCH (06:11)
[2021-08-06 07:00] VITALS: BP 118/68
--- NOTE | 2021-08-06 07:47 | PDOC ---
SURGICAL PROGRESS NOTE DATE: 08/06/21 TIME: 07:46 Subjective Patient states she is doing well passing flatus no bowel movement appears to be tolerating clear liquids Vital Signs Vital Signs Date Time Temp Pulse Resp B/P (MAP) Pulse Ox O2 Delivery O2 Flow Rate FiO2 08/06/21 03:00 98.3 101 16 147/83 (104) 94 Room Air 98.3 I&O Intake and Output 08/06/21 07:00 Intake Total 960 ml Output Total 1980 ml Balance -1020 ml Intake Oral 960 ml Output Urine Total 1480 ml Emesis 500 ml PATIENT HAS A GTZ: Yes General: Alert, Oriented X3, Cooperative, No acute distress Abdomen: Normal bowel sounds, Soft, No tenderness Labs Laboratory Tests Test 08/04/21 11:44 08/04/21 16:29 08/04/21 20:34 08/05/21 00:02 Glucose (Fingerstick) 276 mg/dL (70-99) 83 mg/dL (70-99) 185 mg/dL (70-99) 209 mg/dL (70-99) Test 08/05/21 04:10 08/05/21 04:33 08/05/21 08:24 08/05/21 12:19 Sodium Level 134 mmol/L (136-145) Potassium Level 4.2 mmol/L (3.5-5.1) Chloride Level 100 mmol/L (98-107) Carbon Dioxide Level 24 mmol/L (21-32) Anion Gap 10 (6-14) Blood Urea Nitrogen 25 mg/dL (7-20) Creatinine 1.1 mg/dL (0.6-1.0) Estimated GFR (Cockcroft-Gault) 58.3 Glucose Level 263 mg/dL (70-99) Calcium Level 8.7 mg/dL (8.5-10.1) Glucose (Fingerstick) 267 mg/dL (70-99) 227 mg/dL (70-99) 102 mg/dL (70-99) Test 08/05/21 17:01 08/05/21 19:58 08/05/21 22:59 08/05/21 23:42 Glucose (Fingerstick) 207 mg/dL (70-99) 215 mg/dL (70-99) 152 mg/dL (70-99) 150 mg/dL (70-99) Test 08/06/21 03:04 Glucose (Fingerstick) 231 mg/dL (70-99) Laboratory Tests Test 08/05/21 08:24 08/05/21 12:19 08/05/21 17:01 08/05/21 19:58 Glucose (Fingerstick) 227 mg/dL (70-99) 102 mg/dL (70-99) 207 mg/dL (70-99) 215 mg/dL (70-99) Test 08/05/21 22:59 08/05/21 23:42 08/06/21 03:04 Glucose (Fingerstick) 152 mg/dL (70-99) 150 mg/dL (70-99) 231 mg/dL (70-99) Problem List Problems Medical Problems: (1) Nausea & vomiting Status: Acute (2) SBO (small bowel obstruction) Status: Acute Assessment/Plan Slow progression appears to be tolerating clear liquids awaiting return of bowel function Justicifation of Admission Dx: Justifications for Admission: Justification of Admission Dx: Yes CEE LOVE MD Aug 06, 2021 07:47
--- NOTE | 2021-08-06 08:39 | PDOC ---
Infectious Disease Note Subjective: Subjective pt is feeling better Vital Signs: Vital Signs Vital Signs Date Time Temp Pulse Resp B/P (MAP) Pulse Ox O2 Delivery O2 Flow Rate FiO2 08/06/21 07:00 97.8 103 18 118/68 (85) 96 Room Air 97.8 Physical Exam: PHYSICAL EXAM GENERAL: Alert, oriented female, not in distress. HEENT: NAD. NECK: Supple, no JVP, no lymphadenopathy. LUNGS: Clear. HEART: S1, S2, regular. ABDOMEN: Soft, nontender, no organomegaly. EXTREMITIES: No edema or cyanosis. SKIN: Unremarkable. NEUROLOGIC: The patient is alert, awake, and appropriate. No focal neurologic deficit. Medications: Inpatient Meds: Medications reviewed. Labs: Lab Laboratory Tests Test 08/05/21 12:19 08/05/21 17:01 08/05/21 19:58 08/05/21 22:59 Glucose (Fingerstick) 102 mg/dL (70-99) 207 mg/dL (70-99) 215 mg/dL (70-99) 152 mg/dL (70-99) Test 08/05/21 23:42 08/06/21 03:04 08/06/21 08:19 Glucose (Fingerstick) 150 mg/dL (70-99) 231 mg/dL (70-99) 249 mg/dL (70-99) Objective: Assessment: 1. Fever, most likely from aspiration pneumonia. 2. Nausea, vomiting. 3. Aspiration pneumonia. 4. Bowel obstruction. Status post laparoscopic surgery 5. Acute kidney injury. 6. Diabetes. 7. Hypertension. Plan: Plan of Care cont antibiotics can be switched over to the oral Augmentin when ready for discharge cont supportive care OMAR ABBASI MD Aug 06, 2021 08:39
[2021-08-06] MEDS: ASPIRIN ENTERIC COATED 81 MG TABLET.DR. PO SCH (08:45)
[2021-08-06] MEDS: FLUTICASONE 50MCG/NASAL SPRAY 16GM BOTTLE. NS SCH (08:45)
[2021-08-06] MEDS: LACTOBACILLUS RHAMNOSUS GG 1 CAPSULE. PO SCH (08:45)
[2021-08-06] MEDS: LINAGLIPTIN 5 MG TABLET PO SCH (08:46)
[2021-08-06] MEDS: POLYETHYLENE GLYCOL 3350 17 GM PACKET. PO SCH (08:46)
[2021-08-06] MEDS: ENOXAPARIN 40 MG/0.4 ML SYRINGE. SQ SCH (08:46)
[2021-08-06] MEDS ORDERED: METOPROLOL SUCC 24HR ER 50 MG TAB.ER.24H. PO SCH (09:00)
[2021-08-06] MEDS ORDERED: AMOX1TAB58 PO (09:16)
--- NOTE | 2021-08-06 09:17 | SNU/HH DC ---
DISCHARGE WITH HOME HEALTH DISCHARGE INFORMATION: Discharge Date: Aug 06, 2021 Final Diagnosis: Problems Medical Problems: (1) Nausea & vomiting Status: Acute (2) SBO (small bowel obstruction) Status: Acute Condition on Discharge: Stable CODE STATUS: Code Status: Full HOME HEALTH: Face to Face: I certify this patient is under my care and that I, or a nurse practitioner or physician's assistant paralegal working with me, had a face to face encounter that meets the physician face to face encounter requirements with this patient on []. Medical Complications: Other (SBO) Shelter For: Assess Cardiopulm Status RN For Eval/Treatment: Yes Physical Therapy For: Evalulation/Treatment Pt Meets Homebound Status: Poor coordination w/ amb. CHECKS AFTER DISCHARGE: Checks after discharge: Check blood press - daily, Check blood sugar, ac/hs CERTIFICATION STATEMENT: Certification Statement: Certification Statement: Based on the above finding, I certify that this patient is confined to the home and needs intermittent jail care, physical therapy and/or speech therapy, or continues to need occupational therapy.~ This patient is under my care, and I have initiated the establishment of the plan of care.~ This patient will be followed by myself or a community physician who will periodically review the plan of care. Home Meds Active Scripts Amoxicillin/Potassium Clav (AUGMENTIN 500-125 TABLET) 1 Each Tablet, 1 TAB PO BID for infection for 3 Days, #6 TAB 0 Refills Prov:LEXX RODRIGEZ MD 08/06/21 Reported Medications Aspirin (ASPIRIN EC) 81 Mg Tablet.dr, 1 TAB PO DAILY for Heart health, #30 TAB 3 Refills 07/27/21 Rosuvastatin Calcium (Rosuvastatin Calcium) 20 Mg Tablet, 1 TAB PO QHS for HLD 07/26/21 Fluticasone Propionate (FLUTICASONE PROPIONATE NASAL SPRAY) 16 Gm [place].susp, NS unknown for Allergies 07/26/21 Carvedilol (CARVEDILOL) 25 Mg Tablet, 1 TAB PO BID for HTN 07/26/21 Empagliflozin (Jardiance) 25 Mg Tablet, 1 TAB PO DAILY for DM 07/26/21 Sitagliptin Phosphate (JANUVIA) 100 Mg Tablet, 1 TAB PO DAILY for DM 07/26/21 Lisinopril (LISINOPRIL) 20 Mg Tablet, 1 TAB PO DAILY for htn 07/26/21 Discontinued Reported Medications Potassium Chloride (KLOR-CON M10) 10 Meq Tab.er.prt, unknown for supplment 07/26/21 Metformin Hcl (METFORMIN HCL) 500 Mg Tablet, 1 TAB PO BID for DM\ 07/26/21 Furosemide (FUROSEMIDE) 20 Mg Tablet, 1 TAB PO DAILY for unknown 07/26/21 LEXX RODRIGEZ MD Aug 06, 2021 09:17
--- NOTE | 2021-08-06 10:54 | PDOC ---
Date of Service: DATE: 08/06/21 TIME: 10:49 Subjective: Subjective: Little gas, no stool. "Spit up" before breakfast, then ate and tolerated. Objective: Objective: Has GI soft diet and discharge orders. Vital Signs: Vital Signs Date Time Temp Pulse Resp B/P (MAP) Pulse Ox O2 Delivery O2 Flow Rate FiO2 08/06/21 08:46 103 118/68 08/06/21 08:00 Room Air 10.0 08/06/21 07:00 97.8 18 96 97.8 Labs: Laboratory Tests Test 08/05/21 12:19 08/05/21 17:01 08/05/21 19:58 08/05/21 22:59 Glucose (Fingerstick) 102 mg/dL 207 mg/dL 215 mg/dL 152 mg/dL Test 08/05/21 23:42 08/06/21 03:04 08/06/21 08:19 Glucose (Fingerstick) 150 mg/dL 231 mg/dL 249 mg/dL PE: GEN: NAD, has emesis basin close LUNGS: CTAB HEART: RRR ABD: few quiet gurgles, soft, non-tender NEURO/PSYCH: A & O 3 A/P: SBO/enteritis - possibly related to A Fib/embolic disease -- Continue per surgery. Justicifation of Admission Dx: Justifications for Admission: Justification of Admission Dx: Yes NITZA WILCOX Aug 06, 2021 10:54
[2021-08-06 11:00] VITALS: BP 129/68
--- NOTE | 2021-08-06 11:27 | NUR ---
SS following up with discharge planning. SS reviewed pt chart and discussed with pt RN. Pt is currently on room air. COVID19 negative. GI soft diet. Discharge orders for home healthcare received. SS met with pt and discussed with pt's daughter, Kirsty, via phone and discussed discharge planning and home healthcare. Pt and pt's daughter agreeable to home healthcare with no preference of company. Discharge orders and referral phoned and faxed to [facility], ; fax [phone]. Pt's daughter notified SS that she will transport pt to home at 1700. Pt's RN notified. SS will continue to follow as needed.
--- NOTE | 2021-08-06 12:50 | PDOC ---
CARDIO Progress Notes Date and Time Date of Service 08/06/2021 Time of Evaluation 1240 Subjective Subjective: No Chest Pain, No shortness of breath, No Palpitations Vitals Vitals Vital Signs Date Time Temp Pulse Resp B/P (MAP) Pulse Ox O2 Delivery O2 Flow Rate FiO2 08/06/21 11:00 98.4 97 18 129/68 (88) 96 Room Air 98.4 08/06/21 08:00 10.0 Weight Weight [ ] Input and Output Intake and Output Intake and Output 08/06/21 07:00 Intake Total 960 ml Output Total 1980 ml Balance -1020 ml Intake Oral 960 ml Output Urine Total 1480 ml Emesis 500 ml Laboratory Labs Laboratory Tests Test 08/05/21 17:01 08/05/21 19:58 08/05/21 22:59 08/05/21 23:42 Glucose (Fingerstick) 207 mg/dL (70-99) 215 mg/dL (70-99) 152 mg/dL (70-99) 150 mg/dL (70-99) Test 08/06/21 03:04 08/06/21 08:19 08/06/21 12:03 Glucose (Fingerstick) 231 mg/dL (70-99) 249 mg/dL (70-99) 130 mg/dL (70-99) Microbiology Micro Microbiology 07/30/21 Urine Culture - Final, Complete 07/29/21 Blood Culture - Final, Complete NO GROWTH AFTER 5 DAYS Review of Systems Constitutional: yes: weakness, alert Ears/Nose/Throat: Yes: no symptom reported Eyes: Yes: no symptom reported Pulmonary: Yes no symptom reported Cardiovascular: Yes no symptom reported Gastrointestional: Yes: nausea, abdominal pain Genitourinary: Yes: no symptom reported Musculoskeletal: Yes: no symptom reported Skin: Yes no symptom reported Psychiatric/Neurological: Yes: no symptom reported Physical Exam HEENT: Neck Supple W Full Motion, Other (NGT) Chest: Symmetric LUNGS: Clear to Auscultation Heart: RRR (SR) Abdomen: Soft N/T Extremities: No Edema Neurology: alert, oriented, follow commands Assessment Assessment 1. Abdominal pain; CT with SBO. s/p diagnostic laparoscopy. noted with enteritis 2. PAFIB with RVR; new finding in setting of above. Maintaining SR. TSH WNL 3. H/o severe cardiomyopathy; LVEF 20% in 2009. s/p LV recovery. Most recent echo 03/05 with normalized LV function. Repeat echo this admission with LVEF 45% 4. Hypertension; controlled 5. Hyperlipidemia; stating 6. Diabetes, II 7. CECELIA on CKD; improving Recommendations Continue toprol Low dose lisinopril Consider outpatient event monitor to note AFIB burden, guide therapy. ASA for now Outpatient ischemic evaluation Supportive care Justicifation of Admission Dx: Justifications for Admission: Justification of Admission Dx: Yes STEVEN OLMEDO LINOLEUM MECHANIC Aug 06, 2021 12:50
[2021-08-06] MEDS ORDERED: LISINOPRIL 5 MG TABLET. PO SCH (14:00)
[2021-08-06 15:17] VITALS: BP 129/68
--- NOTE | 2021-08-06 16:44 | NUR ---
Discharge Note: MARINA KAT [facility] Discharge instructions and discharge home medications reviewed with the patient and the patient's daughter a copy given. All questions have been answered and understanding verbalized. The following instructions and handouts were given: Augmentin BID x 3 days Other home meds as directed Teaching about SBO and diagnostic laparoscopy. Seek emergent care if with severe abdominal pain, severe nausea, vomiting and fever. Discontinued lines and drains:peripheral IV intact, patient tolerated removal, no complications noted. Patient discharged to home with Dangelo BARAKAT via wheelchair on RA accompanied by family members at 1530.
--- NOTE | 2021-08-10 12:20 | PDOC ---
Provider Note Date of Service: DATE: 08/10/21 TIME: 12:19 Provider Note Discharge summary dictated.#[id number]. Justifications for Admission Other Justification LEXX RODRIGEZ MD Aug 10, 2021 12:20
--- NOTE | 2021-08-10 12:46 | DS ---
DATE OF DISCHARGE: 08/06/2021 REASON FOR ADMISSION TO THE HOSPITAL: Nausea, abdominal pain, partial small-bowel obstruction. CONSULTATIONS: Dr. Alex Perdue, Surgery; Dr. Burkett, GI; Dr. Blanco, Infectious Disease; Dr. Smith, Kidney Doctor and Dr. Roberson, Cardiology. PROCEDURES DONE: 1. Echocardiogram. 2. CT scan abdomen and pelvis. 3. Ultrasound of the kidneys. 4. Small bowel series. 5. Diagnostic laparoscopy. HOSPITAL COURSE: The patient is a 76-year-old female. The patient has a history of diabetes, history of congestive heart failure in the past, well controlled on medications. The patient was having abdominal pain, nausea, vomiting, was brought to the hospital and CT scan shows a small-bowel obstruction, dilated loops diverticulosis. The patient was seen by GI and the patient initially refused NG tube later on she was acceptable. She had a small bowel series, which shows a partial small-bowel obstruction. Followup x-ray shows contrast into the colon. The patient continues to have problem, was seen by surgery, again had NG tube to suction and was given IV fluids and she had some kidney failure, during this time was seen by Renal, improved with IV fluids. The patient's kidney condition improved to baseline. The patient since continues to have a problem, was taken to surgery on 08/01 for diagnostic laparoscopy and there was a small segment in the mid ileum, which was erythematous appearing, looks like enteritis and otherwise there is no obstruction or no ligaments causing any conditions at this point. Surgery does not feel that she needed any small bowel resection at that point. The patient was seen by GI and the GI thinks that probably it could be a some embolic source causing some local enteritis, does not think it was ulcerative colitis or Crohn's. The patient seen by Cardiology and echocardiogram shows a good left ventricular function 45%. At one time, there was a small paroxysmal AFib, but that controlled. The patient's NG tube was removed and she was started on a clear liquid diet. She was tolerating advanced to full liquid diet. She was tolerating advanced to GI soft diet and the patient was anxious to go home. She wants to go home and see how she does. The patient was discharged and follow up with Cardiology and also GI and General Surgery, also will be discharged home with home health and advised to stay on between full liquid to soft diet depending on how she tolerates that. FINAL DIAGNOSES: 1. Partial small-bowel obstruction, small area of mid ileum, which has enteritis like picture. The patient had a diagnostic laparoscopy. 2. Acute renal insufficiency, improved with hydration. 3. Diabetes. 4. History of congestive heart failure, improved, 45% ejection fraction. 5. Paroxysmal atrial fibrillation. Would recommend Cardiology to do outpatient Holter monitoring, burden of AFib. 6. Small area of mid ileum more like enteritis. GI was thinking could be a small embolic versus ischemic event. DISPOSITION: At this point, the patient is discharged home with home health and stay on full liquid to between GI soft diet and see how she improves in the next couple of days at home. Follow up with GI. ADDENDUM: In the meantime, the patient had in the hospital stay, developed fever, was seen by ID, was found to have aspiration pneumonia, was treated with antibiotics with Zosyn for [address]: Cruz TID: [id number]
== END 2021-08-06 15:30 | disposition home health service (06) | DRG 356 ==
LOC: ER 22:55 → 5 SOUTH 07-26 05:03
PROVIDERS: ADMIT Internal Medicine; ATTEND Internal Medicine
PROC: 0WJP4ZZ Inspection of Gastrointestinal Tract, Percutaneous Endoscopic Approach (ICD-10-PCS; 2021-08-01)
PROC: 0D9670Z Drainage of Stomach with Drainage Device, Via Natural or Artificial Opening (ICD-10-PCS; principal; 2021-08-01 14:00)
DX: K56.600 Partial intestinal obstruction, unspecified as to cause (principal); J69.0 Pneumonitis due to inhalation of food and vomit; N17.0 Acute kidney failure with tubular necrosis; E87.0 Hyperosmolality and hypernatremia; E87.3 Alkalosis; I13.0 Hypertensive heart and chronic kidney disease with heart failure and stage 1 through stage 4 chronic kidney disease, or unspecified chronic kidney disease; I42.8 Other cardiomyopathies; I50.22 Chronic systolic (congestive) heart failure; J98.11 Atelectasis; E10.22 Type 1 diabetes mellitus with diabetic chronic kidney disease; E10.65 Type 1 diabetes mellitus with hyperglycemia; E78.5 Hyperlipidemia, unspecified; K52.9 Noninfective gastroenteritis and colitis, unspecified; E86.0 Dehydration; K57.30 Diverticulosis of large intestine without perforation or abscess without bleeding; I48.0 Paroxysmal atrial fibrillation; K80.20 Calculus of gallbladder without cholecystitis without obstruction; N18.30 Chronic kidney disease, stage 3 unspecified; Z53.20 Procedure and treatment not carried out because of patient's decision for unspecified reasons; Z79.4 Long term (current) use of insulin; Z82.49 Family history of ischemic heart disease and other diseases of the circulatory system; Z83.3 Family history of diabetes mellitus; Z91.14 Patient's other noncompliance with medication regimen; Z96.649 Presence of unspecified artificial hip joint; M19.90 Unspecified osteoarthritis, unspecified site; Z79.84 Long term (current) use of oral hypoglycemic drugs; Z20.822 Contact with and (suspected) exposure to COVID-19
CPT/HCPCS: 36415; 71045; 74018; 74021; 74022; 74176; 74250; 76770; 80048; 80053; 80061; 81001; 82010; 82962; 83605; 83735; 84100; 84443; 85025; 87040; 87086; 87426; 93005; 93306; A4209; A4314; A4340; A4364; A4930; A6219; J0330; J0360; J1650; J1815; J2250; J2370; J2405; J2543; J2704; J2710; J3010; J3475; J3480; J3490; J7030; J7042; J7050; J7120; Q9967; U0003; U0005; 97116-GP; 97530-GO; 97535-GO; 99285-25; G0378